=== PATIENT | female | born 1980 | race Caucasian/White ===

== ENCOUNTER 2023-09-14 12:08 | Observation (INO) ==
[2023-09-14 12:53] LABS: Basophils # (auto) 0.08 K/uL (0.00-0.20); Basophils % (auto) 0.8 %; Eosinophils # (auto) 0.16 K/uL (0.00-0.50); Eosinophils % (auto) 1.6 %; Hematocrit (blood only) 41.6 % (37.0-47.0); Hemoglobin 12.9 g/dl (12.0-16.0); Immature Granulocytes # (auto) 0.15 K/uL (0.01-0.20); Immature Granulocytes % (auto) 1.5 %; Lymphocytes # (auto) 1.36 K/uL (1.20-3.40); Lymphocytes % (auto) 13.8 %; Mean Corpuscular Hemoglobin 24.4 pg (25.0-34.0); Mean Corpuscular Volume 78.8 fL (80.0-100.0); Mean Platelet Volume 10.3 fL (9.4-12.4); Monocytes # (auto) 0.78 K/uL (0.11-0.59); Monocytes % (auto) 7.9 %; Neutrophils % (auto) 74.4 %; Platelet Count 407 K/uL (130-400); RDW Coefficient of Variation 16.3 % (11.5-14.5); RDW Standard Deviation 45.6 fL (36.4-46.3); Red Blood Count 5.28 M/uL (4.20-5.40); White Blood Count 9.83 K/ul (4.8-10.8)
[2023-09-14] MEDS: hydrALAZINE HCL 20 MG/ML VIAL IV STA (12:53)
--- NOTE | 2023-09-14 13:02 | Emergency Department Note ---
Impression & Plan Hypertensive emergency, Acute CVA (cerebrovascular accident) ED Provider Note HISTORY OF PRESENT ILLNESS: Patient is a 43-year-old female presenting with hypertension. Patient was referred by her primary care provider. She does not take any medications normally. Reports she has not seen a doctor in a number of years and was following up given a few weeks of lethargy and fatigue. At the primary care provider's office, her blood pressure was significantly elevated and they referred her to the emergency department for further evaluation. Patient reports she has been feeling very rundown over the last few weeks. Reports that she has had some gait instability and has been occasionally bumping into things accidentally. She thought she just had a viral illness which was why she was following up in the outpatient setting attempting to establish care. She reports she has a history of high blood pressure and was on lisinopril 30 mg, but she has not been on this for over 6 years. Reports her blood pressures had improved and she was taken off of the medication. She states she has not seen a doctor since. Denies any chest pain or shortness of breath. Denies any dysuria or hematuria. Denies any headache or changes in vision. ROS: as above PHYSICAL EXAM: Constitutional: Patient appears in no acute distress. HENT: Head: Normocephalic and atraumatic. Eyes: EOMI, PERRL Mouth/Throat: Mucous membranes moist. Neck: Trachea midline. Neck supple. Cardiovascular: RRR, No murmurs, rubs or gallops. Intact distal pulses. Pulmonary/Chest: No respiratory distress. Breath sounds clear and equal bilaterally. No wheezes or rales. Abdominal: Abdomen soft, no tenderness, rebound or guarding. Musculoskeletal: No edema, tenderness or deformity noted. Skin: Warm and dry. No rash, erythema, pallor or cyanosis Psychiatric: Appropriate mood and affect for situation. Neurological: Alert and keenly responsive. CN II-XII grossly intact, moving all extremities equally and fully. MDM: - Vitals signs showed hypertension and tachycardia. - History obtained via patient. History as above. - Chronic conditions affecting care: HTN - Differential diagnoses include, but are not limited to: AUSTYN; ACS; CVA; intracranial hemorrhage; electrolyte abnormality; thyroid disease - Order placed for continuous cardiac monitoring. At this time, monitor showed rate of 87 bpm with normal sinus rhythm, per my interpretation. - External medical records reviewed. Family practice office visit note dated for today was reviewed. Patient was seen and evaluated due to not feeling well. She had complained of feeling very fatigued and off balance. She reported a slight headache to the provider at the clinic this morning. Her blood pressure in clinic was 218/118. - EKG interpreted by myself showed normal sinus rhythm. Rate 95 bpm. QT 360. No acute ischemic changes. - Laboratory workup interpreted by myself showed normal WBC; normal PT/INR; stable electrolytes; normal troponin; normal TSH - CXR negative for pneumonia, per my interpretation - CT head wo contrast negative for acute intracranial hemorrhage. Noted to have a 1.1 cm hypodense focus in the right frontal lobe concerning for a subacute to acute infarct. Also noted to have an 8 mm hypodense focus in the left thalamus which favors an old infarct, per radiology. - Patient initially given 10 mg IV hydralazine for BP control. She is not a TNK candidate, given that her symptoms have been ongoing for weeks. Concerned about lowering the patient's blood pressure too quickly, is unknown how long her pressures have been over 200 systolic. After 10 mg of hydralazine, the patient's blood pressure did come down to the 230s. Her heart rate is now in the 80s. She will need admission for further evaluation and management to slowly decrease of her blood pressure. She would likely benefit from labetalol dosing, but again do not want to decrease the patient's blood pressure too rapidly given her significant hypertension. - Discussion was had with manager of case about patient's case and need for admission - Hospitalist consulted for admission - Patient admitted to [facility]ist service for further evaluation and management. ASSESSMENT AND PLAN: Diagnosis: Hypertensive emergency; acute CVA Plan: admit Past Med/Surg History Problem List (Updated 09/14/23 @ 13:38 by Carolynn Zavala MD) Acute CVA (cerebrovascular accident) (Acute) Hypertensive emergency (Acute) Social History Smoking Status: Never smoker Feels Safe at Home: Yes Allergies Allergies Allergy/AdvReac Type Severity Reaction Status Date / Time No Known Allergies Allergy Verified 05/16/02 14:40 [id number] Allergy Unknown Uncoded 05/16/02 15:02 N Allergy Unknown Uncoded 05/16/02 15:02 Results & Data (ED) Vital Signs Vital Signs - 24 hr 09/14/23 12:10 09/14/23 12:56 09/14/23 12:59 Temperature 36.7 C Temperature Source Temporal Artery Scan Pulse Rate 111 H Pulse Rate [Apical] 86 Pulse Rhythm Regular Pulse Strength Normal Respiratory Rate 20 18 Respiratory Effort / Characteristics Non-Labored Spontaneous Non-Labored Spontaneous Respiratory Depth Normal Normal Respiratory Pattern Regular Blood Pressure 252/158 H Blood Pressure [Left Arm] 237/141 H Blood Pressure Mean 189 Blood Pressure Mean [Left Arm] 173 Pulse Oximetry 100 100 100 Oxygen Delivery Method Room Air Room Air Room Air Sepsis Recent Fever Within 48 Hours No Sepsis New/Unexplained Change in Mental Status N/A Sepsis Action Taken by Nursing No Action Required 09/14/23 13:19 Temperature Temperature Source Pulse Rate 85 Pulse Rate [Apical] Pulse Rhythm Pulse Strength Respiratory Rate Respiratory Effort / Characteristics Respiratory Depth Respiratory Pattern Blood Pressure Blood Pressure [Left Arm] Blood Pressure Mean Blood Pressure Mean [Left Arm] Pulse Oximetry Oxygen Delivery Method Sepsis Recent Fever Within 48 Hours Sepsis New/Unexplained Change in Mental Status Sepsis Action Taken by Nursing Laboratory Data 09/14/23 12:16 09/14/23 12:16 Lab Results 09/14/23 Range/Units 12:16 WBC 9.83 (4.8-10.8) K/ul RBC 5.28 (4.20-5.40) M/uL Hgb 12.9 (12.0-16.0) g/dl Hct 41.6 (37.0-47.0) % MCV 78.8 L (80.0-100.0) fL MCH 24.4 L (25.0-34.0) pg MCHC 31.0 L (32.0-36.0) g/dL RDW Std Deviation 45.6 (36.4-46.3) fL RDW Coeff of Lary 16.3 H (11.5-14.5) % Plt Count 407 H (130-400) K/uL MPV 10.3 (9.4-12.4) fL Immature Gran % (Auto) 1.5 % Neut % (Auto) 74.4 % Lymph % (Auto) 13.8 % Whitman % (Auto) 7.9 % Eos % (Auto) 1.6 % Baso % (Auto) 0.8 % Neut # (Auto) 7.30 H (1.40-6.50) K/uL Lymph # (Auto) 1.36 (1.20-3.40) K/uL Whitman # (Auto) 0.78 H (0.11-0.59) K/uL Eos # (Auto) 0.16 (0.00-0.50) K/uL Baso # (Auto) 0.08 (0.00-0.20) K/uL Immature Gran # (Auto) 0.15 (0.01-0.20) K/uL PT 10.1 (9.0-12.0) Seconds INR 0.9 (0.9-1.1) APTT 24 (21-31) Seconds PTT Ratio 0.9 Sodium 138 (136-145) mmol/L Potassium 3.6 (3.5-5.1) mmol/L Chloride 104 (98-107) mmol/L Carbon Dioxide 26 (21-32) mmol/L Anion Gap 8 (3-11) BUN 16 (6-23) mg/dl Creatinine 0.92 (0.6-1.2) mg/dl Est Cr Clr Drug Dosing 73.7 ml/min Est GFR ( Amer) 87.8 ml/min Est GFR (Non-Af Amer) 75.7 ml/min BUN/Creatinine Ratio 17.4 (10-20) Glucose 96 (70-99(Fasting)) mg/dl Calcium 10.0 (8.6-10.3) mg/dl Magnesium 2.3 (1.7-2.4) mg/dl Total Bilirubin 0.7 (0.2-1.0) mg/dl AST 13 (13-39) U/L ALT 11 (7-52) U/L Alkaline Phosphatase 78 (34-104) U/L Troponin I High Sens 5.1 (0-14) pg/ml Total Protein 8.7 H (6.0-8.3) gm/dl Albumin 4.8 (3.4-5.0) gm/dl Globulin 3.9 (2.5-4.0) gm/dl Albumin/Globulin Ratio 1.2 (0.9-2) TSH 1.446 (0.300-4.500) uIu/ml SARS-CoV-2 (PCR) NEGATIVE (Negative) Influenza Type A (PCR) Negative (Neg) Influenza Type B (PCR) Negative (Neg) RSV (RT-PCR) Negative (Neg) Administered Medications Discontinued Medications Hydralazine HCl (Hydralazine Hcl 20 Mg/Ml Vial) 10 mg IV NOW STA Stop: 09/14/23 12:43 Last Admin: 09/14/23 12:53 Dose: 10 mg Documented By: WIL Imaging Data Radiologist's Impression: Head CT 09/14/23 13:02 CT OF THE HEAD WITHOUT CONTRAST CLINICAL HISTORY: Hypertension. Gait instability. COMPARISON STUDY: No previous studies for comparison. CT DOSE: 625.8 mGy.cm TECHNIQUE: Helical axial images of the head were obtained without IV contrast. Automated exposure control was utilized for the study. A dose lowering technique was utilized adhering to the principles of ALARA. FINDINGS: No acute intracranial hemorrhage, midline shift or mass effect is present. The ventricular system is normal. The basal cisterns are patent. There are no extra axial collections. An 8 mm hypodense focus within the left thalamus on image 15 of 32 is present. There is a 1.1 cm hypodense focus within the right frontal lobe on image 2432. There are no significant calvarial abnormalities. IMPRESSION: 1. No acute intracranial hemorrhage. 2. 1.1 cm hypodense focus within the right frontal lobe. This may reflect a small subacute to acute infarct. 3. 8 mm hypodense focus within the left thalamus. 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 ACT 112: Negative or not required by law. Electronically signed by: Elieser Lopez M.D. 09/14/2023 1:24 PM Discharge Plan Visit Data Chief Complaint: Hypertension Stated Complaint: HIGH BP, REF BY DOC ED Provider: Carolynn Zavala Discharge Problem: Hypertensive emergency, Acute CVA (cerebrovascular accident) Forms Stand Alone Forms: My [facility] Referrals Referrals: Huseyin Etienne MD [Physician] -
[2023-09-14 13:06] LABS: Influenza A virus by PCR Negative (Neg); Influenza B virus by PCR Negative (Neg); RSV by PCR Negative (Neg); SARS CoV2 RNA(COVID-19) Ceph NEGATIVE (Negative)
[2023-09-14 13:10] LABS: Alanine Aminotransferase 11 U/L (7-52); Albumin Globulin Ratio 1.2 (0.9-2); Albumin Level 4.8 gm/dl (3.4-5.0); Alkaline Phosphatase 78 U/L (34-104); Anion Gap 8 (3-11); Aspartate Aminotransferase 13 U/L (13-39); BUN Creatinine Ratio 17.4 (10-20); Bilirubin,Total 0.7 mg/dl (0.2-1.0); Blood Urea Nitrogen 16 mg/dl (6-23); Carbon Dioxide 26 mmol/L (21-32); Chloride 104 mmol/L (98-107); Creatinine Clr Calc Pharmacy 73.7 ml/min; Est GFR (African American) 87.8 ml/min; Est GFR (Non-African American) 75.7 ml/min; Globulin 3.9 gm/dl (2.5-4.0); Glucose 96 mg/dl (70-99(Fasting)); Magnesium 2.3 mg/dl (1.7-2.4); Potassium 3.6 mmol/L (3.5-5.1); Sodium 138 mmol/L (136-145); Total Protein 8.7 gm/dl (6.0-8.3)
[2023-09-14 13:16] LABS: Troponin I High Sensitivity 5.1 pg/ml (0-14)
[2023-09-14 13:20] LABS: INR 0.9 (0.9-1.1); Partial Thromboplastin Ratio 0.9; Partial Thromboplastin Time 24 Seconds (21-31); Prothrombin Time 10.1 Seconds (9.0-12.0)
[2023-09-14 13:23] LABS: Thyroid Stimulating Hormone 1.446 uIu/ml (0.300-4.500)
--- NOTE | 2023-09-14 13:26 | CT Scan Report ---
CT OF THE HEAD WITHOUT CONTRAST CLINICAL HISTORY: Hypertension. Gait instability. COMPARISON STUDY: No previous studies for comparison. CT DOSE: 625.8 mGy.cm TECHNIQUE: Helical axial images of the head were obtained without IV contrast. Automated exposure con trol was utilized for the study. A dose lowering technique was utilized adhering to the principles o f ALARA. FINDINGS: No acute intracranial hemorrhage, midline shift or mass effect is present. The ventricular system is normal. The basal cisterns are patent. There are no extra axial collections. An 8 mm hypode nse focus within the left thalamus on image 15 of 32 is present. There is a 1.1 cm hypodense focus wi thin the right frontal lobe on image 2432. There are no significant calvarial abnormalities. IMPRESSION: 1. No acute intracranial hemorrhage. 2. 1.1 cm hypodense focus within the right frontal lobe. This may reflect a small subacute to acute i nfarct. 3. 8 mm hypodense focus within the left thalamus. 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 ACT 112: Negative or not required by law. Electronically signed by: Elieser Lopez M.D. 09/14/2023 1:24 PM
--- NOTE | 2023-09-14 13:57 | XRay Report ---
XR chest 1V portable CLINICAL HISTORY: Chest pain, nonspecific TECHNIQUE: Single frontal radiograph of the chest was obtained. Comparison: None available at the time of this dictation. FINDINGS: No lines and tubes are seen. The cardiomediastinal silhouette is normal. The lungs are clear. No evid ence of pleural effusion or pneumothorax. IMPRESSION: No acute chest disease. ACT 112: Negative or not required by law. Electronically signed by: Ivan Alston M.D. 09/14/2023 1:56 PM
--- NOTE | 2023-09-14 14:04 | History & Physical Report ---
Date of Service September 14, 2023 Assessment & Plan (1) Acute CVA (cerebrovascular accident): (2) Hypertensive emergency: (3) Low mean corpuscular volume (MCV): Plan Loren Minor is a 43y/o F with PMHx of HTN who presented to the ED for evaluation of an elevated BP of 218/118 discovered in the outpatient setting and was referred here for evaluation by Jessica Curran PA-C at [facility] in [place]. Was ultimately found to have a subacute to acute infarct in the R frontal lobe on head CT. Patient not taking any medications VP PLATFORMS. Acute CVA --> CT head: 1.1cm hypodense focus w/in the R frontal lobe, no acute intracranial hemorrhage. -Neurology consulted -Loaded w/ aspirin, Plavix in ED -DAPT w/ daily aspirin, Plavix starting tomorrow -Initiate atorvastatin 40mg daily --> plan to give first dose tonight, next dose tomorrow -Echo pending -Chest x-ray negative -Urine preg negative -RVP negative -Brain MRI w/ no acute intracranial hemorrhage --> showed some scattered acute to subacute infarcts w/in frontal, parietal lobes -Head CTA displays severe narrowing of R internal carotid artery, no acute vessel occlusion -Neck CTA shows high-grade stenosis of R ICA, moderate luminal narrowing of vertebral arteries -HH diet ordered -Neuro checks -Continuous cardiac, pulse ox monitoring -Lipid panel in AM -CBC, CMP and Hgb A1C in AM -Speech therapy, PT/OT HTN Emergency -BP 237/141 on admission --> SBP in the 250s upon arrival to ED per Dr. Zavala -Received 10mg IV hydralazine in ED -BP steadily holding at 247/159 during discussion w/ patient -EKG w/out ischemic changes -PRN IV 5mg labetalol Q4H (first choice) -PRN IV 5mg hydralazine Q4H (second choice) --> Goal SBP 200-220, DBP 110s-125 w/in next 24hrs -Was on 30mg lisinopril in past, stopped taking ~6 yrs ago -Initiate scheduled BP medications when able -BP checks Q2H -Ad/[place] as tolerated -Fall precautions -EKG as needed w/ chest pain -Continuous cardiac, pulse ox monitoring Low MCV --> 78.8 on admission, ? possible iron deficiency anemia ? -Hgb 12.9, Hct 41.6 on admission -Appears no acute anemic process currently -No known hx of anemia -Does have heavy periods at baseline -Iron panel, vit B12 and folate in AM -Repeat CBC in AM DVT Prophylaxis: SCDs - For now Code Status: Full Code PCP: NO PCP Dispo: Admit to PCU/Telemetry Patient seen in collaboration with Dr. Nelson. Please see addendum. I spent a total of 75 minutes coordinating, documenting, and providing care for this patient excluding time spent in the performance of separately billed servi hamilton. This included personally reviewing all current laboratories and imaging studies, medical reconciliation, outpatient chart review and discussion with specialists. This chart was completed in part utilizing Speech Voice Recognition Software. Grammatical errors, random word insertions, pronoun errors, and incomplete sentences are an occasional consequence of this system due to software limitati ons, ambient noise, and hardware issues. Any formal questions or concerns about the content, text, or information contained within the body of this dictation should be directly addressed to the provider for clarification. History of Present Illness Chief Complaint: Elevated BP Primary Care Provider: NO PCP Loren Minor is a 43y/o F with PMHx of HTN who presented to the ED for evaluation of an elevated BP of 218/118 discovered in the outpatient setting. She was referred here for evaluation by Jessica Curran PA-C at [facility] in [place] where she was initially being seen. History obtained from patient, significant other/daughter in room and associated chart review. Patient seen with Dr. Nelson. Patient states she's been feeling tired, fatigued over the past 1-2 weeks. Some gait instability as well. Mentions she was been bumping into things, becoming unsteady for the past 1-2 weeks as well. Patient hadn't seen at PCP for a while until just today. Thought maybe she was coming down with a viral illness, which was her main reason for being seen at [facility]. She was ultimately sent over her evaluation and treatment given BP 218/118 in the office. She was treated with 30mg lisinopril daily in the past, states she hasn't taken this medication in ~6 years or so. Stopped taking this medication on her own determination, stopped following w/ her previous PCP b/c he retired. No fevers, sore throat, cough, chest pain or SOB. Has been having some "weird feelings" in her L knee. Had some trauma to her L knee over weekend after bumping into a piece of furniture. States she had some numbness/tingling in her L knee most recently Monday night. "Feels like when you get your reflexes done." Lasted only a couple of seconds. Had some numbness/tingling in L fingers intermittently that started this week, only lasts a few seconds and then subsides. Never smoked, no alcohol use and no recreational drug use. No personal hx of stroke, TIA, cancer or blood clots. Maternal grandfather had a stroke in his 70s. Youngest child is on statin therapy (10mg dosing) - recently started a few months ago. Patient takes no prescription medications. Does have heavier periods, but no personal hx of anemia. Allergies Allergy/AdvReac Type Severity Reaction Status Date / Time No Known Allergies Allergy Verified 05/16/02 14:40 [id number] Allergy Unknown Uncoded 05/16/02 15:02 N Allergy Unknown Uncoded 05/16/02 15:02 Home Medications Medication Instructions Recorded Confirmed Type ascorbic acid (vitamin C) 500 mg 500 mg PO BID 09/14/23 09/14/23 History tablet (Vitamin C) Past Med/Surg History Problem List Low mean corpuscular volume (MCV) Acute CVA (cerebrovascular accident) (Acute) Hypertensive emergency (Acute) Medical History Retinal detachment with retinal defect of right eye History of hypertension Was on 30mg lisinopril in the past - has not been on this medication for ~6 years or so. Surgical History No pertinent past surgical history Family History Grandfather (Paternal) Diabetes Grandfather (Maternal) Stroke Diabetes Social History Smoking Status: Never smoker Feels Safe at Home: Yes Review of Systems Review of Systems: At least ten systems reviewed and negative, except as noted in the HPI. Physical Exam Physical Exam: Please refer to Dr. Nelson's addendum for physical examination findings, and he performed the physical examination of the patient. Results & Data Results & Data Vital Signs (Past 12 Hours) Vital Signs Temp Pulse Pulse Resp BP BP Pulse Ox 09/14/23 13:19 85 09/14/23 12:59 86 18 237/141 H 100 09/14/23 12:56 100 09/14/23 12:10 36.7 C 111 H 20 252/158 H 100 O2 Del Method 09/14/23 13:19 09/14/23 12:59 Room Air 09/14/23 12:56 Room Air 09/14/23 12:10 Room Air Laboratory Results Short CBC 09/14/23 Range/Units 12:16 WBC 9.83 (4.8-10.8) K/ul Hgb 12.9 (12.0-16.0) g/dl Hct 41.6 (37.0-47.0) % Plt Count 407 H (130-400) K/uL BMP 09/14/23 12:16 Sodium 138 Potassium 3.6 Chloride 104 Carbon Dioxide 26 BUN 16 Creatinine 0.92 Glucose 96 Calcium 10.0 Liver Function 09/14/23 Range/Units 12:16 Total Bilirubin 0.7 (0.2-1.0) mg/dl AST 13 (13-39) U/L ALT 11 (7-52) U/L Alkaline Phosphatase 78 (34-104) U/L Albumin 4.8 (3.4-5.0) gm/dl Diagnostic Findings Chest X-Ray 09/14/23 12:14 XR chest 1V portable CLINICAL HISTORY: Chest pain, nonspecific TECHNIQUE: Single frontal radiograph of the chest was obtained. Comparison: None available at the time of this dictation. FINDINGS: No lines and tubes are seen. The cardiomediastinal silhouette is normal. The lungs are clear. No evidence of pleural effusion or pneumothorax. IMPRESSION: No acute chest disease. ACT 112: Negative or not required by law. Electronically signed by: Ivan Alston M.D. 09/14/2023 1:[address] 09/14/23 13:02 CT OF THE HEAD WITHOUT CONTRAST CLINICAL HISTORY: Hypertension. Gait instability. COMPARISON STUDY: No previous studies for comparison. CT DOSE: 625.8 mGy.cm TECHNIQUE: Helical axial images of the head were obtained without IV contrast. Automated exposure control was utilized for the study. A dose lowering technique was utilized adhering to the principles of ALARA. FINDINGS: No acute intracranial hemorrhage, midline shift or mass effect is present. The ventricular system is normal. The basal cisterns are patent. There are no extra axial collections. An 8 mm hypodense focus within the left thalamus on image 15 of 32 is present. There is a 1.1 cm hypodense focus within the right frontal lobe on image 2432. There are no significant calvarial abnormalities. IMPRESSION: 1. No acute intracranial hemorrhage. 2. 1.1 cm hypodense focus within the right frontal lobe. This may reflect a small subacute to acute infarct. 3. 8 mm hypodense focus within the left thalamus. 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 ACT 112: Negative or not required by law. Electronically signed by: Elieser Lopez M.D. 09/14/2023 1:24 PM Brain MRI 09/14/23 13:58 MR brain wo/w con HISTORY: 43 years-old Female Acute infarct R frontal lobe acute strokelike symptoms COMPARISON: CTA head, CTA head and neck studies of same day TECHNIQUE: Multiplanar multisequence MRI of the brain was obtained with and without IV contrast. FINDINGS: There are several scattered subcentimeter foci of restricted diffusion noted within the watershed centrum semiovale distribution of the right frontal and parietal lobes measuring up to 9 mm on image 19 series 4 within the frontal lobe. These areas demonstrate increased T2/FLAIR signal with subtle enhancement. No acute or subacute territorial infarct. No acute intracranial hemorrhage, midline shift, abnormal extraction collection, hydrocephalus or intra-axial mass. Chronic 8 mm left thalamic lacunar infarct. Midline structures are unremarkable. No abnormal enhancement. Mild scattered T2/FLAIR hyperintense foci. White matter are nonspecific, possibly representing early changes of chronic microvascular ischemic disease. Severe narrowing of the cavernous and supraclinoid segments of the right ICA better appreciated on the comparison CTA of the head. Cerebral venous sinuses are patent. Right-sided. Mastoid air cells and paranasal sinuses are generally clear. IMPRESSION: 1. Scattered subcentimeter acute to subacute appearing infarcts within the right centrum semiovale watershed distributions of the superior frontal and parietal lobes. 2. No acute intracranial hemorrhage, midline shift, or hydrocephalus. 3. Chronic left thalamic lacunar infarct. ACT 112: Negative or not required by law. The above report was generated using voice recognition software. It may contain grammatical, syntax or spelling errors. Electronically signed by: Yung Sharpe M.D. 09/14/2023 4:51 PM Head CTA 09/14/23 14:05 CTA ANGIOGRAPHY OF THE HEAD CLINICAL HISTORY: Acute infarct R frontal lobe COMPARISON STUDY: Head CT performed earlier today. TECHNIQUE: Helical axial images of the head were obtained following uneventful intravenous administration of 120 cc of Optiray. Sagittal and coronal reconstruc tions were viewed as well as maximal intensity projections on an independent 3-D workstation. Automated exposure control was utilized for the study. A dose lowering technique was utilized adhering to the principles of ALARA. CT DOSE: 405.34 mGy.cm FINDINGS: There is severe narrowing of the cavernous and supraclinoid portions of the right internal carotid artery. This portion of the vessel is diminutive. There is mild narrowing of the left cavernous carotid. The right A1 segment is also diminutive. No acute vessel occlusion is identified. The bilateral sylvian branches appear patent. There is no occlusion within the posterior circulation. The left vertebral artery is dominant. The basilar artery and bilateral posterior cerebral arteries are patent. No intracranial aneurysm is identified. Major dural sinuses are patent. Right-sided scleral buckle is incidentally noted. IMPRESSION: 1. Severe narrowing of the cavernous and supraclinoid portions of the right internal carotid artery. This portion of the vessel is diminutive. Diminutive right A1 segment. 2. Mild narrowing of the left cavernous carotid. 3. No acute vessel occlusion identified. No intracranial aneurysm. ACT 112: Negative or not required by law. Electronically signed by: Elieser Lopez M.D. 09/14/2023 3:34 PM Neck CTA 09/14/23 14:05 CT angio neck with con CLINICAL HISTORY: 43 years-old Female with Acute infarct R frontal lobe. Acute strokelike symptoms COMPARISON STUDY: CT head and CTA head studies of same day TECHNIQUE: Following the IV administration of 1 20 mL of Optiray, CT angiogram of the neck was performed from the aortic arch to the skull base. Images are reviewed in the axial, sagittal, and coronal planes. 3-D MIPS images are created and assessed. IV contrast was administered without complication. All measurements were calculated based on NASCET criteria. A dose lowering technique was utilized adhering to the principles of ALARA. FINDINGS: Three-vessel morphology of the thoracic aortic arch. Patency of the innominate and image subclavian arteries. Common and proximal internal carotid arteries are patent. There is no significant atherosclerosis identified. There is high-grade narrowing involving the supraclinoid segment right ICA, partially imaged on this exam. Patent proximal vertebral arteries. There is mild to moderate luminal multifocal narrowing within the the 4 segments of the right greater than left vertebral arteries. No dissection, aneurysm or arterial occlusion identified. Right-sided scleral banding. Lung apices are clear. Unremarkable soft tissues. No acute fracture. Degenerative changes of the spine. IMPRESSION: 1. High-grade stenosis of the supraclinoid segment right ICA. 2. Moderate luminal narrowing of the right greater than left V4 segments of the vertebral arteries. Correlate clinically to exclude a nonspecific vasculitis. ACT 112: Negative or not required by law. The above report was generated using voice recognition software. It may contain grammatical, syntax or spelling errors. Electronically signed by: Yung Sharpe M.D. 09/14/2023 3:37 PM Medications Administered Discontinued Medications Aspirin (Aspirin Chew 324 Mg) 324 mg PO NOW STA Stop: 09/14/23 13:58 Last Admin: 09/14/23 14:16 Dose: 324 mg Documented By: NIKKI Clopidogrel Bisulfate (Clopidogrel Bisulfate 300 Mg Tab) 300 mg PO NOW STA Stop: 09/14/23 13:58 Last Admin: 09/14/23 14:16 Dose: 300 mg Documented By: NIKKI Hydralazine HCl (Hydralazine Hcl 20 Mg/Ml Vial) 10 mg IV NOW STA Stop: 09/14/23 12:43 Last Admin: 09/14/23 12:53 Dose: 10 mg Documented By: WIL Ioversol (Optiray 320 150ml) 120 ml IV ONCE ONE Stop: 09/14/23 14:53 Last Admin: 09/14/23 14:52 Dose: 120 ml Documented By: RODGER ECG Additional Comments: EKG interpreted by myself and reveals NSR w/ HR 95bpm, QTc Int 452ms, anterior infarct of undetermined age. Code Status & VTE Plan Code Status FULL CODE VTE Prophylaxis Plan VTE Prophylaxis will be ordered: Yes Supervising Physician Co-Signing Physician Notes 43-year-old lady with PMH of HTN supposed to be on lisinopril/not on lisinopril/self discontinued and with family history of stroke in her grand father in 70s presented to the ED at referral of PCP office for high blood pressure noted at PCP office. Patient reports feeling rundown/tired for about a week, also reports having gait unstability and balance issues for about 1 to 2 weeks, had left lower extremity weakness/numbness and tingling feeling for few minutes on Monday night which resolved on its own. Denied fever/sore throat/cough/chest pain/palpitation. A lso reports having occasional left finger numbness and tingling lasting for few seconds at a time. She denies smoking/recreational drug use. Utilizes alcohol on rare occasions. Full code Admitting blood pressure very high at 252/158, labs reviewed, low MCV noted, TSH WNL, respiratory pathogen panel screen negative. CT head with 1.1 cm hypodense focus within the right frontal lobe suggestive of small subacute to acute infarct, no bleeding noted. Active problems: Acute ischemic stroke: No bleeding noted in CT head, discussed increased risks of bleeding with DAPT therapy with patient and her family at bedside, they are acceptable of the risks and agreeable to utilize DAPT therapy to prevent recurrence of the stroke. Loading dose of aspirin and Plavix today, to be continued with maintenance dose from tomorrow. Neurology consult. Echo. EKG. Lipid profile in am. Imagings including MRI brain, CTA head and neck. A1c. Atorvastatin 40 mg at bedtime. Neurochecks. Telemetry monitoring. Hypertensive emergency: In the setting of acute ischemic stroke. Admitting blood pressure of 252/158, would like to keep SBP between 200-220 and DBP between 110s to 125 mmHg today. As needed blood pressure medications: Labetalol 5 Mg IV every 4 hrs as needed - first choice and hydralazine 5 Mg IV every 4 as needed - second choice. Communication order put in for rn to utilize as needed blood pressure medication to achieve SBP goal. Possible iron deficiency: Patient reports heavy menses flow per pt, test negative, MCV decreased. Iron profile, vitamin B12, folate level to be added in the morning lab. Possible noncompliance with hypertensive medication: Patient was previously on lisinopril 30 mg daily which she self discontinued because she noted her blood pressure to be in the normal range during her urgent care visits in the past. Will currently utilize as needed blood pressure medication until next 24 to 48 hours when we can put her on scheduled blood pressure medication. DVT prophylaxis: SCDs. Full code On Exam: GENERAL: Alert and oriented x3. NAD, on RA. HEENT: No pallor, no icterus. Pupils equal, round and reactive to light. Oral mucosa moist. NECK: No JVD, no neck masses. HEART: S1 and S2 heard. Regular rate and rhythm. No murmur, no gallop. RESPIRATORY SYSTEM: Normal AP diameter. No accessory muscle use. No wheezing, no crackles. ABDOMEN: Soft, bowel sounds present, nontender, no distention. CENTRAL NERVOUS SYSTEM: No facial droop. Speech is clear. Obeys simple commands. Moves extremities. power 5/5 b/l UE and LE. EXTREMITIES: No edema, no erythema seen. I have seen and examined the patient and have discussed the case with the provider above. I agree with the assessment and plan as stated.
[2023-09-14] MEDS: ASPIRIN CHEW 324 MG PO STA (14:16)
[2023-09-14] MEDS: CLOPIDOGREL BISULFATE 300 MG TAB PO STA (14:16)
[2023-09-14] MEDS: OPTIRAY 320 150ml IV ONE (14:52)
--- NOTE | 2023-09-14 15:36 | CT Scan Report ---
CTA ANGIOGRAPHY OF THE HEAD CLINICAL HISTORY: Acute infarct R frontal lobe COMPARISON STUDY: Head CT performed earlier today. TECHNIQUE: Helical axial images of the head were obtained following uneventful intravenous administr ation of 120 cc of Optiray. Sagittal and coronal reconstructions were viewed as well as maximal inten sity projections on an independent 3-D workstation. Automated exposure control was utilized for the study. A dose lowering technique was utilized adhering to the principles of ALARA. CT DOSE: 405.34 mGy.cm FINDINGS: There is severe narrowing of the cavernous and supraclinoid portions of the right internal carotid artery. This portion of the vessel is diminutive. There is mild narrowing of the left caverno us carotid. The right A1 segment is also diminutive. No acute vessel occlusion is identified. The lula ateral sylvian branches appear patent. There is no occlusion within the posterior circulation. The le ft vertebral artery is dominant. The basilar artery and bilateral posterior cerebral arteries are pat ent. No intracranial aneurysm is identified. Major dural sinuses are patent. Right-sided scleral joy le is incidentally noted. IMPRESSION: 1. Severe narrowing of the cavernous and supraclinoid portions of the right internal carotid artery. This portion of the vessel is diminutive. Diminutive right A1 segment. 2. Mild narrowing of the left cavernous carotid. 3. No acute vessel occlusion identified. No intracranial aneurysm. ACT 112: Negative or not required by law. Electronically signed by: Elieser Lopez M.D. 09/14/2023 3:34 PM
--- NOTE | 2023-09-14 15:39 | CT Scan Report ---
CT angio neck with con CLINICAL HISTORY: 43 years-old Female with Acute infarct R frontal lobe. Acute strokelike symptoms COMPARISON STUDY: CT head and CTA head studies of same day TECHNIQUE: Following the IV administration of 1 20 mL of Optiray, CT angiogram of the neck was perfor med from the aortic arch to the skull base. Images are reviewed in the axial, sagittal, and coronal p lanes. 3-D MIPS images are created and assessed. IV contrast was administered without complication. A ll measurements were calculated based on NASCET criteria. A dose lowering technique was utilized adh ering to the principles of ALARA. FINDINGS: Three-vessel morphology of the thoracic aortic arch. Patency of the innominate and image subclavian a rteries. Common and proximal internal carotid arteries are patent. There is no significant atheroscle rosis identified. There is high-grade narrowing involving the supraclinoid segment right ICA, partial ly imaged on this exam. Patent proximal vertebral arteries. There is mild to moderate luminal multifo ruddy narrowing within the the 4 segments of the right greater than left vertebral arteries. No dissect ion, aneurysm or arterial occlusion identified. Right-sided scleral banding. Lung apices are clear. Unremarkable soft tissues. No acute fracture. Deg enerative changes of the spine. IMPRESSION: 1. High-grade stenosis of the supraclinoid segment right ICA. 2. Moderate luminal narrowing of the right greater than left V4 segments of the vertebral arteries. C orrelate clinically to exclude a nonspecific vasculitis. ACT 112: Negative or not required by law. The above report was generated using voice recognition software. It may contain grammatical, syntax o r spelling errors. Electronically signed by: Yung Sharpe M.D. 09/14/2023 3:37 PM
[2023-09-14] MEDS: GADOBUTROL 65ML VIAL IV ONE (16:34)
--- NOTE | 2023-09-14 16:52 | Magnetic Resonance Report ---
MR brain wo/w con HISTORY: 43 years-old Female Acute infarct R frontal lobe acute strokelike symptoms COMPARISON: CTA head, CTA head and neck studies of same day TECHNIQUE: Multiplanar multisequence MRI of the brain was obtained with and without IV contrast. FINDINGS: There are several scattered subcentimeter foci of restricted diffusion noted within the watershed nikki trum semiovale distribution of the right frontal and parietal lobes measuring up to 9 mm on image 19 series 4 within the frontal lobe. These areas demonstrate increased T2/FLAIR signal with subtle enhan cement. No acute or subacute territorial infarct. No acute intracranial hemorrhage, midline shift, ab normal extraction collection, hydrocephalus or intra-axial mass. Chronic 8 mm left thalamic lacunar i nfarct. Midline structures are unremarkable. No abnormal enhancement. Mild scattered T2/FLAIR hyperin tense foci. White matter are nonspecific, possibly representing early changes of chronic microvascula r ischemic disease. Severe narrowing of the cavernous and supraclinoid segments of the right ICA better appreciated on th e comparison CTA of the head. Cerebral venous sinuses are patent. Right-sided. Mastoid air cells and paranasal sinuses are generally clear. IMPRESSION: 1. Scattered subcentimeter acute to subacute appearing infarcts within the right centrum semiovale wa tershed distributions of the superior frontal and parietal lobes. 2. No acute intracranial hemorrhage, midline shift, or hydrocephalus. 3. Chronic left thalamic lacunar infarct. ACT 112: Negative or not required by law. The above report was generated using voice recognition software. It may contain grammatical, syntax o r spelling errors. Electronically signed by: Yung Sharpe M.D. 09/14/2023 4:51 PM
--- NOTE | 2023-09-14 17:47 | Electrocardiogram Report ---
Test Reason : Blood Pressure : / mmHG Vent. Rate : 095 BPM Atrial Rate : 095 BPM P-R Int : 146 ms QRS Dur : 082 ms QT Int : 360 ms P-R-T Axes : 058 076 -04 degrees QTc Int : 452 ms Normal sinus rhythm with sinus arrhythmia Poor R wave progression, consider anterior WI vs. lead placement vs. LVH Abnormal ECG No previous ECGs available Confirmed by To Ann ([id number]) on 09/14/2023 5:47:30 PM Referred By: REFERRED SELF Confirmed By:Danie Ann
[2023-09-14] MEDS ORDERED: ALUMINUM/MAGNESIUM SUSP 30 ML UDC PO PRN (18:08)
[2023-09-14] MEDS ORDERED: MAGNESIUM HYDROXIDE SUSP 30 ML UDC PO PRN (18:08)
[2023-09-14] MEDS ORDERED: ACETAMINOPHEN 325 MG TAB PO PRN (18:08)
[2023-09-14] MEDS ORDERED: hydrALAZINE HCL 20 MG/ML VIAL IV PRN (18:08)
[2023-09-14] MEDS ORDERED: ONDANSETRON INJ 2 MG/ML 2 ML VIAL IV PRN (18:08)
[2023-09-14] MEDS ORDERED: POLYETHYLENE (MIRALAX) 17 GM PACK PO PRN (18:08)
[2023-09-14] MEDS: LABETALOL HCL IV 5 MG/ML 20ML IV PRN (18:27)
[2023-09-14] MEDS: ATORVASTATIN 40 MG TAB PO ONE (19:06)
--- NOTE | 2023-09-14 19:54 | Discharge Summary ---
Date of Service September 14, 2023 Admission HPI Per Admitting Provider Loren Minor is a 43y/o F with PMHx of HTN who presented to the ED for evaluation of an elevated BP of 218/118 discovered in the outpatient setting. She was referred here for evaluation by Jessica Curran PA-C at [facility] in [place] where she was initially being seen. History obtained from patient, significant other/daughter in room and associated chart review. Patient seen with Dr. Nelson. Patient states she's been feeling tired, fatigued over the past 1-2 weeks. Some gait instability as well. Mentions she was been bumping into things, becoming unsteady for the past 1-2 weeks as well. Patient hadn't seen at PCP for a while until just today. Thought maybe she was coming down with a viral illness, which was her main reason for being seen at [facility]. She was ultimately sent over her evaluation and treatment given BP 218/118 in the office. She was treated with 30mg lisinopril daily in the past, states she hasn't taken this medication in ~6 years or so. Stopped taking this medication on her own determination, stopped following w/ her previous PCP b/c he retired. No fevers, sore throat, cough, chest pain or SOB. Has been having some "weird feelings" in her L knee. Had some trauma to her L knee over after bumping into a piece of furniture. States she had some numbness/tingling in her L knee most recently Monday night. "Feels like when you get your reflexes done." Lasted only a couple of seconds. Had some numbness/tingling in L fingers intermittently that started this week, only lasts a few seconds and then subsides. Never smoked, no alcohol use and no recreational drug use. No personal hx of stroke, TIA, cancer or blood clots. Maternal grandfather had a stroke in his 70s. Youngest child is on statin therapy (10mg dosing) - recently started a few months ago. Patient takes no prescription medications. Does have heavier periods, but no personal hx of anemia. Admission Exam Per Admitting Provider GENERAL: Alert and oriented x3. NAD, on RA. HEENT: No pallor, no icterus. Pupils equal, round and reactive to light. Oral mucosa moist. NECK: No JVD, no neck masses. HEART: S1 and S2 heard. Regular rate and rhythm. No murmur, no gallop. RESPIRATORY SYSTEM: Normal AP diameter. No accessory muscle use. No wheezing, no crackles. ABDOMEN: Soft, bowel sounds present, nontender, no distention. CENTRAL NERVOUS SYSTEM: No facial droop. Speech is clear. Obeys simple commands. Moves extremities. power 5/5 b/l UE and LE. EXTREMITIES: No edema, no erythema seen. Principal Diagnosis Acute CVA, Hypertensive Emergency Discharge Exam General Appearance: Alert and oriented x 3. No acute distress. Head: Normocephalic, atraumatic. Eyes: Normal inspection, PERRL, conjunctivae normal, anicteric sclerae. ENT: External ear and nose normal, oropharynx normal. Neck: Normal visual inspection, trachea midline, no thyromegaly. Respiratory: Normal respiratory effort, lungs clear to auscultation, no wheeze, rales, rhonchi. No accessory muscle use. Cardiovascular: Regular rate, rhythm, no murmur, normal peripheral pulses, no BLE edema. Vessels: No JVD. Chest: Normal inspection of chest. Abdomen/GI: Normal bowel sounds, soft, nontender, no hepatosplenomegaly. Extremities/Musculoskeletal: No cyanosis or clubbing, extremities motor strength 5/5. Neurologic: PERRL, EOMI, accommodation nl, no face palsy, no dysarthria, CN's II-XI grossly intact bilaterally and moves all extremities. Skin: No rashes, normal color, warm/dry. Discharge Data Allergies Allergy/AdvReac Type Severity Reaction Status Date / Time No Known Allergies Allergy Verified 05/16/02 14:40 [id number] Allergy Unknown Uncoded 05/16/02 15:02 N Allergy Unknown Uncoded 05/16/02 15:02 Consultations 09/14/23 13:48 ED Decision to Admit Stat 09/14/23 13:57 Consult Neurology Routine Ordered Studies 09/14/23 13:02 CT head/brain wo con Stat 09/14/23 13:58 MRI Brain [MR brain wo/w con] Stat 09/14/23 14:05 CT angio head w con Stat CT angio neck with con Stat Hospital Course (1) Acute CVA (cerebrovascular accident): (2) Hypertensive emergency: (3) Low mean corpuscular volume (MCV): Plan Loren Minor is a 43y/o F with PMHx of HTN who presented to the ED for evaluation of an elevated BP of 218/118 discovered in the outpatient setting and was referred here for evaluation by Jessica Curran PA-C at [facility] in [place]. Was ultimately found to have a subacute to acute infarct in the R frontal lobe on head CT. Patient not taking any medications [employer]. Acute CVA --> CT head: 1.1cm hypodense focus w/in the R frontal lobe, no acute intracranial hemorrhage. -Neurology consulted -Loaded w/ aspirin, Plavix in ED -DAPT w/ daily aspirin, Plavix starting tomorrow -Initiate atorvastatin 40mg daily --> plan to give first dose tonight, next dose tomorrow -Echo pending -Chest x-ray negative -Urine preg negative -RVP negative -Brain MRI w/ no acute intracranial hemorrhage --> showed some scattered acute to subacute infarcts w/in frontal, parietal lobes -Head CTA displays severe narrowing of R internal carotid artery, no acute vessel occlusion -Neck CTA shows high-grade stenosis of R ICA, moderate luminal narrowing of vertebral arteries -HH diet ordered -Neuro checks -Continuous cardiac, pulse ox monitoring -Lipid panel in AM -CBC, CMP and Hgb A1C in AM -Speech therapy, PT/OT HTN Emergency -BP 237/141 on admission --> SBP in the 250s upon arrival to ED per Dr. Zavala -Received 10mg IV hydralazine in ED -BP steadily holding at 247/159 during discussion w/ patient -EKG w/out ischemic changes -PRN IV 5mg labetalol Q4H (first choice) -PRN IV 5mg hydralazine Q4H (second choice) --> Goal SBP 200-220, DBP 110s-125 w/in next 24hrs -Was on 30mg lisinopril in past, stopped taking ~6 yrs ago -Initiate scheduled BP medications when able -BP checks Q2H -Ad/[place] as tolerated -Fall precautions -EKG as needed w/ chest pain -Continuous cardiac, pulse ox monitoring Low MCV --> 78.8 on admission, ? possible iron deficiency anemia ? -Hgb 12.9, Hct 41.6 on admission -Appears no acute anemic process currently -No known hx of anemia -Does have heavy periods at baseline -Iron panel, vit B12 and folate in AM -Repeat CBC in AM DVT Prophylaxis: SCDs - For now Code Status: Full Code PCP: NO PCP Dispo: Admit to PCU/Telemetry Patient seen in collaboration with Dr. Nelson. Please see addendum. I spent a total of 75 minutes coordinating, documenting, and providing care for this patient excluding time spent in the performance of separately billed services. This included personally reviewing all current laboratories and imaging studies, medical reconciliation, outpatient chart review and discussion with specialists. This chart was completed in part utilizing Speech Voice Recognition Software. Grammatical errors, random word insertions, pronoun errors, and incomplete sentences are an occasional consequence of this system due to software limitations, ambient noise, and hardware issues. Any formal questions or concerns about the content, text, or information contained within the body of this dictation should be directly addressed to the provider for clarification. Spoke with Dr. Omar Lee [Neurology] over the phone, Dr. Nelson participated in this conversation as well. Recommendation was to transfer patient to a tertiary facility to undergo cerebral angiogram, neuro ICU placement. Will ultimately require a more thorough work-up with studies/procedures that we do not offer here at [facility]. Home Health Attestation I certify that this patient is under my care and that I, or a physicians intellectual property legal assistant working with me, had a face to-face encounter that meets the home health [id number] encounter requirements with this patient. The encounter with the patient was in whole, or in part, for the following medical condition, which is the primary reason for home health care (list medical condition): I certify that, based on my findings, the following services are medically necessary home health services: My clinical findings support the need for the above services because: Further, I certify that my clinical findings support that this patient is homeb ound (i.e. absences from home require considerable and taxing effort and are for medical reasons or pentec[employer] services or infrequently or of short duration when for other reasons) because: Certification for Home Health Services: Based on the above findings, I certify that this patient is confined to the home and needs intermittent group home care, physical therapy and/or speech therapy or continues to need occupational therapy. The patient is under my care, and I have initiated the establishment of the plan of care. This patient will be followed by a physician who will periodically review the plan of care. Total Time Total Time Spent Total Time Spent (In Minutes): 20 Discharge Plan Discharge Items Patient Disposition: Transfer Acute Care Hospital Reason For Visit: HTN EMERGENCY, ACUTE CVA Discharge Diagnosis: acute stroke Hypertensive emergency Activity: As commented below Activity Comment: per tertiary care center Non-emergency contact: Primary Care Provider Call non-emergency contact if: you have any medication questions Follow-up/Referrals: PCP,NO [Primary Care Provider] - Diet: Heart Healthy Addtl Attending Provider Instructions: your current inpatient medications are as follows: Current Inpatient Medications Acetaminophen (Acetaminophen 325 Mg Tab) 650 mg PO Q4H PRN PRN Reason: pain/fever Stop: 10/14/23 18:07 Al Hydrox/Mg Hydrox/Simethicone (Aluminum/Magnesium Susp 30 Ml Udc) 30 ml PO Q6H PRN PRN Reason: Dyspepsia Stop: 10/14/23 18:07 Aspirin (Aspirin 81 Mg Ectab) 81 mg PO DAILY SHARON Stop: 10/15/23 08:59 Atorvastatin Calcium (Atorvastatin 40 Mg Tab) 40 mg PO QAM SHARON Stop: 10/15/23 08:59 Clopidogrel Bisulfate (Clopidogrel Bisulfate 75 Mg Tab) 75 mg PO QAM SHARON Stop: 10/15/23 08:59 Hydralazine HCl (Hydralazine Hcl 20 Mg/Ml Vial) 5 mg IV Q4H PRN PRN Reason: Blood Pressure - High Stop: 10/14/23 18:07 Labetalol HCl (Labetalol Hcl Iv 5 Mg/Ml 20ml) 5 mg IV Q4H PRN PRN Reason: Blood Pressure - High Stop: 10/14/23 18:07 Last Admin: 09/14/23 18:27 Dose: 5 mg Magnesium Hydroxide (Magnesium Hydroxide Susp 30 Ml Udc) 30 ml PO Q6H PRN PRN Reason: Constipation Stop: 10/14/23 18:07 Ondansetron HCl (Ondansetron Inj 2 Mg/Ml 2 Ml Vial) 4 mg IV Q6H PRN PRN Reason: Nausea Stop: 10/14/23 18:07 Polyethylene Glycol (Polyethylene (Miralax) 17 Gm Pack) 17 gm PO DAILY PRN PRN Reason: Constipation Stop: 10/14/23 18:07 Pending Studies at Discharge: No Stand-Alone Forms: My [facility] [employer] Skilled Items Patient informed of condition?: Yes DNR: Yes Discharge Level of Care: Other Communicable Disease: No Discharge Prognosis: Other Lines: Peripheral IV Urinary Catheter: No Medications and DC Order Prescriptions: Continued ascorbic acid (vitamin C) [Vitamin C] 500 mg Tablet 500 mg PO BID Discharge Orders: Discharge Order (Routine); Ordered 09/14/23 Ordered By: Sharon Nelson Admission Data Admit Date/Time: 09/14/23 13:46 Attending Provider: Sharon Nelson Admit Provider: Sharon Nelson Primary Care Provider: PCP,NO Other Providers: Jian Snowden; Sharon Nelson Supervising Physician Co-Signing Physician Notes d/w neuro, needs neuro icu monitor, neurosx eval and cerebral angiogram, recommended transfer to tertiary care center. d/w Dr. Logan from [facility], who accepted the patient. pt will be transferred to [facility]. Pt has already been accepted, awaiting transfer.
[2023-09-14 23:48] LABS: C Reactive Protein < 0.50 mg/dl (0-0.5)
[2023-09-15] MEDS ORDERED: ATORVASTATIN 40 MG TAB PO SCH (09:00)
[2023-09-15] MEDS ORDERED: ASPIRIN 81 MG ECTAB PO SCH (09:00)
[2023-09-15] MEDS ORDERED: CLOPIDOGREL BISULFATE 75 MG TAB PO SCH (09:00)
--- NOTE | 2023-09-15 17:33 | Electrocardiogram Report ---
Test Reason : Blood Pressure : / mmHG Vent. Rate : 089 BPM Atrial Rate : 089 BPM P-R Int : 170 ms QRS Dur : 084 ms QT Int : 402 ms P-R-T Axes : 063 023 022 degrees QTc Int : 489 ms Normal sinus rhythm Possible Left atrial enlargement Anterior infarct (cited on or before 14-SEP-2023) Abnormal ECG When compared with ECG of 14-SEP-2023 12:18, No significant change was found Confirmed by To Ann ([id number]) on 09/15/2023 5:33:11 PM Referred By: REFERRED SELF Confirmed By:Danie Ann
== END 2023-09-14 19:08 | disposition short-term general hospital (02) | DRG 65 ==
LOC: ED 12:08 → SUATTDRO 13:46 → EDINP 13:46 → INTOOBSV 13:46 → EDINP 18:09

== ENCOUNTER 2023-11-27 16:31 | Inpatient (IN) ==
[2023-11-27 17:29] LABS: Hematocrit (blood only) 26.5 % (37.0-47.0); Hemoglobin 8.3 g/dl (12.0-16.0); Mean Corpuscular Hemoglobin 23.9 pg (25.0-34.0); Mean Corpuscular Hgb Conc 31.3 g/dL (32.0-36.0); Mean Corpuscular Volume 76.1 fL (80.0-100.0); Mean Platelet Volume 9.6 fL (9.4-12.4); Platelet Count 516 K/uL (130-400); RDW Coefficient of Variation 15.3 % (11.5-14.5); RDW Standard Deviation 42.6 fL (36.4-46.3); Red Blood Count 3.48 M/uL (4.20-5.40); White Blood Count 10.21 K/ul (4.8-10.8)
[2023-11-27 17:31] LABS: Albumin Globulin Ratio 1.5 (0.9-2); Albumin Level 4.5 gm/dl (3.4-5.0); BUN Creatinine Ratio 17.5 (10-20); Bilirubin,Total 0.7 mg/dl (0.2-1.0); Calcium 8.3 mg/dl (8.6-10.3); Creatinine Clr Calc Pharmacy 88.5 ml/min; Est GFR (African American) 103.9 ml/min; Est GFR (Non-African American) 89.7 ml/min; Globulin 3.1 gm/dl (2.5-4.0); Magnesium 1.9 mg/dl (1.7-2.4); Potassium 3.5 mmol/L (3.5-5.1); Total Protein 7.6 gm/dl (6.0-8.3)
--- NOTE | 2023-11-27 17:34 | CT Scan Report ---
CT OF THE HEAD WITHOUT CONTRAST CLINICAL HISTORY: Neuro deficit, acute, stroke suspected COMPARISON STUDY: Head CT, CTA of the head and MRI of the brain September 14, 2023. CT DOSE: 625.8 mGy.cm TECHNIQUE: Helical axial images of the head were obtained without IV contrast. Automated exposure con trol was utilized for the study. A dose lowering technique was utilized adhering to the principles o f ALARA. FINDINGS: No acute intracranial hemorrhage, midline shift or mass effect is present. The ventricular system is unremarkable. A few hypodense foci within the right frontal lobe represent expected evoluti on of infarct shown on brain MRI. There is an old left thalamic infarct. This is unchanged. The basal cisterns are patent. No extra-axial collections are present. There are no findings to suggest acute dural sinus thrombosis or acute territorial infarct. No significant calvarial abnormalities are prese nt. Visualized portions of the sinuses and mastoid air cells are clear. IMPRESSION: No acute intracranial findings. Several old infarcts, as above. ACT 112: Negative or not required by law. Electronically signed by: Elieser Lopez M.D. 11/27/2023 5:31 PM
[2023-11-27 17:41] LABS: INR 0.9 (0.9-1.1); Partial Thromboplastin Ratio 0.9; Partial Thromboplastin Time 23 Seconds (21-31); Prothrombin Time 10.2 Seconds (9.0-12.0)
[2023-11-27] MEDS: LABETALOL HCL IV 5 MG/ML 20ML IV STA (19:52)
[2023-11-27] MEDS: FUROSEMIDE INJ 20 MG/2 ML VIAL IV ONE (19:52)
--- NOTE | 2023-11-27 21:05 | History & Physical Report ---
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 Patient was transferred to [facility] from [facility] on 09/14/23 for further management and neurosurgery evaluation after imaging revealed multiple subacute infarcts to the right frontal lobe and stenosis of the right internal carotid artery. CTA at that time was suggestive of an underlying vasculopathy and DSA revealed irregular R ICA stenosis up to 50%. MRI at that time also revealed chronic left BG infarct. Vasculitis work-up was largely unremarkable. TTE with bubble study on 09/15/23 showed the following: LVEF of 55-59%, no LV segmental wall motion abnormalities, no SD/PFO and no LV mural thrombus. She was ultimately placed on DAPT (ASA and Plavix), which she is to be on for total of 90 days. Currently on aspirin 81mg orally daily and Plavix 112.5mg orally daily. She was also started on amlodipine 10mg daily for blood pressure management with blood pressure goal of SBP less than 160mmHg to prevent cerebral hypoperfusion leading to further watershed infarcts. She already has an appointment on 12/19/[address] White from [facility] to re-evaluate her right ICA distal stenosis. Patient has been feeling very fatigued and has felt like she is in a "fog" for the past 3 to 4 days. She has been out in the sun at lot recently as she was at the [facility] and wonders if this could be related to sun exposure. She tried taking allergy medication, which is not helping. She did have her period for close to 3 weeks this month, which is very unusual for her. Her period ended on Monday (11/24). She has not taken her aspirin since the middle of October as she did not have any refills left at her pharmacy. She has however been taking her Plavix, amlodipine and atorvastatin as prescribed. Reports her SBP has been in the 140s to 150s. Heart rate has been in the 100s to 110s. She unfortunately had to leave work early today because she started to feel so bad. Reports "this does not feel like when I had my stroke." Has been experiencing some lightheadedness and dizziness intermittently as well, but denies any falls or syncopal events. No recent fevers or illness. Denies any visual changes, facial drooping, speech difficulties or ambulatory issues. Allergies Allergy/AdvReac Type Severity Reaction Status Date / Time amlodipine AdvReac Intermediate leg Verified 11/28/23 08:54 swelling Home Medications Medication Instructions Recorded Confirmed Type ascorbic acid (vitamin C) 500 mg 500 mg PO BID 09/14/23 11/27/23 History tablet (Vitamin C) amlodipine 10 mg tablet 10 mg PO QAM 11/27/23 11/27/23 History aspirin 81 mg tablet,delayed 81 mg PO QAM 11/27/23 11/27/23 History release atorvastatin 40 mg tablet 40 mg PO DAILY 11/27/23 11/27/23 History clopidogrel 75 mg tablet 112.5 mg PO QAM 11/27/23 11/27/23 History loratadine 10 mg PO DAILY 11/27/23 11/27/23 History Past Med/Surg History Problem List Low mean corpuscular volume (MCV) Acute CVA (cerebrovascular accident) (Acute) Hypertensive emergency (Acute) Medical History Retinal detachment with retinal defect of right eye History of hypertension Was on 30mg lisinopril in the past - has not been on this medication for ~6 years or so. Surgical History No pertinent past surgical history Family History Grandfather (Paternal) Diabetes Grandfather (Maternal) Stroke Diabetes Social History Smoking Status: Never smoker Second Hand Exposure: No; Do You Dip or Chew Tobacco: No; Hx Alcohol Use: No Hx Substance Use: No Preferred Language: Qatari Communication Ability: Effective Breast Worker Required: No Beliefs That Will Affect Care: None Current Living Situation: Significant Other Feels Safe at Home: Yes Safety Concerns: Feels Safe At This Time Assistive Devices: Glasses Review of Systems Review of Systems: At least ten systems reviewed and negative, except as noted in the HPI. Physical Exam Physical Exam: General: WD/WN, vitals as above, NAD, sitting up in bed, very pleasant, conversing appropriately. A+Ox4, euthymic affect. HEENT: Normocephalic, atraumatic. PERRL, conjunctivae normal, anicteric sclerae. External ear and nose normal, oropharynx normal. Respiratory: Normal respiratory effort, lungs clear to auscultation, no wheeze, rales, rhonchi. No accessory muscle use. Cardiovascular: Regular rate, rhythm, no murmur, normal peripheral pulses, trace BLE edema. Vessels: No JVD. Abdomen/GI: Normal bowel sounds, soft, nontender, no hepatosplenomegaly. Extremities/Musculoskeletal: No cyanosis or clubbing, extremities motor strength intact, moves all extremities. Neurologic: EOMI, accommodation nl, no face palsy, no dysarthria, CN's II-XI not formally tested but appear grossly intact bilaterally. Skin: No rashes, normal color, warm/dry. Results & Data Results & Data Vital Signs (Past 12 Hours) Vital Signs Temp Pulse Resp BP Pulse Ox O2 Del Method 11/27/23 19:52 90 160/106 H 11/27/23 19:51 100 Room Air 11/27/23 19:51 97 H 20 100 Room Air 11/27/23 19:39 118 H 11/27/23 16:36 36.5 C 114 H 16 182/109 H 97 Room Air Laboratory Results Short CBC 11/27/23 Range/Units 16:58 WBC 10.21 (4.8-10.8) K/ul Hgb 8.3 L (12.0-16.0) g/dl Hct 26.5 L (37.0-47.0) % Plt Count 516 H (130-400) K/uL BMP 11/27/23 16:58 Sodium 138 Potassium 3.5 Chloride 106 Carbon Dioxide 25 BUN 14 Creatinine 0.80 Glucose 153 H Calcium 8.3 L Liver Function 11/27/23 Range/Units 16:58 Total Bilirubin 0.7 (0.2-1.0) mg/dl AST 31 (13-39) U/L ALT 73 H (7-52) U/L Alkaline Phosphatase 99 (34-104) U/L Albumin 4.5 (3.4-5.0) gm/dl Diagnostic Findings Head CT 11/27/23 16:42 CT OF THE HEAD WITHOUT CONTRAST CLINICAL HISTORY: Neuro deficit, acute, stroke suspected COMPARISON STUDY: Head CT, CTA of the head and MRI of the brain September 14, 2023. CT DOSE: 625.8 mGy.cm TECHNIQUE: Helical axial images of the head were obtained without IV contrast. Automated exposure control was utilized for the study. A dose lowering technique was utilized adhering to the principles of ALARA. FINDINGS: No acute intracranial hemorrhage, midline shift or mass effect is present. The ventricular system is unremarkable. A few hypodense foci within the right frontal lobe represent expected evolution of infarct shown on brain MRI. There is an old left thalamic infarct. This is unchanged. The basal cisterns are patent. No extra-axial collections are present. There are no findings to suggest acute dural sinus thrombosis or acute territorial infarct. No significant calvarial abnormalities are present. Visualized portions of the sinuses and mastoid air cells are clear. IMPRESSION: No acute intracranial findings. Several old infarcts, as above. ACT 112: Negative or not required by law. Electronically signed by: Elieser Lopez M.D. 11/27/2023 5:31 PM Medications Administered Discontinued Medications Furosemide (Furosemide Inj 20 Mg/2 Ml Vial) 20 mg IV ONE ONE Stop: 11/27/23 19:39 Last Admin: 11/27/23 19:52 Dose: 20 mg Documented By: JAKE Labetalol HCl (Labetalol Hcl Iv 5 Mg/Ml 20ml) 10 mg IV NOW STA Stop: 11/27/23 19:39 Last Admin: 11/27/23 19:52 Dose: 10 mg Documented By: JAKE Code Status & VTE Plan Code Status FULL CODE Supervising Physician Co-Signing Physician Notes IM ATTENDING : Patient seen and examined. History obtained from patient, family, and records. Concur with salient points upon review of preceding documentation by Ms. Deneen Garcia PA-C. I take responsibility for plan of care below. FINAL ASSESSMENT AND PLAN as follows : Hypertensive crisis PVD Acute on chronic anemia secondary to recently concluded heavy menses, ongoing DAPT Rx for CVA Bilateral LE swelling secondary to amlodipine rule out DVT Admit to PCU Initiate lisinopril Decrease maintenance amlodipine dose given leg swelling from medication LE venous Dopplers rule out DVT Follow H&H, transfuse PRBC if hemoglobin less than 8 and or for symptomatic anemia DVT prophylaxis. SCDs Full code Text document was generated using [employer] voice recognition software. It may contain grammatical or spelling errors. Kindly contact undersigned for clarification of any documentation item in question.
[2023-11-27] MEDS: POTASSIUM CHLORIDE CRTAB 20 MEQ TABCR PO STA (21:38)
[2023-11-27] MEDS: MAGNESIUM SULFATE / D5W 1 GM/100 ML BAG IV STA (21:38)
[2023-11-27] MEDS ORDERED: LORazepam 0.5 MG TAB PO PRN (23:23)
[2023-11-27] MEDS ORDERED: traMADol HCL 50 MG TABLET PO PRN (23:23)
[2023-11-27] MEDS ORDERED: PROMETHAZINE 6.25 MG/50.25 ML BAG IV PRN (23:23)
[2023-11-27] MEDS ORDERED: ACETAMINOPHEN 325 MG TAB PO PRN (23:23)
--- NOTE | 2023-11-27 23:23 | Emergency Department Note ---
Impression & Plan Hypertensive urgency, ABLA (acute blood loss anemia), Chronic anticoagulation, DUB (dysfunctional uterine bleeding), Status post CVA ED Provider Note CHIEF COMPLAINT: Hypertension HISTORY OF PRESENT ILLNESS: This 43-year-old female patient with past medical history of hypertension, stroke presents emergency department with complaints of not feeling well. She states she has been treated with amlodipine due to hypertension. She was recently sent from our facility to [facility] after a CVA. Over the last 2 weeks she has had progressive weakness and complains of facial "tightness." She denies any stroke symptoms specifically speech difficulties, confusion or facial droop. She states [place] the [facility] [place] most of the [place]. She is on anticoagulation and has had menstrual bleeding for the last 3 weeks. She states it finally stopped today. REVIEW OF SYSTEMS: A review of systems was performed with positives and pertinent negatives listed in the history of present illness. 10 systems were reviewed and are otherwise negative. ALLERGIES: see below MEDICATIONS: see below PMH: see below SOCIAL HISTORY: see below DDx: Hypertensive urgency, CVA, intracranial hemorrhage, anemia, fluid retention, dehydration, Anemia, electrolyte abnormality, UTI among others. PHYSICAL EXAM: Vital signs reviewed. noted to be markedly hypertensive. General: Well-appearing 43-year-old female, in no significant distress. HEENT: No scleral icterus, PERRLA, neck supple. moist mucous membranes. Cardiovascular: Regular rate and rhythm, no extra sounds. Pulmonary: Clear to auscultation bilaterally, normal work of breathing. Abdomen: Soft, nontender, nondistended, positive bowel sounds. Musculoskeletal: Atraumatic, 3+ lower extremity edema at the ankle/Foot bilaterally Neurologic: Patient awake alert and oriented x 3, speech is clear. Intact [id number], negative pronator drift. Cranial nerves II through XII are grossly intact. Skin: Warm, dry, no rash EMERGENCY DEPARTMENT COURSE/MDM: The patient was evaluated and appeared to be in no significant distress. IV access was obtained and laboratory work was drawn. The patient was placed on the monitor worker. She remained significantly hypertensive. Patient was ordered 10 mg of IV labetalol and 20 mg of IV Lasix. CT was performed and reveals evidence of previous infects, no evidence of acute pathology. Chest x-ray is clear. EKG reveals and normal sinus rhythm without evidence of acute ischemia or dysrhythmia. Patient laboratory work is Significant for hemoglobin of 8.3. This is a drop from several months ago when her hemoglobin was 12.9. Given the significant lower extremity edema likely secondary to amlodipine, continued symptomatic hypertension, recent CVA and anemia secondary to prolonged uterine bleeding on anticoagulation the patient will be evaluated by Dr. Serrano of the hospitalist service for further management. She was made aware of the plan and agreed. MONITORING: An order for cardiac monitoring was placed and the patient is noted to be in a normal sinus rhythm at 90 beats per minute. RADIOLOGY: chest x-ray to my interpretation reveals no focal lung consolidation or failure. Head CT per radiology reveals no evidence of acute intracranial abnormality, several old infarcts noted. EKG: To my interpretation reveals normal sinus rhythm at 94 bpm. Previous anterior septal infarct. QTc of 425. No PVC, no PAC. 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 Surgical History No pertinent past surgical history Family History Grandfather (Paternal) Diabetes Grandfather (Maternal) Stroke Diabetes Social History Smoking Status: Never smoker Second Hand Exposure: No; Do You Dip or Chew Tobacco: No; Hx Alcohol Use: No Hx Substance Use: No Preferred Language: Indonesian Communication Ability: Effective Order Analyst Required: No Beliefs That Will Affect Care: None Current Living Situation: Significant Other Feels Safe at Home: Yes Safety Concerns: Feels Safe At This Time Assistive Devices: None Allergies Allergies Allergy/AdvReac Type Severity Reaction Status Date / Time amlodipine AdvReac Intermediate leg Verified 11/28/23 08:54 swelling Home Meds Home Medications Medication Instructions Recorded Confirmed ascorbic acid (vitamin C) 500 mg 500 mg PO BID 09/14/23 11/27/23 tablet (Vitamin C) amlodipine 10 mg tablet 10 mg PO QAM 11/27/23 11/27/23 aspirin 81 mg tablet,delayed 81 mg PO QAM 11/27/23 11/27/23 release atorvastatin 40 mg tablet 40 mg PO DAILY 11/27/23 11/27/23 clopidogrel 75 mg tablet 112.5 mg PO QAM 11/27/23 11/27/23 loratadine 10 mg PO DAILY 11/27/23 11/27/23 Previous Rx's Medication Instructions Recorded ferrous sulfate 325 mg (65 mg 325 mg PO Q OTHER DAY #30 tabs 11/28/23 iron) tablet,delayed release Results & Data (ED) Vital Signs Vital Signs - 24 hr 11/27/23 16:36 11/27/23 19:39 11/27/23 19:41 Temperature 36.5 C Temperature Source Temporal Artery Scan Pulse Rate 114 H 118 H Pulse Rate from SpO2 Sensor Pulse Rhythm Respiratory Rate 16 Respiratory Effort / Characteristics Non-Labored Spontaneous Respiratory Depth Normal Blood Pressure 182/109 H 166/109 H Blood Pressure Mean 133 139 Pulse Oximetry 97 Oxygen Delivery Method Room Air Sepsis Recent Fever Within 48 Hours No Sepsis New/Unexplained Change in Mental Status No Sepsis Action Taken by Nursing No Action Required 11/27/23 19:51 11/27/23 19:51 11/27/23 19:51 Temperature Temperature Source Pulse Rate 97 H 106 H Pulse Rate from SpO2 Sensor 98 H Pulse Rhythm Regular Respiratory Rate 20 13 Respiratory Effort / Characteristics Respiratory Depth Blood Pressure Blood Pressure Mean Pulse Oximetry 100 100 100 Oxygen Delivery Method Room Air Room Air Room Air Sepsis Recent Fever Within 48 Hours Sepsis New/Unexplained Change in Mental Status Sepsis Action Taken by Nursing 11/27/23 19:52 11/27/23 19:52 11/27/23 19:52 Temperature Temperature Source Pulse Rate 90 Pulse Rate from SpO2 Sensor Pulse Rhythm Respiratory Rate Respiratory Effort / Characteristics Respiratory Depth Blood Pressure 160/106 H 160/106 H 160/106 H Blood Pressure Mean 125 125 Pulse Oximetry Oxygen Delivery Method Sepsis Recent Fever Within 48 Hours Sepsis New/Unexplained Change in Mental Status Sepsis Action Taken by Nursing 11/27/23 19:52 11/27/23 19:57 11/27/23 20:00 Temperature Temperature Source Pulse Rate 80 Pulse Rate from SpO2 Sensor 83 Pulse Rhythm Respiratory Rate 16 Respiratory Effort / Characteristics Respiratory Depth Blood Pressure 160/106 H 141/101 H Blood Pressure Mean 125 109 Pulse Oximetry 99 Oxygen Delivery Method Sepsis Recent Fever Within 48 Hours Sepsis New/Unexplained Change in Mental Status Sepsis Action Taken by Nursing 11/27/23 20:06 11/27/23 20:07 11/27/23 20:15 Temperature Temperature Source Pulse Rate 86 78 Pulse Rate from SpO2 Sensor 88 Pulse Rhythm Respiratory Rate 16 Respiratory Effort / Characteristics Respiratory Depth Blood Pressure 141/101 H 141/99 H Blood Pressure Mean 117 Pulse Oximetry 98 Oxygen Delivery Method Sepsis Recent Fever Within 48 Hours Sepsis New/Unexplained Change in Mental Status Sepsis Action Taken by Nursing 11/27/23 20:15 11/27/23 20:15 11/27/23 20:33 Temperature Temperature Source Pulse Rate 88 Pulse Rate from SpO2 Sensor 87 Pulse Rhythm Respiratory Rate 18 Respiratory Effort / Characteristics Respiratory Depth Blood Pressure 141/99 H 173/111 H Blood Pressure Mean 117 127 Pulse Oximetry 99 Oxygen Delivery Method Sepsis Recent Fever Within 48 Hours Sepsis New/Unexplained Change in Mental Status Sepsis Action Taken by Nursing 11/27/23 20:33 11/27/23 20:39 11/27/23 20:45 Temperature Temperature Source Pulse Rate 88 Pulse Rate from SpO2 Sensor 87 Pulse Rhythm Respiratory Rate 21 Respiratory Effort / Characteristics Respiratory Depth Blood Pressure 173/111 H 157/101 H Blood Pressure Mean 127 129 Pulse Oximetry 99 Oxygen Delivery Method Sepsis Recent Fever Within 48 Hours Sepsis New/Unexplained Change in Mental Status Sepsis Action Taken by Nursing 11/27/23 20:48 11/27/23 21:06 11/27/23 21:12 Temperature Temperature Source Pulse Rate 81 87 82 Pulse Rate from SpO2 Sensor 84 87 83 Pulse Rhythm Respiratory Rate 16 20 14 Respiratory Effort / Characteristics Respiratory Depth Blood Pressure 168/123 H Blood Pressure Mean 138 Pulse Oximetry 100 100 100 Oxygen Delivery Method Room Air Sepsis Recent Fever Within 48 Hours Sepsis New/Unexplained Change in Mental Status Sepsis Action Taken by Nursing 11/27/23 21:33 11/27/23 22:03 11/27/23 22:30 Temperature Temperature Source Pulse Rate 84 99 H 96 H Pulse Rate from SpO2 Sensor 83 92 H Pulse Rhythm Respiratory Rate 16 20 13 Respiratory Effort / Characteristics Respiratory Depth Blood Pressure 176/118 H 192/116 H 160/107 H Blood Pressure Mean 137 141 124 Pulse Oximetry 100 100 100 Oxygen Delivery Method Room Air Room Air Room Air Sepsis Recent Fever Within 48 Hours Sepsis New/Unexplained Change in Mental Status Sepsis Action Taken by Residential Medications Current Medication List: was personally reviewed by me Laboratory Data Attestation: I reviewed the patient's lab results. 11/28/23 06:43 11/28/23 06:43 Lab Results 11/27/23 11/27/23 Range/Units 16:58 19:59 WBC 10.21 (4.8-10.8) K/ul RBC 3.48 L (4.20-5.40) M/uL Hgb 8.3 L (12.0-16.0) g/dl Hct 26.5 L (37.0-47.0) % MCV 76.1 L (80.0-100.0) fL MCH 23.9 L (25.0-34.0) pg MCHC 31.3 L (32.0-36.0) g/dL RDW Std Deviation 42.6 (36.4-46.3) fL RDW Coeff of Lary 15.3 H (11.5-14.5) % Plt Count 516 H (130-400) K/uL MPV 9.6 (9.4-12.4) fL PT 10.2 (9.0-12.0) Seconds INR 0.9 (0.9-1.1) APTT 23 (21-31) Seconds PTT Ratio 0.9 Sodium 138 (136-145) mmol/L Potassium 3.5 (3.5-5.1) mmol/L Chloride 106 (98-107) mmol/L Carbon Dioxide 25 (21-32) mmol/L Anion Gap 7 (3-11) BUN 14 (6-23) mg/dl Creatinine 0.80 (0.6-1.2) mg/dl Est Cr Clr Drug Dosing 88.5 ml/min Est GFR ( Amer) 103.9 ml/min Est GFR (Non-Af Amer) 89.7 ml/min BUN/Creatinine Ratio 17.5 (10-20) Glucose 153 H (70-99(Fasting)) mg/dl Calcium 8.3 L (8.6-10.3) mg/dl Magnesium 1.9 (1.7-2.4) mg/dl Iron 11 L (35-150) mcg/dl Transferrin 391 H (200-360) mg/dl Ferritin 4.7 L (8-388) ng/ml Total Bilirubin 0.7 (0.2-1.0) mg/dl AST 31 (13-39) U/L ALT 73 H (7-52) U/L Alkaline Phosphatase 99 (34-104) U/L Total Protein 7.6 (6.0-8.3) gm/dl Albumin 4.5 (3.4-5.0) gm/dl Globulin 3.1 (2.5-4.0) gm/dl Albumin/Globulin Ratio 1.5 (0.9-2) Blood Type B Positive Antibody Screen NEGATIVE Administered Medications Discontinued Medications Aspirin (Aspirin 81 Mg Ectab) 81 mg PO [facility] Stop: 12/28/23 08:59 Last Admin: 11/28/23 08:56 Dose: 81 mg Documented By: ZOLTAN Clopidogrel Bisulfate (Clopidogrel Bisulfate 75 Mg Tab) 112.5 mg PO [facility] Stop: 12/28/23 08:59 Last Admin: 11/28/23 08:55 Dose: 112.5 mg Documented By: ZOLTAN Furosemide (Furosemide Inj 20 Mg/2 Ml Vial) 20 mg IV ONE ONE Stop: 11/27/23 19:39 Last Admin: 11/27/23 19:52 Dose: 20 mg Documented By: JAKE Magnesium Sulfate/Dextrose (Magnesium Sulfate / D5w) 1 gm in 100 mls @ 100 mls/hr IV NOW STA Stop: 11/27/23 22:10 Last Infusion: 11/27/23 22:56 Dose: Infused Documented By: Admin: 11/27/23 21:38 Dose: 100 mls/hr Documented By: JAKE Iron Sucrose 200 mg/ Sodium (Chloride) 110 mls @ 220 mls/hr IV TODAY ONE; Protocol Stop: 11/28/23 09:44 Last Infusion: 11/28/23 10:22 Dose: Infused Documented By: Admin: 11/28/23 09:51 Dose: 220 mls/hr Documented By: ZOLTAN Labetalol HCl (Labetalol Hcl Iv 5 Mg/Ml 20ml) 10 mg IV NOW STA Stop: 11/27/23 19:39 Last Admin: 11/27/23 19:52 Dose: 10 mg Documented By: JAKE Lisinopril (Lisinopril 5 Mg Tab) 5 mg PO NOW ONE Stop: 11/27/23 23:20 Last Admin: 11/27/23 23:36 Dose: 5 mg Documented By: JAKE Loratadine (Loratadine 10 Mg Tab) 10 mg PO DAILY [facility] Stop: 12/28/23 08:59 Last Admin: 11/28/23 08:11 Dose: Not Given Documented By: ZOLTAN Potassium Chloride (Potassium Chloride Crtab 20 Meq Tabcr) 40 meq PO NOW STA Stop: 11/27/23 21:12 Last Admin: 11/27/23 21:38 Dose: 40 meq Documented By: JAKE Imaging Data Radiologist's Impression: Head CT 11/27/23 16:42 CT OF THE HEAD WITHOUT CONTRAST CLINICAL HISTORY: Neuro deficit, acute, stroke suspected COMPARISON STUDY: Head CT, CTA of the head and MRI of the brain September 14, 2023. CT DOSE: 625.8 mGy.cm TECHNIQUE: Helical axial images of the head were obtained without IV contrast. Automated exposure control was utilized for the study. A dose lowering technique was utilized adhering to the principles of ALARA. FINDINGS: No acute intracranial hemorrhage, midline shift or mass effect is present. The ventricular system is unremarkable. A few hypodense foci within the right frontal lobe represent expected evolution of infarct shown on brain MRI. There is an old left thalamic infarct. This is unchanged. The basal cisterns are patent. No extra-axial collections are present. There are no findings to suggest acute dural sinus thrombosis or acute territorial infarct. No significant calvarial abnormalities are present. Visualized portions of the sinuses and mastoid air cells are clear. IMPRESSION: No acute intracranial findings. Several old infarcts, as above. ACT 112: Negative or not required by law. Electronically signed by: Elieser Lopez M.D. 11/27/2023 5:31 PM Discharge Plan Visit Data Chief Complaint: Neuro Symptoms/Deficit Stated Complaint: STROKE 2 MONTHS AGO, DOESN'T FEEL RIGHT ED Provider: Karie Reeves Discharge Problem: Hypertensive urgency, ABLA (acute blood loss anemia), Chronic anticoagulation, DUB (dysfunctional uterine bleeding), Status post CVA Patient Disposition: Admitted As Inpatient
[2023-11-27] MEDS: lisinopril 5 MG TAB PO ONE (23:36)
[2023-11-28] LABS: Hematocrit (blood only) 29.4 % (37.0-47.0); Reticulocyte % 1.98 % (0.50-2.00); Reticulocytes # 0.08 10^6/uL (0.020-0.100)
[2023-11-28 00:27] LABS: Ferritin 4.7 ng/ml (8-388)
[2023-11-28 00:46] LABS: Folate (Folic Acid),Ser orPlas > 22.30 ng/ml (>5.38)
[2023-11-28 00:47] LABS: Vitamin B12 372 pg/ml (180-914)
--- NOTE | 2023-11-28 01:56 | Ultrasound Report ---
Exam(s): US VENOUS BILATERAL LOWER EXTREMITIES EXAM: US Duplex Bilateral Lower Extremities Veins CLINICAL HISTORY: Reason for exam: leg swelling. TECHNIQUE: Real-time duplex ultrasound scan of the bilateral lower extremity veins integrating B-mode two-dimensional vascular structure, Doppler spectral analysis, color flow Doppler imaging and Impression. COMPARISON: No relevant prior studies available. FINDINGS: Right deep veins: Unremarkable. No DVT in the right common femoral, femoral, proximal deep femoral or popliteal veins. The veins demonstrate normal color flow, are normally compressible, with normal phasic flow and/or augmentation response. Right superficial veins: Unremarkable. No thrombus in the visualized right great saphenous vein. Left deep veins: Unremarkable. No DVT in the left common femoral, femoral, proximal deep femoral or popliteal veins. The veins demonstrate normal color flow, are normally compressible, with normal phasic flow and/or augmentation response. Left superficial veins: Unremarkable. No thrombus in the visualized left great saphenous vein. Soft tissues: No acute findings. No popliteal cyst. IMPRESSION: Normal bilateral lower extremity duplex venous ultrasound. Electronically signed by: Naeem Carr MD 11/28/23 01:55 AM
--- OUTSIDE RECORDS SUMMARY | 2023-11-28 06:10 | External Medical Summary | Summary of Care ---
Author Name Unknown Organization [facility] Address [address] [facility] [place] [place] [address] Phone [phone] Care Team Providers Care Water And [employer] Helper Name Role Phone Unavailable Primary Care Provider Unavailabl e Reason for Visit * Reason Onset Date Comments Hospital Follow-Up 09/26/2023 Encounter Details Date Type Department Care Team (Late st Contact Info) Description 09/26/2023 Telephone Neurology, [place] [address] [place] [address] Stroke, Phone Nurse Neuro [address], [place] [id number] Hospital Follow-Up Allergies No known active allergiesdocumented as of this encounter (statuses as of 09/26/2023) Medications Medication Sig Dispensed Refills Start Date End Date Status Loratadine 10 MG Oral Tablet (Claritin) Take 1 Tablet by mouth in the morning. Active Vitamin C Oral Tablet Chewable Take 1 Tablet by mouth in the morning. Active Vitamin B Complex Oral Tablet Take 1 Tablet by mouth in the morning. Active Magnesium 30 MG Oral Tablet Take by mouth. Active Aspirin 81 MG Oral Tablet Delayed Release Take 1 Tablet by mouth in the morning. Do not start before September 20, 2023. 91 Tablet 09/20/2023 12/20/2023 Active Atorvastatin Calcium 40 MG Oral Tablet (Lipitor) Take 1 Tablet by mouth every afternoon. 30 Tablet 3 09/19/2023 Active amLODIPine Besylate 10 MG Oral Tablet (Norvasc) Take 1 Tablet by mouth in the morning. Do not start before September 20, 2023. 30 Tablet 3 09/20/2023 Active Clopidogrel Bisulfate 75 MG Oral Tablet (pLAVix) Take 1.5 Tablets by mouth in the morning. Do not start before September 20, 2023. 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 Never true 09/13/19 24 Within the past 12 months, t he food you bought just didn't last and you didn't have money to get more. Never true 09/13/2023 Childcare Answer Date Recorded Do you feel overwhelmed with taking care of a child, family member or friend? No 09/13/2023 Does your family need help f inding childcare? (Household - for ages 0-17 years) Not on file 09/13/2023 Clothing Answer Date Recorded Have you been unable to get clothing when it was really needed? Yes 09/13/2023 Is your family able to get c lothes or diapers when needed? (Household - for ages 0-17 years) Not on file 09/13/2023 Personal Safety Answer Date Recorded Do you feel unsafe or have concerns for your saf ety? No 09/15/2023 Do you have concerns for you r family's safety? (Household - for ages 0-17 years) Not on file 09/15/2023 Utilities Answer Date Recorded Do you have trouble paying y our heating, water, or electric bill? No 09/15/2023 Is your family able to pay t he heat, water, or electric bill? (Household - for ages 0-17 years) Not on file 09/15/2023 Does your family have access to good internet? (Household - for ages 0-17 years) Not on file 09/15/2023 Employment Status Answer Date Recorded Are you unemployed or without regular income? No 09/13/2023 Does the household have a re gular source of income? (Household - for ages 0-17 years) Not on file 09/13/2023 Social Connections Answer Date Recorded How often do you feel lonely or isolated from th ose around you? Never 09/13/2023 Financial Resource Strain Answer Date R ecorded Do you have any trouble payi ng for your medications, or do you think you might in the future? No 09/13/2023 Does your family have troubl e paying for medicine? (Household - for ages 0-17 years) Not on file 09/13/2023 Transportation Needs Answer Date Record ed READ ONLY Do you have troubl e getting a ride to medical visits or work? Never True 09/15/2023 Does your family have a hard time getting a ride to doctors visits? (Household - for ages 0-17 years) Not on file 09/15/2023 Has lack of transportation k ept you from medical appointments, meetings, work, or from getting things needed for daily living? Check all that apply. (Adult - for ages 18 years and over) Not on file 09/15/2023 Do you (or your family) have trouble finding or paying for a ride (transportation)? (Household - for ages 0-17 years) Not on file 09/15/2023 Housing Stability Answer Date Recorded Do you currently live in a s helter or have no steady place to sleep at night? No 09/15/2023 READ ONLY Do you think you a re at risk of becoming homeless? No 09/15/2023 Does your family worry about paying for your home or becoming homeless? (Household - for ages 0-17 years) Not on file 0 09/15/2023 Are you homeless or worried that you might be in the future? (Adult - for ages 18 years and over) Not on file Are you (or your family) zhen eless or worried that you might be in the future? (Household - for ages 0-17 years) Not on file Food Insecurity Answer Date Recorded Do you need food for this week? No 09/15/2023 Are you able to get enough f ood for your family? (Household - for ages 0-17 years) Not on file 09/15/2023 Does your family need food t his week? (Household - for ages 0-17 years) Not on file 09/15/2023 Do you always have enough fo od for your family? (Household - for ages 0-17 years) Not on file 09/15/2023 Sex and Gender Information Value Date Recorded Sex Assigned at Female 09/13/2023 11:57 AM EDT Gender Identity Female 09/13/2023 11:41 AM EDT Sexual Orientation Straight 09/13/2023 11 :57 AM EDT Job Start Date Occupation Industry Not on file Not on file Not on file documented as of this encounter Functional Status Functional Status Response Date of Assess ment Are you deaf or do you have serious difficulty h earing? No 09/15/2023 Are you blind or do you have serious difficulty seeing, even when wearing glasses? No 09/15/2023 Do you have serious difficul ty walking or climbing stairs? (5 years old or older) No 09/15/2023 Do you have difficulty dress ing or bathing? (5 years old or older) No 09/15/2023 Because of a physical, menta l, or emotional condition, do you have difficulty doing errands alone such as visiting a doctor s office or shopping? (15 years old or older) No 09/15/19 Cognitive Status Response Date of Assessm ent Because of a physical, menta l, or emotional condition, do you have serious difficulty concentrating, remembering, or making decisions? (5 years old or older) No 09/15/2023 documented as of this encounter Miscellaneous Notes * Telephone Encounter - Yolanda Morfin LPN - 09/26/2023 3:47 PM EDT Patient is s/p ischemic stroke HD on 09/19/2023. Called patient [phone], no answer. Provided [facility] callback number requesting return call. If patient returns call, please review the below information with them. Question: If you had to, could you live alone without any help from another person? This means being able to bathe, use the toilet, shop, prepare or get meals, and manage finances. Answer: Question: Can you do everything that you were doing right before your recent stroke admission, evenif slower and not as much? Answer: Question: Are you completely back to the way you were right before your stroke admission? Answer: Question: Are you taking your medications exactly as prescribed/directed? Answer: Any concerns/questions for the Neurology team? Follow-up Appt? Reinforce the education for the patient regarding stroke risk factors, warning symptoms, the availability of time-sensitive therapy, and the importance of activating EMS early documented in this encounter Plan of Treatment Upcoming Encounters Date Type Department Care Team (Late st Contact Info) Description 12/19/2023 11:30 AM EDT Office Visit Neurosurgery, [place] [address] [facility] [place] [id number] Pino White MD, PhD [address], [place] [phone] 12/26/2023 11:35 AM EDT Office Visit Neurology [address] [place] [phone] Vandana Vann MD [address], [place] [id number] Health Maintenance Due Date Last Done Comments Depression Screening 1991 Albumin/Creatinine Ratio 1997 DTaP,Tdap,and Td Vaccines (1 - Tdap) 1998 Hepatitis B (1 of 3 - 19+ 3-dose series) 1998 Pap Smear 2000 Cervical Cancer Screening 2009 HPV/Co-Test 2009 Mammogram 2019 COVID-19 Vaccine ( - 2022-24 season) 2022 Influenza Vaccine (FLU shot) (Season Ended) 2023 GFR 09/18/2024 09/19/2023, 09/01, 09/17/2023, Additional history exists Diabetes Screening 09/18/2026 09/19/2023, 0 09/18/2023, 09/17/2023, Additional history exists GARDASIL-HPV IMMUNIZATION SERIES Aged Out No longer eligible based on patient's age to complete this topic MENINGOCOCCAL (MENACTRA/MENVEO) Aged Out No longer eligible based on patient's age to complete this topic Pneumococcal Vaccine: Pediatrics (0 to 5 Years) and At-Risk Patients (6 to 64 Years) Aged Out No longer eligible based on patient's age to complete this topic documented as of this encounter Medical Devices Not on filedocumented as of this encounter Advance Directives * Full Code (Latest Code Status on File) Date Activated Date Inactivated Comments 09/15/2023 3:25 AM 09/19/2023 5:52 PM This order r eflects the patients wishes and were consensually agreed upon. Question Answer Comments Discussion of Advance Directives occurred with: Patient
--- OUTSIDE RECORDS SUMMARY | 2023-11-28 06:10 | External Medical Summary | Summary of Care ---
Author Name Unknown Organization [facility] Address [address] [place] [address] Phone [phone] Care Team Providers Care Rehab Nurse Name Role Phone Huseyin Etienne MD Primary Care Provider Reason for Visit * Auth/Cert Specialty Diagnoses / Procedures Referred By Contac t Referred To Contact Diagnoses Arterial ischemic stroke, ICA, right, acute (HCC) Acute ischemic stroke (HCC) ICA stenosis Noreen Mac, DO [address] [place] [address] Nsicu 4 [facility] [address] [place] [address] Referral ID Status Reason Start Date Expiration Date Visits Re quested Visits Authorized [id number] Encounter Details Date Type Department Care Team (Latest Contact Info) Description 09/15/2023 3:22 AM EDT - 09/19/2023 1:52 PM EDT Hospital Encounter [facility], [facility] 8th Floor [address] [place] [address] Kwaku Logan MD [address] [place] [address] Noreen Mac, DO [address] [place] [address] Luis Blackmon MD [address] [place] [address] Martin Rdz MD [address] [place] [address] Vandana Vann MD [address] [place] [address] Various: EKG,KRAVS Discharge Disposition: Home - Self Care Allergies No known active allergiesdocumented as of this encounter (statuses as of 09/20/2023) Medications Medication Sig Dispensed Refills Start Date [...] as of this encounter (statuses as of 09/20/2023) Active Problems Problem Noted Date Diagnosed Date Intracranial atherosclerosis 09/18/2023 Dyslipidemia, goal LDL below 70 09/18/2023 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, right 09/15/2023 Primary hypertension 09/15/2023 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 Myopia 12/06/2013 Retinal detachment with retinal defect 4 documented as of this encounter (statuses as of 09/20/2023) Social History Tobacco Use Types Packs/Day Years [...] on file documented as of this encounter Last Filed Vital Signs Vital Sign Reading Time Taken Comments Blood Pressure 157/97 09/19/2023 11:50 AM EDT Pulse 81 09/19/2023 7:54 AM EDT Temperature 36.6 C (97.9 F) 09/19/2023 1 1:50 AM EDT Respiratory Rate 18 09/19/2023 11:5 0 AM EDT Oxygen Saturation 99% 09/19/2023 11: 50 AM EDT Inhaled Oxygen Concentration - - Weight 68.4 kg (150 lb 14.4 oz) 09/19/2023 6:47 AM EDT Height 162.6 cm (5' 4") 09/15/2023 3:31 AM EDT Body Mass Index 25.9 09/15/2023 3:31 AM EDT documented in this encounter Functional Status Functional Status Response [...] No 09/15/2023 documented as of this encounter Discharge Summaries * Dusty Nunes MD - 09/19/2023 11:48 AM EDT Images from the original note were not included. [address] [address] Admission Date: 09/15/2023 Discharge Date: 09/19/2023 RECOMMENDED TO DO FOR NEXT PROVIDER(S): Ensure blood pressure management in the outpatient setting. Patient was recommended to monitor blood pressure regularly at home Blood pressure goal SBP <160 mm Hg for the next 3 months. Long-term goal is less than 130/80 mmHg Ensure patient continues dual antiplatelet therapy for a total of 90 days after which patient should be seen in Neurology to decide on deescalation to monotherapy Ensure patient follows up with Neurosurgery in 3 months (already scheduled Dr. White on 12/19/23)for re-evaluation of her right ICA distal stenosis Routine Follow-up (12 week / 90 day ) Secondary stroke risk education: Statin for goal LDL less than 70 Regular screen for Diabetes with goal HbA1c less than 7.0 and good glycemic control Regular exercise routine (moderate to vigorous aerobic exercise of at least 40 minutes, a minimum of 3 days per week) Secondary stroke risk reduction: Aspirin Clopidogrel (Plavix) (* refer to below medication list for dosages on the above) SCHEDULED FOLLOW-UP: Future Appointments Appt Date/Time Provider Department 12/19/2023 11:30 AM Pino White MD, PhD Neurosurgery, [place] DISPOSITION ON DISCHARGE: home DISCHARGE DIAGNOSES: Active Hospital Problems Diagnosis *Principal Diagnosis - 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, right (HCC) Intracranial atherosclerosis Dyslipidemia, goal LDL below 70 Primary hypertension Resolved Hospital Problems No resolved problems to display. RISK FACTORS IDENTIFIED: Ischemic Stroke Risk Factors Hypertension Hemorrhagic Stroke Risk Factors Hypertension Stroke Mimic Risk Factors None PROPOSED STROKE MECHANISM: Watershed stroke secondary to right ICA terminal stenosis (TOAST Stroke Classification: stroke of other determined etiology) ADMISSION HISTORY & PHYSICAL EXAM (focused): "DATE OF ADMISSION: 09/15/23 PRESENTING PROBLEM: Subacute infarct in right frontal lobe versus vasculitis HPI: Patient is a 43-year-old female with pmhx significant for hypertension and retinal detachment.She presented to [facility] ED 09/13 for evaluation of hypertension after being sent from PCP appointment.Per patient, she went to PCP after feeling "unwell" for a few weeks and being around sick students at school. Imaging revealed multiple subacute infarcts to the right frontal lobe and stenosis of the R ICA. Patient was transferred to [facility] NSICU for further management and neurosurgery evaluation. Upon arrival to NSICU, patient is alert and oriented, without focal deficits but hypertensive (257/149). She reports she has a history of hypertension but has not been on anti-hypertensives for years, per previous primary care provider. PAST MEDICAL HISTORY: Past Medical History Past Medical History: Diagnosis Date Hypertension Retinal detachment 12/05/2013 SB#41/270/cryo/SF6 100% PST Kenalog OD, Dr. Zhu PAST SURGICAL HISTORY: Past Surgical History Past Surgical History: Procedure Laterality Date MISCELLANEOUS ORDER ([facility] ONLY) 02/03/2014 Laser procedure of the Left eye, PARTIAL REMOVAL OF EYE FLUID 12/05/2013 SB #41/270/cryo/UH0491%/PSTKenalog OD; Dr. Zhu FAMILY HISTORY: non-contributory SOCIAL HISTORY: Social History Social History Tobacco Use Smoking status: Never Smokeless tobacco: Never Vaping Use Vaping status: Never Used Substance Use Topics Alcohol use: Yes Drug use: No PRIOR TO ADMISSION MEDS: Prior to Admission medications Medication Sig Last Dose Discont. Magnesium 30 MG Oral Tablet Take by mouth. Vitamin B Complex Oral Tablet Take 1 Tablet by mouth in the morning. Vitamin C Oral Tablet Chewable Take 1 Tablet by mouth in the morning. Loratadine 10 MG Oral Tablet (Claritin) Take 1 Tablet by mouth in the morning. ALLERGIES: Allergies Patient has no known allergies. ROS: Constitutional: (-) fever chills sweats or weight loss Cardiovascular: (-) negative: no chest pain, dyspnea, syncope, or palpitations Pulmonary: (-) negative: no cough, wheezing, or shortness of breath Abdominal/GI: (-) negative: no pain, heartburn, dysphagia, bleeding, change in bowel habits, nauseaor vomiting Female : (-) negative: no dysuria, pelvic pain, irregular menses, or vaginal discharge Neurology: (-) negative: no focal neurologic defect PHYSICAL EXAMINATION: Most Recent Vital Signs: BP: 155 mmHg/103 mmHg (09/15/23444) Pulse: 84 (09/15/23314) Resp: 20 (09/15/23314) Temp: 36.22 C (09/15/23314) Temp Summary: Temp Min: 36.2 C (97.2 F) Max: 36.2 C (97.2 F) SpO2: 99 % (09/15/23314) Constitutional: no acute distress CV: normal rate and rhythm, no murmur, gallops or rub, intact distal pulses Chest: normal respiratory effort, lungs clear to auscultation and percussion, breath sounds normal,chest wall normal Abdomen: normal: soft, bowel sounds normal, no masses, tenderness or organomegaly Neuro: alert, oriented to person, place, and time, normal mental status exam, Glascow Coma Score 15, sensory normal" HOSPITAL COURSE (focused): Loren Minor is a 43 y/o female with hx of HTN and retinopathy with R MCA watershed strokes 2/2 R ICA terminal occlusion. CTA suggestive of underlying vasculopathy, DSA shows irregular R ICA stenosis up to 50%, did not reveal significant beading or no evidence of friable blood vessels (no puff of smoke sign). Currently patient has no deficits. MRI also reveald chronic left BG infarct. Vasculitis workup largely unremarkable. It is likely she has long standing HTN although it is still unusual for a young patient with no stroke risk factors to have stenosis of an intracranial artery like in this situation. Autoimmune workup so far has been largely negative. HIV can sometimes cause early stenosis of intracranial arteries so should be tested to rule out. Given patient is asymptomatic and stenosis is not severe, no plans for neurosurgical intervention right now. Will continue with medical management of blood pressure, DAPT for 90 days, and follow up with neurosurgery for further workup if needed. She was started on amlodipine 10 mg daily for blood pressure management with blood pressure goal of SBP < 160 mmHg atleast in the short term as we do not want to cause cerebral hypoperfusion leading to further watershed infarcts. Currently on aspirin 81 mg orally daily and Plavix 112.5 orally daily. Increased dose of Plavix as her PRU was subtherapeutic. She already has an appointmentin [address] White from Neurosurgery to re-evaluate her right ICA distal stenosis. On theday of discharge plan was discussed with her including medications to which patient expressed understanding and agreement. All questions were answered to apparent satisfaction. She was advised to have close follow-up with her PCP after discharge. Stroke Center Guidelines and Treatment: Therapy needs were identified with recommendations as follows: . P.T. - No deficit O.T. - No deficit S. T. - No deficit Antithrombotic Therapy: receiving antiplatelet or anticoagulation Atrial Fibrillation or Flutter: no Statin: receiving - high intensity Stroke Education: personal risk factors for stroke medications prescribed and side effects warning signs for stroke, and activation of the emergency medical system future diagnostic evaluation need for follow up after discharge Stroke Specific Test Results: Personal Review and Interpretation of New Neuroimaging: MRI Brain wo contrast 09/14/23 - Right MCA territory frontoparietal region cortical watershed infarct with DWI and correlating ADC changes Prior chronic stroke with FLAIR changes in left basal ganglia DSA 09/15/[address] White showing - Right Supraclinoid ICA (PCOM) irregular stenosis. I have reviewed the following Diagnostic Tests and noted significant findings as follows: TTE with bubble study 09/15/2023 No PFO detected "Interpretation Summary The examination is adequate to evaluate the referral indication. The qualitative LV ejection fraction is 55-59% (normal). No LV segmental wall motion abnormalities. The right ventricular systolic function is qualitatively normal. No SD/PFO by agitated saline contrast at rest or with valsalva. There is no left ventricular mural thrombus." Labwork: LDL: 112 HbA1c: 5.5% Test Results Still Pending at Discharge: none MEDICATIONS: MEDICATION UPDATES AT DISCHARGE START taking these medications INSTRUCTIONS amLODIPine 10 MG Tablet Commonly known as: Norvasc Start taking on: September 20, 2023 Take 1 Tablet by mouth in the morning. Do not start before September 20, 2023. aspirin enteric coated 81 MG Tbec Start taking on: September 20, 2023 Take 1 Tablet by mouth in the morning. Do not start before September 20, 2023. atorvaSTATin 40 MG Tablet Commonly known as: Lipitor Take 1 Tablet by mouth every afternoon. clopidogrel 75 MG Tablet Commonly known as: pLAVix Start taking on: September 20, 2023 Take 1.5 Tablets by mouth in the morning. Do not start before September 20, 2023. CONTINUE taking these medications INSTRUCTIONS Loratadine 10 MG Tablet Commonly known as: Claritin Take 1 Tablet by mouth in the morning. Magnesium 30 MG Tabs Take by mouth. Vitamin B Complex Tablet Take 1 Tablet by mouth in the morning. Vitamin C chewable tablet Take 1 Tablet by mouth in the morning. Operations & Procedures: DSA 09/15/[address] White Complications: none significant OTHER INFORMATION: Vital Signs (last recorded): Most Recent Systolic BP: 142 mmHg (09/19/23 0754) Most Recent Diastolic BP: 92 mmHg (09/19/23 0754) Pulse: 81 (09/19/23 0754) Resp: 18 (09/19/23 0600) Most Recent Temperature: 36.5 C (09/19/23 0117) Weight: 68.4 kg (150 lb 14.4 oz) (09/19/23 0647) SpO2: 100 % (09/19/23 0600) Allergies: Patient has no known allergies. Activity: as tolerated Diet: age appropriate diet Code Status: Full Code Condition on Discharge: stable Indwelling Devices: none Isolation status: None Cognition: normal Discharge NIH Stroke Scale: 0 1A. LOC: 0 1B. Question:0 1C. Commands: 0 2. Gaze: 0 3. Visual Lopez: 0 4. Facial Palsy:0 5. Arm Left: 0 Arm Right: 0 6. Leg Left: 0 Leg Right: 0 7. Ataxia: 0 8. Sensory: 0 9. Aphasia: 0 10. Dysarthria: 0 11. Extinction: 0 Modified Franklin Scale: 0 - No symptoms. CONSULTS ORDERED: ADULT OCCUPATIONAL THERAPY CONSULT IP ADULT PHYSICAL THERAPY CONSULT IP ADULT SPEECH THERAPY CONSULT IP (ACUTE CARE REHAB) CARE MANAGEMENT CONSULT IP NEUROLOGY CONSULT IP REHAB CONSULT IP NEUROSURGERY CONSULT IP REFERRING PHYSICIAN: Ref: DELBERT ISIDRO[[id number]] [address] [place] [address] (office) [phone] (fax) PRIMARY CARE PROVIDER: PCP: Huseyin Etienne MD [address] [address] / [facility] [address] (office) [phone] (fax) Note: To contact a physician responsible for this patients hospital care, please call [employer] [phone]. Associated attestation - Vandana Vann MD - 09/19/2023 12:50 PM EDT I saw and evaluated the patient today. I have reviewed the resident/fellow physician note and agree. documented in this encounter Discharge Instructions * Discharge Instr - AVS* Dusty Nunes MD - 09/19/2023 7:26 AM EDT Discharge Date: 09/19/2023 You may call the department of Neurology at [phone] during business hours for any questions ortest results. For after-hours emergencies call [phone] and have the asw/asuw tactical air controller Neurologist paged. If you do not have a Neurology followup appointment scheduled prior to discharge, please call [phone] to schedule the appointment at your earliest convenience. The information below provides you with the instructions and the list of medications you need to betaking following discharge from the hospital. If you have any questions, please ask before leaving.Please carry this letter with you when you see your doctor in the clinic. If you have questions, you can reach us at the numbers above. Brief summary of your inpatient care: You were transferred to [facility] due to finding of acute stroke on your MRI brain and symptom of headache. You underwent digital subtraction angiogram showing narrowing of blood vessels leading to your brain which can cause decreased blood supply to the distal brain tissue resultingin infarct. You were started on 2 medications to decrease your chances of developing a stroke in the future by keeping your blood thin. You are recommended to continue these medications until assessed by Neurology (see instructions below). Also recommended to see Neurosurgery for repeat evaluation of blood vessels supplying blood to your brain. Blood pressure was monitored to be significantly high for which you were started on blood pressure medications. Your recommended to monitor your blood pressure at home discuss with your primary care physician if your blood pressure is above 160/90 mmHgafter discharge for better control of your blood pressure. Your primary diagnosis at discharge was: Stroke of the right side of your brain Your doctors during this hospitalization included: Dr Tea Nunes Inpatient test results pending: None Operations & Procedures: DSA by Dr. White on 09/14/2023 showing R supraclinoid ICA (PCOM segment) irregular stenosis 50% per NASCET with moderately increased MTT Complications: none significant Advance Directive Documented: Advance Directive Does the Patient have an Advance Directive? No Diet: Stroke Diet (low sodium, low cholesterol, low fat, and low calories) Activity: As tolerated Driving: You may resume driving . Date you may return to work or school: You may return to work/school See your primary care physician (Huseyin Etienne MD) in 3 day(s). A referral was placed for you to have a follow-up appointment with neurology in the next 8-12 weeks. You will be contacted to set up an appointment. If you are not contacted, please call the clinic [phone]. Your recommended to follow up with Dr. White from Neurosurgery Department on 12/09/23 for follow-upof narrowing of the blood vessels supplying blood to the brain. SPECIAL INSTRUCTIONS: Please START taking the following medications - Aspirin 81 mg 1 tablet orally daily. This medication is to decrease your risk of stroke in the future by keeping your blood thin. Please continue taking this medication and do not stop unless you were told by the doctor to do so. - Plavix 112.5 mg orally daily. This medication is to decrease your risk in the future by keeping your blood thin. Please continue taking this medication for the next 3 months and please do not stop before seeing a neurologist. - Atorvastatin 40 mg orally daily. This medication is to help decrease cholesterol in your blood and decrease your risk of stroke in the future. - Amlodipine 10 mg orally daily. This medication is to help decrease your blood pressure. Please continue taking all other medications as previously prescribed. Make sure to bring the following items to your neuro follow-up appointment: (use the lines below as a check list when preparing for follow-up appointment) Medication list and medications in their bottles Copy of discharge instructions Any outside records Copies of any outside images Family member or friend A list of any questions you may have Other symptoms for activating EMS (911): - Coma or change in mental status - Seizure - Change in bladder or bowel - Paralysis or partial paralysis documented in this encounter Progress Notes * Itzel Umanzor, Ilir Haas [facility] - 09/19/2023 12:17 PM EDT PHARMACY MEDICATION TEACHING CONSULT ANTIPLATELET THERAPY [address] [address] Name: Loren Minor Location: [facility] H853/A Date: 09/19/2023 Time: 12:17 PM Requesting Service: Neurology Patient Active Problem List Diagnosis Retinal detachment with retinal defect Lattice degeneration Myopia 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, right (HCC) Primary hypertension Intracranial atherosclerosis Dyslipidemia, goal LDL below 70 Medication covered during teaching session: Clopidogrel Indication for Antiplatelet Therapy: Stroke Duration of Antiplatelet Therapy: 1 month Teaching points covered with patient and/or family: Route, Dosage Form and Schedule, Medication Intended Use/Action, Precautions to be Observed while using this Medication, Commonly Encountered Adverse Effects, Methods for Self- monitoring, Laboratory Monitoring, Potential Food and Drug Interactions, Therapeutic Contraindications, Prescription Refill Information, Action for a Missed Dose, and Patient Specific Information Written documentation regarding all of the teaching points was provided to the patient and/or family members present. accepted patient education handout. Outpatient antiplatelet medication supply: Patient requires a prescription for this antiplatelet medication: Patient prefers to have the prescription sent to his/her preferred pharmacy. Family member(s) present: and Daughter(s) Patient agreed to allow visitors to attend teaching, if present. Assessment of teaching effectiveness: Provided patient with Adela-Scannx clopidogrel drug information printout. Counseled patient on necessity of medication compliance. Counseled patient on the possibleside effects with using the medication and to not stop taking the medication without first discussion it with the employee development manager. Patient aware to avoid NSAIDs and use only APAP as the OTC medication of choice. Patient denies herbal medication usage. Patient denies alcohol consumption. Has the patient expressed potential cost concerns? No Length of teaching: Brief (less than 15 minutes) Teaching completed according to pharmacy teaching standard 508. * Dusty Nunes MD - 09/19/2023 7:19 AM EDT Images from the original note were not included. STROKE PROGRESS NOTE - Stroke / Vascular Neurology [facility]-[address] [address] Name: Loren Minor Location: [facility] H853/A Date: 09/19/2023 Time: 7:19 AM SUBJECTIVE: Loren Minor is a 43 year old patient with R watershed strokes 2/2 R supraclinoid ICA stenosis. Changes since last visit: No acute events overnight. Patient was seen at bedside in the morning and to be awake alert and oriented X 3 in no apparent distress. She reported no symptoms of weakness or sensory changes was at her baseline. Later was seen at rounds with the family at bedside agreeable to discharge to home. Pertinent past medical history: Past Medical History: Diagnosis Date Hypertension Retinal detachment 12/05/2013 SB#41/270/cryo/SF6 100% MANOJ Verdugo OD, Dr. Zhu Pertinent past social history: Social History Tobacco Use Smoking status: Never Smokeless tobacco: Never Vaping Use Vaping status: Never Used Substance Use Topics Alcohol use: Yes Drug use: No Current Medications: Note that completed medications (per the MAR) continue to display for 24 hours. Ordered medicationsto be given in the future also display. Current Facility-Administered Medications Medication Dose Route Frequency Provider Lisinopril (Prinivil) tab 5 mg 5 mg Oral Daily(AM) Ashish Duenas MD Acetaminophen (Tylenol) tab 975 mg 975 mg Oral Q6H PRN Ashish Duenas MD amLODIPine (Norvasc) tab 10 mg 10 mg Oral Daily(AM) Ashish Duenas MD clopidogrel (pLAVix) tab 112.5 mg 112.5 mg Oral Daily(AM) Ashish Duenas MD Enoxaparin (Lovenox) inj 40 mg 40 mg Subcutaneous Daily(AM) Ashish Duenas MD labetalol (Trandate) inj 20 mg 20 mg Intravenous Q1H PRN Ashish Duenas MD Polyethylene Glycol 3350 (Miralax) oral powder 17 g 1 Packet Oral Daily PRN Ashish Duenas MD senna-docusate (Senokot-S) 1 Tablet 1 Tablet Oral Daily(AM) Ashish Duenas MD aspirin enteric coated tab 81 mg 81 mg Oral Daily(AM) Ashish Duenas MD atorvaSTATin (Lipitor) tab 40 mg 40 mg Oral Q 1700 Ashish Duenas MD OBJECTIVE: Physical Examination: Most Recent Vital Signs: BP: 121 mmHg/76 mmHg (09/19/23 0600) Pulse: 83 (09/19/23599) Resp: 18 (09/19/23599) Temp: 36.5 C (09/19/23 0117) Temp Summary: Temp Min: 36.1 C (97 F) Max: 36.9 C (98.4 F) SpO2: 100 % (09/19/23599) O2 flow rate: Supplemental O2 Delivery: Room Air, None (09/19/23599) Weight: 68.4 kg (150 lb 14.4 oz) (09/19/23 0647) Height: 162.6 cm (5' 4") (09/15/23 0331) Body mass index is 25.9 kg/m. Vital Signs Last 24 Hours: Systolic BP: Most Recent Systolic BP Av.5 mmHg Min: 121 mmHg Max: 177 mmHg Temperature: Most Recent Temperature Av.5 C Min: 36.11 C Max: 36.89 C Pulse: Pulse Av Min: 71 Max: 96 Respirations: Resp Av Min: 12 Max: 25 SpO2: SpO2 Av.5 % Min: 95 % Max: 100 % General Examination: Constitutional: Appearance non-obese, no deformities, and well groomed Head/face, ears, nose, throat: normocephalic, atraumatic Psychiatric: normal judgement and insight, normal mood, and normal affect Neurologic Examination: Ophthalmoscopic: deferred due to suboptimal dilation Mental Status and Orientation: awake, alert, oriented x 3 Memory: intact to recent and remote recall Attention: normal Knowledge:normal Language: no aphasia Speech: no dysarthria Cranial Nerves: CN 2 - no visual defect on confrontation and pupils round, equal, reactive to light CN 3, 4, 6 - extra-ocular movements intact and no nystagmus CN 5 - facial sensation intact V1-3 CN 7 - no facial asymmetry CN 8 - intact hearing CN 9, 10 - not visualized CN 11 - shoulder shrug full strength CN 12 - tongue protrudes midline Sensory: intact to light touch Coordination: intact with finger to nose testing Gait: stable and no ataxia Muscle Tone: normal Muscle exam: strength 5/5 upper and lower extremities and no drift Reflexes: Not tested National [place] of Health Stroke Scale: 1A. LOC: 0 1B. Question: 0 1C. Commands: 0 2. Gaze: 0 3. Visual Lopez: 0 4. Facial Palsy: 0 5A. Arm Left: 0 5B. Arm Right: 0 6A. Leg Left: 0 6B. Leg Right: 0 7. Ataxia: 0 8. Sensory: 0 9. Aphasia: 0 10. Dysarthria: 0 11. Extinction: 0 Total: 0 Personal Review and Interpretation of New Neuroimaging: MRI Brain wo contrast 09/14/23 - Right MCA territory frontoparietal region cortical watershed infarct with DWI and correlating ADC changes Prior chronic stroke with FLAIR changes in left basal ganglia DSA 09/15/[address] White showing - Right Supraclinoid ICA (PCOM) irregular stenosis. I have reviewed the following Diagnostic Tests and noted significant findings as follows: TTE with bubble study 09/15/2023 No PFO detected "Interpretation Summary The examination is adequate to evaluate the referral indication. The qualitative LV ejection fraction is 55-59% (normal). No LV segmental wall motion abnormalities. The right ventricular systolic function is qualitatively normal. No SD/PFO by agitated saline contrast at rest or with valsalva. There is no left ventricular mural thrombus." LABS: Latest Reference Range & Units 09/16/23 06:24 09/17/23 05:32 09/18/23 05:58 09/19/23 05:22 ASPIRIN, VERIFYNOW Rpt ! Rpt ! Rpt ! Rpt ! VerifyNow Aspirin >=550 ARU 388 (L) 394 (L) 390 (L) 389 (L) P2Y12 INHIBITOR REACTIVITY (CLOPIDOGREL), VERIFYNOW Rpt ! Rpt Rpt ! Rpt ! VerifyNow P2Y12 182 - 335 PRU 164 (L) 188 168 (L) 139 (L) !: Data is abnormal (L): Data is abnormally low Rpt: View report in Results Review for more information Labs reviewed as indicated below: Laboratory Values: reviewed. -- Brief labs below include the 7 most recent results over the past week. Blood Gas: No results in the last 7 days - inpatent use only Chemistry Panel: Lab results within last 7 days (see chart for full results) Units 09/19/23 0522 09/18/23 0558 09/17/23 0532 09/16/23 0440 09/15/23 0346 Sodium mmol/L 140 138 140 138 139 Potassium mmol/L 3.8 3.8 4.0 3.9 3.3* Chloride mmol/L 107 104 108* 106 103 CO2 mmol/L 22 22 21* 20* 21* BUN mg/dL 21* 15 16 17 11 Creatinine mg/dL 0.8 0.7 0.9 1.0 0.8 Estimated Glomerular Filtration Rate mL/min >90 >90 83 75 >90 Glucose mg/dL 97 95 96 105 100 Calcium mg/dL 8.6 9.0 8.6 8.6 9.7 Magnesium mg/dL 1.9 1.8 2.0 2.1 2.4 Phosphorus mg/dL 4.0 3.6 3.6 3.6 4.2 Anion Gap mmol/L 11 12 11 12 15 Complete Blood Count: Lab results within last 7 days (see chart for full results) Units 09/19/23 0522 09/18/23 0558 09/17/23 0532 09/16/23 0440 09/15/23 0346 WBC K/uL 10.43 10.81* 9.63 11.17* 10.29 HGB g/dL 10.1* 11.0* 10.1* 10.4* 12.3 HCT % 33.5* 36.5 34.0* 33.6* 39.9 PLT K/uL 358 366 334 343 409* MCV fL 81.7 81.3 81.5 80.2 80.1 Cardiac Studies: Lab results within last 7 days (see chart for full results) Units 09/15/23 0611 09/15/23 0346 Troponin T, High Sensitivity ng/L <6 6 Coagulation Studies: Lab results within last 7 days (see chart for full results) Units 09/15/23 0346 Prothrombin Time seconds 13.8 INR 1.1 Liver Function Panel: Lab results within last 7 days (see chart for full results) Units 09/15/23 0551 09/15/23 0346 Albumin g/dL -- 4.6 Protein g/dL 8.1 8.1 Bilirubin, Total mg/dL -- 0.8 Bilirubin, Direct mg/dL -- <0.2 AST U/L -- 17 ALT U/L -- 16 Alkaline Phosphatase U/L -- 89 Triglycerides mg/dL -- 126 Infectious Studies: Lab results within last 7 days (see chart for full results) Units 09/15/23 0346 CRP (Inflammatory Marker) mg/L 5 ESR mm/hour 36* Cultures: reviewed. No results in the last 7 days - inpatent use only Recent Cultures (2 Weeks) 09/15/2023 5:51 AM BLOOD CULTURE GROWTH No growth to date Radiographic Studies (last 72 hours): reviewed. No imaging results in the last 72 hours IMPRESSION: Loren Minor is a 43 y/o female with hx of HTN and retinopathy with R MCA watershed strokes 2/2 R ICA terminal occlusion. CTA suggestive of underlying vasculopathy, DSA shows irregular R ICA stenosis up to 50%, did not reveal significant beading or no evidence of friable blood vessels (no puff of smoke sign). Currently patient has no deficits. MRI also reveald chronic left BG infarct. Vasculitis workup largely unremarkable. It is likely she has long standing HTN although it is still unusual for a young patient with no stroke risk factors to have stenosis of an intracranial artery like in this situation. Autoimmune workup so far has been largely negative. HIV can sometimes cause early stenosis of intracranial arteries so should be tested to rule out. Given patient is asymptomatic and stenosis is not severe, no plans for neurosurgical intervention right now. Will continue with medical management of blood pressure, DAPT for 90 days, and follow up with neurosurgery for further workup if needed. RECOMMENDATIONS/PLAN: R MCA territory stroke 2/2 R ICA stenosis ( supraclinoid segment) Chronic L BG stroke likely 2/2 Continue for 90 days Blood pressure goal SBP less than 160 Atorvastatin 40 for a goal LDL less than 70 Continue amlodipine 10 mg orally daily for blood pressure control we will hold off on lisinopril 5 mg at discharge so as not to decrease blood pressure and create cerebral hypotension. Needs to establish care with PCP upon discharge for secondary risk prevention of stroke. Stroke Checklist: DVT Prophylaxis: receiving chemical and mechanical Antithrombotic Therapy: receiving antiplatelet or anticoagulation Atrial Fibrillation or Flutter: no Statin: receiving - high intensity Stroke Education: personal risk factors for stroke Rehab Therapy Plan: likely home discharge Patient Has Decision Making Capacity: yes Code Status: Full Code Patient was staffed with Dr Tea MD the attending neurologist at the time of patient encounter on09/19/2023 Dusty Nunes MD Neurology PGY-2 Associated attestation - Vandana Vann MD - 09/19/2023 12:52 PM EDT I saw and evaluated the patient today. I have reviewed the resident/fellow physician note and agree. * Ron Bee DO - 09/18/2023 12:42 PM EDT STROKE PROGRESS NOTE - Stroke / Vascular Neurology [facility]-[address] [address] Name: Loren Minor Location: [facility] A447/A Date: 09/18/2023 Time: 12:52 PM SUBJECTIVE: Loren Minor is a 43 year old patient with R watershed strokes 2/2 R supraclinoid ICA stenosis. Changes since last visit : NAEO. Now off pressors and oral HTN regiment of amlodipine. She had a brief headache yesterday which was relieved with tylenol. She feels good and denies any numbness, weakness, vision changes, trouble swallowing, or other symptoms at this time. Pertinent past medical history: Past Medical History: Diagnosis Date Hypertension Retinal detachment 12/05/2013 SB#41/270/cryo/SF6 100% MANOJ Verdugo OD, Dr. Zhu Pertinent past social history: Social History Tobacco Use Smoking status: Never Smokeless tobacco: Never Vaping Use Vaping status: Never Used Substance Use Topics Alcohol use: Yes Drug use: No Current Medications: Note that completed medications (per the MAR) continue to display for 24 hours. Ordered medicationsto be given in the future also display. Current Facility-Administered Medications Medication Dose Route Frequency Provider Acetaminophen (Tylenol) tab 975 mg 975 mg Oral Q6H PRN Noreen Mac DO amLODIPine (Norvasc) tab 10 mg 10 mg Oral Daily(AM) Paz Helms PA-C clopidogrel (pLAVix) tab 112.5 mg 112.5 mg Oral Daily(AM) Loraine Esposito PA-C Enoxaparin (Lovenox) inj 40 mg 40 mg Subcutaneous Daily(AM) Paz Helms PA-C labetalol (Trandate) inj 20 mg 20 mg Intravenous Q1H PRN Paz Helms PA-C niCARdipine (CARDENE) 20 mg in 200 mL saline infusion 5 mg/hr Intravenous Continuous Paz Helms PA-C Polyethylene Glycol 3350 (Miralax) oral powder 17 g 1 Packet Oral Daily PRN Paz Helms PA-C senna-docusate (Senokot-S) 1 Tablet 1 Tablet Oral Daily(AM) Pza Helms PA-C aspirin enteric coated tab 81 mg 81 mg Oral Daily(AM) Eva Yates CRNP atorvaSTATin (Lipitor) tab 40 mg 40 mg Oral Q 1700 Eva Yates CRNP chlorHEXIDINE (Periogard) 0.12 % oral rinse 15 mL 15 mL Oral mucosal membrane BID (08,1999) Eva Yates CRNP Oral Hygiene: Mouth Swab with dentifrice Oral Q4H Limited (00;04;12;16) Eva Yates CRNP OBJECTIVE: Physical Examination: Most Recent Vital Signs: BP: 154 mmHg/108 mmHg (09/18/23 1200) Pulse: 86 (09/18/23 1200) Resp: 25 (09/18/23 1200) Temp: 36.28 C (09/18/231199) Temp Summary: Temp Min: 36.1 C (97 F) Max: 37.1 C (98.8 F) SpO2: 100 % (09/18/23 1200) O2 flow rate: Supplemental O2 Delivery: Room Air, None (09/18/23 1200) Weight: 69.5 kg (153 lb 3.5 oz) (09/18/23 0600) Height: 162.6 cm (5' 4") (09/15/23 0331) Body mass index is 26.3 kg/m. Vital Signs Last 24 Hours: Systolic BP: Most Recent Systolic BP Av.8 mmHg Min: 124 mmHg Max: 177 mmHg Temperature: Most Recent Temperature Av.5 C Min: 36.11 C Max: 37.11 C Pulse: Pulse Av.3 Min: 76 Max: 108 Respirations: Resp Av.6 Min: 13 Max: 27 SpO2: SpO2 Av.3 % Min: 95 % Max: 100 % General Examination: Constitutional: Appearance non-obese, no deformities, and well groomed Head/face, ears, nose, throat: normocephalic, atraumatic Neurologic Examination: Mental Status and Orientation: awake, alert, oriented x 3 Memory: intact to recent and remote recall Attention: normal Knowledge:normal Language: no aphasia Speech: no dysarthria Cranial Nerves: CN 2 - no visual defect on confrontation and pupils round, equal, reactive to light CN 3, 4, 6 - extra-ocular movements intact and no nystagmus CN 5 - facial sensation intact V1-3 CN 7 - no facial asymmetry CN 8 - intact hearing CN 9, 10 - palate symmetric, uvula midline, no deviation CN 11 - shoulder shrug full strength CN 12 - tongue protrudes midline Sensory: intact to light touch Coordination: intact with finger to nose testing and heel to p[place]ton normal Gait: stable and no ataxia Muscle Tone: normal Muscle exam: strength 5/5 upper and lower extremities and no drift National [place] of Health Stroke Scale: 1A. LOC: 0 1B. Question: 0 1C. Commands: 0 2. Gaze: 0 3. Visual Lopez: 0 4. Facial Palsy: 0 5A. Arm Left: 0 5B. Arm Right: 0 6A. Leg Left: 0 6B. Leg Right: 0 7. Ataxia: 0 8. Sensory: 0 9. Aphasia: 0 10. Dysarthria: 0 11. Extinction: 0 Total: 0 Personal Review and Interpretation of New Neuroimaging: MRI Brain at OSH 09/14/2023 - R MCA territory embolic appearing DWI changes with ADC correlate and no SWI changes, indicating AIS with no hemorrhagic conversion. No axial FLAIR sequence available to review CTA - R carotid terminus stenosis I have reviewed the following Diagnostic Tests and noted significant findings as follows: EDWAR w bubble study 09/15/2023: EF 55% LA normal size, no PFO, no WMA EKG 09/15/2023: Sinus arrhythmia LABS: Labs reviewed as indicated below: LDL - 112 HbA1c - 5.5 Latest Reference Range & Units 09/16/23 06:24 VerifyNow Aspirin >=550 ARU 388 (L) VerifyNow P2Y12 182 - 335 PRU 164 (L) (L): Data is abnormally low !: Data is abnormal Latest Reference Range & Units 09/15/23 03:46 Complement C3 90 - 180 mg/dL <4 (L) Complement C4 10 - 40 mg/dL 34 (L): Data is abnormally low Latest Reference Range & Units 09/15/23 03:46 09/15/23 05:51 Cardiolipin IgG Antibody Value <10 GPL U/mL 0.8 Cardiolipin IgG Antibody Interpretation Negative Negative Cardiolipin IgM Antibody Value <10 MPL U/mL 1.3 Cardiolipin IgM Antibody Interpretation Negative Negative FABIOLA Screen Negative Negative KENNY Antibodies Screen Value <0.7 Ratio 0.1 KENNY Antibodies Screen Interpretation Negative Negative dsDNA Antibody Value <20 IU/mL 0.7 dsDNA Antibody Interpretation Negative Negative SSA/Ro Antibody Value <7 U/mL <0.4 SSA/Ro Antibody Interpretation Negative Negative SSB/La Antibody Value <7 U/mL <0.4 SSB/La Antibody Interpretation Negative Negative Albumin 3.30 - 4.40 g/dL 3.88 Alpha-1 Globulin 0.10 - 0.30 g/dL 0.29 Alpha-2 Globulin 0.60 - 1.00 g/dL 1.00 Beta-Globulin 0.80 - 1.30 g/dL 1.29 Gamma-Globulin 0.70 - 1.70 g/dL 1.64 CRP (Inflammatory Marker) <=5 mg/L 5 ESR <20 mm/hour 36 (H) Rheumatoid Factor <14 IU/mL <10 (H): Data is abnormally high IMPRESSION: Loren Minor is a 43 y/o female with hx of HTN and retinopathy with R MCA watershed strokes 2/2 R ICA terminal occlusion. CTA suggestive of underlying vasculopathy, DSA shows irregular R ICA stenosis up to 50%, did not reveal significant beading or no evidence of friable blood vessels (no puff of smoke sign). Currently patient has no deficits. MRI also reveald chronic left BG infarct. Vasculitis workup largely unremarkable. It is likely she has long standing HTN although it is still unusual for a young patient with no stroke risk factors to have stenosis of an intracranial artery like in this situation. HIV can sometimes cause early stenosis of intracranial arteries so should be tested to rule out. Given patient is asymptomatic and stenosis is not severe, no plans for neurosurgical intervention right now. Will continue with medical management of blood pressure, DAPT for 90 days, and follow up with neurosurgery for further workup if needed. 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 Started on amlodipine 10mg - Continue DAPT for 90 days - Continue atorvastatin 40mg , LDL goal < 70 - Test for HIV - Neurosurgery follow up and will need repeat vessel imaging in 3 months for further workup Stroke Checklist: DVT Prophylaxis: receiving chemical and mechanical Antithrombotic Therapy: receiving antiplatelet or anticoagulation Atrial Fibrillation or Flutter: no Statin: receiving - high intensity Stroke Education: personal risk factors for stroke bleeding risk future diagnostic evaluation need for follow up after discharge Rehab Therapy Plan: no current defect - does not need rehab services Patient Has Decision Making Capacity: yes Code Status: Full Code The patient was examined and was discussed with Dr. Metcalf. Associated attestation - Vandana Vann MD - 09/18/2023 1:25 PM EDT I saw and evaluated the patient today. I have reviewed the resident/fellow physician note and agree. Neuroimaging personally reviewed, boderzone stroke in the right hemisphere likely due to atheroembolism in the setting of intracranial right ICA stenosis. Case discussed with Neurosurgery, will manage medically now with dual antiplatelet therapy and SBP <160. She can be transferred to stroke service, will plan to discharge tomorrow if she remains asymptomatic. * Dick Lemos PA-C - 09/18/2023 8:27 AM EDT NEUROLOGICAL SURGERY PROGRESS NOTE [facility]-[address] [place] [address] Name: Loren Minor Location: [facility] A447/A Date: 09/18/2023 Time: 8:27 AM 09/15/23: DCA showing R supraclinoid ICA (PCOM segment) irregular stenosis 50% per NASCET with moderately increased MTT SUBJECTIVE: NAEO, continues to be asymptomatic on BP challenge. Discussed in cerebrovascular conference this morning OBJECTIVE: Most recent vital signs: BP: 156 mmHg/94 mmHg (09/18/23 0700) Pulse: 76 (09/18/23 0700) Resp: 17 (06699) Temp: 36.11 C (09/18/23799) Temp Summary: Temp Min: 36.1 C (97 F) Max: 37.1 C (98.8 F) SpO2: 98 % (09/18/23699) O2 flow rate: Supplemental O2 Delivery: Room Air, None (09/18/23799) Vital signs over last 24 hours: Systolic BP: Most Recent Systolic BP Av.4 mmHg Min: 124 mmHg Max: 170 mmHg Temperature: Most Recent Temperature Av.6 C Min: 36.11 C Max: 37.11 C Pulse: Pulse Avg: Pulse Av.4 Min: 76 Max: 111 Respirations: Resp Av.5 Min: 13 Max: 27 SpO2: SpO2 Av.4 % Min: 97 % Max: 100 % SpO2: SpO2 Av.4 % Min: 97 % Max: 100 % FiO2%: No data recorded ICP: No data found.CPP (adult): No data found.Intake Input/Output: (last 24 hours) Intake/Output Summary (Last 24 hours) at 09/18/2023 0827 Last data filed at 09/18/2023 0500 Gross per 24 hour Intake 1644.65 ml Output -- Net 1644.65 ml Neurologic Examination [place]unn[place] Coma Scale (GCS): Eyes Open: 4 = spontaneous Best Verbal Response: 5 = verbally appropriate for age Best Motor Response: 6 = obeys commands appropriate for age R wrist c/d/i Awake, alert, oriented to person, place, time PERRL EOMI No facial droop No pronator drift VINSON to command RUE 5/5 LUE 5/5 RLE 5/5 LLE 5/5 Sensation grossly intact LABS: Blood count: Lab Results Component Value Date/Time WBC 10.81 (H) 09/18/2023 05:58 AM WBC 12.3 (H) 10/31/1997 09:00 AM WBC 7.4 01/04/1996 03:00 PM HGB 11.0 (L) 09/18/2023 05:58 AM HGB 12.6 10/31/1997 09:00 AM HGB 14.5 01/04/1996 03:00 PM HCT 36.5 09/18/2023 05:58 AM HCT 37.9 10/31/1997 09:00 AM HCT 43.2 01/04/1996 03:00 PM PLT 366 09/18/2023 05:58 AM PLT 266 10/31/1997 09:00 AM PLT 296 01/04/1996 03:00 PM Coagulation studies: Lab Results Component Value Date/Time INR 1.1 09/15/2023 03:46 AM Chemistry: Lab Results Component Value Date/Time BUN 15 09/18/2023 05:58 AM BUN 8 (L) 01/04/1996 03:00 PM CREAT 0.7 09/18/2023 05:58 AM CREAT 0.7 01/04/1996 03:00 PM NA 138 09/18/2023 05:58 AM NA 140 01/04/1996 03:00 PM POTASSIUM 3.8 09/18/2023 05:58 AM POTASSIUM 4.0 01/04/1996 03:00 PM CO2 22 09/18/2023 05:58 AM CO2 28.0 01/04/1996 03:00 PM Latest Reference Range & Units 09/16/23 06:24 09/17/23 05:32 VerifyNow Aspirin >=550 ARU 388 (L) 394 (L) P2Y12 INHIBITOR REACTIVITY (CLOPIDOGREL), VERIFYNOW Rpt ! 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 * CLINICAL HISTORY AND PLAN: 43 year old female w/ PMH significant for HTN and retinal detachment who presents to the neurosurgery service for R ICA terminus stenosis on CTA H/N, RIGHT precentral and superior frontal gyrus, as well as multiple other RIGHT frontal acute/subacute infarcts, and LEFT BG and insular chronic infarcts on MRI, all imaging prompted by work up revealing SBP > 240 after presenting to urgent care after for fatigue and gait instability. s/p angiogram showing R supraclinoid ICA (PCOM segment) irregular stenosis 50% Stroke care per neurology Close neurochecks Ok for sQH OOB for meals DAPT, check levels daily Increased plavix to 112.5 mg daily. PRU 168 this morning. Will plan on discharge with BP goal discussion this morning Needs to establish PCP follow up within a week of discharge for BP management Will sign off at this time. Follow up in [address] White. (Order placed). Discussed with Dr. White * Paz Helms PA-C - 09/18/2023 6:58 AM EDT CCM - PROGRESS NOTE [facility]-[address] [place] [address] Name: Loren Minor Location: [facility] A4/A Date: 09/18/2023 Time: 6:58 AM Care during the described time interval was provided by me. I have reviewed this patient's available data, including medical history, events of note, physical examination and test results. PATIENT DESCRIPTION/HPI: 43 yo F w/ PMH significant for HTN. Sent to [facility] ED from PCP visit where she was severely hypertensive. Imaging demonstrated R ICA stenosis and subacute R frontal lobe infarcts. Transferred to [facility] and underwent DCA. She was able to get some sleep overnight. Denies headache, dizziness, changes in vision/hearing from baseline, chest pain, shortness of breath, nausea/vomiting, and abdominal pain. All systems were reviewed and were otherwise negative. CONSTITUTIONAL DATA: BP: 133 mmHg/91 mmHg (09/18/23599) Pulse: 82 (09/18/23599) Resp: 15 (09/18/23599) Temp: 36.5 C (09/18/23599) Temp Summary: Temp Min: 36.4 C (97.5 F) Max: 37.1 C (98.8 F) SpO2: 98 % (09/18/23599) O2 flow rate: Supplemental O2 Delivery: Room Air, None (09/18/23599) PHYSICAL EXAM: General: nontoxic appearing middle aged female no acute distress Skin: pink warm dry no rashes Eyes: 3mm and reactive b/l Cardiovascular: RRR without murmur rub gallop Respiratory: CTAB without wheezes rales crackles Abdomen: soft nondistended nontender hypoactive bowel sounds Extremities: no edema of lower extremities b/l Neurologic: awake appropriate conversation following commands x4 extremities with 5/5 strength LABORATORY VALUES: reviewed RADIOGRAPHIC STUDIES: reviewed Active Hospital Problems Diagnosis *Principal Diagnosis - 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 SYSTEM BASED PLAN: Neuro ARU and PRU reviewed. Continue ASA and Plavix Goal SBP 120-160. Norvasc started 09/16. Labetalol PRN. If she becomes symptomatic with lower BP goals, notify Nsgy Vasculitis work-up sent Tylenol PRN Cardiac BP goals above Respiratory Patient resp driven protocol GI/Hepatobiliary Regular diet -bowel regimen: senokot-s daily, Miralax daily PRN Renal/ Renal function and electrolytes unremarkable Renal vascular ultrasound negative Labs sent for hyperaldosteronism in process - aldosterone/plasma renin activity ratio in process Endocrine Stable Infectious Disease Stable DVT ppx: Lovenox Lines: PIV GLOBAL ISSUES: Analgesia: no pain Sedation: N/A Delirium/Confusion Assessment Method for ICU (CAM-ICU): CAM-ICU negative HOB Elevation: greater than 30 degress Nutrition: enteral, at goal DVT Prophylaxis: chemoprophylaxis with pneumatic compression devices Stress Ulcer Prophylaxis: not indicated Glycemic Control: controlled - not in protocol Central Line Necessity Reviewed: N/A [place]: N/A Disposition: transfer to floor - can go to Neurology service Patient's decisional capacity: has capacity to make decisions Communication with Patient/Family: Updated patient on plan of care. Goals of Care: stabilize hemodynamic status MDM low complexity 26 minutes D/w Dr. Blackmon Associated attestation - Luis Blackmon MD - 09/18/2023 2:28 PM EDT I have reviewed the advanced practitioner's documentation on the date of service referenced in note, and I agree with, and take responsibility for the plan of care. Weaned off cardene but remains with borderline hypertension on amlodipine 10. Will start lisinoprilto ensure SBP < 160. Discussed this addition with Mrs Minor and she is in agreement and familiar with the medication having taken it when she was younger. HTN workup with aldosterone/plama renin ratio and plasma metanephrines still in process. 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 * I spent a total of 35 minutes coordinating, documenting, and providing care for this patient excluding time spent in the performance of separately billed services or time spent by another provider/QHP. * Loraine Esposito PA-C - 09/17/2023 11:45 AM EDT NEUROLOGICAL SURGERY PROGRESS NOTE [facility]-[address] [address] Name: Loren Minor Location: [facility] A447/A Date: 09/17/2023 Time: 11:45 AM 09/15/23: DCA showing R supraclinoid ICA (PCOM segment) irregular stenosis 50% per NASCET with moderately increased MTT SUBJECTIVE: No acute events. No numbness/tingling/speech/motor/sensory issues. Cardene restarted for lower BP goals. Seems to be tolerating well for now. OOB, walking, moving yesterday without symptoms. OBJECTIVE: Most recent vital signs: BP: 137 mmHg/76 mmHg (09/17/23 1100) Pulse: 99 (09/17/23 1100) Resp: 16 (09/17/23 1100) Temp: 36.72 C (09/17/23 1000) Temp Summary: Temp Min: 36.1 C (97 F) Max: 37.2 C (99 F) SpO2: 99 % (09/17/23 1100) O2 flow rate: Supplemental O2 Delivery: Room Air, None (09/17/23 1100) Vital signs over last 24 hours: Systolic BP: Most Recent Systolic BP Av mmHg Min: 124 mmHg Max: 174 mmHg Temperature: Most Recent Temperature Av.7 C Min: 36.11 C Max: 37.22 C Pulse: Pulse Avg: Pulse Av.1 Min: 68 Max: 111 Respirations: Resp Av.9 Min: 11 Max: 27 SpO2: SpO2 Av.4 % Min: 97 % Max: 100 % SpO2: SpO2 Av.4 % Min: 97 % Max: 100 % FiO2%: No data recorded ICP: No data found.CPP (adult): No data found.Intake Input/Output: (last 24 hours) Intake/Output Summary (Last 24 hours) at 09/17/2023 1145 Last data filed at 09/17/2023 1100 Gross per 24 hour Intake 1058.18 ml Output -- Net 1058.18 ml Neurologic Examination Nunnelly Coma Scale (GCS): Eyes Open: 4 = spontaneous Best Verbal Response: 5 = verbally appropriate for age Best Motor Response: 6 = obeys commands appropriate for age R wrist c/d/i Awake, alert, oriented to person, place, time PERRL EOMI No facial droop No pronator drift VINSON to command RUE 5/5 LUE 5/5 RLE 5/5 LLE 5/5 Sensation grossly intact LABS: Blood count: Lab Results Component Value Date/Time WBC 9.63 09/17/2023 05:32 AM WBC 12.3 (H) 10/31/1997 09:00 AM WBC 7.4 01/04/1996 03:00 PM HGB 10.1 (L) 09/17/2023 05:32 AM HGB 12.6 10/31/1997 09:00 AM HGB 14.5 01/04/1996 03:00 PM HCT 34.0 (L) 09/17/2023 05:32 AM HCT 37.9 10/31/1997 09:00 AM HCT 43.2 01/04/1996 03:00 PM PLT 334 09/17/2023 05:32 AM PLT 266 10/31/1997 09:00 AM PLT 296 01/04/1996 03:00 PM Coagulation studies: Lab Results Component Value Date/Time INR 1.1 09/15/2023 03:46 AM Chemistry: Lab Results Component Value Date/Time BUN 16 09/17/2023 05:32 AM BUN 8 (L) 01/04/1996 03:00 PM CREAT 0.9 09/17/2023 05:32 AM CREAT 0.7 01/04/1996 03:00 PM NA 140 09/17/2023 05:32 AM NA 140 01/04/1996 03:00 PM POTASSIUM 4.0 09/17/2023 05:32 AM POTASSIUM 4.0 01/04/1996 03:00 PM CO2 21 (L) 09/17/2023 05:32 AM CO2 28.0 01/04/1996 03:00 PM Latest Reference Range & Units 09/16/23 06:24 09/17/23 05:32 VerifyNow Aspirin >=550 ARU 388 (L) 394 (L) P2Y12 INHIBITOR REACTIVITY (CLOPIDOGREL), VERIFYNOW Rpt ! 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 * CLINICAL HISTORY AND PLAN: 43 year old female w/ PMH significant for HTN and retinal detachment who presents to the neurosurgery service for R ICA terminus stenosis on CTA H/N, RIGHT precentral and superior frontal gyrus, as well as multiple other RIGHT frontal acute/subacute infarcts, and LEFT BG and insular chronic infarcts on MRI, all imaging prompted by work up revealing SBP > 240 after presenting to urgent care after for fatigue and gait instability. s/p angiogram showing R supraclinoid ICA (PCOM segment) irregular stenosis 50% Stroke care per neurology Will watch in ICU Ok to reduce BP and get her OOB and see how she does, goal 120-140 or so Call if becomes symptomatic Ok for sQH OOB for meals DAPT, check levels daily Increased plavix to 112.5 mg daily Will review patient in vascular conference tomorrow am Patient was discussed with attending physician 25 minutes * Paz Helms PA-C - 09/17/2023 7:53 AM EDT CCM - PROGRESS NOTE [facility]-[address] [place] [address] Name: Loren Minor Location: [facility] A447/A Date: 09/17/2023 Time: 7:53 AM Care during the described time interval was provided by me. I have reviewed this patient's available data, including medical history, events of note, physical examination and test results. PATIENT DESCRIPTION/HPI: 43 yo F w/ PMH significant for HTN. Sent to [facility] ED from PCP visit where she was severely hypertensive. Imaging demonstrated R ICA stenosis and subacute R frontal lobe infarcts. Transferred to [facility] and underwent DCA. Denies headache, dizziness, changes in vision/hearing from baseline, chest pain, shortness of breath, nausea/vomiting, and abdominal pain. All systems were reviewed and were otherwise negative. CONSTITUTIONAL DATA: BP: 165 mmHg/104 mmHg (09/17/23699) Pulse: 78 (09/17/23699) Resp: 16 (09/17/23699) Temp: 36.11 C (09/17/23599) Temp Summary: Temp Min: 36.1 C (97 F) Max: 37.2 C (99 F) SpO2: 98 % (09/17/23699) O2 flow rate: Supplemental O2 Delivery: Room Air, None (09/17/23699) PHYSICAL EXAM: General: nontoxic appearing middle aged female no acute distress Skin: pink warm dry no rashes Eyes: 3mm and reactive b/l Cardiovascular: RRR without murmur rub gallop Respiratory: CTAB without wheezes rales crackles Abdomen: soft nondistended nontender hypoactive bowel sounds Extremities: no edema of lower extremities b/l Neurologic: awake appropriate conversation following commands x4 extremities with 5/5 strength LABORATORY VALUES: reviewed RADIOGRAPHIC STUDIES: reviewed Active Hospital Problems Diagnosis *Principal Diagnosis - 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 SYSTEM BASED PLAN: Neuro ARU/PRU reviewed. Continue ASA and increased Plavix dose Goal SBP 120-160. Start Norvasc. Labetalol PRN, Nicardipine gtt if needed. If she becomes symptomatic with lower BP goals, notify Nsgy Tylenol PRN Cardiac BP goals above Respiratory Patient resp driven protocol GI/Hepatobiliary Regular diet -bowel regimen: senokot-s daily, Miralax daily PRN Renal/ Renal function and electrolytes unremarkable Renal vascular ultrasound negative Labs sent for hyperaldosteronism in process Endocrine Stable Infectious Disease Stable DVT ppx: Lovenox Lines: PIV GLOBAL ISSUES: Analgesia: no pain Sedation: N/A Delirium/Confusion Assessment Method for ICU (CAM-ICU): CAM-ICU negative HOB Elevation: greater than 30 degress Nutrition: enteral, at goal DVT Prophylaxis: chemoprophylaxis with pneumatic compression devices Stress Ulcer Prophylaxis: not indicated Glycemic Control: controlled - not in protocol Central Line Necessity Reviewed: N/A [place]burn: N/A Disposition: keep in ICU Patient's decisional capacity: has capacity to make decisions Communication with Patient/Family: Updated patient on plan of care. Goals of Care: stabilize hemodynamic status MDM moderate complexity 36 minutes D/w Dr. Mac Associated attestation - Noreen Mac DO - 09/17/2023 6:00 PM EDT I have reviewed the advanced practitioner's documentation on the date of service referenced in note, and I agree with, and take responsibility for the plan of care. I spent a total of 30 minutes coordinating, documenting, and providing care for this patient excluding time spent in the performance of separately billed services or time spent by another provider/QHP. * Maulik Car MD - 09/16/2023 2:42 PM EDT CCM - NOTE [facility]-[address] [address] Name: Loren Minor Location: [facility] A447/A Date: 09/16/2023 Time: 2:42 PM ADMIT DATE: 09/15/2023 HOSPITAL DAY: 1 PRESENTING PROBLEM: Subacute infarct in right frontal lobe versus vasculitis PATIENT DESCRIPTION: Loren Minor is a 43 year old female with PMHx of HTN and retinal detachment who presented to [facility] ED 09/13 for evaluation of hypertension with SBP > 240 after being sent from PCP appointment. Per patient, she went to PCP after feeling "unwell" for a few weeks and being around sick students at school. There she underwent MRI brain wo contrast and CTA with findings of multiple subacute infarcts to the right frontal lobe and stenosis of the R ICA. Initially concern was for possible vasculitis or tolentino tolentino. Patient was transferred to [facility] NSICU for further management andneurosurgery evaluation. Upon arrival to NSICU, patient was alert and oriented, without focal deficits but hypertensive (257/149). She reports she has a history of hypertension but has not been on anti-hypertensives for years, per previous primary care provider. Overnight Events/24 Hour Summary: Continues to require nicardipine gtt for goal. CONSTITUTIONAL DATA: BP: 146 mmHg/118 mmHg (09/16/23 1315) Pulse: 92 (09/16/23 1315) Resp: 23 (09/16/23 1315) Temp: 36.39 C (09/16/23 1200) Temp Summary: Temp Min: 36.2 C (97.2 F) Max: 37.4 C (99.3 F) SpO2: 99 % (09/16/23 1300) O2 flow rate: Supplemental O2 Delivery: Room Air, None (09/16/23 1300) -- Last 24 Hours -- Systolic BP: Most Recent Systolic BP Av mmHg Min: 142 mmHg Max: 193 mmHg Temperature: Most Recent Temperature Av.8 C Min: 36.22 C Max: 37.39 C Pulse: Pulse Av.3 Min: 78 Max: 104 Respirations: Resp Av.1 Min: 8 Max: 23 SpO2: SpO2 Av.5 % Min: 97 % Max: 100 % Intake & Output Summary (Last 24 hours): Intake/Output Summary (Last 24 hours) at 09/16/2023 1442 Last data filed at 09/16/2023 1000 Gross per 24 hour Intake 1056.37 ml Output 1610 ml Net -553.63 ml Net IO Since Admission: 29.82 mL [09/15/23 0756] Last Bowel Movement: 09/16/23 (09/16/23 1200) Output by Drain (mL) 09/15/23 0700 - 09/15/23 1459 09/15/23 1500 - 09/15/23 2259 09/15/23 2300 - 09/16/23 0659 09/16/23 0700 - 09/16/23 1442 Range Total Patient has no LDAs of requested type attached. Height & Weight: Height: 162.6 cm (5' 4") (09/15/23 0331) Weight: 68.6 kg (151 lb 3.8 oz) (09/16/23 0700) Weight change: -0.2 kg (-7.1 oz) Body mass index is 25.96 kg/m. PHYSICAL EXAM: General: well appearing, resting comfortably, in no acute distress Eyes: PEERLA, EOMI, sclera anicteric, conjunctiva clear CV: Regular rate and rhythm, no murmur, rub, or gallop, no obvious JVD, cap refill < 2 secs. Radial and pedal pulses strong Lungs: No increased work of breathing. Clear to auscultation bilaterally, no wheezing, rales, or rhonchi Abdomen: Normoactive bowel sounds, non-distended, soft, non-tender, no palpable masses or organomegaly Extremities: No cyanosis, clubbing, or edema. Skin: Warm, dry, in-tact. No obvious rashes Neurologic: Awake, Alert, and Oriented x 4, CN 2-12 grossly intact. Psych: Pleasant, Cooperative, Appropriate mood, Appropriate affect LABORATORY VALUES: reviewed Latest Reference Range & Units 09/16/23 06:24 VerifyNow Aspirin >=550 ARU 388 (L) P2Y12 INHIBITOR REACTIVITY (CLOPIDOGREL), VERIFYNOW Rpt ! VerifyNow P2Y12 182 - 335 PRU 164 (L) Latest Reference Range & Units 09/16/23 04:40 WBC 4.00 - 10.80 K/uL 11.17 (H) RBC 3.85 - 5.15 M/uL 4.19 HGB 12.0 - 15.3 g/dL 10.4 (L) HCT 36.0 - 45.2 % 33.6 (L) MCV 81.5 - 97.5 fL 80.2 MCH 27.0 - 34.0 pg 24.8 MCHC 32.0 - 36.0 g/dL 31.0 RDW 11.5 - 15.5 % 16.5 PLT 140 - 400 K/uL 343 MPV 6.6 - 11.1 fL 10.1 CBC WITH WBC DIFFERENTIAL Rpt ! Absolute Neutrophils 1.80 - 7.70 K/uL 8.38 (H) Absolute Lymphocytes 1.00 - 4.80 K/ul 1.69 Absolute Monocytes 0.00 - 1.10 K/uL 0.83 Absolute Eosinophils 0.00 - 0.70 K/uL 0.16 Absolute Basophils 0.00 - 0.20 K/uL 0.06 RADIOGRAPHIC STUDIES: reviewed No imaging results in the last 24 hours Current Hospital Medications Current Facility-Administered Medications Medication Dose Route Frequency Provider labetalol (Trandate) inj 10 mg 10 mg Intravenous Q1H PRN Ruthie Perez MD niCARdipine (CARDENE) 20 mg in 200 mL saline infusion 5 mg/hr Intravenous Continuous Ruthie Perez MD Acetaminophen (Tylenol) supp 650 mg 650 mg Rectal Q4H PRN Eva Yates CRNP aspirin enteric coated tab 81 mg 81 mg Oral Daily(AM) Eva Yates CRNP atorvaSTATin (Lipitor) tab 40 mg 40 mg Oral Q 1700 Eva Yates CRNP chlorHEXIDINE (Periogard) 0.12 % oral rinse 15 mL 15 mL Oral mucosal membrane BID (08,1999) Eva Yates CRNP clopidogrel (pLAVix) tab 75 mg 75 mg Oral Daily(AM) Maulik Car MD Docusate Sodium (Colace) cap 100 mg 100 mg Oral BID(AM/PM) Maulik Car MD Oral Hygiene: Mouth Swab with dentifrice Oral Q4H Limited (00;04;12;16) Eva Yates CRNP senna (Senokot) 1 Tablet 1 Tablet Oral Daily(AM) Maulik Car MD Principal Problem: 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 DSA 09/14 with findings of R supraclinoid ICA stenosis Patient initially with re-emergence of symptoms with BP < 120 and therefore will gradually lowerBP. Goal 140-160 today, OOB Neurology consulted, appreciate recs Cont dAPT Q1 neurochecks TTE w/ bubble study 09/14 w/o L -> R shunt. 55% EF RESPIRATORY #No acute issues - Saturating well on RA CARDIAC / VASCULAR #Hypertension Plan Presented as hypertensive emergency Labetalol PRN + nicardipine ggt Goal SBP 140-180 today Vasculitis labs ordered w/ infectious labs ordered. Renal U/S ordered DSA showed single area of stenosis, unlikely vasculitis. Renal U/S benign GI / HEPATOBILIARY #N/A Plan N/A Stress Ulcer Prophylaxis: not indicated at this time. Bowel Regime: senna/colace BMI: Body mass index is 25.96 kg/m. Last Bowel Movement: Last Bowel Movement: 09/16/23 (09/16/23 1200) DIET: Orders Placed This Encounter Procedures Regular Diet RENAL / METABOLIC / FLUIDS #Hyperaldosteronism? Plan Monitor electrolytes at least daily. Replete electrolytes as indicated Strict monitoring of fluid intake and output Renal dosing and medication considerations adjusted for glomerular filtration rate Daily weights Aldosterone labs sent INFECTIOUS DISEASES #Infectious disease work-up Plan: HIV, MRSA negative Hep C ordered ENDOCRINE #N/A Plan: Blood Glucose Monitoring (BGM) Goal: 140-180 HEMATOLOGIC #Vasculitis Plan: See above MISCELLANEOUS: -Code Status: Code Status: Full Code LINES/DEVICES: Peripheral Line Left;Lower Arm 20 Gauge (Active) Number of days: 1 Peripheral Line Lower;Right Arm 20 Gauge (Active) Number of days: 0 Arterial Line Left Radial (Active) Number of days: 1 CONSULTS: ADULT OCCUPATIONAL THERAPY CONSULT IP ADULT PHYSICAL THERAPY CONSULT IP ADULT SPEECH THERAPY CONSULT IP (ACUTE CARE REHAB) CARE MANAGEMENT CONSULT IP NEUROLOGY CONSULT IP REHAB CONSULT IP NEUROSURGERY CONSULT IP Patient's decisional capacity: has capacity to make decisions Communication with Patient/Family: Brief Family Communication. Patient/Family participation: Patient. Topics of meeting: Patient's diagnosis/current condition. Goals of Care: stabilize hemodynamic status Patient to be discussed with Dr. Noreen Mac DO See attending provider final edits for finalized plan. Associated attestation - Noreen Mac DO - 09/17/2023 4:20 PM EDT I saw and evaluated the patient 09/16/2023. I have reviewed the resident/fellow physician note and agree. Patient with R supraclinoid ICA stenosis found on DSA in the s/o acute/subacute R frontal infarct and prior L BG infarct. Initial concern for vasculitis vs tolentino tolentino though lower suspicion of this given DSA findings. At this time suspect a perfusion dependent exam as patient was very hypertensive on initial presentation (SBP > 240) and continues to have refractory HTN. She is currently on a nicardipine gtt and will gradually liberalize blood pressure goals to optimize perfusion. - Goal today of SBP 140-160. OOB today. If tolerated, will incorporate PO antihypertensive regimen and target normotension. - Cont on dAPT therapy, daily ARU/PRU - Will continue q1h neurochecks I spent a total of 50 minutes coordinating, documenting, and providing care for this patient excluding time spent in the performance of separately billed services. * Kori Briceno MD - 09/16/2023 11:02 AM EDT STROKE PROGRESS NOTE - Stroke / Vascular Neurology [facility]-[address] [address] Name: Loren Minor Location: [facility] A447/A Date: 09/16/2023 Time: 11:02 AM SUBJECTIVE: Loren Minor is a 43 year old patient initially seen for R ICA stenosis. Changes since last visit : NAEO S/p DSA She feels fine, has no questions or concerns today. She state that her blood pressures have always been high but have been attributed to stress. Pertinent past medical history: Past Medical History: Diagnosis Date Hypertension Retinal detachment 12/05/2013 SB#41/270/cryo/SF6 100% MANOJ Verdugo OD, Dr. Zhu Pertinent past social history: Social History Tobacco Use Smoking status: Never Smokeless tobacco: Never Vaping Use Vaping status: Never Used Substance Use Topics Alcohol use: Yes Drug use: No Current Medications: Note that completed medications (per the MAR) continue to display for 24 hours. Ordered medicationsto be given in the future also display. Current Facility-Administered Medications Medication Dose Route Frequency Provider Acetaminophen (Tylenol) supp 650 mg 650 mg Rectal Q4H PRN Eva Yates CRNP aspirin enteric coated tab 81 mg 81 mg Oral Daily(AM) Eav Yates CRNP atorvaSTATin (Lipitor) tab 40 mg 40 mg Oral Q 1700 Eva Yates CRNP chlorHEXIDINE (Periogard) 0.12 % oral rinse 15 mL 15 mL Oral mucosal membrane BID (799,1999) Eva Yates CRNP clopidogrel (pLAVix) tab 75 mg 75 mg Oral Daily(AM) Maulik Car MD Docusate Sodium (Colace) cap 100 mg 100 mg Oral BID(AM/PM) Maulik Car MD labetalol (Trandate) inj 10 mg 10 mg Intravenous Q1H PRN Noreen Mac DO niCARdipine (CARDENE) 20 mg in 200 mL saline infusion 5 mg/hr Intravenous Continuous Eva Yates CRNP Oral Hygiene: Mouth Swab with dentifrice Oral Q4H Limited (00;04;12;16) Eva Yates CRNP senna (Senokot) 1 Tablet 1 Tablet Oral Daily(AM) Maulik Car MD OBJECTIVE: Physical Examination: Most Recent Vital Signs: BP: 176 mmHg/116 mmHg (09/16/23 1000) Pulse: 94 (09/16/23 1000) Resp: 18 (09/16/23 1000) Temp: 36.39 C (09/16/23 1000) Temp Summary: Temp Min: 36.2 C (97.2 F) Max: 37.5 C (99.5 F) SpO2: 100 % (09/16/23 1000) O2 flow rate: Supplemental O2 Delivery: Room Air, None (09/16/23 1000) Weight: 68.6 kg (151 lb 3.8 oz) (09/16/23 0700) Height: 162.6 cm (5' 4") (09/15/23 0331) Body mass index is 25.96 kg/m. Vital Signs Last 24 Hours: Systolic BP: Most Recent Systolic BP Av.7 mmHg Min: 142 mmHg Max: 211 mmHg Temperature: Most Recent Temperature Av.9 C Min: 36.22 C Max: 37.5 C Pulse: Pulse Av.2 Min: 78 Max: 104 Respirations: Resp Av.3 Min: 8 Max: 20 SpO2: SpO2 Av.4 % Min: 97 % Max: 100 % General Examination: Constitutional: Appearance non-obese, no deformities, and well groomed Head/face, ears, nose, throat: normocephalic, atraumatic Neurologic Examination: Mental Status and Orientation: awake, alert, oriented x 3 Memory: intact to recent and remote recall Attention: normal Knowledge:normal Language: no aphasia Speech: no dysarthria Cranial Nerves: CN 2 - no visual defect on confrontation and pupils round, equal, reactive to light CN 3, 4, 6 - extra-ocular movements intact and no nystagmus CN 5 - facial sensation intact V1-3 CN 7 - no facial asymmetry CN 8 - intact hearing CN 9, 10 - palate symmetric, uvula midline, no deviation CN 11 - shoulder shrug full strength CN 12 - tongue protrudes midline Sensory: intact to light touch Coordination: intact with finger to nose testing and heel to p[place] normal Gait: stable and no ataxia Muscle Tone: normal Muscle exam: strength 5/5 upper and lower extremities and no drift National [place] of Health Stroke Scale: 1A. LOC: 0 1B. Question: 0 1C. Commands: 0 2. Gaze: 0 3. Visual Lopez: 0 4. Facial Palsy: 0 5A. Arm Left: 0 5B. Arm Right: 0 6A. Leg Left: 0 6B. Leg Right: 0 7. Ataxia: 0 8. Sensory: 0 9. Aphasia: 0 10. Dysarthria: 0 11. Extinction: 0 Total: 0 Personal Review and Interpretation of New Neuroimaging: MRI Brain at OSH 09/14/2023 - R MCA territory embolic appearing DWI changes with ADC correlate and no SWI changes, indicating AIS with no hemorrhagic conversion. No axial FLAIR sequence available to review CTA - R carotid terminus stenosis I have reviewed the following Diagnostic Tests and noted significant findings as follows: EDWAR w bubble study 09/15/2023: EF 55% LA normal size, no PFO, no WMA EKG 09/15/2023: Sinus arrhythmia LABS: Labs reviewed as indicated below: LDL - 112 HbA1c - 5.5 Latest Reference Range & Units 09/16/23 06:24 VerifyNow Aspirin >=550 ARU 388 (L) VerifyNow P2Y12 182 - 335 PRU 164 (L) (L): Data is abnormally low !: Data is abnormal Latest Reference Range & Units 09/16/23 04:40 Sodium 135 - 146 mmol/L 138 Potassium 3.5 - 5.1 mmol/L 3.9 Chloride 98 - 107 mmol/L 106 CO2 22 - 32 mmol/L 20 (L) BUN 6 - 20 mg/dL 17 Creatinine 0.5 - 1.0 mg/dL 1.0 Estimated Glomerular Filtration Rate >=60 mL/min 75 Anion Gap 7 - 15 mmol/L 12 Glucose 70 - 120 mg/dL 105 Calcium 8.4 - 10.2 mg/dL 8.6 Magnesium 1.5 - 2.6 mg/dL 2.1 Phosphorus 2.5 - 4.8 mg/dL 3.6 (L): Data is abnormally low Latest Reference Range & Units 09/15/23 03:46 Complement C3 90 - 180 mg/dL <4 (L) Complement C4 10 - 40 mg/dL 34 (L): Data is abnormally low Latest Reference Range & Units 09/15/23 03:46 09/15/23 05:51 Cardiolipin IgG Antibody Value <10 GPL U/mL 0.8 Cardiolipin IgG Antibody Interpretation Negative Negative Cardiolipin IgM Antibody Value <10 MPL U/mL 1.3 Cardiolipin IgM Antibody Interpretation Negative Negative FABIOLA Screen Negative Negative KENNY Antibodies Screen Value <0.7 Ratio 0.1 KENNY Antibodies Screen Interpretation Negative Negative dsDNA Antibody Value <20 IU/mL 0.7 dsDNA Antibody Interpretation Negative Negative SSA/Ro Antibody Value <7 U/mL <0.4 SSA/Ro Antibody Interpretation Negative Negative SSB/La Antibody Value <7 U/mL <0.4 SSB/La Antibody Interpretation Negative Negative Albumin 3.30 - 4.40 g/dL 3.88 Alpha-1 Globulin 0.10 - 0.30 g/dL 0.29 Alpha-2 Globulin 0.60 - 1.00 g/dL 1.00 Beta-Globulin 0.80 - 1.30 g/dL 1.29 Gamma-Globulin 0.70 - 1.70 g/dL 1.64 CRP (Inflammatory Marker) <=5 mg/L 5 ESR <20 mm/hour 36 (H) Rheumatoid Factor <14 IU/mL <10 (H): Data is abnormally high IMPRESSION: Loren Minor is a 43 y/o female with hx of HTN and retinopathy with R MCA territory stroke 2/2 JOSIANE terminal occlusion. CTA suggestive of underlying vasculopathy, DSA shows irregular R ICA stenosis, did not reveal significant beading or no evidence of friable blood vessels (no puff of smoke sign). Currently patient has no deficits. MRI also reveald chronic left BG infarct Vasculitis workup largely unremarkable. It is likely she has long standing HTN and the retinopathy may have been secondary to it as well. The ICA stenosis could also be 2/2 HTN. Currently her NIHSS is 0 and has no deficits. NSGY to determine if she will need a stent or not. RECOMMENDATIONS/PLAN: R MCA territory stroke 2/2 R ICA stenosis ( supraclinoid segment) Chronic L BG stroke likely 2/2 - Monitor in ICU - Blood pressure goal < 160 for now, skilled nursing goal < 130/80 - Continue DAPT - Continue Statin , LDL goal < 70 Stroke Checklist: DVT Prophylaxis: receiving chemical and mechanical Antithrombotic Therapy: receiving antiplatelet or anticoagulation Atrial Fibrillation or Flutter: no Statin: receiving - high intensity Stroke Education: personal risk factors for stroke bleeding risk future diagnostic evaluation need for follow up after discharge Rehab Therapy Plan: no current defect - does not need rehab services Patient Has Decision Making Capacity: yes Code Status: Full Code The patient was examined and was discussed with Dr. Rdz. Associated attestation - Martin Rdz MD - 09/16/2023 4:29 PM EDT I saw and evaluated the patient today. I have reviewed the resident/fellow physician note and agree. * Loraine Esposito PA-C - 09/16/2023 10:17 AM EDT NEUROLOGICAL SURGERY PROGRESS NOTE [facility] [address] Name: Loren Minor Location: [facility] A447/A Date: 09/16/2023 Time: 10:17 AM 09/15/23: DCA showing R supraclinoid ICA (PCOM segment) irregular stenosis 50% per NASCET with moderately increased MTT SUBJECTIVE: No acute events. No numbness/tingling/speech/motor/sensory issues. Cardene on hold since midnight. OBJECTIVE: Most recent vital signs: BP: 158 mmHg/100 mmHg (09/16/23 1000) Pulse: 96 (09/16/23 0900) Resp: 17 (09/16/23 0900) Temp: 36.39 C (09/16/23 1000) Temp Summary: Temp Min: 36.2 C (97.2 F) Max: 37.5 C (99.5 F) SpO2: 100 % (09/16/23 1000) O2 flow rate: Supplemental O2 Delivery: Room Air, None (09/16/23 1000) Vital signs over last 24 hours: Systolic BP: Most Recent Systolic BP Av.2 mmHg Min: 142 mmHg Max: 229 mmHg Temperature: Most Recent Temperature Av.9 C Min: 36.22 C Max: 37.5 C Pulse: Pulse Avg: Pulse Av.3 Min: 78 Max: 104 Respirations: Resp Av.2 Min: 8 Max: 20 SpO2: SpO2 Av.4 % Min: 97 % Max: 100 % SpO2: SpO2 Av.4 % Min: 97 % Max: 100 % FiO2%: No data recorded ICP: No data found.CPP (adult): No data found.Intake Input/Output: (last 24 hours) Intake/Output Summary (Last 24 hours) at 09/16/2023 1017 Last data filed at 09/16/2023 0900 Gross per 24 hour Intake 816.37 ml Output 1460 ml Net -643.63 ml Neurologic Examination José Miguel Coma Scale (GCS): Eyes Open: 4 = spontaneous Best Verbal Response: 5 = verbally appropriate for age Best Motor Response: 6 = obeys commands appropriate for age R wrist c/d/i Awake, alert, oriented to person, place, time PERRL EOMI No facial droop No pronator drift VINSON to command RUE 5/5 LUE 5/5 RLE 5/5 LLE 5/5 Sensation grossly intact LABS: Blood count: Lab Results Component Value Date/Time WBC 11.17 (H) 09/16/2023 04:40 AM WBC 12.3 (H) 10/31/1997 09:00 AM WBC 7.4 01/04/1996 03:00 PM HGB 10.4 (L) 09/16/2023 04:40 AM HGB 12.6 10/31/1997 09:00 AM HGB 14.5 01/04/1996 03:00 PM HCT 33.6 (L) 09/16/2023 04:40 AM HCT 37.9 10/31/1997 09:00 AM HCT 43.2 01/04/1996 03:00 PM PLT 343 09/16/2023 04:40 AM PLT 266 10/31/1997 09:00 AM PLT 296 01/04/1996 03:00 PM Coagulation studies: Lab Results Component Value Date/Time INR 1.1 09/15/2023 03:46 AM Chemistry: Lab Results Component Value Date/Time BUN 17 09/16/2023 04:40 AM BUN 8 (L) 01/04/1996 03:00 PM CREAT 1.0 09/16/2023 04:40 AM CREAT 0.7 01/04/1996 03:00 PM NA 138 09/16/2023 04:40 AM NA 140 01/04/1996 03:00 PM POTASSIUM 3.9 09/16/2023 04:40 AM POTASSIUM 4.0 01/04/1996 03:00 PM CO2 20 (L) 09/16/2023 04:40 AM CO2 28.0 01/04/1996 03:00 PM Imaging studies: No new images Problem list: Active Problems: 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 * CLINICAL HISTORY AND PLAN: 43 year old female w/ PMH significant for HTN and retinal detachment who presents to the neurosurgery service for R ICA terminus stenosis on CTA H/N, RIGHT precentral and superior frontal gyrus, as well as multiple other RIGHT frontal acute/subacute infarcts, and LEFT BG and insular chronic infarcts on MRI, all imaging prompted by work up revealing SBP > 240 after presenting to urgent care after for fatigue and gait instability. s/p angiogram showing R supraclinoid ICA (PCOM segment) irregular stenosis 50% Stroke care per neurology Will watch in ICU Ok to reduce BP and get her OOB and see how she does, goal 120-160 or so Call if becomes symptomatic Ok for sQH OOB for meals DAPT, check levels daily Patient was discussed with attending physician 25 minutes * Lukas Sheldon MD - 09/15/2023 10:10 PM EDT NEUROSURGERY POSTOP NOTE S: Transferred back to ICU without immediate issues O: Ox3 VINSON with full strength CN2-12 grossly intact AP: 43yo with R MCA watershed stroke with right supraclinoid severe ICA stenosis s/p DSA on 09/15/23with Dr. White Keep in ICU over the weekend Q1 neurochecks SBP 140-180 Flat 2h ARU/PRU tomorrow morning Will discuss in multidisciplinary cerebrovascular conference regarding further management Discussed with Dr. Christopher Sheldon MD Neurosurgery PGY2 Associated attestation - Pino White MD, PhD - 09/16/2023 8:18 AM EDT I saw and evaluated the patient 09/15/2023. I have reviewed the resident/fellow physician note and agree. Images discussed with patient at bedside. * Faizan Jeffery MD - 09/15/2023 10:17 AM EDT NEUROLOGICAL SURGERY PROGRESS NOTE [facility] [place] [address] Name: Loren Minor Location: [facility] A447/A Date: 09/15/2023 Time: 10:18 AM SUBJECTIVE: No acute events. OBJECTIVE: Most recent vital signs: BP: 197 mmHg/114 mmHg (09/15/23899) Pulse: 85 (09/15/23899) Resp: 18 (09/15/23899) Temp: 37 C (09/15/23799) Temp Summary: Temp Min: 36.2 C (97.2 F) Max: 37 C (98.6 F) SpO2: 99 % (09/15/23899) O2 flow rate: Supplemental O2 Delivery: Room Air, None (09/15/23899) Vital signs over last 24 hours: Systolic BP: Most Recent Systolic BP Av.4 mmHg Min: 154 mmHg Max: 260 mmHg Temperature: Most Recent Temperature Av.5 C Min: 36.22 C Max: 37 C Pulse: Pulse Avg: Pulse Av.8 Min: 84 Max: 98 Respirations: Resp Av.8 Min: 18 Max: 20 SpO2: SpO2 Av.3 % Min: 99 % Max: 100 % SpO2: SpO2 Av.3 % Min: 99 % Max: 100 % FiO2%: No data recorded ICP: No data found.CPP (adult): No data found.Intake Input/Output: (last 24 hours) Intake/Output Summary (Last 24 hours) at 09/15/2023 1018 Last data filed at 09/15/2023 0500 Gross per 24 hour Intake 29.82 ml Output -- Net 29.82 ml Neurologic Examination Nunnelly Coma Scale (GCS): Eyes Open: 4 = spontaneous Best Verbal Response: 5 = verbally appropriate for age Best Motor Response: 6 = obeys commands appropriate for age Awake, alert, oriented to person, place, time PERRL EOMI No facial droop No pronator drift VINSON to command RUE 5/5 LUE 5/5 RLE 5/5 LLE 5/5 Sensation grossly intact LABS: Blood count: Lab Results Component Value Date/Time WBC 10.29 09/15/2023 03:46 AM WBC 12.3 (H) 10/31/1997 09:00 AM WBC 7.4 01/04/1996 03:00 PM HGB 12.3 09/15/2023 03:46 AM HGB 12.6 10/31/1997 09:00 AM HGB 14.5 01/04/1996 03:00 PM HCT 39.9 09/15/2023 03:46 AM HCT 37.9 10/31/1997 09:00 AM HCT 43.2 01/04/1996 03:00 PM PLT 409 (H) 09/15/2023 03:46 AM PLT 266 10/31/1997 09:00 AM PLT 296 01/04/1996 03:00 PM Coagulation studies: Lab Results Component Value Date/Time INR 1.1 09/15/2023 03:46 AM Chemistry: Lab Results Component Value Date/Time BUN 11 09/15/2023 03:46 AM BUN 8 (L) 01/04/1996 03:00 PM CREAT 0.8 09/15/2023 03:46 AM CREAT 0.7 01/04/1996 03:00 PM NA 139 09/15/2023 03:46 AM NA 140 01/04/1996 03:00 PM POTASSIUM 3.3 (L) 09/15/2023 03:46 AM POTASSIUM 4.0 01/04/1996 03:00 PM CO2 21 (L) 09/15/2023 03:46 AM CO2 28.0 01/04/1996 03:00 PM Imaging studies: No new images Problem list: Active Problems: 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 * CLINICAL HISTORY AND PLAN: 43 year old female w/ PMH significant for HTN and retinal detachment who presents to the neurosurgery service for R ICA terminus stenosis on CTA H/N, RIGHT precentral and superior frontal gyrus, as well as multiple other RIGHT frontal acute/subacute infarcts, and LEFT BG and insular chronic infarcts on MRI, all imaging prompted by work up revealing SBP > 240 after presenting to urgent care after for fatigue and gait instability. Stroke care per neurology Keep NPO, possible angio today Patient was discussed with attending physician Associated attestation - Pino White MD, PhD - 09/15/2023 12:40 PM EDT I saw and evaluated the patient today. I have reviewed the resident/fellow physician note and agree. In accordance with the patient's symptoms and imaging findings, I recommended that we perform a diagnostic cervico-cerebral angiogram to further evaluate and characterize for intracranial and extracranial vascular pathology. I explained that by performing this minimally-invasive diagnostic procedure our aim is to acquire a complete understanding of the cervical and cerebral angio-architecture. Risks and benefits were discussed with the patient and the patient's family member. Risk include but are not limited to bleeding, groin hematoma, infection, stroke with transient or permanent weakness, numbness or other deficit, speech and language dysfunction, vision loss, dissection, coma, ,need for more surgery or interventions, blood vessel damage and/or blockage, kidney damage from contrast dye, focal radiation reaction/hair loss. The patient questions were answered thoroughly. The patient expressed understanding and elected to proceed with endovascular diagnostic cervico- cerebral angiogram. The patient consented for the procedure. Pino White MD, PhD Staff Neurosurgeon Endovascular and Cerebrovascular Neurosurgery [place], [place] * Maulik Car MD - 09/15/2023 7:56 AM EDT CCM - NOTE [facility] [address] Name: Loren Minor Location: [facility] A447/A Date: 09/15/2023 Time: 2:36 PM ADMIT DATE: 09/15/2023 HOSPITAL DAY: 0 PRESENTING PROBLEM: Subacute infarct in right frontal lobe versus vasculitis PATIENT DESCRIPTION: Loren Minor is a 43 year old female with PMHx of -HTN -Retinal detachment Patient is a 43-year-old female with pmhx significant for hypertension and retinal detachment. She presented to [facility] ED 09/13 for evaluation of hypertension after being sent from PCP appointment. Per patient, she went to PCP after feeling "unwell" for a few weeks and being around sick students at school. Imaging revealed multiple subacute infarcts to the right frontal lobe and stenosis of the R ICA. Patient was transferred to [facility] NSICU for further management and neurosurgery evaluation. Upon arrival to NSICU, patient is alert and oriented, without focal deficits but hypertensive (257/149). She reports she has a history of hypertension but has not been on anti-hypertensives for years, per previous primary care provider. HPI/EVENTS OF NOTE: 09/13- PCP -> ED w/ CT scan of R ICA stenosis w/ subacute infarcts. NSICU for close monitoring. A-line. 09/14 - DSA Overnight Events/24 Hour Summary: Admitted Neuro exam fully intact CONSTITUTIONAL DATA: BP: 211 mmHg/118 mmHg (09/15/23 1400) Pulse: 102 (09/15/23 1400) Resp: 19 (09/15/23 1400) Temp: 37.5 C (09/15/23 1400) Temp Summary: Temp Min: 36.2 C (97.2 F) Max: 37.5 C (99.5 F) SpO2: 99 % (09/15/23 1400) O2 flow rate: Supplemental O2 Delivery: Room Air, None (09/15/231399) -- Last 24 Hours -- Systolic BP: Most Recent Systolic BP Av.2 mmHg Min: 154 mmHg Max: 260 mmHg Temperature: Most Recent Temperature Av.9 C Min: 36.22 C Max: 37.5 C Pulse: Pulse Av.3 Min: 84 Max: 109 Respirations: Resp Av.9 Min: 14 Max: 20 SpO2: SpO2 Av.6 % Min: 97 % Max: 100 % Intake & Output Summary (Last 24 hours): Intake/Output Summary (Last 24 hours) at 09/15/2023 1436 Last data filed at 09/15/2023 1000 Gross per 24 hour Intake 529.82 ml Output 150 ml Net 379.82 ml Net IO Since Admission: 29.82 mL [09/15/23 0756] Output by Drain (mL) 09/14/23 0700 - 09/14/23 1459 09/14/23 1500 - 09/14/23 2259 09/14/23 2300 - 09/15/23 0659 09/15/23 0700 - 09/15/23 1436 Range Total Patient has no LDAs of requested type attached. Height & Weight: Height: 162.6 cm (5' 4") (09/15/23 033) Weight: 68.8 kg (151 lb 10.8 oz) (09/15/23330) Weight change: Body mass index is 26.04 kg/m. PHYSICAL EXAM: General: well appearing, resting comfortably, in no acute distress Eyes: PEERLA, EOMI, sclera anicteric, conjunctiva clear CV: Regular rate and rhythm, no murmur, rub, or gallop, no obvious JVD, cap refill < 2 secs. Radial and pedal pulses strong Lungs: No increased work of breathing. Clear to auscultation bilaterally, no wheezing, rales, or rhonchi Abdomen: Normoactive bowel sounds, non-distended, soft, non-tender, no palpable masses or organomegaly Extremities: No cyanosis, clubbing, or edema. Skin: Warm, dry, in-tact. No obvious rashes Neurologic: Awake, Alert, and Oriented x 4, CN 2-12 grossly intact. Psych: Pleasant, Cooperative, Appropriate mood, Appropriate affect LABORATORY VALUES: reviewed RADIOGRAPHIC STUDIES: reviewed No imaging results in the last 24 hours Current Hospital Medications Current Facility-Administered Medications Medication Dose Route Frequency Provider Acetaminophen (Tylenol) supp 650 mg 650 mg Rectal Q4H PRN Eva Yates CRNP [START ON 09/16/2023] aspirin enteric coated tab 81 mg 81 mg Oral Daily(AM) Eva Yates CRNP atorvaSTATin (Lipitor) tab 40 mg 40 mg Oral Q 1700 Eva Yates CRNP chlorHEXIDINE (Periogard) 0.12 % oral rinse 15 mL 15 mL Oral mucosal membrane BID (08,1999) Eva Yates CRNP [START ON 09/16/2023] clopidogrel (pLAVix) tab 75 mg 75 mg Oral Daily(AM) Maulik Car MD Docusate Sodium (Colace) cap 100 mg 100 mg Oral BID(AM/PM) Maulik Car MD labetalol (Trandate) inj 10 mg 10 mg Intravenous Q1H PRN Noreen Mac, Oral Hygiene: Mouth Swab with dentifrice Oral Q4H Limited (00;04;12;16) Eva Yates CRNP senna (Senokot) 1 Tablet 1 Tablet Oral Daily(AM) Maulik Car MD Facility-Administered Medications Ordered in Other Encounters Medication Dose Route Frequency Provider perflutren lipid microsphere inj SUSP 1.956 mg 1.956 mg Intravenous Once PRN Ruthie Perez MD Active Problems: 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 Added statin OSH did not load with plavix. Loaded 09/14 Continue maintenance Due to terminal ICA stenosis, vasculitis/infectious etiology is possible Work-up initiated Holding some aspect of work-up until after DSA Goal BP 220/120. After 24 hrs (1200 09/15/23) BP goal > 160 Labetalol PRN Keep a-line Q1 neuroexam TTE w/ bubble study 09/14 w/o L -> R shunt. 55% EF RESPIRATORY #N/A Plan CARDIAC / VASCULAR #BP goal #Vasculitis? Plan Presented as hypertensive emergency, but in the setting of her ICA stenosis, permissive HTN. She issymptomatic <160 systolic with "spots" in her vision Labetalol PRN Vasculitis labs ordered w/ infectious labs ordered. Renal U/S ordered GI / HEPATOBILIARY #N/A Plan N/A Stress Ulcer Prophylaxis: not indicated at this time. Bowel Regime: senna/colace BMI: Body mass index is 26.04 kg/m. Last Bowel Movement: DIET: Orders Placed This Encounter Procedures NPO Except Meds RENAL / METABOLIC / FLUIDS #Pheo? #Hyperaldosteronism? Plan Monitor electrolytes at least daily. Replete electrolytes as indicated Strict monitoring of fluid intake and output Renal dosing and medication considerations adjusted for glomerular filtration rate Daily weights Pheochromocytoma work-up Wait until no longer w/ bedrest Aldosterone labs sent INFECTIOUS DISEASES #Infectious disease work-up Plan: HIV, MRSA negative Hep C ordered ENDOCRINE #N/A Plan: Blood Glucose Monitoring (BGM) Goal: 140-180 HEMATOLOGIC #Vasculitis Plan: See above MISCELLANEOUS: -Code Status: Code Status: Full Code LINES/DEVICES: Peripheral Line Left;Lower Arm 20 Gauge (Active) Number of days: 0 Arterial Line Left Radial (Active) Number of days: 0 CONSULTS: ADULT OCCUPATIONAL THERAPY CONSULT IP ADULT PHYSICAL THERAPY CONSULT IP ADULT SPEECH THERAPY CONSULT IP (ACUTE CARE REHAB) CARE MANAGEMENT CONSULT IP NEUROLOGY CONSULT IP REHAB CONSULT IP NEUROSURGERY CONSULT IP Patient's decisional capacity: has capacity to make decisions Communication with Patient/Family: Brief Family Communication. Patient/Family participation: Patient. Topics of meeting: Patient's diagnosis/current condition. Goals of Care: stabilize hemodynamic status Patient to be discussed with Dr. Noreen Mac DO See attending provider final edits for finalized plan. Associated attestation - Noreen Mac DO - 09/15/2023 5:10 PM EDT I saw and evaluated the patient today. I have reviewed the resident/fellow physician note and agree. Patient is a 43 yo with history of HTN and retinal detachment presenting to [facility] as a transfer from [facility] after generally feeling unwell and generalized weakness found to have hypertension with SBP > 240. She underwent CTH and MRI brain without contrast showing embolic appearing infarcts in the R MCA territory as well as chronic infarct on L. 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 Patient has no neurologic deficits on exam. Overnight vasculitis labs drawn and pending as well as hypercoag labs. TTE completed today showing LVEF 55-59%. No evidence of LVH. - Plan for DCA today per nsgy - Vasculitis labs pending, will evaluate for need for LP pending DCA - Cont on ASA and Plavix daily, loaded with ASA at OSH and did not receive Plavix there so will load today and cont on ASA 81mg and Plavix 75mg daily - SBP goal 140-180 to avoid hypoperfusion. Suspect patient is chronically hypertensive and will avoid lowering BP too quickly subsequently as well. - Cont q1h neurochecks and close neuromonitoring I spent a total of 50 minutes coordinating, documenting, and providing care for this patient excluding time spent in the performance of separately billed services. documented in this encounter Procedure Notes * Floyd Juárez MD - 09/15/2023 5:31 AM EDTAssociated Order(s): EKG REASON FOR STUDY: Stroke (HCC) CONCLUSIONS: Sinus rhythm with marked sinus arrhythmia Anterolateral infarct , age undetermined T wave abnormality, consider inferior ischemia Abnormal ECG No previous ECGs available Ventricular Rate: 76 Atrial Rate: 76 KS Interval: 172 QRS Duration: 72 QT/QTc: 368/414 ms P-R-T Bighorn: 32 : 47 : -66 degrees documented in this encounter Consult Notes * Ursula Goodman CCC-MECHANICAL MAINTENANCE INSTRUCTOR - 09/18/2023 12:17 PM EDT COGNITIVE COMMUNICATION ASSESSMENT - Speech-Language Pathology [facility] [address] Name: Loren Minor Location: [facility] A447/A Date: 09/18/2023 Time: 12:17 PM Patient Status: Inpatient Insurance: Payor: NEELIMA NICHOLSON [employer] ANNEMARIE ([employer]) / Plan: SELECT NEELIMA SHARPE BS / Product Type: *No Producttype* / Patient Age: [age] year old Referring Physician: KENN Yates Admission Date: 09/15/2023 History: Per Epic H&P 09/15/23: "Patient is a 43-year-old female with pmhx significant for hypertension and retinal detachment. Shepresented to [facility] ED 09/13 for evaluation of hypertension after being sent from PCP appointment. Perpatient, she went to PCP after feeling "unwell" for a few weeks and being around sick students at school. Imaging revealed multiple subacute infarcts to the right frontal lobe and stenosis of the R ICA. Patient was transferred to [facility] NSICU for further management and neurosurgery evaluation. Upon arrival to NSICU, patient is alert and oriented, without focal deficits but hypertensive (257/149). She reports she has a history of hypertension but has not been on anti-hypertensives for years, per previous primary care provider." Past Medical History: Diagnosis Date Hypertension Retinal detachment 12/05/2013 SB#41/270/cryo/SF6 100% PST Kenalog OD, Dr. Zhu Past Surgical History: Procedure Laterality Date CAROTID (INTERNAL) ARTERY CATHETHER PLACEMENT Bilateral 09/15/2023 CATHETER PLACEMENT INTERNAL CAROTID ARTERY performed by Pino White MD, PhD at OR [facility] MISCELLANEOUS ORDER ([facility] ONLY) 02/03/2014 Laser procedure of the Left eye, PARTIAL REMOVAL OF EYE FLUID 12/05/2013 SB #41/270/cryo/[id number]%/PSTKenalog OD; Dr. Zhu VERTEBRAL ARTERY CATHETER PLACEMENT Bilateral 09/15/2023 CATHETER PLACEMENT VERTEBRAL ARTERY, performed by Pino White MD, PhD at OR [facility] Educational History: Completed high school Prior Functional Level: Reported by Patient Money Management is done by: Patient Homemaking: independent Shopping: Yes Occupation: Employed as para-educator Barriers to Learning: None Known and Medical Status Hearing Acuity: Deferred Best Learning Method: Auditory Patient/Family Goal(s): None stated Pain: No Complaints of Pain RLA Level: N/A Assessment / Diagnosis: Pt AAOx4 independently. Receptive and expressive language, reading, writing, and cognitive-communication skills were judged to be within functional limits. Cognitive-Communication Rehab Potential: N/A RECOMMENDATIONS / TREATMENT PLAN: Rdpwiu-Gbewubjo-Xihkjrtnd-Communication Therapy: Not Indicated Communication Goals: N/A ANTICIPATED FREQUENCY (ON EVAL): NA PATIENT/FAMILY EDUCATION: Topic(s): MECHANICAL MAINTENANCE INSTRUCTOR provided pt and family ( and daughter) with education re: reason for evaluation, findings noted, and recommendations to be made. All verbalized understanding and agreement with same. Additional Recommendations: N/A Evaluations Results: Speech-Language Skills AUDITORY COMPREHENSION: Yes/No Questions Within normal limits Body Part Identification Within normal limits Right/Left Discrimination: Within normal limits Commands Simple Within normal limits Complex Within normal limits Comprehension Words Within normal limits Sentences Within normal limits Paragraphs Did not test Conversation Within normal limits VERBAL EXPRESSION: Naming Responsive Within normal limits Confrontation Within normal limits Repetition Within normal limits Automatic Speech Within normal limits Spontaneous Utterances Words Within normal limits Sentences Within normal limits Conversation Within normal limits Paraphasias/Jargon not present Gestures/Augmentative Within normal limits Perseveration not present READING COMPREHENSION: Oral: Words Within normal limits Sentences Within normal limits Paragraphs Did not test Comprehension Words Within normal limits Sentences Within normal limits Paragraphs Did not test WRITTEN EXPRESSION: Biographical Information Within normal limits Copying Did not test Spontaneous: Words Within normal limits Sentences Within normal limits Narrative Did not test SPEECH MECHANISM: Oral Motor Within normal limits Speech Intelligibility Within normal limits Dysarthria not present Apraxia Oral not present Verbal not present LEVEL OF ALERTNESS: alert/focused COGNITIVE-COMMUNICATION SKILLS: ATTENTION/CONCENTRATION: Sustained (1:1 environment) Within normal limits Selective with distractions Within normal limits Alternating between tasks Within normal limits Divided between tasks Within normal limits MEMORY: Immediate Memory Within normal limits Short Term Memory: Daily Events/Activities Within normal limits Novel Information Within normal limits Delayed memory Within normal limits Japanese Tutor Memory Within normal limits PROBLEM SOLVING/REASONING: Verbal Problem Solving Within normal limits Functional Problem Solving: Simple Within normal limits Complex Within normal limits Functional Math: Math Calculations Within normal limits Time Management Within normal limits Money Management Within normal limits Abstract Reasoning Within normal limits Deficit Reasoning Within normal limits Safety Awareness Within normal limits VISUAL PERCEPTION: Spatial Organization Within normal limits Distribution of Attention Within normal limits Written Organization Within normal limits ORIENTATION: Person Within normal limits Place Within normal limits Time Within normal limits Situation Within normal limits EXECUTIVE FUNCTIONS: Initiation Within normal limits Organization Within normal limits Planning/Decision Making Within normal limits Self Monitoring Within normal limits Self Correction Within normal limits BEHAVIORAL OBSERVATIONS NOTED: WNL Patient/Family Goals: None stated Speech Communication Goals: N/A * Doreen Moffett, CCC-MECHANICAL MAINTENANCE INSTRUCTOR - 09/16/2023 1:30 PM EDTAssociated Order(s): ADULT SPEECH THERAPY CONSULT IP (ACUTE CARE REHAB) CLINICAL BEDSIDE SWALLOW EVALUATION - Speech-Language Pathology [address] [address] Name: Loren Minor Location: [facility] A447/A Date: 09/16/2023 Time: 2:26 PM Patient Status: Inpatient Insurance: Payor: [employer]) / Plan: SELECT [employer] BS / Product Type: *No Producttype* / GENERAL INFORMATION: Admission Date: 09/15/2023 Referring Physician: Eva Yates CRNP Pertinent Medical History: Per Epic review 09/16/23, "43 year old female w/ PMH significant for HTNand retinal detachment who presents to the neurosurgery service for R ICA terminus stenosis on CTA H/N, RIGHT precentral and superior frontal gyrus, as well as multiple other RIGHT frontal acute/subacute infarcts, and LEFT BG and insular chronic infarcts on MRI, all imaging prompted by work up revealing SBP > 240 after presenting to urgent care after for fatigue and gait instability. s/p angiogram showing R supraclinoid ICA (PCOM segment) irregular stenosis 50% " Past Medical History: Diagnosis Date Hypertension Retinal detachment 12/05/2013 SB#41/270/cryo/SF6 100% PST Kenalog OD, Dr. Zhu Past Surgical History: Procedure Laterality Date MISCELLANEOUS ORDER ([facility] ONLY) 02/03/2014 Laser procedure of the Left eye, PARTIAL REMOVAL OF EYE FLUID 12/05/2013 SB #41/270/cryo/[id number]%/PSTKenalog OD; Dr. hZu Current Diet/Dysphagia History: Regular Diet -Pt denies h/o dysphagia. Cognitive-Communication: Pt remained awake and alert. She followed commands and effectively communicated wants/needs. Full cognitive-communication evaluation to be completed upon follow up. Barriers to Learning: Medical Status Hearing Acuity: Deferred Best Learning Method: Auditory Pain: No complaints of pain ORAL MECHANISM EXAM: Facial Symmetry WFL Labial Function WFL Lingual Function WFL Velar Function DNT Dentition: Natural PROTECTIVE MECHANISMS: Volitional Swallow DNT Volitional Throat Clearing DNT Volitional Cough DNT Vocal Quality WFL Tracheostomy Tube: Not Present Ventilator Status: Not Applicable SWALLOWING FUNCTION: ORAL PREPARATION PHASE: Puree (IDDSI Level 4): WFL Soft and Bite-Sized (IDDSI Level 6): WFL Regular (IDDSI Level 7): WFL Thin Liquid (IDDSI Level 0): WFL ORAL PHASE: Puree (IDDSI Level 4): WFL Soft and Bite-Sized (IDDSI Level 6): WFL Regular (IDDSI Level 7): WFL Thin Liquid (IDDSI Level 0): WFL PHARYNGEAL PHASE Puree (IDDSI Level 4): WFL Soft and Bite-Sized (IDDSI Level 6): WFL Regular (IDDSI Level 7): WFL Thin Liquid (IDDSI Level 0): WFL RECOMMENDATIONS/PLAN: Videofluoroscopy: Not indicated Diet Level: Regular Liquid Level: Thin Presentation of Medication: As tolerated Positioning: Seated with 90 degree hip flexion Level of Supervision: None Use of Straws: allowed Compensatory Techniques to be Utilized During PO Intake: Small Bites/Sips, Alternate Solids & Liquids and Slow Rate of Intake Compensatory Strategies Utilized: as above Additional findings: N/A ANTICIPATED FREQUENCY (ON EVAL): Not indicated DIAGNOSIS/IMPRESSIONS: Diagnosis/Impressions: Oral phase WFL. Pharyngeal phase dysphagia not suspected 2/2 absence of overt s/sx of aspiration and/or distress. Rehab Potential: N/A TREATMENT PLAN: Swallowing Treatment: Not Indicated Treatment Goals: N/A Additional Recommendations: If s/sx of aspiration and/or distress are appreciated, please downgradeas nsg safety measure, and re-consult MECHANICAL MAINTENANCE INSTRUCTOR services. The above information was discussed with the patient/family. Yes The patient/family was in Agreement * Lele Elias, PT - 09/16/2023 12:30 PM EDT GENERAL EVALUATION - Physical Therapy [address] [place] [address] Name: Loren Minor Location: [facility] A447/A Date: 09/16/2023 Time: 12:30 AM Patient Status: Inpatient Insurance: Payor: NEELIMA NICHOLSON - [place] ([employer]) Plan: SELECT BLUE [place] BS Product Type: *No Product type* Patient Seen: at bedside, nursing cleared patient for therapy Patient Identified By: Name, ID Band, and Date Diagnosis: Acute ischemic R ICA stroke (09/16/23 1230) Status of treatment: OOB evaluation completed (09/16/23 1230) Orders: PT evaluation and treatment;OOB (09/16/23 1230) Weight Bearing Status: Weight bearing as tolerated (09/16/23 1230) Precautions: Alarms;Falls;Safety (09/16/23 1230) Total Treatment Time--free text: 10 (09/16/23 1230) Past Medical History: Past Medical History: Diagnosis Date Hypertension Retinal detachment 12/05/2013 SB#41/270/cryo/SF6 100% PST Kenalog OD, Dr. Zhu Past Surgical History: Past Surgical History: Procedure Laterality Date MISCELLANEOUS ORDER ([facility] ONLY) 02/03/2014 Laser procedure of the Left eye, PARTIAL REMOVAL OF EYE FLUID 12/05/2013 SB #41/270/cryo/TV8058%/PSTKenalog OD; Dr. Zhu Surgeries this admission: (09/15/23) Operation: Cervical and cerebral angiogram. Ultra-sound guided vascular access Social History/Disposition Lives with: Spouse;Family (fiance and daughter) (09/15/23 124) Assistance available: Yes (09/15/23 124) Dwelling type: Multi-story home (09/15/23 124) Entry steps: 3 (09/15/23 124) Inside steps: 10 - 15 (09/15/23 124) Bedroom location: 2nd floor (09/15/23 124) Bath location: 2nd floor full bath (09/15/23 124) Prior Level of Function Reported by: Patient (09/15/23 124) Ambulation: Ambulatory without device (09/15/23 124) Devices at home: No device (09/15/23 124) Observations Consciousness: Alert (09/16/23 123) Orientation: Oriented times 4 (09/16/23 123) Psychosocial: Patient can communicate basic needs;Patient can converse in a social setting (09/16/23 123) Other Findings: Yes (09/15/231241) Findings: Proprioception;Coordination;Tone;Light touch sensation (09/15/231241) Light Touch Sensation Results: Intact;LLE;RLE (09/15/23 124) Proprioception Results: Intact;LLE;RLE (09/15/23 124) Coordination Results: Intact;LLE;RLE (09/15/23 124) Tone Results: Intact;LLE;RLE (09/15/23 124) Sitting Posture: Normal (09/16/23 1230) Standing Posture: Normal (09/16/23 123) Pain: No complaints of pain LOWER EXTREMITY ASSESSMENT: See bedrest evaluation P.T. Bed Mobility Supine-Sit: Independent (09/16/23 1230) Transfers Sit-Stand: Independent (09/16/23 1230) Stand-Sit: Independent (09/16/23 1230) Ambulation Assist: Independent (09/16/23 1230) Distance Ambulated (feet): 300 (09/16/23 1230) Assistive Device: No device (09/16/23 123) Number of Stairs: 5 (09/16/23 1230) Level of Assistance: Independent (09/16/23 123) Ambulatory safety: Patient verbalizes insight of current deficits;Patient demonstrates carryover ofinsight during functional tasks (09/16/23 1230) Balance Sit (Static): Good (09/16/23 1230) Sit (Dynamic): Good (09/16/23 1230) Stand (Static): Good (09/16/23 1230) Stand (Dynamic): Good (09/16/23 1230) Patient and or Family Goal(s): to get well Patient Education Review of Precautions: Safety;Fall (09/16/231229) Safety Awareness: Patient verbalizes insight of current deficits;Patient demonstrates carryover of insight during functional tasks;Patient can communicate basic needs (09/16/231229) Preferred learning method: Combination (09/16/231229) Barriers to learning: None (09/16/231229) Method of Education: Verbalized to patient (09/16/231229) Topic of Education: Safety with mobility, Goals/plan of care, Use of assistive device, and Fall prevention Method of Education: Verbal discussion and explanation provided to patient: verbalized understanding and or agreement of this information Treatment Provided: Gait Training 10 minutes: gait training with no device and stair training Treatment Status: Treatment at bedside (09/16/231229) Alarm Status Patient positioned in: Chair (09/16/231229) With: Pressure pad alarm intact and functioning and call doan in reach (09/16/231229) Following session patient seated OOB in chair with chair alarm activated. Chair alarm (did not havecord to plug into call doan system and/or room did not have port to plug cord into call doan system). Assessment: Patient is a 43 year old female admitted to [facility] on 09/15/23 with acute ischemic R ICA stroke. Patient was independent for all functional mobility without an assistive device. Patient demonstrated good strength, good safety awareness, and good balance during mobility. Patient no longer requires acute care services at this time. Deficits requiring P.T. treatment needs: (none) (09/16/231229) Treatment Plan: Discontinue from Physical Therapy Services Equipment needs: (TBD) (09/15/23 1242) Anticipated Frequency (on eval): (Discharge from PT services) (09/16/231229) Mobility Assessment (AM-PAC) - Completed Daily - Assess your patient "How much help do you currently need..." Turning from your back to your side while in a flat bed without using bedrails?: None (09/16/231229) Moving from lying on your back to sitting on the side of a flat bed without using bedrails?: None (09/16/231229) Moving to and from a bed to a chair (including a wheelchair)?: None (09/16/231229) Standing up from a chair using your arms (e.g., wheelchair, or bedside chair)?: None (09/16/231229) To walk in hospital room?: None (09/16/231229) Climbing 3-5 steps with a railing?: None (09/16/231229) AM-PAC Score With Stairs : 24 (09/16/231229) AM-PAC t-Scale Score: 61.14 (09/16/231229) HLM (Highest Level of Mobility) Goal: Level 8 walk 250 feet or more (09/16/231229) AM-PAC Score With Stairs : 24 (09/16/231229) * Nazia Moffett, OT - 09/16/2023 12:06 PM EDT GENERAL EVALUATION - Occupational Therapy OOB evaluation [address] [address] Name: Loren Minor Location: [facility] A4/A Date: 09/16/2023 Time: 12:06 PM Loren Minor is a 43 year old female. Patient Status: Inpatient Insurance: Payor: [employer] ([employer]ovo) Plan: [employer] Product Type: *No Product type* Patient Seen: at bedside, nursing cleared patient for therapy Patient Identified By: Name, ID Band and Date Diagnosis: R ICA stenosis (09/16/231205) Status of treatment: Discontinue services on evaluation (09/16/231205) Orders: OT evaluation and treatment (09/16/231205) Weight Bearing Status: Weight bearing as tolerated (09/16/231205) Precautions: Alarms;Falls;Safety;A-line (09/16/231205) Total Treatment Time: 10 (09/16/231205) Past Medical History: Past Medical History: Diagnosis Date Hypertension Retinal detachment 12/05/2013 SB#41/270/cryo/SF6 100% MANOJ Verdugo ODDr. Zhu Past Surgical History: Past Surgical History: Procedure Laterality Date MISCELLANEOUS ORDER ([facility] ONLY) 02/03/2014 Laser procedure of the Left eye, PARTIAL REMOVAL OF EYE FLUID 12/05/2013 SB #41/270/cryo/UE1013%/PSTKenalog OD; Dr. Zhu Social History/Disposition Lives with: Spouse;Family (fiance and daughter) (09/15/23 124) Assistance available: Yes (09/15/23 124) Dwelling type: Multi-story home (09/15/23 124) Entry steps: 3 (09/15/23 124) Inside steps: 10 - 15 (09/15/23 124) Bedroom location: 2nd floor (09/15/23 124) Bath location: 2nd floor full bath (09/15/23 124) Prior Level of Function Reported by: Patient (09/15/23 1237) Ambulation: Ambulatory without device (09/15/23 1237) Grooming: Independent (09/15/23 1237) Bathing: Independent (09/15/23 1237) Dressing: Independent (09/15/23 1237) Feeding: Independent (09/15/23 1237) Toileting: Independent (09/15/23 1237) Meal Prep: Independent (09/15/23 1237) Homemaking: Independent (09/15/23 1237) Shopping: Independent (09/15/23 1237) Money Management: Independent (09/15/23 1237) Driving: Yes (09/15/23 123) Subjective: patient was pleasant and cooperative, agreeable to OT evaluation Pain: No complaints of pain Observations Consciousness: Alert (09/16/23 1206) Orientation: Oriented times 4 (09/16/23 1206) Psychosocial: Patient can communicate basic needs;Patient can converse in a social setting (09/16/23 1206) Sitting posture: Forward head;Rounded shoulders (09/16/23 1206) Standing posture: Forward head;Rounded shoulders (09/16/23 1206) Safety awareness: The Patient verbalizes insight of current deficits. (09/16/23 1206) Other Findings Endurance: Good (09/16/23 1206) Current Functional Status: Self Care Feeding: Independent (06/15/24 1206) Toileting: Independent (09/16/231205) Dressing Upper Body: Independent (to swati robe) (09/16/231205) Lower Body: Independent (to doff and swati slipper socks) (09/16/231205) Functional Ambulation Assistive Device: No device (09/16/231205) Distance in feet:: 300 (09/16/231205) Level of Assistance: Independent (09/16/231205) Bed Mobility Supine-Sit: Independent (09/16/231205) OT Transfers Sit-Stand: Independent (09/16/231205) Stand-Sit: Independent (09/16/231205) Balance Sit (Static): Good (09/16/231205) Sit (Dynamic): Good (09/16/231205) Stand (Static): Good (09/16/231205) Stand (Dynamic): Good (09/16/231205) Alarm Status Patient positioned in: Chair (09/16/231205) With: Pressure pad alarm intact and functioning and call doan in reach Following session patient seated OOB in chair with chair alarm activated. Chair alarm did not have cord to plug into call doan system. NSICU aware. (09/16/231205) Patient and Family Goals: to get well and to return home Patient Education Education Topic: Role of OT (09/16/231205) Review of Precautions: Safety;Fall (09/16/231205) Method of Education: Verbalized to patient (09/16/231205) Education Provided to: Patient (09/16/231205) Response to Education: Receptive and agreeable to education (09/16/231205) Barriers to learning: None (09/16/231205) Preferred learning method: Combination (09/16/231205) Treatment Provided: no charge; co-treatment with PT Deficits Requiring O.T. Treatment: Deficits requiring O.T. treatment needs: (none) (09/16/231205) Assessment: Patient is a 43 year old female admitted to [facility] on 09/15/23 with Dx of R ICA stenosis. Patient lives at home with her family and was independent prior to admission. Patient demonstrates independent level for self-care, functional transfers/ambulation, bed mobility, and balance. Patient with WNL UE strength to complete ADLs. Please consider discharging patient to home with assistance as needed when she is medically appropriate for discharge. No further OT services are recommended at this time. Treatment Plan: Discontinue Occupational Therapy services Anticipated Frequency (on eval): (OT services discontinued) (09/16/23 120) AM-PAC Help From Another Person Eating Meals: None (09/16/23 120) Help From Another Person Taking Care of Personal Grooming: None (09/16/231205) Help From Another Person To Put On/Take Off Upper Body Clothing: None (09/16/231205) Help From Another Person To Put On/Take Off Lower Body Clothing: None (09/16/231205) Help From Another Person Toileting: None (09/16/231205) Help From Another Person Bathing: None (09/16/231205) OT AM-PAC Score: 24 (09/16/23 120) OT AM-PAC t-Scale Score: 57.54 (09/16/231205) HLM (Highest Level of Mobility) Goal: Level 8 walk 250 feet or more (09/16/23 1230) A portion of this AM-PAC assessment not scored based on functional assessment rather clinical decision making utilized based on current findings and/or prior level of function. Please refer to futureAM-PAC calculations of functional ability as they become available. * Abdulaziz Kraus OTR/Anastasiya - 09/15/2023 2:17 PM EDTAssociated Order(s): ADULT OCCUPATIONAL THERAPY CONSULT IP GENERAL BEDREST EVALUATION - Occupational Therapy [address] [address] Name: Loren Minor Location: [facility] A447/A Date: 09/15/2023 Time: 2:17 PM Loren Minor is a 43 year old female. Patient Status: Inpatient Insurance: Payor: [employer] [facility] [place] (Dovo) Plan: [facility] Product Type: *No Product type* Patient Seen: at bedside, nursing cleared patient for therapy Patient Identified By: Name, ID Band and Date Diagnosis: R ICA stenosis (09/15/231236) Status of treatment: Bedrest evaluation completed (09/15/231236) Orders: OT evaluation and treatment;OT OOB (09/15/231236) Weight Bearing Status: Weight bearing as tolerated (09/15/231236) Precautions: A-line;Alarms;Falls;Safety (09/15/231236) Total Treatment Time: 8 (09/15/231236) Past Medical History: Past Medical History: Diagnosis Date Hypertension Retinal detachment 12/05/2013 SB#41/270/cryo/SF6 100% PST Kenalog OD, Dr. Zhu Past Surgical History: Past Surgical History: Procedure Laterality Date MISCELLANEOUS ORDER ([facility] ONLY) 02/03/2014 Laser procedure of the Left eye, PARTIAL REMOVAL OF EYE FLUID 12/05/2013 SB #41/270/cryo/XN1212%/PSTKenalog OD; Dr. Zhu Social History/Disposition Lives with: Spouse;Family (fiance and daughter) (09/15/23 124) Assistance available: Yes (09/15/23 124) Dwelling type: Multi-story home (09/15/231241) Entry steps: 3 (09/15/231241) Inside steps: 10 - 15 (09/15/23 124) Bedroom location: 2nd floor (09/15/23 124) Bath location: 2nd floor full bath (09/15/23 124) Prior Level of Function Reported by: Patient (09/15/23 123) Ambulation: Ambulatory without device (09/15/23 123) Grooming: Independent (09/15/231236) Bathing: Independent (09/15/23 123) Dressing: Independent (09/15/231236) Feeding: Independent (09/15/231236) Toileting: Independent (09/15/231236) Meal Prep: Independent (09/15/231236) Homemaking: Independent (09/15/231236) Shopping: Independent (09/15/231236) Money Management: Independent (09/15/231236) Driving: Yes (09/15/231236) Subjective: Pt supine in bed, agreeable to OT session. Family present at bedside. Pain: No complaints of pain Observations Consciousness: Alert (09/15/231236) Orientation: Oriented times 4 (09/15/231236) Psychosocial: Patient can communicate basic needs;Patient can converse in a social setting (09/15/231236) Other Findings Light touch sensation: LUE;RUE;Intact (09/15/231236) Coordination: LUE;RUE;Gross motor;Fine motor;Intact (opposition, finger to nose intact bilaterally)(09/15/231236) Current Functional Status: Bilateral Upper Extremity Range of Motion: WFL (09/15/231236) Strength Assessment: (BUE 4/5 throughout) (09/15/231236) Functional Ambulation Distance in feet:: 0 (09/15/231236) Level of Assistance: N/A (09/15/231236) Alarm Status Patient positioned in: Bed (09/15/231236) With: Bed alarm intact and functioning and call doan in reach (09/15/231236) Patient and Family Goals: to get well and to return home Patient Education Education Topic: Role of OT (09/15/231236) Review of Precautions: Safety;Fall (09/15/231236) Method of Education: Verbalized to patient (09/15/231236) Education Provided to: Patient (09/15/231236) Response to Education: Receptive and agreeable to education (09/15/231236) Barriers to learning: Medical status (09/15/231236) Preferred learning method: Combination (09/15/231236) Treatment Provided: Evaluation Moderate Complexity 8 minutes - [id number]: Patient was cooperative and pleasant during treatment session. Moderate complexity evaluation performed and activity limitations were identified, including decreased strength and safety. Minimal or moderate modification of the fun ctional task was necessary to complete the evaluation. Deficits Requiring O.T. Treatment: Deficits requiring O.T. treatment needs: Upper extremity strength (09/15/231236) Goals: Increase BUE strength 1/2 muscle grade Complete OOB assessment as able/appropriate Goal Time Frame: 6 visits Assessment: Patient was admitted to [facility] on 09/15/23 for R ICA stroke. Patient was cooperative and agreeable to participate in OT evaluation this date. Bedrest only per neurosurgery due to overall medical status. Prior to admission patient was independent with ADLs/IADLs and mobility. During sessionpatient participated in BUE strength, ROM, sensation and coordination assessment. No discrepancies n oted with strength. Following session pt remains in bed with all needs met. Currently, due to medical status patient is presenting with deficits in strength. Patient would benefit from continued OT services to improve overall strength and work towards established goals. OOB assessment to be completed as able/appropriate. Discharge considerations TBD following OOB/self-care evalaution. Treatment Plan: Upper extremity strengthening, safety, assess OOB as able/appropriate Anticipated Frequency (on eval): 3 to 5 times per week (09/15/23 1237) AM-PAC HLM (Highest Level of Mobility) Goal: Level 4 move to chair/commode (09/15/23 0800) AM-PAC assessment not scored at this time due to bedrest only. Please refer to future AM-PAC calculations of functional mobility as they become available. * Gwen Daniels, PT - 09/15/2023 12:42 PM EDTAssociated Order(s): ADULT PHYSICAL THERAPY CONSULT IP GENERAL BEDREST EVALUATION - Physical Therapy [address] [address] Name: Loren Minor Location: [facility] A447/A Date: 09/15/2023 Time: 1241 Loren Minor is a/an 43 year old female. Patient Status: Inpatient Insurance: Payor: [employer] [place] Plan: [employer] [place] Product Type: *No Product type* Patient Seen: at bedside, nursing cleared patient for therapy Patient Identified By: Name, ID Band and Date Diagnosis: acute ischemic R ICA stroke (09/15/23 124) Status of treatment: Bedrest evaluation completed (09/15/23 124) Orders: PT evaluation and treatment;OOB (09/15/23 124) Weight Bearing Status: Weight bearing as tolerated (09/15/231241) Precautions: Alarms;Falls;Safety;A-line (09/15/231241) Total Treatment Time--free text: 8 (09/15/231241) Past Medical History: Past Medical History: Diagnosis Date Hypertension Retinal detachment 12/05/2013 SB#41/270/cryo/SF6 100% PST Kenalog OD, Dr. Zhu Past Surgical History: Past Surgical History: Procedure Laterality Date MISCELLANEOUS ORDER ([facility] ONLY) 02/03/2014 Laser procedure of the Left eye, PARTIAL REMOVAL OF EYE FLUID 12/05/2013 SB #41/270/cryo/LK2206%/PSTKenalog OD; Dr. Zhu Subjective: Pt awake in bed, fiance and daughter at bedside, agreeable to evaluation. Social History/Disposition Lives with: Spouse;Family (fiance and daughter) (09/15/231241) Assistance available: Yes (09/15/231241) Dwelling type: Multi-story home (09/15/231241) Entry steps: 3 (09/15/231241) Inside steps: 10 - 15 (09/15/231241) Bedroom location: 2nd floor (09/15/231241) Bath location: 2nd floor full bath (09/15/231241) Prior Level of Function Reported by: Patient (09/15/231241) Ambulation: Ambulatory without device (09/15/231241) Devices at home: No device (09/15/231241) Observations Consciousness: Alert (09/15/231241) Orientation: Oriented times 4 (09/15/231241) Psychosocial: Patient can communicate basic needs;Patient can converse in a social setting (09/15/231241) Other Findings: Yes (09/15/231241) Findings: Proprioception;Coordination;Tone;Light touch sensation (09/15/231241) Light Touch Sensation Results: Intact;LLE;RLE (09/15/231241) Proprioception Results: Intact;LLE;RLE (09/15/231241) Coordination Results: Intact;LLE;RLE (09/15/231241) Tone Results: Intact;LLE;RLE (09/15/231241) Pain: No complaints of pain Range of Motion Range of Motion: WFL (09/15/231241) Strength Assessment Strength Assessment: (4+/5 B/L LE) (09/15/231241) Patient and or Family Goal(s): to get well and to return home Patient Education Review of Precautions: Safety;Fall (role of PT) (09/15/231241) Safety Awareness: Patient can communicate basic needs (09/15/231241) Preferred learning method: Combination (09/15/231241) Barriers to learning: None (09/15/231241) Method of Education: Verbalized to patient;Patient demonstrated task (09/15/231241) Topic of Education: Safety with mobility, Goals/plan of care, and Fall prevention Method of Education: Verbal discussion and explanation provided to pt: verbalized understanding andor agreement of this information and demonstrated the exercise and or task Treatment Provided: Evaluation Moderate Complexity 8 minutes - [id number]: Patient was cooperative and pleasant during treatment session. Moderate complexity evaluation performed and 1-2 personal factors or comorbidities were identified that will impact plan of care, including recent stroke and ICU status. Patient presents with limitations in strength, which will impact plan of care. These limitationswill be addressed by the goals set for this patient. Alarm Status Patient positioned in: Bed (09/15/231241) With: Bed alarm intact and functioning and call doan in reach (09/15/231241) Treatment Status: Treatment at bedside (09/15/231241) Goals: Increase Strength of: B/L LE to 5/5 Assess out of bed as able/appropriate Time Frame: 6-7 visits Assessment: Pt is 43 year old female presenting with acute ischemic R ICA stroke. Pt seen on this date for initial evaluation, bedrest only per ENE Anders due to bedrest orders per neurosurgery. Priorto admission, pt reports living in 2-story house (3 steps to enter) with fiance and daughter who are able to assist if needed. Pt reports ambulating with no assistive device at baseline. During session, pt was cooperative and pleasant. Pt was able to participate in LE assessment as listed above. Following session, pt positioned in bed with alarm and call doan in reach. Pt presents with minor deficits in strength, and would continue to benefit from skilled PT services while inpatient at hospitalto reach established goals and address deficits, with out of bed evaluation as able/appropriate. Discharge considerations pending out of bed mobility. All needs met. Deficits requiring P.T. treatment needs: Weakness;Mobility (09/15/231241) Equipment Needs: Equipment needs: (TBD) (09/15/231241) Treatment Plan: Strengthening exercises: B/L LE Assess out of bed as able/appropriate Anticipated Frequency (on eval): 3 to 5 times per week (09/15/231241) AM-PAC assessment not scored at this time due to bedrest only. Please refer to future AM-PAC calculations of functional mobility as they become available. * Yanira Yi RN - 09/15/2023 11:58 AM EDTAssociated Order(s): CARE MANAGEMENT CONSULT IP Chart reviewed. CM met with patient at bedside to discuss discharge planning and complete initial assessment. Care Management needs are undetermined at this time. Pt is for possible DSA today. Care Management will continue to follow. * Bella Sheldon MD - 09/15/2023 7:58 AM EDTAssociated Order(s): REHAB CONSULT IP CONSULT - Physical Medicine & Rehabilitation [facility]-[address] [address] Name: Loren Minor Location: [facility] A447/[id number] Date: 09/15/2023 Time: 7:58 AM REASON FOR CONSULT: Disposition Planning Admit Date: 09/15/2023 Attending Physician: Kwaku Logan MD HPI Loren Minor is a(n) 43 year old female PMH HTN presents with generalized weakness, fatigue and headache. Patient was sent to ER from PCP appointment. Imaging showed Rt ICA stenosis and multiple acute/subacute infarcts to the right frontal lobe and Lt BG. SBP found to be > 240. Patient is participating in therapy but pending OOB eval. Pain well controlled on current regimen. Per patient, no bladder or bowel incontinence. Reported strong family support including her fiance, his child and his parents. His ficance is working but his parents will be able to check her out and they live close by. No fever, chills, headaches, chest pain, shortness of breath. Review of Systems per HPI Past Medical History: Diagnosis Date Hypertension Retinal detachment 12/05/2013 SB#41/270/cryo/SF6 100% PST Kenalog OD, Dr. Zhu Past Surgical History: Procedure Laterality Date MISCELLANEOUS ORDER ([facility] ONLY) 02/03/2014 Laser procedure of the Left eye, PARTIAL REMOVAL OF EYE FLUID 12/05/2013 SB #41/270/cryo/SX2389%/PSTKenalog OD; Dr. Zhu Social History Tobacco Use Smoking status: Never Smokeless tobacco: Never Vaping Use Vaping status: Never Used Substance Use Topics Alcohol use: Yes Drug use: No Family History Problem Relation Name Age of Onset Cancer None Diabetes Father Diabetes Grandfather (Maternal) Diabetes Grandfather (Paternal) Thyroid Disorder None Stroke Grandfather (Maternal) Heart Disorder None Eye Problems None Pt denies AMD,glaucoma, retinal detachment or blindness Review of patient's allergies indicates: No Known Allergies Current Facility-Administered Medications Medication Dose Route Frequency Provider Acetaminophen (Tylenol) supp 650 mg 650 mg Rectal Q4H PRN Eva Yates CRNP [START ON 09/16/2023] aspirin enteric coated tab 81 mg 81 mg Oral Daily(AM) Eva Yates CRNP atorvaSTATin (Lipitor) tab 40 mg 40 mg Oral Q 1700 Eva Yates CRNP chlorHEXIDINE (Periogard) 0.12 % oral rinse 15 mL 15 mL Oral mucosal membrane BID (0800,1999) Eva Yates CRNP labetalol (Trandate) inj 10 mg 10 mg Intravenous Q1H PRN Ruthie Perez MD Oral Hygiene: Mouth Swab with dentifrice Oral Q4H Limited (00;04;12;16) Eva Yates CRNP PREVIOUS FUNCTIONAL STATUS: Independent with all functions. Home Set-up and Support System: Lives with her fiance and his child. 2 story house, 3 [address] (2nd floor setup) Previously independent with ADLs Ambulates without AD Recent Physical Therapy Assessment: Pending OOB eval Recent Occupational Therapy Assessments: Pending OOB eval Current level of function: Pending OOB eval Physical Examination BP: 195 mmHg/112 mmHg (09/15/23629) Pulse: 98 (09/15/23599) Resp: 18 (09/15/23599) Temp: 37 C (09/15/23799) Temp Summary: Temp Min: 36.2 C (97.2 F) Max: 37 C (98.6 F) SpO2: 100 % (09/15/23599) O2 flow rate: Supplemental O2 Delivery: Room Air, None (09/15/23799) Vital Signs Last 24 Hours: BP Min: 136/109 Max: 260/141 Arterial Blood Pressure1 (ABP) Min: 164/96 Max: 228/125 Pulse Av Min: 84 Max: 98 Most Recent Temperature Av.5 C Min: 36.22 C Max: 37 C Resp Av Min: 18 Max: 20 General: NAD; resting comfortably; conversing appropriately Respiratory: nonlabored breathing Skin: no erythema, cyanosis, or other rashes Psychiatric: appropriate mood and affect CN grossly intact, alert, cognition x 3 No dysarthria or aphasia noted No ataxia on finger to nose bilaterally Neuro/MSK: 5/5 bilateral upper extremity strength in C5-T1 myotomes sensation intact to light touch in bilateral upper extremities in C5-T1 dermatomes reflexes 2+ bilaterally in biceps, brachioradialis 5/5 bilateral lower extremity strength L2-S2 myotomes sensation intact to light touch in bilateral lower extremities L2-S2 dermatomes reflexes 2+ bilaterally in patellae, achilles negative guzman bilaterally Data Review Hemoglobin AIC Results: Lab Results Component Value Date/Time HEMOGLOBIN A1C - [facility] 5.5 09/15/2023 03:46 AM Recent Results (from the past 24 hour(s)) BASIC METABOLIC PANEL Collection Time: 09/15/23 3:46 AM Result Value Ref Range BUN 11 6 - 20 mg/dL Creatinine 0.8 0.5 - 1.0 mg/dL Estimated Glomerular Filtration Rate >90 >=60 mL/min Sodium 139 135 - 146 mmol/L Potassium 3.3 (L) 3.5 - 5.1 mmol/L Chloride 103 98 - 107 mmol/L CO2 21 (L) 22 - 32 mmol/L Anion Gap 15 7 - 15 mmol/L Glucose 100 70 - 120 mg/dL Calcium 9.7 8.4 - 10.2 mg/dL HEMOGLOBIN A1C Collection Time: 09/15/23 3:46 AM Result Value Ref Range Hemoglobin A1C 5.5 4.0 - 5.6 % Estimated Average Glucose 111 <126 mg/dL LIPID PANEL WITH DIRECT LDL IF TG IS HIGH Collection Time: 09/15/23 3:46 AM Result Value Ref Range Triglycerides 126 <=174 mg/dL Cholesterol 199 <200 mg/dL HDL Cholesterol 62 >49 mg/dL Non-HDL Cholesterol 137 <=159 mg/dL LDL Cholesterol 112 <=129 mg/dL TROPONIN T, HIGH SENSITIVITY Collection Time: 09/15/23 3:46 AM Result Value Ref Range Troponin T, High Sensitivity 6 <=14 ng/L HEPATIC FUNCTION PANEL Collection Time: 09/15/23 3:46 AM Result Value Ref Range Albumin 4.6 3.8 - 5.0 g/dL AST 17 10 - 35 U/L Alkaline Phosphatase 89 35 - 130 U/L ALT 16 10 - 35 U/L Bilirubin, Total 0.8 <=1.2 mg/dL Bilirubin, Direct <0.2 0.0 - 0.3 mg/dL Protein 8.1 6.0 - 8.3 g/dL PT INR Collection Time: 09/15/23 3:46 AM Result Value Ref Range Prothrombin Time 13.8 11.6 - 15.2 seconds INR 1.1 0.8 - 1.2 MAGNESIUM Collection Time: 09/15/23 3:46 AM Result Value Ref Range Magnesium 2.4 1.5 - 2.6 mg/dL PHOSPHORUS Collection Time: 09/15/23 3:46 AM Result Value Ref Range Phosphorus 4.2 2.5 - 4.8 mg/dL ERYTHROCYTE SEDIMENTATION RATE (ESR) Collection Time: 09/15/23 3:46 AM Result Value Ref Range ESR 36 (H) <20 mm/hour CRP (INFLAMMATORY MARKER) Collection Time: 09/15/23 3:46 AM Result Value Ref Range CRP (Inflammatory Marker) 5 <=5 mg/L LD Collection Time: 09/15/23 3:46 AM Result Value Ref Range LD 218 <=250 U/L COMPLEMENT C3 Collection Time: 09/15/23 3:46 AM Result Value Ref Range Complement C3 <4 (L) 90 - 180 mg/dL COMPLEMENT C4 Collection Time: 09/15/23 3:46 AM Result Value Ref Range Complement C4 34 10 - 40 mg/dL CBC Collection Time: 09/15/23 3:46 AM Result Value Ref Range WBC 10.29 4.00 - 10.80 K/uL RBC 4.98 3.85 - 5.15 M/uL HGB 12.3 12.0 - 15.3 g/dL HCT 39.9 36.0 - 45.2 % MCV 80.1 81.5 - 97.5 fL MCH 24.7 27.0 - 34.0 pg MCHC 30.8 32.0 - 36.0 g/dL RDW 16.2 11.5 - 15.5 % PLT 409 (H) 140 - 400 K/uL MPV 10.7 6.6 - 11.1 fL nRBCs 0 <=0 /100 WBCs DIFFERENTIAL, AUTOMATED Collection Time: 09/15/23 3:46 AM Result Value Ref Range WBC 10.29 4.00 - 10.80 K/uL Neutrophils % 70.3 40.0 - 75.0 % Lymphocytes % 19.0 18.0 - 42.0 % Monocytes % 7.8 1.0 - 11.0 % Eosinophils % 1.5 0.0 - 6.0 % Basophils % 0.9 0.0 - 2.0 % Immature Granulocytes % 0.5 0.0 - 2.0 % Absolute Neutrophils 7.24 1.80 - 7.70 K/uL Absolute Lymphocytes 1.96 1.00 - 4.80 K/ul Absolute Monocytes 0.80 0.00 - 1.10 K/uL Absolute Eosinophils 0.15 0.00 - 0.70 K/uL Absolute Basophils 0.09 0.00 - 0.20 K/uL Absolute Immature Granulocytes 0.05 0.00 - 0.20 K/uL TSH WITH FREE T4 IF INDICATED Collection Time: 09/15/23 3:46 AM Result Value Ref Range TSH 2.66 0.27 - 4.20 uIU/mL MRSA SCREEN, PCR Collection Time: 09/15/23 4:00 AM Result Value Ref Range MRSA PCR Result Negative Negative URINALYSIS, REFLEX TO MICROSCOPIC Collection Time: 09/15/23 5:26 AM Result Value Ref Range Color, Urine Light Yellow Colorless, Light Yellow, Yellow, Dark Yellow Clarity, Urine Clear Clear Glucose, Urine Negative Negative mg/dL Bilirubin, Urine Negative Negative Ketone, Urine Negative Negative mg/dL Specific [place], Urine 1.010 1.003 - 1.030 Blood, Urine Negative Negative pH, Urine 6.5 5.0 - 7.5 Units Protein, Urine Negative Negative mg/dL Urobilinogen, Urine Normal Normal mg/dL Nitrite, Urine Negative Negative Esterase, Urine Negative Negative Comment, Urine PROTEIN/ CREATININE RATIO, URINE Collection Time: 09/15/23 5:26 AM Result Value Ref Range Protein/ Creatinine Ratio, Urine 200 (H) <150 mg/g Protein, Random Urine 8 mg/dL Creatinine, Random Urine 40 mg/dL TOXICOLOGY, URINE SCREEN W/ CONFIRMATION Collection Time: 09/15/23 5:26 AM Result Value Ref Range Amphetamines Screen, U Negative Negative Benzodiazepines Screen, U Negative Negative Cannabinoids Screen, U Negative Negative Cocaine Metabolite Screen, U Negative Negative Fentanyl Screen, U Negative Negative Hydrocodone Screen, U Negative Negative Methadone Metabolite Screen, U Negative Negative Morphine/Codeine Screen, U Negative Negative Oxycodone Screen, U Negative Negative HIV ANTIGEN & ANTIBODY SCREEN W/ CONFIRMATION Collection Time: 09/15/23 5:51 AM Result Value Ref Range HIV Antigen & Antibody Negative Negative TROPONIN T, HIGH SENSITIVITY Collection Time: 09/15/23 6:11 AM Result Value Ref Range Troponin T, High Sensitivity <6 <=14 ng/L LABS: CBC Lab Results Component Value Date/Time WBC 10.29 09/15/2023 03:46 AM WBC 12.3 (H) 10/31/1997 09:00 AM WBC 7.4 01/04/1996 03:00 PM RBC 4.98 09/15/2023 03:46 AM RBC 4.29 10/31/1997 09:00 AM RBC 4.90 01/04/1996 03:00 PM HGB 12.3 09/15/2023 03:46 AM HGB 12.6 10/31/1997 09:00 AM HGB 14.5 01/04/1996 03:00 PM HCT 39.9 09/15/2023 03:46 AM HCT 37.9 10/31/1997 09:00 AM HCT 43.2 01/04/1996 03:00 PM MCV 80.1 09/15/2023 03:46 AM MCV 88.3 10/31/1997 09:00 AM MCV 88.1 01/04/1996 03:00 PM MCH 24.7 09/15/2023 03:46 AM MCH 29.4 10/31/1997 09:00 AM MCH 29.6 01/04/1996 03:00 PM MCHC 30.8 09/15/2023 03:46 AM MCHC 33.3 10/31/1997 09:00 AM MCHC 33.6 01/04/1996 03:00 PM RDW 16.2 09/15/2023 03:46 AM RDW 11.3 10/31/1997 09:00 AM RDW 12.7 01/04/1996 03:00 PM PLT 409 (H) 09/15/2023 03:46 AM PLT 266 10/31/1997 09:00 AM PLT 296 01/04/1996 03:00 PM MPV 10.7 09/15/2023 03:46 AM NEUTS 70.3 09/15/2023 03:46 AM LYMP 11 (L) 10/31/1997 09:00 AM MONOS 7.8 09/15/2023 03:46 AM MONOS 13 (H) 10/31/1997 09:00 AM EOS 1.5 09/15/2023 03:46 AM EOS 1 10/31/1997 09:00 AM BASOS 0.9 09/15/2023 03:46 AM LABS: BMP Lab Results Component Value Date/Time BUN 11 09/15/2023 03:46 AM BUN 8 (L) 01/04/1996 03:00 PM CREAT 0.8 09/15/2023 03:46 AM CREAT 0.7 01/04/1996 03:00 PM NA 139 09/15/2023 03:46 AM NA 140 01/04/1996 03:00 PM POTASSIUM 3.3 (L) 09/15/2023 03:46 AM POTASSIUM 4.0 01/04/1996 03:00 PM CL 103 09/15/2023 03:46 AM CL 104 01/04/1996 03:00 PM CO2 21 (L) 09/15/2023 03:46 AM CO2 28.0 01/04/1996 03:00 PM AGP 15 09/15/2023 03:46 AM CA 9.7 09/15/2023 03:46 AM Imaging studies: RADIOLOGY EXAM - CT (IMAGES ONLY, NO REPORT) This is an imaging study not interpreted or resulted by a [facility] or [facility] contracted radiologist. RADIOLOGY EXAM - CT (IMAGES ONLY, NO REPORT) This is an imaging study not interpreted or resulted by a [facility] or [facility] contracted radiologist. RADIOLOGY EXAM - MRI (IMAGES ONLY, NO REPORT) This is an imaging study not interpreted or resulted by a [facility] or [facility] contracted radiologist. 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 Patient was sent to ER from PCP appointment. Imaging showed Rt ICA stenosis and multiple acute/subacute infarcts to the right frontal lobe and Lt BG. SBP found to be > 240. Previously independent in ADLs, family (fiance, his child and his parents) support, 2 story house with 2nd floor setting, and 3 [address]. Pending OOB eval. Planning angiogram today per chart review. Plan -Pending OOB evaluation. Likely can be discharged home with 24/7 supervision. Patient prefers discharging home as well. Patient was seen, examined and discussed with Dr. Haider. Bella Sheldon MD 09/15/2023 PMR resident Associated attestation - Emanuel Haider MD - 09/15/2023 3:37 PM EDT I have discussed the patient's management with the medical trainee and agree with the note. Please refer to the documented findings and plan of care. The patient's service consisted of an evaluation.I have seen and evaluated the patient. * Faizan Jeffery MD - 09/15/2023 4:18 AM EDT NEUROLOGICAL SURGERY CONSULT NOTE [facility] [address] Name: Loren Minor Location: [facility] A447/[id number] Date: 09/15/2023 Time: 4:18 AM Requesting service: Critical Care Medicine Reason for consult: "ICA critical stenosis " HISTORY OF PRESENT ILLNESS: 43 year old female w/ PMH significant for HTN and retinal detachment who presents to the neurosurgery service for R ICA terminus stenosis on CTA H/N, RIGHT precentral and superior frontal gyrus, as well as multiple other RIGHT frontal acute/subacute infarcts, and LEFT BG and insular chronic infarcts on MRI, all imaging prompted by work up revealing SBP > 240 after presenting to urgent care after for fatigue and gait instability. Patient explains that she has felt fatigued for over a week and has had intermittent gait instability over the past few days. Presented to urgent care and found to be hypertensive with SBP > 240. Presented to ED per urgent care. ED work up included CTA H/N and MRIb w/wo with above findings. Patient was on antihypertensives in the past, but they were discontinued 6 years ago, and she has not seen a doctor since. Now, patient asymptomatic and neurointact. Patient denies ROUSE/N/V, confusion, memory deficits, speech deficits, numbness/weakness/tingling in extremities, or gait instability. 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 Zhu LAST IRONER Meds Prior to Admission medications Medication Sig Last Dose Discont. Magnesium 30 MG Oral Tablet Take by mouth. Vitamin B Complex Oral Tablet Take 1 Tablet by mouth in the morning. Vitamin C Oral Tablet Chewable Take 1 Tablet by mouth in the morning. Loratadine 10 MG Oral Tablet (Claritin) Take 1 Tablet by mouth in the morning. PSHx Past Surgical History: Procedure Laterality Date MISCELLANEOUS ORDER ([facility] ONLY) 02/03/2014 Laser procedure of the Left eye, PARTIAL REMOVAL OF EYE FLUID 12/05/2013 SB #41/270/cryo/AU4061%/PSTKenalog OD; Dr. Zhu Social Hx Social History Tobacco Use Smoking status: Never Smokeless tobacco: Never Vaping Use Vaping status: Never Used Substance Use Topics Alcohol use: Yes Drug use: No Fam Hx Family History Problem Relation Name Age of Onset Cancer None Diabetes Father Diabetes Grandfather (Maternal) Diabetes Grandfather (Paternal) Thyroid Disorder None Stroke Grandfather (Maternal) Heart Disorder None Eye Problems None Pt denies AMD,glaucoma, retinal detachment or blindness Allergies Patient has no known allergies. REVIEW OF SYSTEMS: Per HPI PHYSICAL EXAMINATION: Vital signs over last 24 hours: BP: 238 mmHg/143 mmHg (09/15/23399) Most Recent Systolic BP Av mmHg Min: 238 mmHg Max: 260 mmHg Pulse: 84 (09/15/23314) NSR (09/15/23399) Pulse Av Min: 84 Max: 84 Temperature: 36.22 C (09/15/23314) Most Recent Temperature Av.22 C Min: 36.22 C Max: 36.22 C Respirations: 20 (09/15/23314) Resp Av Min: 20 Max: 20 SpO2: 99 % (09/15/23314) SpO2 Av % Min: 99 % Max: 99 % ICP: No data recorded CPP: No data recorded NEUROLOGIC EXAMINATION: José Miguel Coma Scale (GCS): Eyes Open: 4 = spontaneous Best Verbal Response: 5 = verbally appropriate for age Best Motor Response: 6 = obeys commands appropriate for age Appearance: no acute distress Mental status: Alert, oriented to person, place, and time Language: no aphasia Speech: no dysarthria Cranial nerve exam: CN I - Not tested CN II, III - PERRL and visual lopez full CN III, IV, - Extra-ocular movements intact, no nystagmus CN V - Facial sensation intact and equal bilaterally CN VII - no facial asymmetry CN VIII - hearing grossly intact CN IX - not directly tested CN X - no uvular deviation CN XI - good shoulder shrug CN XII - tongue protrudes midline Motor strength: Biceps (C5) Triceps (C7) Deltoids (C5) Wrist Ext (C6) Wrist Flex Press Loader (C8) Hip Flex (L2) Knee Flex Knee Ext (L3) Dorsiflexion (L4) Plantarflexion (S1) EHL (L5) R 5/5 5/5 5/5 5/5 5/5 5/5 5/5 5/5 5/5 5/5 5/5 5/5 L 5/5 5/5 5/5 5/5 5/5 5/5 5/5 5/5 5/5 5/5 5/5 5/5 Good bulk and tone in all four extremities. Sensation: Light Touch - intact bilateral upper and lower extremities Pronator drift: absent LABS: Chemistry: Lab Results Component Value Date/Time BUN 8 (L) 01/04/1996 03:00 PM CREAT 0.7 01/04/1996 03:00 PM NA 140 01/04/1996 03:00 PM POTASSIUM 4.0 01/04/1996 03:00 PM CO2 28.0 01/04/1996 03:00 PM Coagulation studies: No results found for: "PATINR", "INR" Blood count: Lab Results Component Value Date/Time WBC 12.3 (H) 10/31/1997 09:00 AM WBC 7.4 01/04/1996 03:00 PM HGB 12.6 10/31/1997 09:00 AM HGB 14.5 01/04/1996 03:00 PM HCT 37.9 10/31/1997 09:00 AM HCT 43.2 01/04/1996 03:00 PM PLT 266 10/31/1997 09:00 AM PLT 296 01/04/1996 03:00 PM IMAGING STUDIES: CTA H/N - R ICA terminus stenosis MRIb w/wo - RIGHT precentral and superior frontal gyrus, as well as multiple other RIGHT frontal acute/subacute infarcts, and LEFT BG and insular chronic infarcts IMPRESSION: 43 year old female w/ PMH significant for HTN and retinal detachment who presents to the neurosurgery service for R ICA terminus stenosis on CTA H/N, RIGHT precentral and superior frontal gyrus, as well as multiple other RIGHT frontal acute/subacute infarcts, and LEFT BG and insular chronic infarcts on MRI, all imaging prompted by work up revealing SBP > 240 after presenting to urgent care after for fatigue and gait instability. Active Problems: * No active hospital problems. * Resolved Problems: * No resolved hospital problems. * RECOMMENDATIONS: Stroke care per neurology Will discuss angio Case was discussed with chief resident Associated attestation - Pino White MD, PhD - 09/15/2023 12:39 PM EDT Attending Attestation: I have discussed the patient's management with the medical trainee and agree with the note. Please refer to the documented findings and plan of care. The patient's bedside service today consisted of an evaluation. I was present and confirmed the findings of the history and exam. * Ashish Duenas MD - 09/15/2023 3:46 AM EDTAssociated Order(s): NEUROLOGY CONSULT IP CONSULT - Neurology [facility] [address] Name: Loren Minor Location: [facility] A447/A Date: 09/15/2023 Time: 4:41 AM Date and Time Neurology Team Notified of Consult: 09/15/2023 at 3:41 a.m. REQUESTING SERVICE: Critical Care Medicine REASON FOR CONSULT: Right ICA terminus stenosis Person Providing History: Patient HPI: 43 year old female with no significant past medical history was found to have high blood pressures at her family physician's office. She went to her family practice this morning with complaints of not feeling well recently, generalized fatigue fatigue, being off balance and bumping into things(door was closer than she thought) and some tingling and numbness in fingers of left hand. When checked the blood pressure at family [facility] office was 218/118 and was sent to ED, she went to ED at [facility] where she underwent a MRI brain showing multiple T2 hyperintensities in the right frontal and parietal areas and findings concerning for acute to subacute strokes, chronic left thalamic lacunar infarct, CTA revealed high-grade stenosis of supraclinoid segment of right ICA withmoderate luminal narrowing of right greater than left V4 segments of the vertebral arteries. On arrival here patient's blood pressure is around 260/141, she was complaining of a mild headache.She denied any weakness, or episodes of similar complaints in the past. She denied any rash, joint pains, unexplained weight loss, oral ulcers. PAST MEDICAL HISTORY: Past Medical History: Diagnosis Date Hypertension Retinal detachment 12/05/2013 SB#41/270/cryo/SF6 100% PST Kenalog OD, Dr. Zhu PAST SURGICAL HISTORY: Past Surgical History: Procedure Laterality Date MISCELLANEOUS ORDER ([facility] ONLY) 02/03/2014 Laser procedure of the Left eye, PARTIAL REMOVAL OF EYE FLUID 12/05/2013 SB #41/270/cryo/CQ8917%/PSTKenalog OD; Dr. Zhu FAMILY HISTORY: Family History Problem Relation Name Age of Onset Cancer None Diabetes Father Diabetes Grandfather (Maternal) Diabetes Grandfather (Paternal) Thyroid Disorder None Stroke Grandfather (Maternal) Heart Disorder None Eye Problems None Pt denies AMD,glaucoma, retinal detachment or blindness SOCIAL HISTORY: Social History Tobacco Use Smoking status: Never Smokeless tobacco: Never Vaping Use Vaping status: Never Used Substance Use Topics Alcohol use: Yes Drug use: No ALLERGIES: Patient has no known allergies. CURRENT MEDICATIONS: Note that completed medications (per the MAR) continue to display for 24 hours. Ordered medicationsto be given in the future also display. Current Facility-Administered Medications Medication Dose Route Frequency Provider Acetaminophen (Tylenol) supp 650 mg 650 mg Rectal Q4H PRN Eva Yates CRNP atorvaSTATin (Lipitor) tab 40 mg 40 mg Oral Q 1700 Eva Yates CRNP chlorHEXIDINE (Periogard) 0.12 % oral rinse 15 mL 15 mL Oral mucosal membrane BID (0800,1999) Eva Yates CRNP Oral Hygiene: Mouth Swab with dentifrice Oral Q4H Limited (00;04;12;16) Eva Yates CRNP ROS: All negative other than as noted in HPI PHYSICAL EXAMINATION: Most Recent Vital Signs: BP: 260 mmHg/141 mmHg (09/15/23314) Pulse: 84 (09/15/23314) Resp: 20 (09/15/23314) Temp: 36.22 C (09/15/23314) Temp Summary: Temp Min: 36.2 C (97.2 F) Max: 36.2 C (97.2 F) SpO2: 99 % (09/15/23314) O2 flow rate: Supplemental O2 Delivery: Weight: 68.8 kg (151 lb 10.8 oz) (09/15/23330) Height: 162.6 cm (5' 4") (09/15/23330) Body mass index is 26.04 kg/m. Vital Signs Last 24 Hours: Systolic BP: Most Recent Systolic BP Av mmHg Min: 260 mmHg Max: 260 mmHg Temperature: Most Recent Temperature Av.22 C Min: 36.22 C Max: 36.22 C Pulse: Pulse Av Min: 84 Max: 84 Respirations: Resp Av Min: 20 Max: 20 SpO2: SpO2 Av % Min: 99 % Max: 99 % General Examination: Constitutional: Appearance non-obese, no deformities, and well groomed Head/face, ears, nose, throat: normocephalic, atraumatic Cardiovascular: normal heart sounds, regular rate, and regular rhythm Psychiatric: normal judgement and insight, normal mood, and normal affect Neurologic Examination: Ophthalmoscopic: fundi not visualized, due to suboptimal dilatation of pupil Mental Status and Orientation: awake, alert, oriented x 3 Memory: intact to recent and remote recall Attention: normal Knowledge:normal Language: no aphasia Speech: no dysarthria Cranial Nerves: CN 2 - no visual defect on confrontation and pupils round, equal, reactive to light CN 3, 4, 6 - extra-ocular movements intact and no nystagmus CN 5 - facial sensation intact V1-3 CN 7 - no facial asymmetry CN 8 - intact hearing CN 9, 10 - palate symmetric, uvula midline, no deviation CN 11 - shoulder shrug full strength CN 12 - tongue protrudes midline Sensory: intact to light touch Coordination: intact with finger to nose testing and heel to [place] normal Muscle Tone: normal Muscle exam: strength 5/5 upper and lower extremities and no drift Reflexes: Brachioradialis Biceps Triceps Patellar Achilles Plantars Sajan's Right 2+ 2+ 2+ 2+ 2+ downgoing not present Left 2+ 2+ 2+ 2+ 2+ downgoing not present National [place] [employer] Stroke Scale: 1A. LOC: 0 1B. Question: 0 1C. Commands: 0 2. Gaze: 0 3. Visual Lopez: 0 4. Facial Palsy: 0 5A. Arm Left: 0 5B. Arm Right: 0 6A. Leg Left: 0 6B. Leg Right: 0 7. Ataxia: 0 8. Sensory: 0 9. Aphasia: 0 10. Dysarthria: 0 11. Extinction: 0 Total: 0 STUDIES: Diagnostic Tests: MRI brain 09/14/2023 IMPRESSION: 1. Scattered subcentimeter acute to subacute appearing infarcts within the right centrum semiovale watershed distributions of the superior frontal and parietal lobes. 2. No acute intracranial hemorrhage, midline shift, or hydrocephalus. 3. Chronic left thalamic lacunar infarct. CTA head and neck 09/14/2023 1. High-grade stenosis of the supraclinoid segment right ICA. 2. Moderate luminal narrowing of the right greater than left V4 segments of the vertebral arteries.Correlate clinically to exclude a nonspecific vasculitis. Imaging: MRI brain-T2 hyperintensities left parietal region, multiple T2 hyperintensities in the periventricular areas IMPRESSION: Ms. Minor is a 43-year-old female with a significant past medical history presenting with complaints of generalized weakness, fatigue and headache. On exam patient was found to be in hypertensive urgency, neurological examination Imaging with MRI brain showed multiple acute to subacute appearing infarcts in the watershed distribution of superior frontal and parietal lobes and chronic left thalamic lacunar infarct. CTA angiogram is significant for high-grade stenosis of supraclinoid segment of right ICA. She has no atherosclerotic disease, stenosis appears to be at carotid terminus consistent with moyamoya physiology, however it is atypical to see unilateral moyamoya physiology. Stenosis at that point might not be atherosclerotic in etiology, at point more towards vasculitic, infectious etiologies and would need thorough workup. RECOMMENDATIONS / PLAN: Atypical moyamoya pattern vasculopathy - Neurosurgery consult for possible DSA - agree with vasculitis workup, would recommend adding hepatitis C - recommend loading with aspirin 325 mg followed by aspirin 81 mg once daily Patient discussed and examined with Dr Anita Duenas PGY-1 Neurology Associated attestation - Ricardo Howard DO - 09/15/2023 5:43 AM EDT I saw and evaluated the patient today. I have reviewed the resident/fellow physician note and agree. 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 Will order autoimmune and infectious evaluation. NSx consult for DCA.May consider LP with CSF testing as next line. documented in this encounter Nursing Notes * Johan Sethi RN - 09/19/2023 1:42 AM EDT Dual Licensed Skin Assessment completed by Johan Denton RN and Vladimir Celis RN. The patient is/has a N/A Skin Breakdown (includes non blanchable erythema): No R wrist cath site kerri; L wrist A line removal site * Chris Santoro RN - 09/19/2023 12:59 AM EDT Pt will be transferred to Room H 85 via wheelchair at this time. Pt denies any needs and all belongings sent. Report called to Johan * Svetlana Islas RN - 09/15/2023 9:00 PM EDT Dual Licensed Skin Assessment completed by Svetlana Soliman RN and Arlin Gutiérrez RN . The patient is/has a N/A Skin Breakdown (includes non blanchable erythema): Yes - Surgical/Procedural changes only. R radial angio site * Paz Mina RN - 09/15/2023 8:16 PM EDT Neuroendovascular RN note Name: Loren Minor Date: 09/15/2023 Time: 8:16 PM Location: OR [facility] Date of Service: 09/15/2023 Patient arrived at 1936 to [facility] OR 25 for a Diagnostic cerebral angiogram. Patient ID band checked using two identifiers. Patient placed supine on procedure table with comfort measures intact; bilateral arm boards and safety strap in place. Hemodynamic monitoring placed with anesthesia staff remaining at bedside for direct care. Distal pulses dopplered and marked. RT staff prepares and preps for procedure. Anesthesia: Monitored Anesthesia Care (MAC) Procedure by physician. 2011 0.5 ml 1% buffered lidocaine injected. 2015 Wrist puncture. Access obtained on right. 8 Fr sheath placed. Catheter positioning under fluoroscopy. Angiogram in progress. 8:43 PM: Treatment completed 8:43 PM 3-D imaging obtained. Imaging finished. Catheters removed. 8:45 PM manual compression placed. Sheath removed and manual pressure to site. Procedure ends. 8:48 PM Hemostasis obtained. Area cleaned. Gauze and Tegaderm dressing applied. Distal pulse unchanged. Patient tolerated well. Reported by RT: Total contrast used: 91 ml DAP plane A: 0.13 Gy DAP plane B: 0.02 Gy Fluoro time plane A: 7.3 minutes Fluoro time plane B: 4.1 minutes Reported as per physician, please see operative note for details: Implants: * No implants in log * * Li Lester RN - 09/15/2023 4:03 AM EDT Dual Licensed Skin Assessment completed by Belia Woo RN and Makenna RN. The patient is/has a N/A Skin Breakdown (includes non blanchable erythema): No Q2 repositioning documented in this encounter OR Notes * OR Surgeon - Pino White MD, PhD - 09/15/2023 8:49 PM EDT [address] [id number] OPERATIVE REPORT Name: Loren Minor Date: 09/15/2023 Time: 8:50 PM Location: OR [facility] Service: Neurosurgery Date of Operation: 09/15/2023 Pre-op Diagnosis: R supraclinoid ICA severe stenosis. Symptomatic (MRI DWI watershed stroke). Post-op Diagnosis/Impression: 1. R supraclinoid ICA (PCOM segment) irregular stenosis 50% per NASCET with moderately increased MTT 2. Otherwise normal diagnostic cerebral angiogram without evidence of aneurysm, AVM, or dAVF. 3. Normal capillary and venous filling pattern, all major sinuses appear patent. Recommendations: 1. Keep in NICU over the weekend, manage SBP to 140 - 180s 2. DAPT initiated, will need PRU check 3. Will discuss with stroke neurology need for supraclinoid intervention vs conservative management, may require normotensive (SBP 100s) challenge to evaluate if compensated. Operation: Cervical and cerebral angiogram. Ultra-sound guided vascular access Arteries selected: Bilateral common carotid artery selection and 2D cervical angiogram Bilateral internal carotid artery selection and 2D cerebral angiogram Bilateral external carotid artery selection and 2D cerebral angiogram Bilateral vertebral artery selection and 2D cervico-cerebral angiogram Right radial artery selection and angiogram Surgeon: Pino White MD, PhD Assistants: None Anesthesia: MAC-Sedation Medication Orders Placed This Encounter Medications Acetaminophen (Tylenol) supp 650 mg aspirin enteric coated tab 81 mg aspirin tab 325 mg atorvaSTATin (Lipitor) tab 40 mg chlorHEXIDINE (Periogard) 0.12 % oral rinse 15 mL clopidogrel (pLAVix) tab 300 mg clopidogrel (pLAVix) tab 75 mg Docusate Sodium (Colace) cap 100 mg hEParin 2,500 Units, nitroglycerin 100 mcg, verapamil 10 mg injection hEParin 3000 units in 1000 mL NSS infusion Iodixanol (Visipaque 320) inj labetalol (Trandate) inj 10 mg lidocaine 1 % 10 mL, sodium bicarbonate 1 mL inj Oral Hygiene: Mouth Swab with dentifrice potassium chloride ER tab 40 mEq senna (Senokot) 1 Tablet Sociology Professor: Krystal Echeverria RN; Paz Mina RN Label Printing Machinist: Eva Goode RT (R) Scrub Person: Elieser Pierson TECH (If conscious sedation was employed see above Sedation RN for trained observer) Total intraservice time: * Missing case tracking time(s) * Estimated Blood Loss: 10 ml. IV Fluids: 450 ml. Urine Output: N/O. Drains: None. Specimens/Disposition: None. Apparent Intraoperative Complications: None. Patient Condition: Stable. Disposition: Intensive Care Unit. Attestation: I performed the procedure. Indication 43 year old with R MCA watershed stroke (ARSALAN/MCA) presenting with h/o fatigue. SBPs in the 240s on admission. CTA demonstrated a R supraclinoid severe stenosis. In accordance with the patient's symptoms and imaging findings, I recommended that we perform a diagnostic cervico-cerebral angiogram to further evaluate and characterize for intracranial and extracranial vascular pathology. I explained that by performing this minimally-invasive diagnostic procedure our aim is to acquire a complete understanding of the cervical and cerebral angio-architecture. Risks and benefits were discussed with the patient and the patient's family member. Risk include but are not limited to bleeding, groin hematoma, infection, stroke with transient or permanent weakness, numbness or other deficit, speech and language dysfunction, vision loss, dissection, coma, ,need for more surgery or interventions, blood vessel damage and/or blockage, kidney damage from contrast dye, focal radiation reaction/hair loss. The patient questions were answered thoroughly. The patient expressed understanding and elected to proceed with endovascular diagnostic cervico- cerebral angiogram. The patient consented for the procedure. Pino White MD, PhD Staff Neurosurgeon Endovascular and Cerebrovascular Neurosurgery [facility], [place], [place] Risks and benefits were discussed with the patient and the patient or the patient's family member consented to the procedure. Risk include but are not limited to bleeding, groin hematoma, infection, stroke with transient or permanent weakness, numbness or other deficit, speech and language dysfunction, vision loss, dissection, coma, , need for more surgery or interventions, blood vessel damage and/or blockage, kidney damage from contrast dye, focal radiation reaction/hair loss. Procedure The patient was positioned on the angio table in [facility] OR 25, anesthesia was induced, and the patientwas prepped and draped in usual sterile fashion. The patient was identified using two identifiers and a time-out was performed. After prepping and draping both femoral and the right wrist regions in the usual sterile fashion a radial access needle was used to puncture the right radial artery under ultrasound guidance for vascular access requiring ultrasound evaluation of potential access sites, documentation of selected vessel patency, concurrent real time ultrasound visualization of vascular needle entry, with permanent recording and reporting of the relevant images in PACS and after the return of arterial blood, a 0.018 inch guidewire was advanced under fluorography. A 5 Fr vascular sheath was then advanced over thewire and the radial cocktail was given. . Radial artery cocktail consisting of: 10 mg Verapamil, 100 mcg Nitroglycerin and 2,500 Units of Heparin were given.. A diagnostic 5 [place] 1 catheter, kept under constant heparinized saline irrigation system using a Tuohy-Bryson connector, was then advanced over a long- taper 150-cm 0.035 inch Terumo Glidewire and used to selectively catheterize the arteries. To further assess the the detailed anatomy of the area around the R ICA additional 3-D rotational angiographic acquisitions with [place] CTA imaging were performed of the R ICA. These 3-D acquisitions were then transferred, reconstructed, and analyzed concurrently on an independent separate computer [facility]. At the end of the procedure, the diagnostic catheter was removed and the arteriotomy site was closed with vasc band. Findings - Examination of the right radial artery showed normal anatomy, no significant stenosis and no pseudoaneurysm. - Examination of the right subclavian artery showed normal anatomy with no evidence of stenosis or dissection. Evaluation of the origin of the right vertebral artery shows no stenosis. -Examination of the right vertebral artery selectively showed a normal course in the cervical segment and intracranially revealed no evidence of intracranial aneurysm, arteriovenous shunting or intracranial stenosis. Bilateral shell molder are normal. Some R NEONATAL SPECIALIST to MCA pial collateral supply. - Examination of the right common carotid artery showed normal anatomy with no evidence of stenosisor dissection. -Examination of the right internal carotid artery selectively showed R supraclinoid ICA (PCOM segment) irregular stenosis 50% per NASCET with moderately increased MTT. -Examination of the right external carotid artery selectively showed normal anatomy and no evidenceof abnormal shunting or dural fistulization. -Examination of the left common carotid artery showed normal anatomy with no evidence of stenosis or dissection. -Examination of the left internal carotid artery selectively showed no evidence of intracranial aneurysm, arteriovenous shunting or intracranial stenosis. Both ACAs fill from the L ICA. -Examination of the left external carotid artery selectively showed normal anatomy and no evidence of abnormal shunting or dural fistulization. -Examination of the left subclavian artery showed normal anatomy with no evidence of stenosis or dissection. Evaluation of the origin of the left vertebral artery shows no stenosis. -Examination of the left vertebral artery selectively showed a normal course in the cervical segment and intracranially revealed no evidence of intracranial aneurysm, arteriovenous shunting or intracranial stenosis. Bilateral shell molder are normal. This chart was completed in part utilizing [employer] Speech Voice Recognition Software. Grammatical errors, random word insertions, prounoun erros, and incomplete sentences are an occasional consequence of this system due to software limitations, ambient noise, and hardware issues. Any formal questions or concerns about the content, text, or information contained within the body of this dictation should be directly addressed to the provider for clarification. Pino White MD, PhD Staff Neurosurgeon Endovascular and Cerebrovascular Neurosurgery [facility], [place], [place] documented in this encounter Miscellaneous Notes * Ancillary Progress Note - Renetta Lackey RN - 09/19/2023 1:52 PM EDT CARE MANAGEMENT - ADULT DISCHARGE NOTE [facility]-[address] [address] Name: Loren Minor Location: [facility] H853/A Date: 09/19/2023 Time: 2:41 PM The following coordination of care and discharge plan has been coordinated with the care team, patient, family and/or caregiver according to the patients needs and preferences. Discharge Discharge Was Caregiver/Family/Facility contacted regarding discharge: Yes (09/19/23 1308) Final Discharge Plan (Complete only at time of Discharge): Home - Self Care (09/19/23 1403) Narrative: Patient to discharge to home with no additional needs. * Pt Handout (on AVS) - ANI, PATIENT HANDOUT - 09/19/2023 11:56 AM EDT Images from the original note were not included. 73910 What Is Ischemic Stroke? The brain needs a constant supply of blood to work. During a stroke, blood stops flowing to part ofthe brain. The affected area is damaged. Its functions are harmed or even lost. Most strokes are caused by a blockage in a blood vessel that supplies the brain. This is an ischemic stroke. They can also occur if a blood vessel in the brain ruptures (hemorrhagic stroke). The carotids are large arteries that carry blood from the heart to the brain. From the heart to the brain The heart is a pump. It sends oxygen-rich blood out through blood vessels called arteries. If an artery between the heart and the brain is blocked, the brain can?t get enough oxygen. Some artery blockages are caused by fatty deposits (plaque). Arteries can also be blocked by blood clots. Some clotsform on the plaque. Others can form in the heart?especially in people with atrial fibrillation, an irregular heart rhythm. If a piece of plaque or clot breaks off and enters the bloodstream, it can block flow to the brain and cause a stroke. How a stroke occurs Ischemic stroke occurs when an artery that supplies the brain is greatly narrowed or blocked. This can be caused by a buildup of plaque. It can also occur when small pieces of plaque or blood clot (emboli) break off from the blood vessel or heart into the bloodstream. The emboli flow in the blood until they get stuck in a small blood vessel that limits blood flow to the brain. Healthy arteries. In a healthy artery, the lining of the artery wall is smooth. This lets blood flow freely from the heart to the rest of the body. The brain gets all the blood it needs to function well. Damaged arteries. High blood pressure, cigarette smoking, high cholesterol, or other problems can roughen artery rodas. This allows plaque to build up in the rodas. Blood clots may also form on the plaque. This can narrow the artery and limit blood flow. Healthy arteries Damaged arteries Know the symptoms of a stroke Weakness. You may feel a sudden weakness, tingling, or a loss of feeling on one side of your face or body including your arm or leg. Vision problems. You may have sudden double vision or trouble seeing in one or both eyes. Speech problems. You may have sudden trouble talking, slurred speech, or problems understanding others. Movement problems. You may have sudden trouble walking, dizziness, a feeling of spinning, a lossof balance, a feeling of falling, or blackouts. Remember: If you have any of these symptoms, call 911 and your doctor as soon as possible. B.E. F.A.S.T. is an easy way to remember the signs of a stroke. When you see the signs, you will know what you need to call 911 fast. B.E. F.A.S.T. stands for: B is for balance. Sudden loss of balance or coordination. E is for eyes. Vision changes in one or both eyes. F is for face drooping. One side of the face is drooping or numb. When the person smiles, the smile is uneven. A is for arm weakness. One arm is weak or numb. When the person lifts both arms and the same time, one arm may drift downward. S is for speech difficulty. You may notice slurred speech or trouble speaking. The person can't repeat a simple sentence correctly when asked. T is for time to call 911. If someone shows any of these symptoms, even if they go away, call 911 right away. Make note of the time the symptoms first appeared. Last Reviewed Date: 07/03/202319991648-5209 [employer]. All rights reserved. This information is not intended as a substitute for professional medical care. Always follow your healthcare professional's instructions. * Pt Handout (on AVS) - ANI, PATIENT HANDOUT - 09/19/2023 11:56 AM EDT Images from the original note were not included. 37090 Symptoms of a Stroke During a stroke, blood stops flowing to part of the brain. This can damage areas in the brain that control the rest of the body. A stroke can happen to anyone at any age. Call 911 and get help right away if any of these symptoms come on suddenly, even if the symptoms don?t last. Know the symptoms of a stroke A sudden feeling of weakness on one side of your body may be a sign that you are having a stroke. Weakness. You may feel a sudden weakness, tingling, or a loss of feeling on one side of your face or body including your arm or leg. Vision problems. You may have sudden double vision or trouble seeing in one or both eyes. Speech problems. You may have sudden trouble talking, slurred speech, or problems understanding others. Headache. You may have a sudden, severe headache. Movement problems. You may have sudden trouble walking, dizziness, a feeling of spinning, a lossof balance, a feeling of falling, or blackouts. Seizure. You may also have a seizure as the first symptom of a stroke. When to call 911 Remember: If you have any of these symptoms, or if someone you are with has these symptoms, call 911 as soon [address] Never drive yourself or the victim. The ambulance can alert the hospital and start treatment. B.E. F.A.S.T. is an easy way to remember the signs of a stroke. When you see these signs, you will know that you need to call 911 fast. B.E. F.A.S.T. stands for: B is for balance. Sudden loss of balance or coordination. E is for eyes. Vision changes in one or both eyes. F is for face drooping. One side of the face is drooping or numb. When the person smiles, the smile is uneven. A is for arm weakness. One arm is weak or numb. When the person lifts both arms at the same time, one arm may drift downward. S is for speech difficulty. You may notice slurred speech or difficulty speaking. The person can't repeat a simple sentence correctly when asked. T is for time to dial 911. If someone shows any of these symptoms, even if they go away, call 911 right away. Make note of the time the symptoms first appeared. Last Reviewed Date: 10/01/202119997451-1761 [employer]. All rights reserved. This information is not intended as a substitute for professional medical care. Always follow your healthcare professional's instructions. * Pt Handout (on AVS) - ANI, PATIENT HANDOUT - 09/19/2023 11:56 AM EDT 13390 Risk Factors for Stroke Certain health and lifestyle issues?called risk factors?increase your chances of having a stroke. The biggest risk factor for stroke is high blood pressure. But there are many other factors that alsoput you at risk. The list below can help you identify which risk factors you have. That way, you know where you need to make healthy changes. Talk with your healthcare provider about ways to help redu ce your risk factors. What are your risk factors? Risk factors are different for each person. Check off the factors that apply to you. Keep in mind that some factors, such as your age, can?t be changed. But others can be managed. Health risk factors You have high blood pressure. You?re overweight. You have unhealthy cholesterol levels. You have atrial fibrillation. You have atrial flutter. You?ve had a heart attack. You have narrowed arteries. You have diabetes. You are a man. You are an . You are an . You are an . Lifestyle risk factors You rarely exercise. You often eat salty, fried, or greasy foods. You smoke. You have more than 2 alcoholic drinks per day. Age and family history You?re over age 60. A parent, brother, or sister has had a stroke. Metabolic syndrome Any of the factors above may put you at increased risk for stroke. But having 3 or more of 5 certain risk factors raises your risk more. This is a condition called metabolic syndrome. These factors include: Too much weight around your waist (or apple shaped body) High blood pressure High blood sugar Low levels of HDL (good) cholesterol levels High levels of triglycerides If you're a woman, your risks may also include polycystic ovary syndrome. If you have any of these risk factors, be sure to talk with your provider about how to decrease your risk of stroke and improve your overall health. Last Reviewed Date: 07/03/202319990369-3819 [employer]. All rights reserved. This information is not intended as a substitute for professional medical care. Always follow your healthcare professional's instructions. * Pt Handout (on AVS) - ANI PATIENT HANDOUT - 09/19/2023 11:56 AM EDT [address]751 Discharge Instructions for Transient Ischemic Attack (TIA) You have been diagnosed with a transient ischemic attack (TIA). A TIA is also known as a mini-stroke. Blood could not reach part of your brain for a short period of time. Unlike a stroke, a TIA does not usually cause lasting damage. If you think you are having symptoms of a TIA or stroke, get medical help right away. Do this even if your symptoms go away. Prevention Take your medicines exactly as directed. Don?t skip doses. Learn to take your blood pressure. Write down the numbers and tell your healthcare provider. Learn your cholesterol level. Follow your healthcare provider?s advice about how to keep cholesterol under control. Make these lifestyle changes: Quit smoking. Join a stop-smoking program to improve your chances of success. Ask your healthcare provider about medicines or other methods to help you quit. Limit your alcohol. Don't have more than 2 drinks a day if you're a man and no more than 1 drinka day if you're a woman. Keep a healthy weight. Get help to lose any extra pounds. If you are overweight, your healthcareprovider will work with you to lose weight and lower your body mass index (BMI) to a normal or near-normal level. Making diet changes and increasing physical activity can help. Start an exercise program. Ask your healthcare provider how to get started and how much activityyou should try to get on a daily or weekly basis. You can benefit from simple activities, such as walking or gardening. Learn ways to manage your stress. There are many methods to manage stress. These can help you deal with stress in your home and work life. You may also need to change what you eat. Your healthcare provider may refer you to a registered dietitian for help with diet changes. These changes may include: Eating less fat and cholesterol Having less salt (sodium), especially if you have high blood pressure Eating more fresh vegetables and fruits Eating lean proteins, such as fish, poultry, and legumes (beans and peas) Eating less red meat and processed meats Choosing low-fat dairy products Using vegetable and nut oils in small amounts Limiting sweet and processed foods, such as chips, cookies, and baked goods To cut back on sodium: Limit the amount of canned, dried, packaged, and fast foods you eat. Don?t add salt to your food. Season foods with herbs instead of salt when you cook. Follow-up care If you are taking certain medicines, you may need blood tests to check for progress or problems. Have blood tests as often as prescribed by your healthcare provider. Call 911 Call 911 right away if you have any of these: Weakness, tingling, or loss of feeling on 1 side of your face or body Sudden double vision, or trouble seeing in 1 or both eyes Sudden trouble talking, or slurring your speech Trouble understanding other people speaking Sudden, severe headache Dizziness, loss of balance, a spinning feeling, or a sense of falling Blackouts Seizures B.E. F.A.S.T. is an easy way to remember the signs of stroke. When you see these signs, you know that you need to call 911 fast. Lety DongSAlidaT. stands for: B is for balance. Sudden loss of balance or coordination. E is for eyes. Vision changes in one or both eyes. F is for face drooping. One side of the face is drooping or numb. When the person smiles, the smile is uneven. A is for arm weakness. One arm is weak or numb. When the person lifts both arms at the same time, one arm may drift downward. S is for speech difficulty. You may notice slurred speech or trouble speaking. The person can't repeat a simple sentence correctly when asked. T is for time to call 911. If someone shows any of these symptoms, even if they go away, call 911 right away. Make note of the time the symptoms first appeared. Last Reviewed Date: 10/01/202119996479-9679 [employer]. All rights reserved. This information is not intended as a substitute for professional medical care. Always follow your healthcare professional's instructions. * Pt Handout (on AVS) - ANI PATIENT HANDOUT - 09/19/2023 11:56 AM EDT 950[address] Discharge Instructions for Stroke You have a high risk for a stroke, or a TIA (transient ischemic attack). During a stroke, blood stops flowing to part of your brain. This can damage areas in the brain that control other parts of thebody. Symptoms from a stroke depend on which part of the brain has been affected. Stroke risk factors Once you?ve had a stroke, you?re at greater risk for another one. Listed below are some other factors that can raise your risk for a stroke: High blood pressure High cholesterol Cigarette or cigar smoking Diabetes Carotid or other artery disease Atrial fibrillation, atrial flutter, or other heart disease Not being physically active Obesity Certain blood disorders, such as sickle cell anemia Drinking too much alcohol Abusing street drugs Race Gender Family history of stroke Diet high in salty, fried, or greasy foods Changes in daily living Doing some everyday tasks may be hard after you?ve had a stroke. But you can learn new ways to manage. In fact, doing daily activities may help you to regain muscle strength. This can help your affected arm or leg work more normally. Be patient. Give yourself time to adjust. And appreciate the progress you make. Daily activities You may be at risk of falling. Make changes to your home to help you walk more easily. A therapist will decide if you need an assistive device, such as a cane or walker, to walk safely. You may need to see an occupational therapist (OT). Or you may see a physical therapist (PT). Thesehealthcare providers can help you to learn new ways of doing things. For example, you may need to make changes in how you bathe or dress. You may also need a speech therapist. This is someone who helps you speak normally again and be able to swallow. Tips for showering or bathing Test the water temperature with a hand or foot that was not affected by the stroke. Use grab bars, a shower seat, a handheld showerhead, and a long-handled brush. Use any other device as advised by your therapists. Tips for getting dressed Dress while sitting, starting with the affected side or limb. Wear shirts that pull easily over your head. Wear pants or skirts with elastic waistbands. Use zippers with loops attached to the pull tabs. Lifestyle changes Take your medicines exactly as directed. Don?t skip doses. Begin an exercise program. Ask your provider how to get started. Ask how much activity you should try to get every day or week. You can benefit from simple activities such as walking or gardening. Limit how much alcohol you drink. Control your cholesterol level. Follow your provider?s advice about how to do this. If you are a smoker, quit now. Join a stop-smoking program to improve your chances of success. Ask your provider about medicines or other methods to help you quit. Learn stress management methods. These can help you deal with stress in your home and work life. Diet Your healthcare provider will guide you on changes you may need to make to your diet. They may advise that you see a registered dietitian for help with changes. The changes can improve your cholesterol, blood pressure, and blood sugar. Changes may include: Reducing the amount of fat and cholesterol you eat Reducing the amount of salt (sodium) in your diet, especially if you have high blood pressure Eating more vegetables and fruits Eating more lean proteins, such as fish, poultry, and beans and peas (legumes) Eating less red meat and processed meats Using low-fat dairy products Limiting vegetable oils and nut oils Limiting sweets and processed foods such as chips, cookies, and baked goods Not eating trans fats. These are often found in processed foods. Don't eat any food that has hydrogenated oils listed in its ingredients. Follow-up care Keep your medical appointments. Close follow-up is important to stroke rehabilitation and recovery. Some medicines require blood tests to check for progress or problems. Keep follow-up appointments for any blood tests ordered by your providers. Call 911 Call 911 right away if you have any of the following symptoms of stroke: Weakness, tingling, or loss of feeling on one side of your face or body Sudden double vision or trouble seeing in one or both eyes Sudden trouble talking or slurred speech Trouble understanding others Sudden, severe headache Dizziness, loss of balance, or a sense of falling Blackouts or seizures B.E. F.A.S.T. is an easy way to remember the signs of stroke. When you see these signs, you know that you need to call 911 fast. B.E. F.A.S.T. stands for: B is for balance. Sudden loss of balance or coordination. E is for eyes. Vision changes in one or both eyes. F is for face drooping. One side of the face is drooping or numb. When the person smiles, the smile is uneven. A is for arm weakness. One arm is weak or numb. When the person lifts both arms at the same time, one arm may drift downward. S is for speech difficulty. You may notice slurred speech or trouble speaking. The person can't repeat a simple sentence correctly when asked. T is for time to call 911. If someone shows any of these symptoms, even if they go away, call 911 right away. Make note of the time the symptoms first appeared. Last Reviewed Date: 09/01/202119992484-2242 [employer]. All rights reserved. This information is not intended as a substitute for professional medical care. Always follow your healthcare professional's instructions. * [facility] - 09/18/2023 6:45 PM EDT Clinical Goal(s): Patient will remain free of falls (09/17/231999) Possible barriers to meeting goal(s)/advancing plan of care: headache Stability of the patient: Moderately stable - low risk of patient condition declining or worsening Summary regarding today's goal(s): Met: no falls Recommendations: Encourage ambulation and slow bending * Ancillary Progress Note - Yanira Yi RN - 09/18/2023 2:00 PM EDT CARE MANAGEMENT - ADULT TRANSITION NOTE [facility] [address] Name: Loren Minor Location: [facility] Date: 09/18/2023 Time: 2:00 PM Risk Stratification Risk Stratification Psycho Social / Medical Concerns Identified: Adjustment to illness/injury;New serious diagnosis (09/15/23 115) [facility] to [facility] care resources: No (09/15/23 115) OBRA or OPTIONS needed for placement: No (09/15/23 115) Readmission Risk Score: 8.58 (09/18/23 1200) AM-PAC Score With Stairs : 24 (09/17/231999) Caregiver Information Patient Contacts Name Relation Home Work Mobile Ricardo Jules Significant Other [phone] Nely Minor Adult Child [phone] Transition of Care Checklist Transition of Care Checklist (aka Readmission Risk Score) Discharge Disposition: Home (09/15/231156) Narrative: Pt discussed in IDT Boost and chart reviewed. Pt is anticipated to discharge tomorrow aslong as she remains stable and follows up with her PCP for management of BP within one week. Does not require further PT/OT services. CM will continue to follow. Anticipated Transportation at Discharge: Family Patient/Family Expectations: Discharge home when stable. Transition Planning Transition Planning Transition Plan/Considerations: Needs uncertain at this time - Continue monitoring for needs (09/15/231156) [facility] Quality Rating provided to patient: No (09/15/231156) Repisodic Choice provided to patient: No (09/15/231156) Transition plan discussed with - Enter name and phone #: Pt and IDT (09/15/231156) Insurance Considerations: Precertification needed for Post-Acute Care;Prior authorization for medication;Therapy documentation needed for precert request (09/15/231156) Referral to Community Agency : N/A (09/15/231156) Post-Acute Care needs identified and Referrals Completed: (undetermined at this time) (09/15/231156) Additional Considerations: Needs appointment with [facility] in [place]. Care Management will continue to monitor and assist with discharge planning needs * Ancillary Progress Note - Marilu Cameron RDN - 09/18/2023 8:30 AM EDT CLINICAL NUTRITION ADULT RISK ASSESSMENT [address] [address] Name: Loren Minor Location: [facility] A447/A Date: 09/18/2023 Time: 2:51 PM How patient was identified (select 2): date and Name Loren Minor is a 43 year old female being assessed for clinical nutrition risk related to extended LOS Primary diagnosis: 43 year old female was admitted on 09/15/2023 and presents with a Subacute infarct in right frontal lobe versus vasculitis. 09/15/23: DCA showing R supraclinoid ICA (PCOM segment) irregular stenosis 50% per NASCET with moderately increased MTT Other pertinent information: The patient reports that her appetite was slightly reduced for about one week prior to admission. Anthropometrics Measurements Admission weight (for dietitians): 68.8 kg Height: 162.6 cm (5' 4") (09/15/23 033) Weight: 69.5 kg (153 lb 3.5 oz) (09/18/23 0600) BMI: 26.02 (09/15/23 033) Usual Body Weight or EDW for Dialysis Patients: 150 lbs Diet: Regular Previously followed diet: Regular Food Allergies/Intolerances: None. Oral Nutrition Supplement (ONS): N/A Pertinent medications/vitamins/minerals/supplements: Senokot RISK FACTORS: Adult Energy Intake: Less than 75% of estimated energy requirement for greater than 7 days (moderate, acute illness). Interpretation of Weight Change: No recent/significant weight change Skin: Surgical incision: Right wrist. NUTRITION RISK CATEGORY: Nutrition Risk Category: Low/Moderate (0-1 factors) Clinical Nutrition Recommendations: Diet: Continue current nutrition plan NUTRITION INTERVENTION/PLAN: Continue current care plan Will follow and adjust nutritional plan as medical condition requires. Please contact for change(s)in patient condition requiring earlier intervention. Marilu Cameron RDN, LDN Registered Dietitian [phone] Available via 1CLICK * Care Plan - Svetlana Islas RN - 09/18/2023 7:09 AM EDT Clinical Goal(s): Patient will remain free of falls (09/17/231999) Possible barriers to meeting goal(s)/advancing plan of care: dizziness, secondary diagnosis, fall risk Stability of the patient: Moderately stable - low risk of patient condition declining or worsening Summary regarding today's goal(s): Met: Patient remained free of falls throughout shift. Recommendations: Continue to implement fall risk precautions. * Care Plan - Svetlana Islas RN - 09/17/2023 5:41 AM EDT Clinical Goal(s): SBP 140-160 (09/16/231999) Possible barriers to meeting goal(s)/advancing plan of care: HTN Stability of the patient: Moderately stable - low risk of patient condition declining or worsening Summary regarding today's goal(s): Met: Patient remained within parameters without the need for a continuous blood pressure drip and tolerated PRN doses. Recommendations: Continue to administer BP medications as needed. * Care Plan - Svetlana Islas RN - 09/16/2023 6:16 AM EDT Clinical Goal(s): SBP 140-180 (09/15/23 2100) Possible barriers to meeting goal(s)/advancing plan of care: HTN Stability of the patient: Moderately stable - low risk of patient condition declining or worsening Summary regarding today's goal(s): Met: Patient maintained BP parameters. Recommendations: Continue to monitor BP and titrate medications as needed. * Ancillary Progress Note - Doreen Moffett CCC-MECHANICAL MAINTENANCE INSTRUCTOR - 09/15/2023 1:17 PM EDT PROGRESS NOTE - Speech-Language Pathology [address] [address] Name: Loren Minor Location: [facility] A447/A Date: 09/15/2023 Time: 1:17 PM Patient Status: Inpatient Insurance: Payor: [employer]) / Plan: Linea BS / Product Type: *No Producttype* / Patient Age: [age] year old Consult received and appreciated. Per discussion w/team, pt remains NPO for possible angio at this time. Will f/u as pt is available/appropriate, and as able. * Ancillary Progress Note - Yanira Yi RN - 09/15/2023 12:01 PM EDT CARE MANAGEMENT - ADULT INITIAL SCREENING [address] [address] Name: Loren Minor Location: [facility] A447/A Date: 09/15/2023 Time: 12:01 PM Discussed patient with the interdisciplinary care team. This Bellows Tester performed a chart review and met with pt at bedside to complete admission screen and assessed needs for transition planning. The manager career role and services were explained and emotional support was provided. Chief Complaint: No chief complaint on file. Prior Living Arrangements What was your living situation prior to admission/observation?: Other (Comment);With Child (with SO, daughter and SO's daughter) (09/15/23 115) Living Quarters: House (09/15/231149) Number of steps to enter living quarters:: 3 DEMOND (09/15/231149) Do you have serious difficulty walking or climbing stairs? (5 years old or older): No (09/15/23 0331) History of falling: No (09/15/23 08) Prior Level of Functioning Describe the patient's ability prior to admission/observation to perform ADLs: Performs independently (09/15/231149) Describe the patient's mobility status prior to admission: Patient ambulates independently (09/15/231149) Patient uses assistive device: No (09/15/231149) Caregiver Information Patient Contacts Name Relation Home Work Mobile DharaRicardo Significant Other [phone] Nely Minor Adult Child [phone] Risk Stratification/Psychosocial/Care Gaps Risk Stratification Psycho Social / Medical Concerns Identified: Adjustment to illness/injury;New serious diagnosis (09/15/231149) Accessed [facility] to connect patients to social care resources: No (09/15/231149) OBRA or OPTIONS needed for placement: No (09/15/231149) Readmission Risk Score: 6.54 (09/15/23 08) AM-PAC Score With Stairs : 12 (09/15/23 08) Prior to Admission Services Services Prior to Admission [facility] Services (Services received within the last 30 days with exception, Psych within last two years): N/A (09/15/23 115) [place] Dept[employer] of Aging (PDA) Waiver Program: N/A (09/15/231149) [facility] Transportation (Services received within the last 30 days): Patient drives self;Family/Friends Personal Vehicle;Medical Transportation (09/15/231149) Outpatient Bellows Tester: No care team psychologist to display Patient/Family Expectations: Pt was transferred from [facility] ED due to multiple subacute infarcts to the right frontal lobe and stenosis of the R ICA and was admitted to NSICU for evaluation and care. Pt for possible DSA today and goal is to return home with SO and daughter. Pt's PCP is [facility] in [place]. CM will follow for needs. For further screening information, please refer to the Care Management flow document. * Ancillary Progress Note - Delmi Cummings RVT - 09/15/2023 10:14 AM EDT PROCEDURE - Vascular Lab [address] [address] Name: Loren Minor Location: [facility] A447/A Date: 09/15/2023 Time: 10:15 AM FINAL PHYSICIAN REPORT TO FOLLOW. PROCEDURE: Renal vascular duplex completed. TECH NAME: Delmi Cummings RVT * Care Plan - Li Lester RN - 09/15/2023 6:37 AM EDT Clinical Goal(s): SBP<220 (09/15/23 0400) Possible barriers to meeting goal(s)/advancing plan of care: hypertensive emergency Stability of the patient: Moderately stable - low risk of patient condition declining or worsening Summary regarding today's goal(s): Met: SBP < 220 Recommendations: continue to monitor, nicardipine gtt as needed * Respiratory Progress Note - Rashi Tracey RRT - 09/15/2023 5:30 AM EDT PATIENT DRIVEN PROTOCOL - Respiratory Care Services [address] [address] Name: Loren Minor Location: [facility] A447/A Date: 09/15/2023 Time: 5:30 AM Patient Driven Protocol Summary: Initial evaluation performed. This Treatment Plan and medications will be reviewed by the Primary Care Team for any contraindications. Respiratory Care Treatment Plan Pulmonary Volume Expansion Therapy: Incentive Spirometry PRN to prevent or treat alveolar consolidation and atelectasis. . The patient will be re-evaluated: No re-evaluation needed. Indications for treatment met. The Triage Level is: (Assessment Score = 0 - 5) Level 5. Triage Level Definitions: Level 1 Severe Respiratory/Airway Compromise Level 2 Moderate Respiratory/Airway Compromise or high risk for pulmonary complications Level 3 Mild Respiratory/Airway Compromise or moderate risk for pulmonary complications Level 4 Episodic Respiratory/Airway Compromise or low risk for pulmonary complications Level 5 No Respiratory/Airway Compromise Triage 1 Triage 2 Triage 3 Triage 4 Triage 5 greater than 20 16 - 20 11 - 15 6 - 10 0 - 5 Medical Record Assessment Clinical Findings Pulmonary Status: 0 - No History Surgical Status: 0 - No Surgical History Chest X-Ray: 0 - Not Performed or performed greater than 3 days ago Assessment Score: 0 Patient Assessment Clinical Findings Respiratory Pattern: 1 - RR 21 - 25; Patient gets short of breath when hurrying on level ground or walking up a slight hill. Breath Sounds: 0 - Clear to auscultation Cough Effectiveness: 0 - Strong non-productive Sputum Production: 0 - No sputum production Level of Activity: 1 - Ambulatory with assist O2 needed to keep SpO2 greater than or equal to 92%: 0 - Room Air Assessment Score: 2 Total Assessment Score: 2 Breath Sounds: Inspiratory and expiratory clear bilaterally.. Cough and Sputum: An effective cough produced no sputum... CXR: NONE. Vital Signs: Resp: 20 (09/15/23314) Pulse: 84 (09/15/23314) Temp: 36.2 C (97.2 F) (09/15/23314) BP: 155/103 (09/15/235) SpO2: 99 % (09/15/23314) PFT: Minimal Predicted IC: 0.819 L. Inspiratory capacity: 2.5L. Primary Service: Critical Care Blue. Admitting Diagnosis: Arterial ischemic stroke, ICA, right, acute (HCC) [I63.231] Acute ischemic stroke (HCC) [I63.9] Pulmonary Diagnosis: NONE . documented in this encounter Plan of Treatment Upcoming Encounters Date Type Department Care Team (Late st Contact Info) Description 12/19/2023 11:30 AM EDT Office Visit Neurosurgery, [place] [address] [place] [address] Pino White MD, PhD [address] [place] [address] 01/05/2024 11:35 AM EDT Office Visit Neurology [facility], [place] [address] [place] [address] Vandana Vann MD [address], [place] [id number] Pending Results Name Type Priority Associated Diagnoses Date /Time FTA-ABS Lab Routine 09/15/2023 5:5 1 AM EDT CULTURE, BLOOD Lab Routine 09/15/2023 5:51 AM EDT Arterial Line Procedures Routine Stroke (HCC) Primary hypertension 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, right (HCC) 09/15/2023 5:28 AM EDT ALDOSTERONE/PLASMA RENIN ACTIVITY RATIO, LC/MS/MS Lab STAT 09/15/2023 10:38 AM EDT Scheduled Orders Name Type Priority Associated Diagnoses Orde r Schedule FTA-ABS Lab Routine Perform Now fo r 1 Occurrences starting 09/15/2023 until 09/15/2023 CULTURE, URINE, QUANTITATIVE Lab Routine One Time for 1 Occurrences starting 09/15/2023 until 09/15/2023 URINE PROTEIN, 24 HOUR Lab Routine On e Time for 1 Occurrences starting 09/15/2023 until 09/15/2023 ALDOSTERONE/PLASMA RENIN ACTIVITY RATIO, LC/MS/MS Lab STAT One Rich e for 1 Occurrences starting 09/15/2023 until 09/15/2023 Health Maintenance Due Date Last Done Comments Depression Screening 1991 Albumin/Creatinine Ratio 1997 DTaP,Tdap,and Td Vaccines (1 - Tdap) 1998 Hepatitis B (1 of 3 - 19+ 3-dose series) 1998 Pap Smear 2000 Cervical Cancer Screening 2009 HPV/Co-Test 2009 Mammogram 2019 COVID-19 Vaccine (1 - 2022-24 season) 2022 Influenza Vaccine (FLU shot) (Season Ended) 2023 GFR 09/18/2024 09/19/2023, 0610/2023, 09/17/2023, Additional history exists Diabetes Screening 09/18/2026 [...] Not on filedocumented as of this encounter Procedures Procedure Name Priority Date/Time Associated Diagnosis Comments DIFFERENTIAL, AUTOMATED Routine 09/19/19 24 5:22 AM EDT P2Y12 INHIBITOR REACTIVITY (CLOPIDOGREL), VERIFYNOW Routine 09/19/2023 5:22 AM EDT ASPIRIN, VERIFYNOW Routine 09/19/2023 5: 22 AM EDT BASIC METABOLIC PANEL Routine 09/19/2023 5:22 AM EDT CBC Routine 09/19/2023 5:22 AM EDT PHOSPHORUS Routine 09/19/2023 5:22 AM EDT CBC Routine 09/19/2023 5:22 AM EDT MAGNESIUM Routine 09/19/2023 5:22 AM EDT DIFFERENTIAL, AUTOMATED Routine 09/18/19 24 5:58 AM EDT P2Y12 INHIBITOR REACTIVITY (CLOPIDOGREL), VERIFYNOW Routine 09/18/2023 5:58 AM EDT ASPIRIN, VERIFYNOW Routine 09/18/2023 5: 58 AM EDT BASIC METABOLIC PANEL Routine 09/18/2023 5:58 AM EDT CBC Routine 09/18/2023 5:58 AM EDT PHOSPHORUS Routine 09/18/2023 5:58 AM EDT CBC Routine 09/18/2023 5:58 AM EDT MAGNESIUM Routine 09/18/2023 5:58 AM EDT DIFFERENTIAL, AUTOMATED Routine 09/17/19 5:32 AM EDT P2Y12 INHIBITOR REACTIVITY (CLOPIDOGREL), VERIFYNOW Routine 09/17/2023 5:32 AM EDT ASPIRIN, VERIFYNOW Routine 09/17/2023 5: 32 AM EDT BASIC METABOLIC PANEL Routine 09/17/2023 5:32 AM EDT CBC Routine 09/17/2023 5:32 AM EDT PHOSPHORUS Routine 09/17/2023 5:32 AM EDT CBC Routine 09/17/2023 5:32 AM EDT MAGNESIUM Routine 09/17/2023 5:32 AM EDT P2Y12 INHIBITOR REACTIVITY (CLOPIDOGREL), VERIFYNOW Routine 09/16/2023 6:24 AM EDT ASPIRIN, VERIFYNOW Routine 09/16/2023 6: 24 AM EDT DIFFERENTIAL, AUTOMATED Routine 09/16/19 24 4:40 AM EDT BASIC METABOLIC PANEL Routine 09/16/2023 4:40 AM EDT ABO/RH STAT 09/16/2023 4:40 AM EDT TYPE AND SCREEN Routine 09/16/2023 4:40 AM EDT CBC Routine 09/16/2023 4:40 AM EDT PHOSPHORUS Routine 09/16/2023 4:40 AM EDT CBC Routine 09/16/2023 4:40 AM EDT MAGNESIUM Routine 09/16/2023 4:40 AM EDT NEURO IR IMAGING Routine 09/15/2023 10:5 5 PM EDT STAGE [address] FIDUCIALS / 3D RENDERING W/CT, MRI, US, OR OTHER TOMOGRAPHY 09/15/2023 7:26 PM EDT 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, right (HCC) VERTEBRAL ARTERY CATHETER PLACEMENT 09/15/2023 7:26 PM EDT 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, right (HCC) CAROTID (INTERNAL) ARTERY CATHETHER PLACEMENT 09/15/2023 7:26 PM EDT 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, right (HCC) ECHO, COMPLETE (2D), TRANS-THORACIC Routine 09/15/2023 1:29 PM EDT Stroke (HCC) FACTOR V (5) LEIDEN MUTATION ANALYSIS, PCR Routine 09/15/2023 11:03 AM EDT HEPATITIS C RNA ADD ON STAT 10:38 AM EDT PROTEIN S ACTIVITY WITH ANTIGEN REFLEX Routine 09/15/2023 10:38 AM EDT METANEPHRINES, FRACTIONATED, FREE, LCMSMS, PLASMA STAT 09/15/2023 10:38 AM EDT HEPATITIS C ANTIBODY SCREEN WITH PROGRESSION TO HEPATITIS C RNA QUANTITATIVE STAT 09/15/2023 10:38 AM EDT HOMOCYSTEINE STAT 09/15/2023 10:38 AM EDT PROTEIN C ACTIVITY Routine 09/15/2023 10 :38 AM EDT ANTITHROMBIN III ACTIVITY Routine 09/15/2023 10:38 AM EDT HEPATITIS C ANTIBODY STAT 09/15/2023 10:38 AM EDT VASC RENAL VASCULAR SCAN-COMPLETE Routine 09/15/2023 10:14 AM EDT Primary hypertension TROPONIN T, HIGH SENSITIVITY STAT 09/15/2023 6:11 AM EDT LYME DISEASE ANTIBODY SCREEN Add-on 09/15/2023 5:51 AM EDT ANCA, IFA STAT 09/15/2023 5:51 AM EDT ANTINUCLEAR ANTIBODY (FABIOLA) SCREEN, KARTIK Add-on 09/15/2023 5:51 AM EDT HIV ANTIGEN & ANTIBODY SCREEN W/ CONFIRMATION Routine 09/15/2023 5:51 AM EDT ANTINUCLEAR ANTIBODY (FABIOLA) EIA SCREEN WITH REFLEX AB QUANT Add-on 09/15/2023 5:51 AM EDT LYME DISEASE ANTIBODY SCREEN WITH REFLEX TO CONFIRMATION Add-on 09/15/2023 5:51 AM EDT ANCA REFLEX PANEL STAT 09/15/2023 5:5 1 AM EDT SERUM PROTEIN ELECTROPHORESIS REFLEX PROFILE Add-on 09/15/2023 5:51 AM EDT RPR Add-on 09/15/2023 5:51 AM EDT SSA/RO AND SSB/LA ANTIBODIES Add-on 09/15/2023 5:51 AM EDT CULTURE, BLOOD Routine 09/15/2023 5:51 AM EDT RHEUMATOID FACTOR Routine 09/15/2023 5:5 1 AM EDT CARDIOLIPIN ANTIBODY PROFILE (IGG, IGM) Add-on 09/15/2023 5:51 AM EDT HC ECG TRACING ONLY Routine 09/15/2023 5 :31 AM EDT Stroke (HCC) KS ARTL CATHJ/CANNULJ MNTR/TRANSFUSION SPX PRQ Routine 09/15/2023 5:28 AM EDT Stroke (HCC) Primary hypertension 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, right (HCC) TOXICOLOGY, URINESCREEN W/ CONFIRMATION Add-on 09/15/2023 5:26 AM EDT PROTEIN/ CREATININE RATIO, URINE Routine 09/15/2023 5:26 AM EDT URINALYSIS, REFLEX TO MICROSCOPIC Routine 09/15/2023 5:26 AM EDT MRSA SCREEN, PCR Routine 09/15/2023 4:00 AM EDT DIFFERENTIAL, AUTOMATED Routine 09/15/19 24 3:46 AM EDT TROPONIN T, HIGH SENSITIVITY Routine 09/15/2023 3:46 AM EDT TSH WITH FREE T4 IF INDICATED Add-on 09/15/2023 3:46 AM EDT LIPID PANEL WITH DIRECT LDL IF TG IS HIGH Routine 09/15/2023 3:46 AM EDT HEMOGLOBIN A1C Routine 09/15/2023 3:46 AM EDT CRP (INFLAMMATORY MARKER) STAT 09/15/2023 3:46 AM EDT HEPATIC FUNCTION PANEL Routine 3:46 AM EDT BASIC METABOLIC PANEL Routine 09/15/2023 3:46 AM EDT CBC Routine 09/15/2023 3:46 AM EDT COMPLEMENT C4 Routine 09/15/2023 3:46 AM EDT COMPLEMENT C3 Routine 09/15/2023 3:46 AM EDT PT INR Routine 09/15/2023 3:46 AM EDT PHOSPHORUS Routine 09/15/2023 3:46 AM EDT LD STAT 09/15/2023 3:46 AM EDT ERYTHROCYTE SEDIMENTATION RATE (ESR) Routine 09/15/2023 3:46 AM EDT CBC Routine 09/15/2023 3:46 AM EDT MAGNESIUM Routine 09/15/2023 3:46 AM EDT documented in this encounter Results * (ABNORMAL) DIFFERENTIAL, AUTOMATED (09/19/2023 5:22 AM EDT) WBC 10.43 4.00 - 10.80 K/uL 09/19/2023 5:58 AM EDT LAB[facility]AT[facility] Neutrophils % 68.4 40.0 - 75.0 % 09/19/2023 5:58 AM EDT [facility] Lymphocytes % 17.7(L) 18.0 - 42.0 % 09/19/2023 5:58 AM EDT [facility] Monocytes % 8.3 1.0 - 11.0 % 09/19/2023 5:58 AM EDT [facility] Eosinophils % 4.3 0.0 - 6.0 % 09/19/2023 5:58 AM EDT [facility] Basophils % 0.7 0.0 - 2.0 % 09/19/2023 5:58 AM EDT LAB[facility] Immature Granulocytes % 0.6 0.0 - 2.0 % 09/19/2023 5:58 AM EDT LAB[facility] Absolute Neutrophils 7.13 1.80 - 7.70 K/uL 09/19/2023 5:58 AM EDT LAB[facility]AT[facility] Absolute Lymphocytes 1.85 1.00 - 4.80 K/ul 09/19/2023 5:58 AM EDT LAB[facility] Absolute Monocytes 0.87 0.00 - 1.10 K/uL 09/19/2023 5:58 AM EDT LAB[facility]AT[facility] Absolute Eosinophils 0.45 0.00 - 0.70 K/uL 09/19/2023 5:58 AM EDT LAB[facility] Absolute Basophils 0.07 0.00 - 0.20 K/uL 09/19/2023 5:58 AM EDT LAB[facility]ATORY [facility] Absolute Immature Granulocytes 0.06 0.00 - 0.20 K/uL 09/19/2023 5:58 AM EDT [facility] Blood Venous blood specimen / Unknown Venipuncture / Unknown 09/19/2023 5:22 AM EDT 09/19/2023 5:44 AM EDT Eva HAWK LAB BLOOD ORD ERABLES [facility] [address] [place] [address] * (ABNORMAL) CBC (09/19/2023 5:22 AM EDT) WBC 10.43 4.00 - 10.80 K/uL 09/19/2023 5:58 AM EDT LAB[facility] RBC 4.10 3.85 - 5.15 M/uL 09/19/2023 5:58 AM EDT LAB[facility] HGB 10.1(L) 12.0 - 15.3 g/dL 09/19/2023 5:58 AM EDT [facility] HCT 33.5(L) 36.0 - 45.2 % 09/19/2023 5:58 AM EDT LAB[facility] MCV 81.7 81.5 - 97.5 fL 09/19/2023 5:58 AM EDT [facility] MCH 24.6 27.0 - 34.0 pg 09/19/2023 5:58 AM EDT LAB[facility] MCHC 30.1 32.0 - 36.0 g/dL 09/19/2023 5:58 AM EDT LAB[facility] RDW 16.2 11.5 - 15.5 % 09/19/2023 5:58 AM EDT LABORATORY [facility] PLT 358 140 - 400 K/uL 09/19/2023 5:58 AM EDT LABORATORY [facility] MPV 9.8 6.6 - 11.1 fL 09/19/2023 5:58 AM EDT LABORATORY [facility] nRBCs 0 <=0 /100 WBCs 09/19/2023 5:58 AM EDT LABORATORY [facility] Blood Venous blood specimen / Unknown Venipuncture / Unknown 09/19/2023 5:22 AM EDT 09/19/2023 5:44 AM EDT Eva HAWK LAB BLOOD ORD ERABLES LABORATORY [facility] [address] [place] [address] * (ABNORMAL) ASPIRIN, VERIFYNOW (09/19/2023 5:22 AM EDT) [facility] VerifyNow Aspirin 389(L) >=550 ARU 09/19/2023 6:01 AM EDT LABORATORY [facility] Blood Venous blood specimen / Unknown Venipuncture / Unknown 09/19/2023 5:22 AM EDT 09/19/2023 5:44 AM EDT Narrative LABORATORY [facility] - 09/19/2023 6:01 AM EDT Assay designed to measure the effect of aspirin and it should not be used to detect other platelet functional disorders. >=550 ARU - Aspirin not detected < 550 ARU - Aspirin detected Interfering substances/Test limitations: Do not test patients if on the following medications until platelet function has recovered (timeframe), as they may result in low ARU values; clopidogrel -5 days, ticlopidine- 5 days, prasugrel - 10 days, dipyridamole - 12 hours, cilostazol - 12 hours, Aggrenox (aspirin/dipyridamole) - 10 days, ibuprofen - 8 hours, naproxen - 24 hours, diclofenac - 24 hours, indocin - 24 hours, feldene - 50 hours, tirofiban - 2 days, eptifibatide - 2 days, abciximab - 2 week. Samples may also be affected by low hematocrit (<29%), high hematocrit (>56%), or low platelet counts (<92,000/cmm). Patients on ticagrelor or with inherited platelet disorders have not been studied using this assay and the ability of the assay to detect aspirin usage in these patients is unknown. Ashish Duenas MD LAB BLOOD ORDER HUGO LABORATORY [facility] [address] [place] [address] * (ABNORMAL) P2Y12 INHIBITOR REACTIVITY (CLOPIDOGREL), VERIFYNOW (09/19/2023 5:22 AM EDT) [facility] VerifyNow P2Y12 139(L) 182 - 335 PRU 09/19/2023 6:01 AM EDT LABORATORY [facility] Blood Venous blood specimen / Unknown Venipuncture / Unknown 09/19/2023 5:22 AM EDT 09/19/2023 5:44 AM EDT Narrative LABORATORY [facility] - 09/19/2023 6:01 AM EDT Assay measures the level of platelet P2Y12 receptor blockade from clopidogrel and it should not be used to detect other platelet functional disorders. This test is not to be used for therapeutic monitoring. >=182 P2Y12 inhibitory drug (clopidogrel) NOT detected % clopidogrel inhibition = (Baseline PRU - Post-treatment PRU) / Baseline PRU x100 <10% inhibition indicated the patient is resistant to therapy and recommend different antiplatelet medication Interfering substances/Test limitations: Do not test patients if on the following medications until platelet function has recovered (timeframe), as they may result in low ARU values; dipyridamole - 12 hours, cilostazol - 12 hours, Aggrenox (aspirin/dipyridamole) - 10 days. Samples may also be affected by low hematocrit (<29%), high hematocrit (>56%), or low platelet counts (<92,000/cmm). Patients on ticlopidine, prasugrel, and ticagrelor or with inherited platelet disorders have not been studied using this assay and the ability of the assay to detect these drugs or clopidogrel usage in these patients is unknown. Ashish Duenas MD LAB BLOOD ORDER HUGO Performing Organization Address City/[facility]/ZIP Co de Phone Number LAB[facility]ATORY [facility] [address] [place] [address] * PHOSPHORUS (09/19/2023 5:22 AM EDT) Phosphorus 4.0 2.5 - 4.8 mg/dL 09/19/2023 6:11 AM EDT [facility] Blood Venous blood specimen / Unknown Venipuncture / Unknown 09/19/2023 5:22 AM EDT 09/19/2023 5:44 AM EDT Ashish Duenas MD LAB BLOOD ORDER HUGO Performing Organization Address [facility] Co de Phone Number LABORATORY C [address] [place] [address] * MAGNESIUM (09/19/2023 5:22 AM EDT) Magnesium 1.9 1.5 - 2.6 mg/dL 09/19/2023 6:11 AM EDT LABORATORY C Blood Venous blood specimen / Unknown Venipuncture / Unknown 09/19/2023 5:22 AM EDT 09/19/2023 5:44 AM EDT Ashish Duenas MD LAB BLOOD ORDER HUGO Performing Organization Address [facility] Co de Phone Number LABORATORY C [address] [place] [address] * (ABNORMAL) BASIC METABOLIC PANEL (09/19/2023 5:22 AM EDT) BUN 21(H) 6 - 20 mg/dL 09/19/2023 6:11 AM EDT LAB[facility] Creatinine 0.8 0.5 - 1.0 mg/dL 09/19/2023 6:11 AM EDT LAB[facility] Estimated Glomerular Filtration Rate >90 >=60 mL/min 09/19/2023 6:11 AM EDT LAB[facility] Comment:eGFR is calculated b ased on the CKD-EPI 2020 equation Sodium 140 135 - 146 mmol/L 09/19/2023 6:11 AM EDT LAB[facility] Potassium 3.8 3.5 - 5.1 mmol/L 09/19/2023 6:11 AM EDT LAB[facility] Chloride 107 98 - 107 mmol/L 09/19/2023 6:11 AM EDT [facility] CO2 22 22 - 32 mmol/L 09/19/2023 6:11 AM EDT [facility] Anion Gap 11 7 - 15 mmol/L 09/19/2023 6:11 AM EDT [facility] Glucose 97 70 - 120 mg/dL 09/19/2023 6:11 AM EDT LAB[facility] Calcium 8.6 8.4 - 10.2 mg/dL 09/19/2023 6:11 AM EDT LAB[facility] Blood Venous blood specimen / Unknown Venipuncture / Unknown 09/19/2023 5:22 AM EDT 09/19/2023 5:44 AM EDT Ashish Duenas MD LAB BLOOD ORDER HUGO LAB[facility] [address] [place], [place] [id number] * (ABNORMAL) DIFFERENTIAL, AUTOMATED (09/18/2023 5:58 AM EDT) WBC 10.81(H) 4.00 - 10.80 K/uL 09/18/2023 6:21 AM EDT LAB[facility]AT[facility] Neutrophils % 74.4 40.0 - 75.0 % 09/18/2023 6:21 AM EDT LAB[facility] Lymphocytes % 14.1(L) 18.0 - 42.0 % 09/18/2023 6:21 AM EDT LAB[facility] Monocytes % 6.1 1.0 - 11.0 % 09/18/2023 6:21 AM EDT LAB[facility] Eosinophils % 4.0 0.0 - 6.0 % 09/18/2023 6:21 AM EDT LAB[facility] Basophils % 0.8 0.0 - 2.0 % 09/18/2023 6:21 AM EDT LAB[facility] Immature Granulocytes % 0.6 0.0 - 2.0 % 09/18/2023 6:21 AM EDT LAB[facility] Absolute Neutrophils 8.05(H) 1.80 - 7.70 K/uL 09/18/2023 6:21 AM EDT LAB[facility] Absolute Lymphocytes 1.52 1.00 - 4.80 K/ul 09/18/2023 6:21 AM EDT LAB[facility]AT[facility] Absolute Monocytes 0.66 0.00 - 1.10 K/uL 09/18/2023 6:21 AM EDT LAB[facility] Absolute Eosinophils 0.43 0.00 - 0.70 K/uL 09/18/2023 6:21 AM EDT LAB[facility] Absolute Basophils 0.09 0.00 - 0.20 K/uL 09/18/2023 6:21 AM EDT LAB[facility] Absolute Immature Granulocytes 0.06 0.00 - 0.20 K/uL 09/18/2023 6:21 AM EDT LAB[facility] Blood Venous blood specimen / Unknown Venipuncture / Unknown 09/18/2023 5:58 AM EDT 09/18/2023 6:11 AM EDT Eva ROMERONP LAB BLOOD ORD ERABLES LAB[facility]ORY [facility] [address] [place] [address] * (ABNORMAL) CBC (09/18/2023 5:58 AM EDT) WBC 10.81(H) 4.00 - 10.80 K/uL 09/18/2023 6:21 AM EDT LAB[facility] RBC 4.49 3.85 - 5.15 M/uL 09/18/2023 6:21 AM EDT LAB[facility] HGB 11.0(L) 12.0 - 15.3 g/dL 09/18/2023 6:21 AM EDT LAB[facility] HCT 36.5 36.0 - 45.2 % 09/18/2023 6:21 AM EDT LAB[facility] MCV 81.3 81.5 - 97.5 fL 09/18/2023 6:21 AM EDT LAB[facility] MCH 24.5 27.0 - 34.0 pg 09/18/2023 6:21 AM EDT LABORATORY [facility] MCHC 30.1 32.0 - 36.0 g/dL 09/18/2023 6:21 AM EDT LABORATORY [facility] RDW 16.1 11.5 - 15.5 % 09/18/2023 6:21 AM EDT LABORATORY [facility] PLT 366 140 - 400 K/uL 09/18/2023 6:21 AM EDT LABORATORY [facility] MPV 9.7 6.6 - 11.1 fL 09/18/2023 6:21 AM EDT LABORATORY [facility] nRBCs 0 <=0 /100 WBCs 09/18/2023 6:21 AM EDT LABORATORY [facility] Blood Venous blood specimen / Unknown Venipuncture / Unknown 09/18/2023 5:58 AM EDT 09/18/2023 6:11 AM EDT Eva HAWK LAB BLOOD ORD ERABLES Performing Organization Address City/State/[facility] Co de Phone Number LABORATORY [facility] [address] [place] [address] * (ABNORMAL) ASPIRIN, VERIFYNOW (09/18/2023 5:58 AM EDT) [facility] VerifyNow Aspirin 390(L) >=550 ARU 09/18/2023 6:48 AM EDT LABORATORY [facility] Blood Venous blood specimen / Unknown Venipuncture / Unknown 09/18/2023 5:58 AM EDT 09/18/2023 6:21 AM EDT Narrative LABORATORY C - 09/18/2023 6:48 AM EDT Assay designed to measure the effect of aspirin and it should not be used to detect other platelet functional disorders. >=550 ARU - Aspirin not detected < 550 ARU - Aspirin detected Interfering substances/Test limitations: Do not test patients if on the following medications until platelet function has recovered (timeframe), as they may result in low ARU values; clopidogrel -5 days, ticlopidine- 5 days, prasugrel - 10 days, dipyridamole - 12 hours, cilostazol - 12 hours, Aggrenox (aspirin/dipyridamole) - 10 days, ibuprofen - 8 hours, naproxen - 24 hours, diclofenac - 24 hours, indocin - 24 hours, feldene - 50 hours, tirofiban - 2 days, eptifibatide - 2 days, abciximab - 2 week. Samples may also be affected by low hematocrit (<29%), high hematocrit (>56%), or low platelet counts (<92,000/cmm). Patients on ticagrelor or with inherited platelet disorders have not been studied using this assay and the ability of the assay to detect aspirin usage in these patients is unknown. Ashish Duenas MD LAB BLOOD ORDER HUGO LABORATORY [facility] [address] [place] [address] * (ABNORMAL) P2Y12 INHIBITOR REACTIVITY (CLOPIDOGREL), VERIFYNOW (09/18/2023 5:58 AM EDT) [facility] VerifyNow P2Y12 168(L) 182 - 335 PRU 09/18/2023 6:46 AM EDT LABORATORY [facility] Blood Venous blood specimen / Unknown Venipuncture / Unknown 09/18/2023 5:58 AM EDT 09/18/2023 6:21 AM EDT Narrative LABORATORY [facility] - 09/18/2023 6:46 AM EDT Assay measures the level of platelet P2Y12 receptor blockade from clopidogrel and it should not be used to detect other platelet functional disorders. This test is not to be used for therapeutic monitoring. >=182 P2Y12 inhibitory drug (clopidogrel) NOT detected % clopidogrel inhibition = (Baseline PRU - Post-treatment PRU) / Baseline PRU x100 <10% inhibition indicated the patient is resistant to therapy and recommend different antiplatelet medication Interfering substances/Test limitations: Do not test patients if on the following medications until platelet function has recovered (timeframe), as they may result in low ARU values; dipyridamole - 12 hours, cilostazol - 12 hours, Aggrenox (aspirin/dipyridamole) - 10 days. Samples may also be affected by low hematocrit (<29%), high hematocrit (>56%), or low platelet counts (<92,000/cmm). Patients on ticlopidine, prasugrel, and ticagrelor or with inherited platelet disorders have not been studied using this assay and the ability of the assay to detect these drugs or clopidogrel usage in these patients is unknown. Ashish Duenas MD LAB BLOOD ORDER HUGO Performing Organization Address [facility] de Phone Number LABORATORY [facility] [address] [place] [address] * PHOSPHORUS (09/18/2023 5:58 AM EDT) Phosphorus 3.6 2.5 - 4.8 mg/dL 09/18/2023 6:39 AM EDT LAB[facility]ATORY [facility] Blood Venous blood specimen / Unknown Venipuncture / Unknown 09/18/2023 5:58 AM EDT 09/18/2023 6:11 AM EDT Ashish Duenas MD LAB BLOOD ORDER HUGO Performing Organization Address [facility] de Phone Number LABORATORY C [address] [place] [address] * MAGNESIUM (09/18/2023 5:58 AM EDT) Magnesium 1.8 1.5 - 2.6 mg/dL 09/18/2023 6:39 AM EDT LAB[facility]ATORY [facility] Blood Venous blood specimen / Unknown Venipuncture / Unknown 09/18/2023 5:58 AM EDT 09/18/2023 6:11 AM EDT Ashish Duenas MD LAB BLOOD ORDER HUGO Performing Organization Address [facility] de Phone Number LABORATORY C [address] [place] [address] * BASIC METABOLIC PANEL (09/18/2023 5:58 AM EDT) BUN 15 6 - 20 mg/dL 09/18/2023 6:39 AM EDT LAB[facility]ORY [facility] Creatinine 0.7 0.5 - 1.0 mg/dL 09/18/2023 6:39 AM EDT LAB[facility]ORY [facility] Estimated Glomerular Filtration Rate >90 >=60 mL/min 09/18/2023 6:39 AM EDT LAB[facility]ATORY [facility] Comment:eGFR is calculated b ased on the CKD-EPI 2020 equation Sodium 138 135 - 146 mmol/L 09/18/2023 6:39 AM EDT LAB[facility]ATORY [facility] Potassium 3.8 3.5 - 5.1 mmol/L 09/18/2023 6:39 AM EDT LAB[facility]ATORY [facility] Chloride 104 98 - 107 mmol/L 09/18/2023 6:39 AM EDT LAB[facility] CO2 22 22 - 32 mmol/L 09/18/2023 6:39 AM EDT LAB[facility] Anion Gap 12 7 - 15 mmol/L 09/18/2023 6:39 AM EDT LAB[facility]ORY [facility] Glucose 95 70 - 120 mg/dL 09/18/2023 6:39 AM EDT LAB[facility] Calcium 9.0 8.4 - 10.2 mg/dL 09/18/2023 6:39 AM EDT LAB[facility] Blood Venous blood specimen / Unknown Venipuncture / Unknown 09/18/2023 5:58 AM EDT 09/18/2023 6:11 AM EDT Ashish Duenas MD LAB BLOOD ORDER HUGO LAB[facility] [address] [place] [address] * (ABNORMAL) DIFFERENTIAL, AUTOMATED (09/17/2023 5:32 AM EDT) WBC 9.63 4.00 - 10.80 K/uL 09/17/2023 6:17 AM EDT LAB[facility]ATORY [facility] Neutrophils % 72.7 40.0 - 75.0 % 09/17/2023 6:17 AM EDT LAB[facility]ORY [facility] Lymphocytes % 16.4(L) 18.0 - 42.0 % 09/17/2023 6:17 AM EDT LAB[facility]ORY [facility] Monocytes % 7.1 1.0 - 11.0 % 09/17/2023 6:17 AM EDT LAB[facility]ORY [facility] Eosinophils % 2.6 0.0 - 6.0 % 09/17/2023 6:17 AM EDT LAB[facility] Basophils % 0.8 0.0 - 2.0 % 09/17/2023 6:17 AM EDT LAB[facility]ORY [facility] Immature Granulocytes % 0.4 0.0 - 2.0 % 09/17/2023 6:17 AM EDT LAB[facility]ORY [facility] Absolute Neutrophils 7.00 1.80 - 7.70 K/uL 09/17/2023 6:17 AM EDT LAB[facility]ORY [facility] Absolute Lymphocytes 1.58 1.00 - 4.80 K/ul 09/17/2023 6:17 AM EDT LAB[facility]ORY [facility] Absolute Monocytes 0.68 0.00 - 1.10 K/uL 09/17/2023 6:17 AM EDT LAB[facility]ATORY [facility] Absolute Eosinophils 0.25 0.00 - 0.70 K/uL 09/17/2023 6:17 AM EDT LAB[facility]ORY [facility] Absolute Basophils 0.08 0.00 - 0.20 K/uL 09/17/2023 6:17 AM EDT LAB[facility]ATORY [facility] Absolute Immature Granulocytes 0.04 0.00 - 0.20 K/uL 09/17/2023 6:17 AM EDT LAB[facility]ATORY [facility] Blood Venous blood specimen / Unknown Venipuncture / Unknown 09/17/2023 5:32 AM EDT 09/17/2023 6:04 AM EDT Eva Mota Milan HAWK LAB BLOOD ORD ERABLES LAB[facility]ATORY [facility] [address] [place] [address] * (ABNORMAL) CBC (09/17/2023 5:32 AM EDT) [facility] WBC 9.63 4.00 - 10.80 K/uL 09/17/2023 6:17 AM EDT LAB[facility]ATORY [facility] RBC 4.17 3.85 - 5.15 M/uL 09/17/2023 6:17 AM EDT LAB[facility]ORY [facility] HGB 10.1(L) 12.0 - 15.3 g/dL 09/17/2023 6:17 AM EDT LAB[facility]ORY [facility] HCT 34.0(L) 36.0 - 45.2 % 09/17/2023 6:17 AM EDT LAB[facility]ORY [facility] MCV 81.5 81.5 - 97.5 fL 09/17/2023 6:17 AM EDT LABORATORY [facility] MCH 24.2 27.0 - 34.0 pg 09/17/2023 6:17 AM EDT LABORATORY [facility] MCHC 29.7 32.0 - 36.0 g/dL 09/17/2023 6:17 AM EDT LABORATORY [facility] RDW 16.5 11.5 - 15.5 % 09/17/2023 6:17 AM EDT LABORATORY [facility] PLT 334 140 - 400 K/uL 09/17/2023 6:17 AM EDT LABORATORY [facility] MPV 10.2 6.6 - 11.1 fL 09/17/2023 6:17 AM EDT LABORATORY [facility] nRBCs 0 <=0 /100 WBCs 09/17/2023 6:17 AM EDT LABORATORY [facility] Blood Venous blood specimen / Unknown Venipuncture / Unknown 09/17/2023 5:32 AM EDT 09/17/2023 6:04 AM EDT Eva HAWK LAB BLOOD ORD ERABLES LABORATORY [facility] [address] [place] [address] * (ABNORMAL) ASPIRIN, VERIFYNOW (09/17/2023 5:32 AM EDT) Ver[facility]Now Aspirin 394(L) >=550 ARU 09/17/2023 6:48 AM EDT LABORATORY [facility] Blood Venous blood specimen / Unknown Venipuncture / Unknown 09/17/2023 5:32 AM EDT 09/17/2023 6:18 AM EDT Narrative LABORATORY C - 09/17/2023 6:48 AM EDT Assay designed to measure the effect of aspirin and it should not be used to detect other platelet functional disorders. >=550 ARU - Aspirin not detected < 550 ARU - Aspirin detected Interfering substances/Test limitations: Do not test patients if on the following medications until platelet function has recovered (timeframe), as they may result in low ARU values; clopidogrel -5 days, ticlopidine- 5 days, prasugrel - 10 days, dipyridamole - 12 hours, cilostazol - 12 hours, Aggrenox (aspirin/dipyridamole) - 10 days, ibuprofen - 8 hours, naproxen - 24 hours, diclofenac - 24 hours, indocin - 24 hours, feldene - 50 hours, tirofiban - 2 days, eptifibatide - 2 days, abciximab - 2 week. Samples may also be affected by low hematocrit (<29%), high hematocrit (>56%), or low platelet counts (<92,000/cmm). Patients on ticagrelor or with inherited platelet disorders have not been studied using this assay and the ability of the assay to detect aspirin usage in these patients is unknown. Ashish Duenas MD LAB BLOOD ORDER [facility] [address] [place] [address] * P2Y12 INHIBITOR REACTIVITY (CLOPIDOGREL), VERIFYNOW (09/17/2023 5:32 AM EDT) [facility] VerifyNow P2Y12 188 182 - 335 PRU 09/17/2023 6:48 AM EDT LAB[facility] Blood Venous blood specimen / Unknown Venipuncture / Unknown 09/17/2023 5:32 AM EDT 09/17/2023 6:18 AM EDT Narrative [facility] - 09/17/2023 6:48 AM EDT Assay measures the level of platelet P2Y12 receptor blockade from clopidogrel and it should not be used to detect other platelet functional disorders. This test is not to be used for therapeutic monitoring. >=182 P2Y12 inhibitory drug (clopidogrel) NOT detected % clopidogrel inhibition = (Baseline PRU - Post-treatment PRU) / Baseline PRU x100 <10% inhibition indicated the patient is resistant to therapy and recommend different antiplatelet medication Interfering substances/Test limitations: Do not test patients if on the following medications until platelet function has recovered (timeframe), as they may result in low ARU values; dipyridamole - 12 hours, cilostazol - 12 hours, Aggrenox (aspirin/dipyridamole) - 10 days. Samples may also be affected by low hematocrit (<29%), high hematocrit (>56%), or low platelet counts (<92,000/cmm). Patients on ticlopidine, prasugrel, and ticagrelor or with inherited platelet disorders have not been studied using this assay and the ability of the assay to detect these drugs or clopidogrel usage in these patients is unknown. Ashish Duenas MD LAB BLOOD ORDER [facility] Performing Organization Address City/[facility] Co de Phone Number [facility] [address] [place] [address] * PHOSPHORUS (09/17/2023 5:32 AM EDT) Phosphorus 3.6 2.5 - 4.8 mg/dL 09/17/2023 6:34 AM EDT LABORATORY C Blood Venous blood specimen / Unknown Venipuncture / Unknown 09/17/2023 5:32 AM EDT 09/17/2023 6:04 AM EDT Ashish Duenas MD LAB BLOOD ORDER [facility] Performing Organization Address [facility] Co de Phone Number [facility] [address] [place] [address] * MAGNESIUM (09/17/2023 5:32 AM EDT) Magnesium 2.0 1.5 - 2.6 mg/dL 09/17/2023 6:34 AM EDT [facility] Blood Venous blood specimen / Unknown Venipuncture / Unknown 09/17/2023 5:32 AM EDT 09/17/2023 6:04 AM EDT Ashish Duenas MD LAB BLOOD ORDER HUGO Performing Organization Address [facility] Co de Phone Number LABORATORY [facility] [address] [place] [address] * (ABNORMAL) BASIC METABOLIC PANEL (09/17/2023 5:32 AM EDT) BUN 16 6 - 20 mg/dL 09/17/2023 6:34 AM EDT LABORATORY [facility] Creatinine 0.9 0.5 - 1.0 mg/dL 09/17/2023 6:34 AM EDT LABORATORY [facility] Estimated Glomerular Filtration Rate 83 >=60 mL/min 09/17/2023 6:34 AM EDT LABORATORY [facility] Comment:eGFR is calculated b ased on the CKD-EPI 2020 equation Sodium 140 135 - 146 mmol/L 09/17/2023 6:34 AM EDT LABORATORY [facility] Potassium 4.0 3.5 - 5.1 mmol/L 09/17/2023 6:34 AM EDT LAB[facility]ATORY [facility] Chloride 108(H) 98 - 107 mmol/L 09/17/2023 6:34 AM EDT LAB[facility]ATORY [facility] CO2 21(L) 22 - 32 mmol/L 09/17/2023 6:34 AM EDT LAB[facility]ATORY [facility] Anion Gap 11 7 - 15 mmol/L 09/17/2023 6:34 AM EDT LAB[facility]ATORY [facility] Glucose 96 70 - 120 mg/dL 09/17/2023 6:34 AM EDT LAB[facility]ATORY [facility] Calcium 8.6 8.4 - 10.2 mg/dL 09/17/2023 6:34 AM EDT LABORATORY C Blood Venous blood specimen / Unknown Venipuncture / Unknown 09/17/2023 5:32 AM EDT 09/17/2023 6:04 AM EDT Ashish Duenas MD LAB BLOOD ORDER HUGO LABORATORY [facility] [address] [place] [address] * (ABNORMAL) P2Y12 INHIBITOR REACTIVITY (CLOPIDOGREL), VERIFYNOW (09/16/2023 6:24 AM EDT) VerifyNow P2Y12 164(L) 182 - 335 PRU 09/16/2023 6:54 AM EDT LABORATORY [facility] Blood Venous blood specimen / Unknown Venipuncture / Unknown 09/16/2023 6:24 AM EDT 09/16/2023 6:33 AM EDT Narrative LABORATORY [facility] - 09/16/2023 6:54 AM EDT Assay measures the level of platelet P2Y12 receptor blockade from clopidogrel and it should not be used to detect other platelet functional disorders. This test is not to be used for therapeutic monitoring. >=182 P2Y12 inhibitory drug (clopidogrel) NOT detected % clopidogrel inhibition = (Baseline PRU - Post-treatment PRU) / Baseline PRU x100 <10% inhibition indicated the patient is resistant to therapy and recommend different antiplatelet medication Interfering substances/Test limitations: Do not test patients if on the following medications until platelet function has recovered (timeframe), as they may result in low ARU values; dipyridamole - 12 hours, cilostazol - 12 hours, Aggrenox (aspirin/dipyridamole) - 10 days. Samples may also be affected by low hematocrit (<29%), high hematocrit (>56%), or low platelet counts (<92,000/cmm). Patients on ticlopidine, prasugrel, and ticagrelor or with inherited platelet disorders have not been studied using this assay and the ability of the assay to detect these drugs or clopidogrel usage in these patients is unknown. Lukas Sheldon MD LAB BLOOD ORDERABLES LABORATORY [facility] [address] [place] [address] * (ABNORMAL) ASPIRIN, VERIFYNOW (09/16/2023 6:24 AM EDT) VerifyNow Aspirin 388(L) >=550 ARU 09/16/2023 6:54 AM EDT LABORATORY [facility] Blood Venous blood specimen / Unknown Venipuncture / Unknown 09/16/2023 6:24 AM EDT 09/16/2023 6:33 AM EDT Narrative LABORATORY [facility] - 09/16/2023 6:54 AM EDT Assay designed to measure the effect of aspirin and it should not be used to detect other platelet functional disorders. >=550 ARU - Aspirin not detected < 550 ARU - Aspirin detected Interfering substances/Test limitations: Do not test patients if on the following medications until platelet function has recovered (timeframe), as they may result in low ARU values; clopidogrel -5 days, ticlopidine- 5 days, prasugrel - 10 days, dipyridamole - 12 hours, cilostazol - 12 hours, Aggrenox (aspirin/dipyridamole) - 10 days, ibuprofen - 8 hours, naproxen - 24 hours, diclofenac - 24 hours, indocin - 24 hours, feldene - 50 hours, tirofiban - 2 days, eptifibatide - 2 days, abciximab - 2 week. Samples may also be affected by low hematocrit (<29%), high hematocrit (>56%), or low platelet counts (<92,000/cmm). Patients on ticagrelor or with inherited platelet disorders have not been studied using this assay and the ability of the assay to detect aspirin usage in these patients is unknown. Lukas Sheldon MD LAB BLOOD ORDERABLES Performing Organization Address [facility] Co de Phone Number LABORATORY [facility] [address] [place] [address] * ABO/RH (09/16/2023 4:40 AM EDT) Pathologist [facility] ABO B 09/16/2023 5:41 AM EDT LABORATORY [facility] BLOOD BANK Rh Positive 09/16/2023 5:41 AM EDT LABORATORY [facility] BLOOD BANK Blood Venous blood specimen / Unknown Venipuncture / Unknown 09/16/2023 4:40 AM EDT 09/16/2023 4:45 AM EDT Ruthie Perez MD LAB BLOOD BANK TEST ORDERABLES Performing Organization Address [facility] Co de Phone Number LABORATORY [facility] BLOOD BANK [address] [place] [address] * (ABNORMAL) DIFFERENTIAL, AUTOMATED (09/16/2023 4:40 AM EDT) WBC 11.17(H) 4.00 - 10.80 K/uL 09/16/2023 4:57 AM EDT LABORATORY [facility] Neutrophils % 75.2(H) 40.0 - 75.0 % 09/16/2023 4:57 AM EDT LABORATORY [facility] Lymphocytes % 15.1(L) 18.0 - 42.0 % 09/16/2023 4:57 AM EDT LABORATORY [facility] Monocytes % 7.4 1.0 - 11.0 % 09/16/2023 4:57 AM EDT LABORATORY [facility] Eosinophils % 1.4 0.0 - 6.0 % 09/16/2023 4:57 AM EDT LABORATORY [facility] Basophils % 0.5 0.0 - 2.0 % 09/16/2023 4:57 AM EDT LABORATORY [facility] Immature Granulocytes % 0.4 0.0 - 2.0 % 09/16/2023 4:57 AM EDT LABORATORY [facility] Absolute Neutrophils 8.38(H) 1.80 - 7.70 K/uL 09/16/2023 4:57 AM EDT LABORATORY [facility] Absolute Lymphocytes 1.69 1.00 - 4.80 K/ul 09/16/2023 4:57 AM EDT LABORATORY [facility] Absolute Monocytes 0.83 0.00 - 1.10 K/uL 09/16/2023 4:57 AM EDT LABORATORY [facility] Absolute Eosinophils 0.16 0.00 - 0.70 K/uL 09/16/2023 4:57 AM EDT LABORATORY [facility] Absolute Basophils 0.06 0.00 - 0.20 K/uL 09/16/2023 4:57 AM EDT LABORATORY [facility] Absolute Immature Granulocytes 0.05 0.00 - 0.20 K/uL 09/16/2023 4:57 AM EDT LABORATORY G[facility] Blood Venous blood specimen / Unknown Venipuncture / Unknown 09/16/2023 4:40 AM EDT 09/16/2023 4:45 AM EDT Eva HAWK LAB BLOOD ORD ERABLES LAB[facility]ATORY [facility] [address] [place] [address] * (ABNORMAL) CBC (09/16/2023 4:40 AM EDT) WBC 11.17(H) 4.00 - 10.80 K/uL 09/16/2023 4:57 AM EDT LABORATORY [facility] RBC 4.19 3.85 - 5.15 M/uL 09/16/2023 4:57 AM EDT LABORATORY [facility] HGB 10.4(L) 12.0 - 15.3 g/dL 09/16/2023 4:57 AM EDT LABORATORY [facility] HCT 33.6(L) 36.0 - 45.2 % 09/16/2023 4:57 AM EDT LABORATORY [facility] MCV 80.2 81.5 - 97.5 fL 09/16/2023 4:57 AM EDT LABORATORY [facility] MCH 24.8 27.0 - 34.0 pg 09/16/2023 4:57 AM EDT LABORATORY [facility] MCHC 31.0 32.0 - 36.0 g/dL 09/16/2023 4:57 AM EDT LABORATORY [facility] RDW 16.5 11.5 - 15.5 % 09/16/2023 4:57 AM EDT LABORATORY [facility] PLT 343 140 - 400 K/uL 09/16/2023 4:57 AM EDT LABORATORY [facility] MPV 10.1 6.6 - 11.1 fL 09/16/2023 4:57 AM EDT LABORATORY [facility] nRBCs 0 <=0 /100 WBCs 09/16/2023 4:57 AM EDT LABORATORY [facility] Blood Venous blood specimen / Unknown Venipuncture / Unknown 09/16/2023 4:40 AM EDT 09/16/2023 4:45 AM EDT Eva HAWK LAB BLOOD ORD ERABLES LABORATORY [facility] [address] [place] [address] * PHOSPHORUS (09/16/2023 4:40 AM EDT) Phosphorus 3.6 2.5 - 4.8 mg/dL 09/16/2023 5:12 AM EDT LABORATORY G[facility] Blood Venous blood specimen / Unknown Venipuncture / Unknown 09/16/2023 4:40 AM EDT 09/16/2023 4:45 AM EDT Ashish Duenas MD LAB BLOOD ORDER HUGO LABORATORY [facility] [address] [place] [address] * MAGNESIUM (09/16/2023 4:40 AM EDT) Magnesium 2.1 1.5 - 2.6 mg/dL 09/16/2023 5:12 AM EDT LABORATORY C Blood Venous blood specimen / Unknown Venipuncture / Unknown 09/16/2023 4:40 AM EDT 09/16/2023 4:45 AM EDT Ashish Duenas MD LAB BLOOD ORDER HUGO LABORATORY [facility] [address] [place] [address] * (ABNORMAL) BASIC METABOLIC PANEL (09/16/2023 4:40 AM EDT) BUN 17 6 - 20 mg/dL 09/16/2023 5:12 AM EDT LABORATORY [facility] Creatinine 1.0 0.5 - 1.0 mg/dL 09/16/2023 5:12 AM EDT LABORATORY [facility] Estimated Glomerular Filtration Rate 75 >=60 mL/min 09/16/2023 5:12 AM EDT LABORATORY C Comment:eGFR is calculated b ased on the CKD-EPI 2020 equation Sodium 138 135 - 146 mmol/L 09/16/2023 5:12 AM EDT LABORATORY C Potassium 3.9 3.5 - 5.1 mmol/L 09/16/2023 5:12 AM EDT LABORATORY C Chloride 106 98 - 107 mmol/L 09/16/2023 5:12 AM EDT LABORATORY C CO2 20(L) 22 - 32 mmol/L 09/16/2023 5:12 AM EDT LABORATORY C Anion Gap 12 7 - 15 mmol/L 09/16/2023 5:12 AM EDT LABORATORY C Glucose 105 70 - 120 mg/dL 09/16/2023 5:12 AM EDT LABORATORY GMC Calcium 8.6 8.4 - 10.2 mg/dL 09/16/2023 5:12 AM EDT LABORATORY C Blood Venous blood specimen / Unknown Venipuncture / Unknown 09/16/2023 4:40 AM EDT 09/16/2023 4:45 AM EDT Ashish Duenas MD LAB BLOOD ORDER HUGO Performing Organization Address [facility] Co de Phone Number LABORATORY [facility] [address] [place] [address] * TYPE AND SCREEN (09/16/2023 4:40 AM EDT) ABO B 09/16/2023 5:25 AM EDT LABORATORY [facility] BLOOD BANK Rh Positive 09/16/2023 5:25 AM EDT LABORATORY [facility] BLOOD BANK Red Blood Cell Antibody Screen Negative 09/16/2023 5:25 AM EDT LABORATORY [facility] BLOOD BANK Specimen Expiration Date 09/19/2023 23:59 09/16/2023 5:25 AM EDT LABORATORY [facility] BLOOD BANK Blood Venous blood specimen / Unknown Venipuncture / Unknown 09/16/2023 4:40 AM EDT 09/16/2023 4:45 AM EDT Ruthie Perez MD LAB BLOOD BANK TEST ORDERABLES Performing Organization Address [facility] de Phone Number LABORATORY [facility] BLOOD BANK [address] [place] [address] * NEURO IR IMAGING (09/15/2023 10:55 PM EDT) Narrative Scheduling, Silent - 09/15/2023 10:57 PM EDT This procedure will not be read by a Radiologist. Please see operative note. Pino White MD, PhD RAD SPECIAL PROC EDURES * ECHO, COMPLETE (2D), TRANS-THORACIC (09/15/2023 1:29 PM EDT) LEFT VENTRICULAR EJECTION FRACTION 55 % [facility] CARDIOLOGY 09/15/2023 12:4 3 PM EDT Ruthie Perez MD ECHOCARDIO LOGY [facility] CARDIOLOGY * FACTOR V (5) LEIDEN MUTATION ANALYSIS, PCR (09/15/2023 11:03 AM EDT) Pathologist [facility] Factor V Leiden Result Not Detected Not Detected 09/18/2023 8:44 AM EDT LABORATORY [facility] Interpretation The factor V Leiden (FVL) variant (1691G>A; R506Q) in the coagulation Factor V gene was not detected by real-time PCR. 09/18/2023 8:44 AM EDT LABORATORY [facility] Comment The assay was verified and performance characteristics determined by the Molecular Diagnostics Laboratory at [facility]. This test is used for clinical purposes. 09/18/2023 8:44 AM EDT LABORATORY [facility] References Ref: Coretta WW, Beny JH, Fozia AK, Lonny BR, Tere JA; [place] Factor V Leiden Working Group. [employer] Consensus Statement on Factor V Leiden Mutation Testing. Jessenia Med. 2001 Jun-Jul;3(2):139- 148. 09/18/2023 8:44 AM EDT LABORATORY [facility] Reviewed by: Dr. Omayra Phillips 09/18/2023 8:44 AM EDT LABORATORY [facility] Blood Arterial blood specimen / Unknown Venipuncture / Unknown 09/15/2023 11:03 AM EDT 09/15/2023 11:16 AM EDT Maulik Car MD LAB MOLECULAR ORDERA BLES LABORATORY [facility] [address] [place] [address] * HOMOCYSTEINE (09/15/2023 10:38 AM EDT) Pathologist [facility] Homocysteine 9.3 <10.4 umol/L 09/19/2023 9:41 PM EDT [facility] Comment: Homocysteine is increased by functional deficiency of folate or vitamin B12. Testing for methylmalonic acid differentiates between these deficiencies. Other causes of increased homocysteine include renal failure, folate antagonists such as methotrexate and phenytoin, and exposure to nitrous oxide. Celi Woo, et al. Haydee Vest Busheler Med. 1999;131(5):331-9. Test Performed at: [facility] [address] [place], [place] Jason Rees M.D., Ph.D.,Director of Laboratories Blood Arterial blood specimen / Unknown Venipuncture / Unknown 09/15/2023 10:38 AM EDT 09/15/2023 10:50 AM EDT Maulik aCr MD LAB BLOOD ORDERABLES [facility] [place] [address] [place] [address] * HEPATITIS C RNA ADD ON (09/15/2023 10:38 AM EDT) Blood Arterial blood specimen / Unknown Venipuncture / Unknown 09/15/2023 10:38 AM EDT 09/15/2023 10:49 AM EDT Maulik Car MD LAB BLOOD ORDERABLES Performing Organization Address City/[facility]/ZIP Co de Phone Number LABORATORY [facility] [address] [place] [address] * HEPATITIS C ANTIBODY (09/15/2023 10:38 AM EDT) [facility] Hepatitis C Antibody Negative Negative 09/15/2023 11:58 AM EDT LABORATORY [facility] Comment:Further HCV quantita tive testing not performed per protocol. Blood Arterial blood specimen / Unknown Venipuncture / Unknown 09/15/2023 10:38 AM EDT 09/15/2023 10:48 AM EDT Maulik Car MD LAB BLOOD ORDERABLES Performing Organization Address City/[facility]/ZIP Co de Phone Number LABORATORY [facility] [address] [place] [address] * ANTITHROMBIN III ACTIVITY (09/15/2023 10:38 AM EDT) [facility] Antithrombin III Activity 113 80 - 120 % 09/15/2023 11:27 AM EDT LABORATORY [facility] Blood Arterial blood specimen / Unknown Venipuncture / Unknown 09/15/2023 10:38 AM EDT 09/15/2023 10:48 AM EDT Maulik Car MD LAB BLOOD ORDERABLES Performing Organization Address [facility] de Phone Number LABORATORY [facility] [address] [place] [address] * PROTEIN S ACTIVITY WITH ANTIGEN REFLEX (09/15/2023 10:38 AM EDT) Protein S Activity 74 65 - 140 % 09/18/2023 10:05 AM EDT LABORATORY [facility] Blood Arterial blood specimen / Unknown Venipuncture / Unknown 09/15/2023 10:38 AM EDT 09/15/2023 10:48 AM EDT Maulik Car MD LAB BLOOD ORDERABLES Performing Organization Address [facility] Phone Number LABORATORY [place] [address] [place] [address] * PROTEIN C ACTIVITY (09/15/2023 10:38 AM EDT) Protein C Activity 126 75 - 135 % 09/15/2023 12:27 PM EDT LABORATORY [facility] Blood Arterial blood specimen / Unknown Venipuncture / Unknown 09/15/2023 10:38 AM EDT 09/15/2023 10:48 AM EDT Maulik Car MD LAB BLOOD ORDERABLES Performing Organization Address [facility] Phone Number LABORATORY [facility] [address] [place] [address] * METANEPHRINES, FRACTIONATED, FREE, LCMSMS, PLASMA (09/15/2023 10:38 AM EDT) Metanephrine,Free 25 <=57 pg/mL 09/19/2023 9:44 PM EDT [facility] Comment: This test was developed and its analytical performance characteristics have been determined by [facility] [place], [place]. It has not been cleared or approved by the U.S. Food and Drug Administration. This assay has been validated pursuant to the CLIA regulations and is used for clinical purposes. Normetanephrine,Fr ee 97 <=148 pg/mL 09/19/2023 9:44 PM EDT [facility] Comment: This test was developed and its analytical performance characteristics have been determined by [facility] [place] It has not been cleared or approved by the U.S. Food and Drug Administration. This assay has been validated pursuant to the CLIA regulations and is used for clinical purposes. Total,Free (MN+NMN) 122 <=205 pg/mL 09/19/2023 9:44 PM EDT [facility] Comment: For additional information, please refer to http://education.Ed4U/faq/MetFractFree (This link is being provided for informational/educatio informational/educational purposes only.) Elevations >4-fold upper reference range: strongly suggestive of a pheochromocytoma(1). Elevations >1- 4-fold upper reference range: significant but not diagnostic, may be due to medications or stress. Suggest running 24 hr urine fractionated metanephrines and/or serum Chromagranin A for confirmation. Reference: (1)Yulisa Soliman et al, Plasma Chromogranin A or Urine Fractionated Metanephrines Follow-Up Testing Improves the Diagnostic Accuracy of Plasma Fractionated Metanephrines for Pheochromocytoma. The Journal of Clinical Endocrinology # Metabolism 93(1), 91-95, 2008. This test was developed and its analytical performance characteristics have been determined by [facility] [place], [place]. It has not been cleared or approved by the U.S. Food and Drug Administration. This assay has been validated pursuant to the CLIA regulations and is used for clinical purposes. Test Performed at: [facility] [address] [place] [address] Jason Rees M.D., Ph.D.,Director of Laboratories Blood Arterial blood specimen / Unknown Arterial Puncture / Unknown 09/15/2023 10:38 AM EDT 09/15/2023 10:49 AM EDT Ruthie Perez MD LAB BLOOD ORDERABLES [facility] [place] [address] [place] [address] * [facility] RENAL VASCULAR SCAN-COMPLETE (09/15/2023 10:14 AM EDT) Anatomical Region Laterality Modality Abdomen, Vascular Ultrasound Narrative 09/15/2023 4:03 PM EDT VASCULAR LAB RESULTS DATE OF EXAMINATION: 09/15/23 INDICATION: Severe hypertension RENAL ARTERY DUPLEX SCAN Immediately before proceeding with the vascular lab procedure reported below, the identity of the patient, the correct exam and the correct procedural site were verified. Zuñiga scale, color flow and spectral doppler were performed for this examination. Proximal aorta unidentified due to bowel gas. The right renal artery is visualized. The peak systolic velocities are 65, 84, 90 and 70 centimeters per second at the origin, proximal, mid and distal renal artery segments, respectively. The renal resistive index is 0.62. The utuy-xz-vnfv length of the right kidney measured 10.4 centimeters. The right renal vein is visualized and demonstrates normal flow. The left renal artery is visualized. The peak systolic velocities are 68, 77, 56 and 35 centimeters per second at the origin, proximal, mid and distal renal artery segments, respectively. The renal resistive index is 0.62. The [id number]-zm-[id number] length of the left kidney measured 12.7 centimeters. The left renal vein is visualized and demonstrates normal flow. CONCLUSIONS: On the right:: There is no evidence of hemodynamically significant renal artery stenosis. On the left: There is no evidence of hemodynamically significant renal artery stenosis. Eva HAWK RAD VASCULAR * TROPONIN T, HIGH SENSITIVITY (09/15/2023 6:11 AM EDT) Pathologist [facility] Troponin T, High Sensitivity <6 <=14 ng/L 09/15/2023 6:52 AM EDT LABORATORY [facility] Blood Arterial blood specimen / Unknown Arterial Puncture / Unknown 09/15/2023 6:11 AM EDT 09/15/2023 6:21 AM EDT Eva HAWK LAB BLOOD ORD ERABLES LABORATORY [facility] [address] [place] [address] * LYME DISEASE ANTIBODY SCREEN (09/15/2023 5:51 AM EDT) [facility] Lyme Disease Antibody Screen Negative Negative 09/15/2023 9:01 AM EDT LABORATORY [facility] Blood Venous blood specimen / Unknown Venipuncture / Unknown 09/15/2023 5:51 AM EDT 09/15/2023 6:01 AM EDT Eva ROMERONP LAB BLOOD ORD ERABLES Performing Organization Address [facility] Co de Phone Number LABORATORY [facility] [address] [place] [address] * ANTINUCLEAR ANTIBODY (FABIOLA) SCREEN, KARTIK (09/15/2023 5:51 AM EDT) [facility] FABIOLA Screen Negative Negative 09/15/2023 12:17 PM EDT LABORATORY [facility] dsDNA Antibody Interpretation Negative Negative 09/15/2023 12:17 PM EDT LABORATORY [facility] dsDNA Antibody Value 0.7 <20 IU/mL 09/15/2023 12:17 PM EDT LABORATORY [facility] KENNY Antibodies Screen Interpretation Negative Negative 09/15/2023 12:17 PM EDT LABORATORY [facility] KENNY Antibodies Screen Value 0.1 <0.7 Ratio 09/15/2023 12:17 PM EDT LABORATORY [facility] Comment: Screening is based on detection of the following antibodies: dsDNA, U1-PATROL INSPECTOR (RNP70, A, C), SS-A/Ro, SS-B / La, Doreen-1, Scl-70, Centromere B proteins and Sm proteins. In conjunction with clinical findings, this can aid in the diagnosis of systemic lupus erythematosous (SLE), mixed connective tissue disease (MCTD), Sjogren's syndrome, scleroderma and polymyositis/dermatomyositis. However, a negative result does not rule out systemic rheumatic or other autoimmune disease. If clinically suspected, further evaluation and testing may be necessary. Please consult with Rheumatology Department. Methodology: Fluorescent Enzyme Immunoassay. Blood Venous blood specimen / Unknown Venipuncture / Unknown 09/15/2023 5:51 AM EDT 09/15/2023 6:02 AM EDT Eva Svetlana Milan HAWK LAB BLOOD ORD ERABLES Performing Organization Address City/[facility] Co de Phone Number LABORATORY [facility] [address] [place] [address] * SERUM PROTEIN ELECTROPHORESIS REFLEX PROFILE (09/15/2023 5:51 AM EDT) Pathologist [facility] Normal/Abnormal Normal Normal 3:02 PM EDT LABORATORY [facility] Protein 8.1 6.0 - 8.3 g/dL 09/15/2023 3:02 PM EDT LABORATORY [facility] Albumin 3.88 3.30 - 4.40 g/dL 09/15/2023 3:02 PM EDT LABORATORY [facility] Alpha-1 Globulin 0.29 0.10 - 0.30 g/dL 09/15/2023 3:02 PM EDT LABORATORY [facility] Alpha-2 Globulin 1.00 0.60 - 1.00 g/dL 09/15/2023 3:02 PM EDT LABORATORY [facility] Beta-Globulin 1.29 0.80 - 1.30 g/dL 09/15/2023 3:02 PM EDT LABORATORY [facility] Gamma-Globulin 1.64 0.70 - 1.70 g/dL 09/15/2023 3:02 PM EDT LABORATORY [facility] Electrophoresis Interpretation Normal serum protein electrophoretic pattern. 09/15/2023 3:02 PM EDT LABORATORY [facility] Blood Venous blood specimen / Unknown Venipuncture / Unknown 09/15/2023 5:51 AM EDT 09/15/2023 6:02 AM EDT Eva HAWK LAB BLOOD ORD ERABLES Performing Organization Address City/[facility]/ZIP Co de Phone Number LABORATORY [facility] [address] [place] [address] * HIV ANTIGEN & ANTIBODY SCREEN W/ CONFIRMATION (09/15/2023 5:51 AM EDT) [facility] HIV Antigen & Antibody Negative Negative 09/15/2023 6:40 AM EDT LABORATORY [facility] Comment:Negative HIV-1/2 ant igen and antibody screening tset results usually indicate the absence of HIV-1 and HIV-2 infection. However, such negative results do not rule-out acute HIV infection. If acute HIV-1 infection is highly suspected, it is recommended that a specimen be submitted for detection of HIV-1 RNA. Blood Venous blood specimen / Unknown Venipuncture / Unknown 09/15/2023 5:51 AM EDT 09/15/2023 6:01 AM EDT Eva Mota Milan HAWK LAB BLOOD ORD ERABLES Performing Organization Address [facility]/ZIP Co de Phone Number LABORATORY [facility] [address] [place] [address] * RPR (09/15/2023 5:51 AM EDT) [facility] RPR Screen Nonreactive Nonreactive 09/15/2023 12:23 PM EDT LABORATORY [facility] Blood Venous blood specimen / Unknown Venipuncture / Unknown 09/15/2023 5:51 AM EDT 09/15/2023 6:02 AM EDT Eva Graydilma HAWK LAB BLOOD ORD ERABLES Performing Organization Address [facility] Co de Phone Number LABORATORY [place] [address] [place] [address] * CARDIOLIPIN ANTIBODY PROFILE (IGG, IGM) (09/15/2023 5:51 AM EDT) [facility] Cardiolipin IgG Antibody Interpretation Negative Negative 09/15/2023 11:25 AM EDT LABORATORY [facility] Cardiolipin IgG Antibody Value 0.8 <10 GPL U/mL 09/15/2023 11:25 AM EDT LABORATORY [facility] Cardiolipin IgM Antibody Interpretation Negative Negative 09/15/2023 11:25 AM EDT LABORATORY [facility] Cardiolipin IgM Antibody Value 1.3 <10 MPL U/mL 09/15/2023 11:25 AM EDT LABORATORY [facility] Blood Venous blood specimen / Unknown Venipuncture / Unknown 09/15/2023 5:51 AM EDT 09/15/2023 6:01 AM EDT Narrative LABORATORY [facility] - 09/15/2023 11:25 AM EDT Anticardiolipin / beta-2 glycoprotein antibodies must be detected on 2 or more occasions at least 12 weeks apart to fulfill the laboratory diagnostic criteria for Antiphospholipid Syndrome. Eva HAWK LAB BLOOD ORD ERABLES Performing Organization Address [facility] de Phone Number LABORATORY [facility] [address] [place] [address] * SSA/RO AND SSB/LA ANTIBODIES (09/15/2023 5:51 AM EDT) SSA/Ro Antibody Interpretation Negative Negative 09/15/2023 11:25 AM EDT LABORATORY [facility] SSA/Ro Antibody Value <0.4 <7 U/mL 09/15/2023 11:25 AM EDT LABORATORY [facility] SSB/La Antibody Interpretation Negative Negative 09/15/2023 11:25 AM EDT LABORATORY [facility] SSB/La Antibody Value <0.4 <7 U/mL 09/15/2023 11:25 AM EDT LABORATORY [facility] Blood Venous blood specimen / Unknown Venipuncture / Unknown 09/15/2023 5:51 AM EDT 09/15/2023 6:01 AM EDT Eva HAWK LAB BLOOD ORD ERABLES Performing Organization Address [facility] Co de Phone Number LABORATORY [place] [address] [place] [address] * RHEUMATOID FACTOR (09/15/2023 5:51 AM EDT) Rheumatoid Factor <10 <14 IU/mL 09/15/2023 10:31 AM EDT LABORATORY [facility] Blood Venous blood specimen / Unknown Venipuncture / Unknown 09/15/2023 5:51 AM EDT 09/15/2023 6:01 AM EDT Eva Boykintanya SOLE DYER LAB BLOOD ORD ERABLES Performing Organization Address [facility] Co de Phone Number LABORATORY [facility] [address] [place] [address] * ANCA, IFA (09/15/2023 5:51 AM EDT) c-ANCA Negative Negative 09/18/2023 10:35 AM EDT LABORATORY [facility] p-ANCA Negative Negative 09/18/2023 10:35 AM EDT LABORATORY C Comment:Negative for ANCA. Blood Venous blood specimen / Unknown Venipuncture / Unknown 09/15/2023 5:51 AM EDT 09/15/2023 6:02 AM EDT Eva HAWK LAB BLOOD ORD ERABLES Performing Organization Address [facility] de Phone Number LABORATORY [facility] [address] [place] [address] * EKG (09/15/2023 5:31 AM EDT) 09/15/2023 5:31 AM EDT Narrative Procedure Note Floyd Juárez MD - 09/15/2023 5:31 AM EDT REASON FOR STUDY: Stroke (HCC) CONCLUSIONS: Sinus rhythm with marked sinus arrhythmia Anterolateral infarct , age undetermined T wave abnormality, consider inferior ischemia Abnormal ECG No previous ECGs available Ventricular Rate: 76 Atrial Rate: 76 KS Interval: 172 QRS Duration: 72 QT/QTc: 368/414 ms P-R-T Bighorn: 32 : 47 : -66 degrees Eva Schneiderbrock HAWK EKG Performing Organization Address [facility] Co de Phone Number [facility] CARDIOLOGY * TOXICOLOGY, URINESCREEN W/ CONFIRMATION (09/15/2023 5:26 AM EDT) Amphetamines Screen, U Negative Negative 09/15/2023 6:53 AM EDT LABORATORY [facility] Benzodiazepines Screen, U Negative Negative 09/15/2023 6:53 AM EDT LABORATORY C Cannabinoids Screen, U Negative Negative 09/15/2023 6:53 AM EDT LABORATORY C Cocaine Metabolite Screen, U Negative Negative 09/15/2023 6:53 AM EDT LABORATORY [facility] Fentanyl Screen, U Negative Negative 2023 6:53 AM EDT LABORATORY [facility] Hydrocodone Screen, U Negative Negative 09/15/2023 6:53 AM EDT LABORATORY [facility] Methadone Metabolite Screen, U Negative Negative 09/15/2023 6:53 AM EDT LABORATORY C Morphine/Codeine Screen, U Negative Negative 09/15/2023 6:53 AM EDT LABORATORY C Oxycodone Screen, U Negative Negative 09/14 6:53 AM EDT LABORATORY C Urine Non-blood Collection / Unknown 09/15/2023 5:26 AM EDT 09/15/2023 5:47 AM EDT Narrative LABORATORY [facility] - 09/15/2023 6:53 AM EDT Cutoff Concentrations: Drug Level Amphetamines 500 ng/mL Benzodiazepines 100 ng/mL Cannabinoids 50 ng/mL Cocaine Metabolite 150 ng/mL Fentanyl 1 ng/mL Hydrocodone / Hydromorphone 300 ng/mL Methadone Metabolite 100 ng/mL Morphine / Codeine 300 ng/mL Oxycodone / Oxymorphone 100 ng/mL Screening results are presumptive and can only be used for medical purposes. Positive screening results are reflexed to confirmatory testing. Ruthie Perez MD LAB URINE ORDERABLES LABORATORY [facility] [address] [place] [address] * (ABNORMAL) PROTEIN/ CREATININE RATIO, URINE (09/15/2023 5:26 AM EDT) Protein/ Creatinine Ratio, Urine 200(H) <150 mg/g 09/15/2023 6:33 AM EDT LABORATORY [facility] Protein, Random Urine 8 mg/dL 09/15/2023 6:33 AM EDT LABORATORY [facility] Creatinine, Random Urine 40 mg/dL 09/15/2023 6:33 AM EDT LABORATORY [facility] Urine Non-blood Collection / Unknown 09/15/2023 5:26 AM EDT 09/15/2023 5:47 AM EDT Narrative LABORATORY [facility] - 09/15/2023 6:33 AM EDT Normal: <150 mg/g creatinine High: 150-500 mg/g creatinine Very High: >500 mg/g creatinine Nephrotic: >3000 mg/g creatinine Eva Yates KENN LAB URINE ORD ERABLES LABORATORY [facility] [address] [place] [address] * URINALYSIS, REFLEX TO MICROSCOPIC (09/15/2023 5:26 AM EDT) Color, Urine Light Yellow Colorless, Light Yellow, Yellow, Dark Yellow 09/15/2023 5:52 AM EDT LABORATORY [facility] Clarity, Urine Clear Clear 09/15/2023 5:52 AM EDT LABORATORY [facility] Glucose, Urine Negative Negative mg/dL 09/15/2023 5:52 AM EDT LABORATORY [facility] Bilirubin, Urine Negative Negative 09/15/2023 5:52 AM EDT LABORATORY [facility] Ketone, Urine Negative Negative mg/dL 09/15/2023 5:52 AM EDT LABORATORY [facility] Specific [place], Urine 1.010 1.003 - 1.030 09/15/2023 5:52 AM EDT LABORATORY [facility] Blood, Urine Negative Negative 09/15/2023 5:52 AM EDT LABORATORY [facility] pH, Urine 6.5 5.0 - 7.5 Units 09/15/2023 5:52 AM EDT LABORATORY [facility] Protein, Urine Negative Negative mg/dL 09/15/2023 5:52 AM EDT LABORATORY [facility] Urobilinogen, Urine Normal Normal mg/dL 09/15/2023 5:52 AM EDT LABORATORY C Nitrite, Urine Negative Negative 09/15/2023 5:52 AM EDT LABORATORY C Esterase, Urine Negative Negative 5:52 AM EDT LABORATORY C Comment, Urine 09/15/2023 5:52 AM EDT LABORATORY [facility] Comment:Screen negative - Mi croscopic not performed. Urine Non-blood Collection / Unknown 09/15/2023 5:26 AM EDT 09/15/2023 5:47 AM EDT Eva Schneiderbrock HAWK LAB URINE ORD ERABLES Performing Organization Address [facility] Co de Phone Number LABORATORY [facility] [address] [place] [address] * MRSA SCREEN, PCR (09/15/2023 4:00 AM EDT) Pathologist [facility] MRSA PCR Result Negative Negative 6:35 AM EDT LABORATORY [facility] Comment:No Methicillin resis tant Staphylococcus aureus detected by PCR (amplified probe). Upper Respiratory Swab of internal nose / Unknown 09/15/2023 4:00 AM EDT 09/15/2023 4:52 AM EDT Eva Schneiderbrock HAWK LAB MICRO - G ENERAL ORDERABLES Performing Organization Address [facility] de Phone Number LABORATORY [facility] [address] [place] [address] * TSH WITH FREE T4 IF INDICATED (09/15/2023 3:46 AM EDT) Pathologist [facility] TSH 2.66 0.27 - 4.20 uIU/mL 09/15/2023 6:39 AM EDT LABORATORY [facility] Blood Venous blood specimen / Unknown Venipuncture / Unknown 09/15/2023 3:46 AM EDT 09/15/2023 4:34 AM EDT Eva Schneiderbrock HAWK LAB BLOOD ORD ERABLES Performing Organization Address [facility]/ZIP Co de Phone Number LABORATORY [facility] [address] [place] [address] * DIFFERENTIAL, AUTOMATED (09/15/2023 3:46 AM EDT) Pathologist [facility] WBC 10.29 4.00 - 10.80 K/uL 09/15/2023 6:56 AM EDT LABORATORY [facility] Neutrophils % 70.3 40.0 - 75.0 % 09/15/2023 6:56 AM EDT LABORATORY [facility] Lymphocytes % 19.0 18.0 - 42.0 % 09/15/2023 6:56 AM EDT LABORATORY [facility] Monocytes % 7.8 1.0 - 11.0 % 09/15/2023 6:56 AM EDT LABORATORY [facility] Eosinophils % 1.5 0.0 - 6.0 % 09/15/2023 6:56 AM EDT LABORATORY [facility] Basophils % 0.9 0.0 - 2.0 % 09/15/2023 6:56 AM EDT LABORATORY [facility] Immature Granulocytes % 0.5 0.0 - 2.0 % 09/15/2023 6:56 AM EDT LABORATORY [facility] Absolute Neutrophils 7.24 1.80 - 7.70 K/uL 09/15/2023 6:56 AM EDT LABORATORY [facility] Absolute Lymphocytes 1.96 1.00 - 4.80 K/ul 09/15/2023 6:56 AM EDT LABORATORY [facility] Absolute Monocytes 0.80 0.00 - 1.10 K/uL 09/15/2023 6:56 AM EDT LABORATORY [facility] Absolute Eosinophils 0.15 0.00 - 0.70 K/uL 09/15/2023 6:56 AM EDT LABORATORY [facility] Absolute Basophils 0.09 0.00 - 0.20 K/uL 09/15/2023 6:56 AM EDT LABORATORY [facility] Absolute Immature Granulocytes 0.05 0.00 - 0.20 K/uL 09/15/2023 6:56 AM EDT LABORATORY [facility] Blood Venous blood specimen / Unknown Venipuncture / Unknown 09/15/2023 3:46 AM EDT 09/15/2023 4:34 AM EDT Eva HAWK LAB BLOOD ORD ERABLES LAB[facility]ATORY [facility] [address] [place] [address] * (ABNORMAL) CBC (09/15/2023 3:46 AM EDT) WBC 10.29 4.00 - 10.80 K/uL 09/15/2023 6:56 AM EDT LABORATORY [facility] RBC 4.98 3.85 - 5.15 M/uL 09/15/2023 6:56 AM EDT LABORATORY [facility] HGB 12.3 12.0 - 15.3 g/dL 09/15/2023 6:56 AM EDT LABORATORY [facility] HCT 39.9 36.0 - 45.2 % 09/15/2023 6:56 AM EDT LABORATORY [facility] MCV 80.1 81.5 - 97.5 fL 09/15/2023 6:56 AM EDT LABORATORY [facility] MCH 24.7 27.0 - 34.0 pg 09/15/2023 6:56 AM EDT LABORATORY [facility] MCHC 30.8 32.0 - 36.0 g/dL 09/15/2023 6:56 AM EDT LABORATORY [facility] RDW 16.2 11.5 - 15.5 % 09/15/2023 6:56 AM EDT LABORATORY [facility] PLT 409(H) 140 - 400 K/uL 09/15/2023 6:56 AM EDT LABORATORY [facility] MPV 10.7 6.6 - 11.1 fL 09/15/2023 6:56 AM EDT LABORATORY [facility] nRBCs 0 <=0 /100 WBCs 09/15/2023 6:56 AM EDT LABORATORY [facility] Blood Venous blood specimen / Unknown Venipuncture / Unknown 09/15/2023 3:46 AM EDT 09/15/2023 4:34 AM EDT Eva HAWK LAB BLOOD ORD ERABLES LABORATORY [facility] [address] [place] [address] * PHOSPHORUS (09/15/2023 3:46 AM EDT) Phosphorus 4.2 2.5 - 4.8 mg/dL 09/15/2023 5:45 AM EDT LABORATORY [facility] Blood Venous blood specimen / Unknown Venipuncture / Unknown 09/15/2023 3:46 AM EDT 09/15/2023 4:34 AM EDT Ashish Duenas MD LAB BLOOD ORDER [facility] LABORATORY [facility] [address] [place] [address] * MAGNESIUM (09/15/2023 3:46 AM EDT) Magnesium 2.4 1.5 - 2.6 mg/dL 09/15/2023 5:45 AM EDT LABORATORY [facility] Blood Venous blood specimen / Unknown Venipuncture / Unknown 09/15/2023 3:46 AM EDT 09/15/2023 4:34 AM EDT Ashish Duenas MD LAB BLOOD ORDER [facility] LABORATORY [facility] [address] [place] [address] * (ABNORMAL) BASIC METABOLIC PANEL (09/15/2023 3:46 AM EDT) BUN 11 6 - 20 mg/dL 09/15/2023 5:45 AM EDT LABORATORY C Creatinine 0.8 0.5 - 1.0 mg/dL 09/15/2023 5:45 AM EDT LABORATORY [facility] Estimated Glomerular Filtration Rate >90 >=60 mL/min 09/15/2023 5:45 AM EDT LABORATORY C Comment:eGFR is calculated b ased on the CKD-EPI 2020 equation Sodium 139 135 - 146 mmol/L 09/15/2023 5:45 AM EDT LABORATORY [facility] Potassium 3.3(L) 3.5 - 5.1 mmol/L 09/15/2023 5:45 AM EDT LABORATORY [facility] Chloride 103 98 - 107 mmol/L 09/15/2023 5:45 AM EDT LABORATORY [facility] CO2 21(L) 22 - 32 mmol/L 09/15/2023 5:45 AM EDT LABORATORY [facility] Anion Gap 15 7 - 15 mmol/L 09/15/2023 5:45 AM EDT LABORATORY [facility] Glucose 100 70 - 120 mg/dL 09/15/2023 5:45 AM EDT LABORATORY [facility] Calcium 9.7 8.4 - 10.2 mg/dL 09/15/2023 5:45 AM EDT LABORATORY C Blood Venous blood specimen / Unknown Venipuncture / Unknown 09/15/2023 3:46 AM EDT 09/15/2023 4:34 AM EDT Ashish Duenas MD LAB BLOOD ORDER [facility] Performing Organization Address [facility] Co de Phone Number LABORATORY [facility] [address] [place] [address] * COMPLEMENT C4 (09/15/2023 3:46 AM EDT) Complement C4 34 10 - 40 mg/dL 09/15/2023 5:44 AM EDT LABORATORY [facility] Blood Venous blood specimen / Unknown Venipuncture / Unknown 09/15/2023 3:46 AM EDT 09/15/2023 4:35 AM EDT Eva HAWK LAB BLOOD ORD ERABLES Performing Organization Address [facility] Co de Phone Number LABORATORY [facility] [address] [place] [address] * (ABNORMAL) COMPLEMENT C3 (09/15/2023 3:46 AM EDT) Complement C3 <4(L) 90 - 180 mg/dL 09/15/2023 5:44 AM EDT LABORATORY [facility] Blood Venous blood specimen / Unknown Venipuncture / Unknown 09/15/2023 3:46 AM EDT 09/15/2023 4:35 AM EDT Eva HAWK LAB BLOOD ORD ERABLES Performing Organization Address [facility] Co de Phone Number LABORATORY [facility] [address] [place] [address] * LD (09/15/2023 3:46 AM EDT) LD 218 <=250 U/L 09/15/2023 5:4 5 AM EDT LABORATORY [facility] Blood Venous blood specimen / Unknown Venipuncture / Unknown 09/15/2023 3:46 AM EDT 09/15/2023 4:34 AM EDT Eva HAWK LAB BLOOD ORD ERABLES Performing Organization Address City/[facility]/ZIP Co de Phone Number LABORATORY [facility] [address] [place] [address] * CRP (INFLAMMATORY MARKER) (09/15/2023 3:46 AM EDT) CRP (Inflammatory Marker) 5 <=5 mg/L 09/15/2023 5:45 AM EDT LABORATORY [facility] Blood Venous blood specimen / Unknown Venipuncture / Unknown 09/15/2023 3:46 AM EDT 09/15/2023 4:34 AM EDT Eva HAWK LAB BLOOD ORD ERABLES Performing Organization Address [facility] Co de Phone Number LABORATORY [facility] [address] [place] [address] * (ABNORMAL) ERYTHROCYTE SEDIMENTATION RATE (ESR) (09/15/2023 3:46 AM EDT) ESR 36(H) <20 mm/hour 09/15/2023 6:45 AM EDT LABORATORY [facility] Blood Venous blood specimen / Unknown Venipuncture / Unknown 09/15/2023 3:46 AM EDT 09/15/2023 4:34 AM EDT Eva HAWK LAB BLOOD ORD ERABLES LABORATORY [facility] [address] [place] [address] * PT INR (09/15/2023 3:46 AM EDT) Prothrombin Time 13.8 11.6 - 15.2 seconds 09/15/2023 5:12 AM EDT LABORATORY [facility] INR 1.1 0.8 - 1.2 09/15/2023 5:12 AM EDT LABORATORY [facility] Blood Venous blood specimen / Unknown Venipuncture / Unknown 09/15/2023 3:46 AM EDT 09/15/2023 4:33 AM EDT Narrative LABORATORY [facility] - 09/15/2023 5:12 AM EDT Warfarin Therapy INR: 2.0-3.0 conventional anticoagulation INR: 2.5-3.5 high intensity anticoagulation Eva Mota Milan HAWK LAB BLOOD ORD ERABLES Performing Organization Address [facility] de Phone Number LABORATORY [facility] [address] [place] [address] * HEPATIC FUNCTION PANEL (09/15/2023 3:46 AM EDT) Albumin 4.6 3.8 - 5.0 g/dL 09/15/2023 5:45 AM EDT LABORATORY [facility] AST 17 10 - 35 U/L 09/15/2023 5:45 AM EDT LABORATORY [facility] Alkaline Phosphatase 89 35 - 130 U/L 09/15/2023 5:45 AM EDT LAB[facility]ATORY [facility] ALT 16 10 - 35 U/L 09/15/2023 5:45 AM EDT LAB[facility]ATORY [facility] Bilirubin, Total 0.8 <=1.2 mg/dL 09/15/2023 5:45 AM EDT LABORATORY [facility] Bilirubin, Direct <0.2 0.0 - 0.3 mg/dL 09/15/2023 5:45 AM EDT LABORATORY [facility] Protein 8.1 6.0 - 8.3 g/dL 09/15/2023 5:45 AM EDT LABORATORY C Blood Venous blood specimen / Unknown Venipuncture / Unknown 09/15/2023 3:46 AM EDT 09/15/2023 4:34 AM EDT Eva HAWK LAB BLOOD ORD ERABLES Performing Organization Address [facility] Co de Phone Number LABORATORY [facility] [address] [place] [address] * TROPONIN T, HIGH SENSITIVITY (09/15/2023 3:46 AM EDT) Troponin T, High Sensitivity 6 <=14 ng/L 09/15/2023 5:45 AM EDT LABORATORY [facility] Blood Venous blood specimen / Unknown Venipuncture / Unknown 09/15/2023 3:46 AM EDT 09/15/2023 4:34 AM EDT Eva Yates KENN LAB BLOOD ORD ERABLES LABORATORY [facility] [address] [place] [address] * LIPID PANEL WITH DIRECT LDL IF TG IS HIGH (09/15/2023 3:46 AM EDT) Triglycerides 126 <=174 mg/dL 09/15/2023 5:45 AM EDT LABORATORY [facility] Comment: Triglyceride Reference Ranges (mg/dL): <150 Acceptable 150-174 Borderline high 175-499 High >=500 Very high Cholesterol 199 <200 mg/dL 09/15/2023 5:45 AM EDT LABORATORY [facility] Comment: Total Cholesterol Reference Ranges (mg/dL): <200 Desirable 200-239 Borderline high >=240 High HDL Cholesterol 62 >49 mg/dL 5:45 AM EDT LABORATORY [facility] Comment: HDL Cholesterol Reference Ranges (mg/dL): >=60 High (Desirable) <50 Low (Undesirable) For Females <40 Low (Undesirable) For Males Non-HDL Cholesterol 137 <=159 mg/dL 09/15/2023 5:45 AM EDT LABORATORY [facility] Comment: Non-HDL Cholesterol Reference Range (mg/dL): <100 Target level for high risk ASCVD patient <130 Optimal for general population 130-159 Near optimal for general population 160-189 Borderline High 190-219 High >=220 Very High LDL Cholesterol 112 <=129 mg/dL 09/15/2023 5:45 AM EDT LABORATORY [facility] Comment: LDL Cholesterol Reference Ranges (mg/dL): <70 Target level for high risk ASCVD patient <100 Optimal for general population 100-129 Near optimal for general population 130-159 Borderline high 160-189 High >=190 Very high Blood Venous blood specimen / Unknown Venipuncture / Unknown 09/15/2023 3:46 AM EDT 09/15/2023 4:34 AM EDT Eva ROMERONP LAB BLOOD ORD ERABLES Performing Organization Address [facility]/ZIP Co de Phone Number LABORATORY [facility] [address] [place] [address] * HEMOGLOBIN A1C (09/15/2023 3:46 AM EDT) Hemoglobin A1C 5.5 4.0 - 5.6 % 09/15/2023 5:14 AM EDT LABORATORY C Comment:The use of HbA1c to monitor glycemic status is based on normal hemoglobin and HbA composition. This test should not be used in patients with abnormal hemoglobin that affects the half life of the red blood cell or the in vivo glycation rates. 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, right (HCC)- Primary Acute ischemic stroke (HCC) Unspecified cerebral artery occlusion with cerebral infarction Stroke (HCC) Unspecified cerebral artery occlusion with cerebral infarction Primary hypertension Unspecified essential hypertension 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, right (HCC) Occlusion and stenosis of right carotid artery Occlusion and stenosis of carotid artery without mention of cerebral infarction Cerebral infarction, unspecified (HCC) Essential (primary) hypertension Unspecified essential hypertension Primary hypertension Unspecified essential hypertension Intracranial atherosclerosis Cerebral atherosclerosis Dyslipidemia, goal LDL below 70 Other and unspecified hyperlipidemia documented in this encounter Administered Medications Inactive Administered Medications - up to 3 most recent administrations Medication Order MAR Action Action Date Dose Rate Site Acetaminophen (Tylenol) tab 975 mg 975 mg, Oral, Q6H PRN Pain, Mild, Pain, Moderate, Pain, Severe, Fever >38C(100.5F), Starting on 09/17/23 at 1629, Until Mon09/19/23 at 1752, Maximum of 4 grams (4000 mg) per day. Given 09/17/2023 4:37 PM EDT 975 mg amLODIPine (Norvasc) tab 10 mg 10 mg, Oral, Daily(AM), First dose on Mon09/17/23 at 1000, Until Discontinued Given 09/19/2023 7:54 AM EDT 10 mg Given 09/18/2023 9:51 AM EDT 10 mg Given 09/17/2023 9:56 AM EDT 10 mg aspirin enteric coated tab 81 mg 81 mg, Oral, Daily(AM), First dose on Mon09/16/23 at 0900, Until Discontinued, This med should NOT be Crushed or Chewed Given 09/19/2023 7:54 AM EDT 81 mg Given 09/18/2023 9:51 AM EDT 81 mg Given 09/17/2023 8:40 AM EDT 81 mg aspirin tab 325 mg 325 mg, Oral, ONCE, On Mon09/15/23 at 0615, For 1 dose Given 09/15/2023 5:52 AM EDT 325 mg atorvaSTATin (Lipitor) tab 40 mg 40 mg, Oral, Q1700, First dose on Mon09/15/23 at 1700, Until Discontinued Given 09/18/2023 4:14 PM EDT 40 mg Given 09/17/2023 4:37 PM EDT 40 mg Given 09/16/2023 5:53 PM EDT 40 mg chlorHEXIDINE (Periogard) 0.12 % oral rinse 15 mL 15 mL, Oral mucosal membrane, BID (799,[phone]), First dose on Mon09/15/23 at 0800, Until Discontinued, Include oral/gum/tooth brushing with medication. Use prepackaged oral kit suction tooth brush if available. Given 09/18/2023 7:55 AM EDT 15 mL Given 09/17/2023 9:00 PM EDT 15 mL Given 09/17/2023 7:44 AM EDT 15 mL clopidogrel (pLAVix) tab 112.5 mg 112.5 mg, Oral, Daily(AM), First dose (after last modification) on Mon09/18/23 at 0900, Until Discontinued Given 09/19/2023 10:03 AM EDT 112.5 mg Given 09/18/2023 9:51 AM EDT 112.5 mg clopidogrel (pLAVix) tab 300 mg 300 mg, Oral, ONCE, On Mon09/15/23 at 1200, For 1 dose Given 09/15/2023 12:07 PM EDT 300 mg clopidogrel (pLAVix) tab 37.5 mg 37.5 mg, Oral, ONCE, On Mon09/17/23 at 0930, For 1 dose Given 09/17/2023 9:55 AM EDT 37.5 mg clopidogrel (pLAVix) tab 75 mg 75 mg, Oral, Daily(AM), First dose on 09/16/23 at 0900, Until Discontinued Given 09/17/2023 8:40 AM EDT 75 mg Given 09/16/2023 8:06 AM EDT 75 mg Docusate Sodium (Colace) cap 100 mg 100 mg, Oral, BID (.AM/PM), First dose on Mon09/15/23 at 0900, Until Discontinued, For oral administration ONLY, if route of administration is other than oral and alternative product must be ordered. Given 09/15/2023 9:58 PM EDT 100 mg Given 09/15/2023 10:18 AM EDT 100 mg Enoxaparin (Lovenox) inj 40 mg 40 mg, Subcutaneous, Daily(AM), First dose on Mon09/18/23 at 0900, Until Discontinued, If patient is on warfarin, inform provider if daily INR value is 2 or greater! Given 09/19/2023 7:55 AM EDT 40 mg Abdom en Left Lower Given 09/18/2023 9:52 AM EDT 40 mg Ab domen Right Lower labetalol (Trandate) inj 10 mg 10 mg, Intravenous, Q1H PRN Other, for SBP>220 or DBP>120, Starting on Mon09/15/23 at 0737, Until Mon09/15/23 at 1357 Given 09/15/2023 10:19 AM EDT 10 mg labetalol (Trandate) inj 10 mg 10 mg, Intravenous, Q1H PRN Hypertension, For SBP > 180, Starting on Mon09/15/23 at 1357, Until 09/16/23 at 1112 Given 09/16/2023 9:05 AM EDT 10 mg Given 09/15/2023 6:04 PM EDT 10 mg Given 09/15/2023 3:22 PM EDT 10 mg labetalol (Trandate) inj 10 mg 10 mg, Intravenous, Q1H PRN Hypertension, For SBP > 160, Starting on 09/16/23 at 1112, Until 09/17/23 at 0929 Given 09/17/2023 7:50 AM EDT 10 mg Given 09/17/2023 4:16 AM EDT 10 mg Given 09/17/2023 12:23 AM EDT 10 mg labetalol (Trandate) inj 20 mg 20 mg, Intravenous, Q1H PRN Hypertension, For SBP > 160 (hold for HR <60 and notify service), Starting on 09/17/23 at 0928, Until Tu09/19/23 at 1752 Given 09/18/2023 9:56 AM EDT 20 mg Lisinopril (Prinivil) tab 5 mg 5 mg, Oral, Daily(AM), First dose on 09/18/23 at 1445, Until Discontinued Given 09/19/2023 7:54 AM EDT 5 mg Given 09/18/2023 3:03 PM EDT 5 mg niCARdipine (CARDENE) 20 mg in 200 mL saline infusion Intravenous, 5 mg/hr (50 mL/hr), Please select this medication from the infusion pump library! PROTECT FROM LIGHT ! *NOTE VOLUME* Expires 96 hours after spiking on (date) at (hour) Titrate by 2.5mg/hr every 5-10 minutes for SBP goal <220 Maximum dose 15 mg/hr, CONTINUOUS, Starting on Mon09/15/23 at 0430, Until Mon09/15/23 at 0737 Rate Verify 09/15/2023 4:00 AM EDT 5 mg/hr 50 mL/hr New Bag 09/15/2023 3:58 AM EDT 5 mg/hr 50 mL/hr niCARdipine (CARDENE) 20 mg in 200 mL saline infusion Intravenous, 5 mg/hr (50 mL/hr), Please select this medication from the infusion pump library! PROTECT FROM LIGHT ! *NOTE VOLUME* Expires 96 hours after spiking on (date) at (hour) Titrate by 2.5mg/hr every 5-10 minutes for SBP goal 140-180. Maximum rate 15mg/hr. , CONTINUOUS, Starting on 09/15/23 at 2215, Until 09/16/23 at 1114 Rate Change 09/16/2023 12:01 AM EDT 2.5 mg/hr 25 mL/hr Rate Change 09/16/2023 12:00 AM EDT 5 mg/hr 50 mL/hr Rate Verify 09/15/2023 11:00 PM EDT 2.5 mg/hr 25 mL/hr niCARdipine (CARDENE) 20 mg in 200 mL saline infusion Intravenous, 5 mg/hr (50 mL/hr), Please select this medication from the infusion pump library! PROTECT FROM LIGHT ! *NOTE VOLUME* Expires 96 hours after spiking on (date) at (hour) Titrate by 2.5mg/hr every 5-10 minutes for SBP goal 140-160. Maximum rate 15mg/hr. , CONTINUOUS, Starting on 09/16/23 at 1145, Until 09/17/23 at 0930 Rate Verify 09/17/2023 9:00 AM EDT 5 mg/hr 50 mL/hr New Bag 09/17/2023 8:38 AM EDT 5 mg/hr 50 mL/hr Rate Change 09/16/2023 3:32 PM EDT 5 mg/hr 50 mL/hr niCARdipine (CARDENE) 20 mg in 200 mL saline infusion Intravenous, 5 mg/hr (50 mL/hr), Please select this medication from the infusion pump library! PROTECT FROM LIGHT ! *NOTE VOLUME* Expires 96 hours after spiking on (date) at (hour) Titrate by 2.5 mg/hr every 5-10 minutes for SBP goal 120-160. Maximum rate 15mg/hr., CONTINUOUS, Starting on 09/17/23 at 1015, Until 09/18/23 at 1256 Rate Verify 09/18/2023 4:00 AM EDT 2.5 mg/hr 25 mL/hr Rate Verify 09/18/2023 3:00 AM EDT 2.5 mg/hr 25 mL/hr New Bag 09/18/2023 2:26 AM EDT 2.5 mg/hr 25 mL/hr Oral Hygiene: Mouth Swab with dentifrice Oral, Q4H LIMITED (00;04;12;16), First dose on Mon09/15/23 at 0400, Until Discontinued, To be used with 1.5% hydrogen peroxide solution or 0.05% cetylpyridium chloride oral rinse Given 09/19/2023 12:07 AM EDT 1 Kit Given 09/18/2023 4:00 PM EDT Given 09/18/2023 11:50 AM EDT 1 Kit Polyethylene Glycol 3350 (Miralax) oral powder 17 g 17 g (1 Packet), Oral, DAILY PRN Constipation, no BM x1 day, Starting on Mon09/17/23 at 0758, Until Mon09/19/23 at 1752, Mix in 8 oz of water, juice, soda, coffee, or tea. potassium chloride ER tab 40 mEq 40 mEq, Oral, ONCE, On Mon09/15/23 at 0630, For 1 dose, This med should NOT be Crushed or Chewed Given 09/15/2023 6:10 AM EDT 40 mEq senna (Senokot) 1 Tablet 1 Tablet, Oral, Daily(AM), First dose on Mon09/15/23 at 0900, Until Discontinued Given 09/15/2023 10:18 AM EDT 1 T ablet senna-docusate (Senokot-S) 1 Tablet 1 Tablet, Oral, Daily(AM), First dose on Mon09/17/23 at 0900, Until Discontinued documented in this encounter Active and Recently Administered Medications Times are shown in EDT. Scheduled Medication Order 09/17/2023 09/18/2023 09/19/2023 amLODIPine (Norvasc) tab 10 mg 10 mg, Oral, Daily(AM), First dose on Mon09/17/23 at 1000, Until Discontinued 0956 (Given - Provider: Mallory Grant RN) 0951 (Given - Provider: Mallory Grant RN) 0754 (Given - Provider: Kristian Chang LPN) aspirin enteric coated tab 81 mg 81 mg, Oral, Daily(AM), First dose on Mon09/16/23 at 0900, Until Discontinued, This med should NOT be Crushed or Chewed 0840 (Given - Provider: Katherin Mancuso RN) 0951 (Given - Provider: Mallory Grant RN) 0754 (Given - Provider: Kristian Chang LPN) atorvaSTATin (Lipitor) tab 40 mg 40 mg, Oral, Q1700, First dose on Mon09/15/23 at 1700, Until Discontinued 1637 (Given - Provider: Mallory Grant RN) 1614 (Given - Provider: Mallory Grant RN) chlorHEXIDINE (Periogard) 0.12 % oral rinse 15 mL (CANCELED) 15 mL, Oral mucosal membrane, BID (799,1999), First dose on Mon09/15/23 at 0800, Until Discontinued, Include oral/gum/tooth brushing with medication. Use prepackaged oral kit suction tooth brush if available. 0744 (Given - Provider: Mallory Grant RN)2100 (Given - Provider: Svetlana Islas RN) 0755 (Given - Provider: Mallory Grant RN)1999 (Not Given - Provider: Chris Santoro RN - Reason: Refused-Notify Provider - Comment: Kasie HAWK aware) clopidogrel (pLAVix) tab 112.5 mg 112.5 mg, Oral, Daily(AM), First dose (after last modification) on Mon09/18/23 at 0900, Until Discontinued 0951 (Given - Provider: Mallory Grant RN) 1003 (Given - Provider: Kristian Chang LPN) clopidogrel (pLAVix) tab 37.5 mg (COMPLETED) 37.5 mg, Oral, ONCE, On Mon09/17/23 at 0930, For 1 dose 0955 (Given - Provider: Mallory Grant RN) clopidogrel (pLAVix) tab 75 mg (CANCELED) 75 mg, Oral, Daily(AM), First dose on Mon09/16/23 at 0900, Until Discontinued 0840 (Given - Provider: Katherin Mancuso RN) Enoxaparin (Lovenox) inj 40 mg 40 mg, Subcutaneous, Daily(AM), First dose on Mon09/18/23 at 0900, Until Discontinued, If patient is on warfarin, inform provider if daily INR value is 2 or greater! 0952 (Given - Provider: Mallory Grant RN) 0755 (Given - Provider: Kristian Chang LPN) Lisinopril (Prinivil) tab 5 mg (CANCELED) 5 mg, Oral, Daily(AM), First dose on Mon09/18/23 at 1445, Until Discontinued 1503 (Given - Provider: Mallory Grant RN) 0754 (Given - Provider: Kristian Chang LPN) Oral Hygiene: Mouth Swab with dentifrice (CANCELED) Oral, Q4H LIMITED (00;04;12;16), First dose on Mon09/15/23 at 0400, Until Discontinued, To be used with 1.5% hydrogen peroxide solution or 0.05% cetylpyridium chloride oral rinse 0000 (Given - Provider: Svetlana Islas RN)0400 (Not Given - Provider: Svetlana Islas RN - Reason: Refused-Notify Provider - Comment: Eva HAWK aware)1216 (Given - Provider: Mallory Grant RN)1600 (Not Given - Provider: Mallory Grant RN - Reason: Refused-Notify Provider) 0000 (Given - Provider: Svetlana Islas RN)0400 (Not Given - Provider: Svetlana Islas RN - Reason: Refused-Notify Provider)1150 (Given - Provider: Mallory Grant RN)1600 (Given - Provider: Mallory Grant RN) 0007 (Given - Provider: Chris Santoro RN)0400 (Not Given - Provider: Johan Sethi RN - Reason: Parameter(s) Not Met) senna-docusate (Senokot-S) 1 Tablet 1 Tablet, Oral, Daily(AM), First dose on Mon09/17/23 at 0900, Until Discontinued 0900 (Not Given - Provider: Mallory Grant RN - Reason: Refused-Notify Provider - Comment: Bowels moved this AM. Dr. Mac aware) 0900 (Not Given - Provider: Mallory Grant RN - Reason: Refused-Notify Provider - Comment: had bm Dr. Blackmon aware) 0754 (Not Given - Provider: Kristian Chang LPN - Reason: Refused-Notify Provider) Continuous Medication Order 09/17/2023 09/18/2023 09/19/2023 niCARdipine (CARDENE) 20 mg in 200 mL saline infusion (CANCELED) Intravenous, 5 mg/hr (50 mL/hr), Please select this medication from the infusion pump library! PROTECT FROM LIGHT ! *NOTE VOLUME* Expires 96 hours after spiking on (date) at (hour) Titrate by 2.5mg/hr every 5-10 minutes for SBP goal 140-160. Maximum rate 15mg/hr. , CONTINUOUS, Starting on 09/16/23 at 1145, Until 09/17/23 at 0930 0838 (New Bag - Provider: Katherin Mnacuso RN)0900 (Rate Verify - Provider: Mallory Grant RN)0930 (Stopped - Provider: Mallory Grant RN) niCARdipine (CARDENE) 20 mg in 200 mL saline infusion (CANCELED) Intravenous, 5 mg/hr (50 mL/hr), Please select this medication from the infusion pump library! PROTECT FROM LIGHT ! *NOTE VOLUME* Expires 96 hours after spiking on (date) at (hour) Titrate by 2.5 mg/hr every 5-10 minutes for SBP goal 120-160. Maximum rate 15mg/hr., CONTINUOUS, Starting on 09/17/23 at 1015, Until 09/18/23 at 1256 0958 (New Bag - Provider: Mallory Grant RN)1000 (Rate Verify - Provider: Mallory Grant RN)1100 (Rate Verify - Provider: Mallory Grant RN)1200 (Rate Verify - Provider: Mallory Grant RN)1233 (Stopped - Provider: Mallory Grant RN)1234 (New Bag - Provider: Mallory Grant RN)1300 (Rate Verify - Provider: Mallory Grant RN)1400 (Rate Verify - Provider: Mallory Grant RN)1447 (Rate Change - Provider: Mallory Grant RN)1500 (Rate Verify - Provider: Mallory Grant RN)1600 (Rate Verify - Provider: Mallory Grant RN)1700 (Rate Verify - Provider: Mallory Grant RN)1800 (Rate Verify - Provider: Mallory Grant RN)1824 (New Bag - Provider: Mallory Grant RN)1900 (Rate Verify - Provider: Mallory Grant RN)2000 (Rate Verify - Provider: Svetlana Islas RN)2100 (Rate Verify - Provider: Svetlana Islas RN)2200 (Rate Verify - Provider: Svetlana Islas RN)2300 (Rate Verify - Provider: Svetlana Islas RN) 0000 (Rate Verify - Provider: Svetlana Islas RN)0100 (Rate Verify - Provider: Svetlana Islas RN)0200 (Rate Verify - Provider: Svetlana Islas RN)0226 (New Bag - Provider: Svetlana Islas RN)0300 (Rate Verify - Provider: Svetlana Islas RN)0400 (Rate Verify - Provider: Svetlana Islas RN)0434 (Stopped - Provider: Svetlana Islas RN) PRN Medication Order 09/17/2023 09/18/2023 09/19/2023 Acetaminophen (Tylenol) tab 975 mg 975 mg, Oral, Q6H PRN Pain, Mild, Pain, Moderate, Pain, Severe, Fever >38C(100.5F), Starting on 09/17/23 at 1629, Until Tu09/19/23 at 1752, Maximum of 4 grams (4000 mg) per day. 1637 (Given - Provider: Mallory Grant RN) labetalol (Trandate) inj 10 mg (CANCELED) 10 mg, Intravenous, Q1H PRN Hypertension, For SBP > 160, Starting on 09/16/23 at 1112, Until 09/17/23 at 0929 0023 (Given - Provider: Svetlana Islas RN)0416 (Given - Provider: Svetlana Islas RN)0750 (Given - Provider: Mallory Grant RN) labetalol (Trandate) inj 20 mg 20 mg, Intravenous, Q1H PRN Hypertension, For SBP > 160 (hold for HR <60 and notify service), Starting on Mon09/17/23 at 0928, Until Mon09/19/23 at 1752 0956 (Given - Provider: Mallory Grant, RN) Polyethylene Glycol 3350 (Miralax) oral powder 17 g 17 g (1 Packet), Oral, DAILY PRN Constipation, no BM x1 day, Starting on Mon09/17/23 at 0758, Until Mon09/19/23 at 1752, Mix in 8 oz of water, juice, soda, coffee, or tea. documented in this encounter Advance Directives * Full Code (Latest Code Status on File) Date Activated Date Inactivated Comments 09/15/2023 3:25 AM 09/19/2023 5:52 PM This order r eflects the patients wishes and were consensually agreed upon. Question Answer Comments Discussion of Advance Directives occurred with: Patient Care Teams Rehab Nurse Relationship Specialty Start Date End Date Huseyin Etienne MD [address] [facility] [address] [place] [address] PCP - General Pulmonary Diseases 02/03/14 documented as of this encounter
--- OUTSIDE RECORDS SUMMARY | 2023-11-28 06:10 | External Medical Summary | Summary of Care ---
Author Name Unknown Organization [facility] Address [address] [facility] [place] [address] Phone [phone] Care Team Providers Care Count Team Clerk Name Role Phone Huseyin Etienne MD Primary Care Provider Reason for Visit * Reason Onset Date Comments Precert In Process 09/20/2023 25 [address] Clopidogrel Encounter Details Date Type Department Care Team (Late st Contact Info) Description 09/20/2023 Telephone Neurology [address] [place] [phone] Specified, Zz No Resource [address] [facility] [place] [address] Precert In Process (25 AMIN[address] JEWELL ... 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 Self-administered - route pre-cert request to [id number] See corresponding visit note(s) for additional supporting clinical information. Office Information: Prescriber: Dr Nunes documented in this encounter Plan of Treatment Upcoming Encounters Date Type Department Care Team (Late st Contact Info) Description 12/19/2023 11:30 AM EDT Office Visit Neurosurgery, [place] [address] [place] [address] Pino White MD, PhD [address] [place] [address] 12/26/2023 11:35 AM EDT Office Visit Neurology [place], [place] [address] [place] [address] Vandana Vann MD [address] [place], [place] [id number] Health Maintenance Due Date Last Done Comments Depression Screening 1991 Albumin/Creatinine Ratio 1997 DTaP,Tdap,and Td Vaccines (1 - Tdap) 1998 Hepatitis B (1 of 3 - 19+ 3-dose series) 1998 Pap Smear 2000 Cervical Cancer Screening 2009 HPV/Co-Test 2009 Mammogram 2019 COVID-19 Vaccine ( - 2022- season) 2022 Influenza Vaccine (FLU shot) (Season [...] Advance Directives occurred with: Patient Care Teams Count Team Clerk Relationship Specialty Start Date End Date Huseyin Etienne MD [address] [place] [address] PCP - General Pulmonary Diseases 02/03/14 09/20/23 documented as of this encounter
--- OUTSIDE RECORDS SUMMARY | 2023-11-28 06:10 | External Medical Summary | Summary of Care ---
Author Name Unknown Organization [facility] Address [address] [facility] [place] [address] Phone [phone] Care Team Providers Care Maintenance Clerk Name Role Phone Unavailable Primary Care Provider Unavailabl e Reason for Visit * Reason Onset Date Comments Hospital Follow-Up Patient is he re for hospital follow up from [facility] on 09/14-09/18. 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, right (HCC) Allergies No known active allergiesdocumented as of this encounter (statuses as of 09/22/2023) Medications Medication Sig Dispensed Refills Start Date [...] as of this encounter (statuses as of 09/22/2023) Active Problems Problem Noted Date Diagnosed Date Intracranial atherosclerosis 09/18/2023 Dyslipidemia, goal LDL below 70 09/18/2023 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, right 09/15/2023 Primary hypertension 09/15/2023 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 Myopia 12/06/2013 Retinal detachment with retinal defect 4 documented as of this encounter (statuses as of 09/22/2023) Social History Tobacco Use Types Packs/Day Years [...] Sign Reading Time Taken Comments Blood Pressure 152/94 09/22/2023 8:26 AM EDT Pulse 101 09/22/2023 8:26 AM EDT Temperature 36.8 C (98.2 F) 09/22/2023 8:26 AM ED T Respiratory Rate 18 09/22/2023 8:26 AM EDT Oxygen Saturation 99% 09/22/2023 8:26 AM EDT Inhaled Oxygen Concentration - - Weight 67 kg (147 lb 11.2 oz) 09/22/2023 8:26 AM EDT Height - - Body Mass Index 25.35 09/15/2023 3:31 AM EDT documented in this [...] (15 years old or older) No 09/15/19 24 Cognitive Status Response Date of Assessm ent Because of a physical, menta l, or emotional condition, do you have serious difficulty concentrating, remembering, or making decisions? (5 years old or older) No 09/15/2023 documented as of this encounter Progress Notes * Haley Mackey PA-C - 09/22/2023 8:35 AM EDT Subjective: Loren Minor is a 43 year old female. Chief Complaint Patient presents with Hospital Follow-Up Patient is here for hospital follow up from [facility] on 09/14-09/18. HPI: 43 year old female with dyslipidemia and hypertension present for hospital discharge. Patient was admitted at [facility] on 09/14 for stenosis of internal carotid artery with cerebral infarction. Date of discharge was 09/18. During hospitalization, it was determined that she was having right MCA watershed strokes secondaryto ICA terminus occlusion. Vasculitis workup was unremarkable. Autoimmune workup was negative. Patient was also tested for HIV which was negative. Patient was significantly hypertensive on admission at 257/149. Patient was started on amlodipine 10 mg daily. Goal blood pressure for the first 3 months less than 160 to avoid cerebral hypoperfusionleading to further watershed infarcts. Long-term goal will be less them 130/80. Patient is to continue dual antiplatelet therapy for 90 days and follow up with Neurosurgery for further instruction ondeescalation. A1c was 5.5 Patient has been checking BP 3-4 times a day and reports it has been within Goal range. Patient denies any focal deficits since discharge. 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 Do not start before September 20, 2023. 91 Tablet 0 Atorvastatin Calcium 40 MG Oral Tablet (Lipitor) Take 1 Tablet by mouth every afternoon. 30 Tablet 3 amLODIPine Besylate 10 MG Oral Tablet (Norvasc) Take 1 Tablet by mouth in the morning. Do not startbefore September 20, 2023. 30 Tablet 3 Clopidogrel Bisulfate 75 MG Oral Tablet (pLAVix) Take 1.5 Tablets by mouth in the morning. Do not start before September 20, 2023. 137 Tablet 0 Loratadine 10 MG Oral Tablet (Claritin) Take 1 Tablet by mouth in the morning. (Patient not taking:Reported on 09/22/2023) Vitamin C Oral Tablet Chewable Take 1 Tablet by mouth in the morning. (Patient not taking: Reportedon 09/22/2023) Vitamin B Complex Oral Tablet Take 1 Tablet by mouth in the morning. (Patient not taking: Reported on 09/22/2023) Magnesium 30 MG Oral Tablet Take by mouth. (Patient not taking: Reported on 09/22/2023) No current facility-administered medications for this visit. 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 Goal blood pressure for the first 3 months less than 160 to avoid cerebral hypoperfusion leading to further watershed infarcts. Long-term goal will be less them 130/80. Patient is to continue dual antiplatelet therapy for 90 days and follow up with Neurosurgery for further instruction on deescalation. Follow Up: Return in about 3 months (around 12/23/2023), or if symptoms worsen or fail to improve, for follow up on BP . | For: follow up on BP Discussed red flag symptoms that would warrant emergent evaluation and patient verbalizes understanding Patient is checking her blood pressure regularly and clearly understands her current goal range. Patient will reach out to with any measurements outside of range. Haley Mackey PA-C documented in this encounter Nursing Notes * Renetta Odonnell LPN - 09/22/2023 8:27 AM EDT The patient has been properly identified by confirmation of name and date of . Chief Complaint Patient presents with Hospital Follow-Up Patient is here for hospital follow up from [facility] on 09/14-09/18. documented in this encounter Plan of Treatment Upcoming Encounters Date Type Department Care Team (Late st Contact Info) Description 12/19/2023 11:30 AM EDT Office Visit Neurosurgery, [place] [address] [place], [place] [id number] Pino White MD, PhD [address] [place], [place] [id number] 01/05/2024 11:35 AM EDT Office Visit Neurology [place] [address] [place] [address] [place] [address] Vandana Vann MD [address] [place] [address] Health Maintenance Due Date Last Done Comments [...] Not on filedocumented as of this encounter Visit Diagnoses Diagnosis Hospital discharge follow-up- Primary Other follow-up examination 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 Question Answer Comments Discussion of Advance Directives occurred with: Patient"
--- OUTSIDE RECORDS SUMMARY | 2023-11-28 06:10 | External Medical Summary | Summary of Care ---
Author Name Unknown Organization [facility] Address [address] [facility] [place] [place] [address] Phone [phone] Care Team Providers Care International Sourcing Manager Name Role Phone Unavailable Primary Care Provider Unavailabl e Reason for Visit * Reason Onset Date Comments Hospital Follow-Up 10/04/2023 Stroke discha rge call Encounter Details Date Type Department Care Team (Late st Contact Info) Description 10/04/2023 Telephone Neurology, [place] [address] [place] [address] Stroke, Phone Nurse Neuro [address] [place] [address] Hospital Follow-Up (Stroke discharge call) Allergies No known active allergiesdocumented as of this encounter (statuses as of 10/04/2023) Medications Medication Sig Dispensed Refills Start Date [...] as of this encounter (statuses as of 10/04/2023) Active Problems Problem Noted Date Diagnosed Date Intracranial atherosclerosis 09/18/2023 Dyslipidemia, goal LDL below 70 09/18/2023 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, right 09/15/2023 Primary hypertension 09/15/2023 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 Myopia 12/06/2013 Retinal detachment with retinal defect 4 documented as of this encounter (statuses as of 10/04/2023) Social History Tobacco Use Types Packs/Day Years [...] Telephone Encounter - Yolanda Morfin LPN - 10/04/2023 9:40 AM EDT I have identified the patient by name and date of . Spoke with pt. Loren Minor was discharged on 09/19/2023. Have you had any recurrent symptoms since discharge? no Are you taking your medications as prescribed? yes Current Medications: Currently Smoking no What lifestyle changes have you made since being discharged with stroke? Pt states that she has started to do little things around the house, getting her chores done. Also has been keeping a close eye on her bp. Systolic 140's-150's per pt. Feeling much better per pt. BEFAST Provided education on signs and symptoms of stroke and activating 911. Follow up appointments verified with pt. 12/19/2023 @ 11:[address] White, and 12/26/2023 @ 11:[address] Tea Harry. *If patient is having a video visit from HOME, please review: Patient has an upcoming tele medicine appointment scheduled. The following instructions were provided to the patient during the follow up phone call today: 1.You will receive an e-mail with the link to join your appointment. Please do not click on the link until 15 minutes prior to your scheduled visit. If you do not receive the e-mail, or are unable tofind a link in your e-mail, please call the clinic at [phone] to have the link resent. 2.You are able to use any smart device or computer/laptop for the visit. Prior to the visit, be sure you have functioning audio and video capabilities. This will help prevent delays or needing to reschedule, due to technical difficulties. 3.If you have questions prior to the visit, please call [phone]. It is important to keep this visit as your provider will discussing with you your risk factors for stroke, your current medications, and the plan of care going forward for secondary stroke prevention. We encourage you to bring any questions you may have to your visit to be discussed with the provider. documented in this encounter Plan of Treatment Upcoming Encounters Date Type Department Care Team (Late st Contact Info) Description 12/19/2023 11:30 AM EDT Office Visit [facility] [address] [place] [address] Pino White MD, PhD [address] [place] [address] 12/26/2023 11:35 AM EDT Office Visit Neurology [address] [place] [phone] Vandana Vann MD [address] [facility] [place] [address] Health Maintenance Due Date Last Done Comments Depression Screening 1991 Albumin/Creatinine Ratio 1997 DTaP,Tdap,and Td Vaccines (1 - Tdap) 1998 Hepatitis B Vaccine (1 of 3 - 19+ 3-dose series) 1998 Pap Smear 2000 Cervical Cancer Screening 2009 HPV/Co-Test 2009 Mammogram 2019 COVID-19 Vaccine ( - 2022- season) 2022 Influenza Vaccine (FLU shot) (#1) 2023 GFR 09/18/2024 09/19/2023, 09/01, 09/17/2023, Additional history exists Diabetes Screening 09/18/2026 09/19/2023, 0 09/18/2023, 09/17/2023, Additional history exists HPV (Gardasil) Vaccine Aged Out No lo nger eligible based on patient's age to complete [...]
--- OUTSIDE RECORDS SUMMARY | 2023-11-28 06:10 | External Medical Summary | Summary of Care ---
Author Name Unknown Organization [facility] Address [address] [facility] [place] [address] Phone [phone] Care Team Providers Care Roving Technician Name Role Phone Unavailable Primary Care Provider Unavailabl e Reason for Visit * Reason Onset Date Comments Hospital Follow-Up Patient is he re for hospital follow up from [facility] on 09/14-09/18. Hospital Follow-Up 09/22/2023 Encounter Details Date Type Department Care Team ([facility] st Contact Info) Description 09/22/2023 8:20 AM EDT Office Visit [address] [phone] Haley Mackey PA-C [address] [place] [id number] Hospital discharge follow-up*; Stenosis of internal carotid [...] is here for hospital follow up from [facility] on 09/14-09/18. HPI: 43 year old female with dyslipidemia and hypertension present for hospital discharge. Patient was admitted at [facility] on 09/14 for stenosis of internal carotid [...] is here for hospital follow up from [facility] on 09/14-09/18. documented in this encounter Plan of Treatment Upcoming Encounters Date Type Department Care Team (Late st Contact Info) Description 12/19/2023 11:30 AM EDT Office Visit Neurosurgery, [place] [address] [place], [place] [id number] Pino White MD, PhD [address], [place] [id number] 01/05/2024 11:35 AM EDT Office Visit Neurology [place] [address] [place] [address] Vandana Vann MD [address] [place] [address] Health Maintenance Due Date Last [...]
--- OUTSIDE RECORDS SUMMARY | 2023-11-28 06:10 | External Medical Summary | Summary of Care ---
Author Name Unknown Organization [facility] Address [address] [facility] [place] [address] Phone [phone] Care Team Providers Care Clinical Liaison Name Role Phone Huseyin Etienne MD Primary Care Provider Reason for Visit * Reason Onset Date Comments Precert Approved 09/20/2023 Clopidogrel Encounter Details Date Type Department Care Team (Late st Contact Info) Description 09/20/2023 Telephone [address] [place] [phone] Specified, Zz No Resource [address] [facility] [place] [address] Precert Approved ( Clopidogrel) Allergies No known active allergiesdocumented as of this encounter (statuses as of 09/27/2023) Medications Medication Sig Dispensed Refills Start Date [...] as of this encounter (statuses as of 09/27/2023) Active Problems Problem Noted Date Diagnosed Date Intracranial atherosclerosis 09/18/2023 Dyslipidemia, goal LDL below 70 09/18/2023 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, right 09/15/2023 Primary hypertension 09/15/2023 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 Myopia 12/06/2013 Retinal detachment with retinal defect 4 documented as of this encounter (statuses as of 09/27/2023) Social History Tobacco Use Types Packs/Day Years [...] (HCC. Self-administered - route pre-cert request to [id number] See corresponding visit note(s) for additional supporting clinical information. Office Information: Prescriber: Dr Nunes documented in this encounter Plan of Treatment Upcoming Encounters Date Type Department Care Team (Late st Contact Info) Description 12/19/2023 11:30 AM EDT Office Visit Neurosurgery, [place] [address] [place] [address] Pino White MD, PhD [address] [place] [address] 12/26/2023 11:35 AM EDT Office Visit Neurology [place], [place] [address] [place] [address] Vandaan Vann MD [address] [place] [address] Health Maintenance Due Date Last Done Comments Depression Screening 1991 Albumin/Creatinine Ratio 1997 DTaP,Tdap,and Td Vaccines (1 - Tdap) 1998 Hepatitis B (1 of 3 - 19+ 3-dose series) 1998 Pap Smear 2000 Cervical Cancer Screening 2009 HPV/Co-Test 2009 Mammogram 2019 COVID-19 Vaccine ( season) 2022 Influenza Vaccine (FLU shot) (Season [...] Advance Directives occurred with: Patient Care Teams Clinical Liaison Relationship Specialty Start Date End Date Huseyin Etienne MD [address] [place] [address] PCP - General Pulmonary Diseases 02/03/14 09/20/23 documented as of this encounter
--- OUTSIDE RECORDS SUMMARY | 2023-11-28 06:10 | External Medical Summary | Summary of Care ---
Author Name Unknown Organization [facility] Address [address] [facility] [place] [address] Phone [phone] Care Team Providers Care Operations Support Representative Name Role Phone Huseyin Etienne MD Primary Care Provider Reason for Visit * Reason Onset Date Comments Pre Cert/Prior Auth 09/20/2023 Clopidogrel Encounter Details Date Type Department Care Team (Late st Contact Info) Description 09/20/20[address] [place] [phone] Specified, Zz No Resource [address] [facility] [address] Pre Cert/Prior Auth (Clopidogrel) Allergies No known active allergiesdocumented as of [...] (HCC. Self-administered - route pre-cert request to [id number] See corresponding visit note(s) for additional supporting clinical information. Office Information: Prescriber: Dr Nunes documented in this encounter Plan of Treatment Upcoming Encounters Date Type Department Care Team ([facility] Contact Info) Description 09/22/2023 8:20 AM EDT Office Visit [facility] [address] [place] [phone] Haley Mackey PA-C [address] [place] [address] 12/19/2023 11:30 AM EDT Office Visit [facility] [address] [place], [place] [phone] Pino White MD, PhD [address] [place], [place] [phone] 01/05/2024 11:35 AM EDT Office Visit Neurology [place], [place] [address] [place] [address] Vandana Vann MD [address] [place], [place] [phone] Health Maintenance Due Date Last Done Comments [...] Advance Directives occurred with: Patient Care Teams Operations Support Representative Relationship Specialty Start Date End Date Huseyin Etienne MD [address] [place] [address] PCP - General Pulmonary Diseases 02/03/14 documented as of this encounter
--- OUTSIDE RECORDS SUMMARY | 2023-11-28 06:11 | External Medical Summary ---
Author Name Unknown Address Unknown Organization [id number]:[facility] [place] [address] [place] [address] Laboratory Report Ordering Provider Test Date Status MEDINA ANDREW 09/19/2023 05:22:00 Final Observation Date Value Abnormality Reference (Units ) Status WBC, Total 09/19/2023 05:22:00 10.43 4.00-10.80 (K/uL) Final RBC 09/19/2023 05:22:00 4.10 3.85-5.15 (M/uL) Final Hemoglobin 09/19/2023 05:22:00 10.1 Below low normal 12.0-15.3 (g/dL) Final HCT 09/19/2023 05:22:00 33.5 Below low normal 36.0-45.2 (%) Final MCV 09/19/2023 05:22:00 81.7 81.5-97.5 (fL) Final MCH 09/19/2023 05:22:00 24.6 27.0-34.0 (pg) Final MCHC 09/19/2023 05:22:00 30.1 32.0-36.0 (g/dL) Final RDW 09/19/2023 05:22:00 16.2 11.5-15.5 (%) Final Platelets 09/19/2023 05:22:00 358 140-400 (K/uL) Final MPV 09/19/2023 05:22:00 9.8 6.6-11.1 (fL) Final Nucleated erythrocytes/100 leukocytes [Ratio] in Blood by Automated count 09/19/2023 05:22:00 0 <=0 (/100 WBCs) Final Performing Location [facility] [place] [address] [place] [address]
--- OUTSIDE RECORDS SUMMARY | 2023-11-28 06:11 | External Medical Summary ---
Author Name Unknown Address Unknown Organization [id number]:[facility] [place] - [facility] [address] [facility] [address] [facility] [place] [address] Laboratory Report Ordering Provider Test Date Status WILFRIDO ADDISON 09/19/2023 05:22:00 Final Assay measures the level of platelet P2Y12 [...] clopidogrel usage in these patients is unknown. Observation Date Value Abnormality Reference (Units ) Status Platelet aggregation ADP induced [Units/volume] in Blood 09/19/2023 05:22:00 139 Below low normal 182-335 (PRU) Final Performing Location LAB[facility]ORY [facility] [place] - [facility] [address] [facility] [facility] [address] [facility] [place] [address]
--- OUTSIDE RECORDS SUMMARY | 2023-11-28 06:11 | External Medical Summary ---
Author Name Unknown Address Unknown Organization [id number]:[facility]ATORY [facility] - [address] [place] [address] Laboratory Report Ordering Provider Test Date Status FRANTZ NGUYEN 09/19/2023 05:22:00 Final Observation Date Value Abnormality Reference (Units ) Status Phosphate 09/19/2023 05:22:00 4.0 2.5-4.8 (m g/dL) Final Performing Location LAB[facility]ATORY [facility] - [address] [place] [address]
--- OUTSIDE RECORDS SUMMARY | 2023-11-28 06:11 | External Medical Summary ---
Author Name Unknown Address Unknown Organization [id number]:[facility] [place] - [facility] [address] [facility] [address] Laboratory Report Ordering Provider Test Date Status WILFRIDO ADDISON 09/19/2023 05:22:00 Final Assay designed to measure th e effect of aspirin and it should not [...] aspirin usage in these patients is unknown.
null Observation Date Value Abnormality Reference (Units ) Status Platelet aggregation arachidonate induced [Units/volume] in Platelet rich plasma 09/19/2023 05:22:00 389 Below low normal >=550 (ARU) Final Performing Location [facility]ORY [facility] [place] - [address] [facility] [address]
--- OUTSIDE RECORDS SUMMARY | 2023-11-28 06:11 | External Medical Summary ---
Author Name Unknown Address Unknown Organization [id number]:[facility] [place] [address] [place] [address] Laboratory Report Ordering Provider Test Date Status FRANTZ NGUYEN 09/19/2023 05:22:00 Final Observation Date Value Abnormality Reference (Units ) Status BUN 09/19/2023 05:22:00 21 Above high normal 6-20 (mg/dL) Final Creatinine 09/19/2023 05:22:00 0.8 0.5-1.0 (mg/dL) Final Glomerular filtration rate/1.73 sq M.predicted [Volume Rate/Area] in Serum, Plasma or Blood by Creatinine-based formula (CKD-EPI) 09/19/2023 05:22:00 >90 >=60 (mL/min) Final eGFR is calculated based on the CKD-EPI 2020 equation Sodium 09/19/2023 05:22:00 140 135-146 (m mol/L) Final Potassium 09/19/2023 05:22:00 3.8 3.5-5.1 (m mol/L) Final Cl 09/19/2023 05:22:00 107 98-107 (mm ol/L) Final CO2 09/19/2023 05:22:00 22 22-32 (mmo l/L) Final Anion gap 09/19/2023 05:22:00 11 7-15 (mmol /L) Final Glucose 09/19/2023 05:22:00 97 70-120 (mg /dL) Final Calcium 09/19/2023 05:22:00 8.6 8.4-10.2 ( mg/dL) Final Performing Location [facility] [place] [address] [place] [address]
--- OUTSIDE RECORDS SUMMARY | 2023-11-28 06:11 | External Medical Summary | Summary of Care ---
Author Name Unknown Organization [facility] Address [address] [facility] [place] [address] Phone [phone] Care Team Providers Care Car Escort Name Role Phone Huseyin Etienne MD Primary Care Provider Encounter Details Date Type Department Care Team (Latest Contact Info) Description 09/14/2023 1:30 PM EDT - 09/14/2023 8:37 PM EDT Hospital Encounter Radiology Film File [address] [place] [facility] [id number] Discharge Disposition: Home - Self Care Allergies No known active allergiesdocumented as of this encounter (statuses as of 09/19/2023) Medications Medication Sig Dispensed Refills Start Date End Date Status Loratadine 10 MG Oral Tablet (Claritin) Take 1 Tablet by mouth in the morning. Suspended Vitamin C Oral Tablet Chewable Take 1 Tablet by mouth in the morning. Suspended Vitamin B Complex Oral Tablet Take 1 Tablet by mouth in the morning. Suspended Magnesium 30 MG Oral Tablet Take by mouth. 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, right 09/15/2023 Primary hypertension 09/15/2023 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 Myopia 12/06/2013 Retinal detachment with retinal defect 4 documented as of this encounter (statuses as of 09/19/2023) Social History Tobacco Use Types Packs/Day Years [...] on file documented as of this encounter Plan of Treatment Upcoming Encounters Date Type Department Care Team (Late st Contact Info) Description 12/19/2023 11:30 AM EDT Office Visit Neurosurgery, [place] [address] [place] [address] Pino White MD, PhD [address] [place], [place] [phone] Health Maintenance Due Date Last Done Comments Depression Screening 1991 Albumin/Creatinine Ratio 1997 DTaP,Tdap,and Td Vaccines (1 - Tdap) 1998 Hepatitis B (1 of 3 - 19+ 3-dose series) 1998 Pap Smear 2000 Cervical Cancer Screening 2009 HPV/Co-Test 2009 Mammogram 2019 COVID-19 Vaccine (2022- season) 2022 Influenza Vaccine (FLU shot) (Season [...] Procedure Name Priority Date/Time Associated Diagnosis Comments RADIOLOGY EXAM - GENERAL RAD (IMAGES ONLY,NO REPORT) Routine 09/14/2023 1:30 PM EDT documented in this encounter Results * RADIOLOGY EXAM - GENERAL RAD (IMAGES ONLY,NO REPORT) (09/14/2023 1:30 PM EDT) 09/14/2023 1:26 PM EDT Narrative Scheduling, Silent - 09/18/2023 11:26 AM EDT This is an imaging study not interpreted or resulted by a [facility] or [facility] contracted radiologist. Faizan Jeffery MD RADIOLOGY (RAD GENERAL) documented in this encounter Advance Directives * Full Code (Latest Code Status on File) Date Activated Date Inactivated Comments 09/15/2023 3:25 AM This order ref lects the patients wishes and were consensually agreed upon. Question Answer Comments Discussion of Advance Directives occurred with: Patient Care Teams Car Escort Relationship Specialty Start Date End Date Huseyin Etienne MD [address] [facility] [address] [place] [address] PCP - General Pulmonary Diseases 02/03/14 documented as of this encounter
--- OUTSIDE RECORDS SUMMARY | 2023-11-28 06:12 | External Medical Summary ---
Author Name Unknown Address Unknown Organization K01:[facility]ATORY [facility] [place] - [address] [place] [address] Laboratory Report Ordering Provider Test Date Status MEDINA ANDREW 09/17/2023 05:32:00 Final Observation Date Value Abnormality Reference (Units ) Status WBC, Total 09/17/2023 05:32:00 9.63 4.00-10.80 (K/uL) Final RBC 09/17/2023 05:32:00 4.17 3.85-5.15 (M/uL) Final Hemoglobin 09/17/2023 05:32:00 10.1 Below low normal 12.0-15.3 (g/dL) Final HCT 09/17/2023 05:32:00 34.0 Below low normal 36.0-45.2 (%) Final MCV 09/17/2023 05:32:00 81.5 81.5-97.5 (fL) Final MCH 09/17/2023 05:32:00 24.2 27.0-34.0 (pg) Final MCHC 09/17/2023 05:32:00 29.7 32.0-36.0 (g/dL) Final RDW 09/17/2023 05:32:00 16.5 11.5-15.5 (%) Final Platelets 09/17/2023 05:32:00 334 140-400 (K/uL) Final MPV 09/17/2023 05:32:00 10.2 6.6-11.1 (fL) Final Nucleated erythrocytes/100 leukocytes [Ratio] in Blood by Automated count 09/17/2023 05:32:00 0 <=0 (/100 WBCs) Final Performing Location LAB[facility]ORY [facility] [place] - [address] [place] [address]
--- OUTSIDE RECORDS SUMMARY | 2023-11-28 06:12 | External Medical Summary ---
Author Name Unknown Address Unknown Organization K01:[facility] [place] [facility] [address] [address] [facility] [address] Laboratory Report Ordering Provider Test Date Status SUSANA BURLESON 09/16/2023 06:24:24 Final Assay measures the level of platelet [...] Platelet aggregation ADP induced [Units/volume] in Blood 09/16/2023 06:24:24 164 Below low normal 182-335 (PRU) Final Performing Location [facility] [place] [facility] [address] [facility] [address]
--- OUTSIDE RECORDS SUMMARY | 2023-11-28 06:12 | External Medical Summary ---
Author Name Unknown Address Unknown Organization K01:[facility] [place] [facility] - [address] [place] [address] Laboratory Report Ordering Provider Test Date Status WILFRIDO ADDISON 09/16/2023 04:40:40 Final Observation Date Value Abnormality Reference (Units ) Status ABO 09/16/2023 04:40:40 B Final RH 09/16/2023 04:40:40 Positive Final RED BLOOD CELL ANTIBODY SCREEN 09/16/2023 04:40:40 Negative Final SPECIMEN EXPIRATION DATE 09/16/2023 04:40:40 09/19/2023 23:59 Final Performing Location [facility] - [address] [place] [address]
--- OUTSIDE RECORDS SUMMARY | 2023-11-28 06:12 | External Medical Summary ---
Author Name Unknown Address Unknown Organization K01:[facility] - [address] [place] [address] Laboratory Report Ordering Provider Test Date Status MEDINA ANDREW 09/17/2023 05:32:00 Final Observation Date Value Abnormality Reference (Units ) Status Magnesium 09/17/2023 05:32:00 2.0 1.5-2.6 (m g/dL) Final Performing Location [facility] - [address] [place] [address]
--- OUTSIDE RECORDS SUMMARY | 2023-11-28 06:12 | External Medical Summary ---
Author Name Unknown Address Unknown Organization K01:[facility] [place] - [facility] [address] [facility] [facility] [address] Laboratory Report Ordering Provider Test Date Status WILFRIDO ADDISON 09/18/2023 05:58:00 Final Assay measures the level of platelet [...] Platelet aggregation ADP induced [Units/volume] in Blood 09/18/2023 05:58:00 168 Below low normal 182-335 (PRU) Final Performing Location LABOR[facility]ORY [facility] [place] - [facility] [address] [facility] [address] [facility] [address]
--- OUTSIDE RECORDS SUMMARY | 2023-11-28 06:12 | External Medical Summary | Summary of Care ---
Author Name Unknown Organization [facility] Address [address] [facility] [address] Phone [phone] Care Team Providers Care Warehouse Inventory Clerk Name Role Phone Huseyin Etienne MD Primary Care Provider Encounter Details Date Type Department Care Team (Latest Contact Info) Description 09/14/2023 8:43 PM EDT - 09/14/2023 11:59 PM EDT Hospital Encounter Radiology Film File [address] [place] [address] Arrived Discharge Disposition: Home - Self Care Allergies No known active allergiesdocumented as of this encounter (statuses as of 09/15/2023) Medications Medication Sig Dispensed Refills Start Date [...] as of this encounter (statuses as of 09/15/2023) Active Problems Problem Noted Date Diagnosed Date 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 Never true 09/13/2023 Sex and Gender Information Value Date Recorded Sex Assigned at Female 09/13/2023 11:57 AM EDT Gender Identity Female 09/13/2023 11:41 AM EDT Sexual Orientation Straight 09/13/2023 11 :57 AM EDT documented as of this encounter Plan of Treatment Scheduled Procedures Name Priority Associated Diagnoses Date/Ti me CATHETER PLACEMENT INTERNAL CAROTID ARTERY 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, right (HCC) CATHETER PLACEMENT VERTEBRAL ARTERY, 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, right (HCC) STAGE [address] FIDUCIALS / 3D RENDERING W/CT, MRI, US, OR OTHER TOMOGRAPHY 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, right (HCC) Health Maintenance Due Date Last Done Comments Depression Screening 1991 Albumin/Creatinine Ratio 1997 DTaP,Tdap,and Td Vaccines (1 - Tdap) 1998 Hepatitis B (1 of 3 - 19+ 3-dose series) 1998 Pap Smear 2000 Cervical Cancer Screening 2009 HPV/Co-Test 2009 Mammogram 2019 COVID-19 Vaccine ( - 2022-2 4 season) 2022 Influenza Vaccine (FLU shot) (Season Ended) 2023 GFR 09/14/2024 09/15/2023, 01/04/1996 Diabetes Screening 09/14/2026 09/15/2023, 09/15/2023, 01/04/1996 HIV Screening Completed 09/15/2023 Hepatitis C Screening Completed 09/15/2023 , 09/15/2023, 09/15/2023 GARDASIL-HPV IMMUNIZATION SERIES Aged Out No longer eligible b ased on patient's age to complete this topic MENINGOCOCCAL (MENACTRA/MENVEO) Aged Out No longer eligible b ased on patient's age to complete this topic Pneumococcal Vaccine: Pediatrics (0 to 5 Years) and At-Risk Patients (6 to 64 Years) Aged Out No longer eligible b ased on patient's age to complete this topic documented as of this encounter Medical Devices Not on filedocumented as of this encounter Procedures Procedure Name Priority Date/Time Associated Diagnosis Comments RADIOLOGY EXAM - CT (IMAGES ONLY, NO REPORT) Routine 09/14/2023 8:45 PM EDT documented in this encounter Results * RADIOLOGY EXAM - CT (IMAGES ONLY, NO REPORT) (09/14/2023 8:45 PM EDT) Narrative Scheduling, Silent - 09/14/2023 8:45 PM EDT This is an imaging study not interpreted or resulted by a Sing[employer] or Singular contracted radiologist. Faizan Jeffery MD RAD CT documented in this encounter Advance Directives * Full Code (Latest Code Status on File) Date Activated Date Inactivated Comments 09/15/2023 3:25 AM This order ref lects the patients wishes and were consensually agreed upon. Question Answer Comments Discussion of Advance Directives occurred with: Patient Care Teams Warehouse Inventory Clerk Relationship Specialty Start Date End Date Huseyin Etienne MD PCP - General Pulmonary Diseases 02/03/14 documented as of this encounter
--- OUTSIDE RECORDS SUMMARY | 2023-11-28 06:12 | External Medical Summary ---
Author Name Unknown Address Unknown Organization [id number]:LABORATORY [facility] [place] [facility] - [address] [place] [address] Laboratory Report Ordering Provider Test Date Status WILFRIDO ADDISON 09/16/2023 04:40:40 Final Observation Date Value Abnormality Reference (Units ) Status ABO 09/16/2023 04:40:40 B Final RH 09/16/2023 04:40:40 Positive Final Performing Location LABORATORY [facility] [place] [facility] - [address] [place] [address]
--- OUTSIDE RECORDS SUMMARY | 2023-11-28 06:12 | External Medical Summary ---
Author Name Unknown Address Unknown Organization [id number]:[place] [facility] [place] [facility] [address] [facility] [address] Laboratory Report Ordering Provider Test Date Status MEDINA ANDREW 09/16/2023 04:40:40 Final Observation Date Value Abnormality Reference (Units ) Status WBC, Total 09/16/2023 04:40:40 11.17 Above high normal 4.00-10.80 (K/uL) Final RBC 09/16/2023 04:40:40 4.19 3.85-5.15 (M/uL) Final Hemoglobin 09/16/2023 04:40:40 10.4 Below low normal 12.0-15.3 (g/dL) Final HCT 09/16/2023 04:40:40 33.6 Below low normal 36.0-45.2 (%) Final MCV 09/16/2023 04:40:40 80.2 81.5-97.5 (fL) Final MCH 09/16/2023 04:40:40 24.8 27.0-34.0 (pg) Final MCHC 09/16/2023 04:40:40 31.0 32.0-36.0 (g/dL) Final RDW 09/16/2023 04:40:40 16.5 11.5-15.5 (%) Final Platelets 09/16/2023 04:40:40 343 140-400 (K/uL) Final MPV 09/16/2023 04:40:40 10.1 6.6-11.1 (fL) Final Nucleated erythrocytes/100 leukocytes [Ratio] in Blood by Automated count 09/16/2023 04:40:40 0 <=0 (/100 WBCs) Final Performing Location [facility] [place] [address] [place] [address]
--- OUTSIDE RECORDS SUMMARY | 2023-11-28 06:12 | External Medical Summary | Summary of Care ---
Author Name Unknown Organization [facility] Address [address] [place] [address] Phone [phone] Care Team Providers Care Biofuels Manager Name Role Phone Huseyin Etienne MD Primary Care Provider [phone] Reason for Visit * Auth/Cert Specialty Diagnoses / Procedures Referred By Bao t Referred To Contact Diagnoses Arterial ischemic stroke, ICA, right, acute (HCC) Acute ischemic stroke (HCC) ICA stenosis Noreen Mac, DO [address] [place] [address] N[place] 4 [facility] [address] [place] [address] Referral ID Status Reason Start Date Expiration Date Visits Re quested Visits Authorized [id number] Encounter Details Date Type Department Care Team (Latest Contact Info) Description 09/15/2023 7:22 AM EDT - 09/15/2023 11:59 PM EDT Hospital Encounter Cardiac Studies 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 Never true 09/13/19 Within the past 12 months, t he [...] No 09/15/2023 documented as of this encounter Plan of Treatment Health Maintenance Due Date Last Done Comments Depression Screening 1991 Albumin/Creatinine Ratio 1997 DTaP,Tdap,and Td Vaccines (1 - Tdap) 1998 Hepatitis B (1 of 3 - 19+ 3-dose series) 1998 Pap Smear 2000 Cervical Cancer Screening 2009 HPV/Co-Test 2009 Mammogram 2019 COVID-19 Vaccine ( - 2022- season) 2022 Influenza Vaccine (FLU shot) (Season Ended) 2023 GFR 09/15/2024 09/16/2023, 09/01, 01/04/1996 Diabetes Screening 09/15/2026 09/16/2023, 0 09/15/2023, 09/15/2023, Additional history exists HIV Screening Completed 09/15/2023 Hepatitis C Screening [...] Procedure Name Priority Date/Time Associated Diagnosis Comments ECHO, COMPLETE (2D), TRANS-THORACIC Routine 09/15/2023 1:29 PM EDT Stroke (HCC) documented in this encounter Visit Diagnoses Diagnosis Other cerebrovascular disease- Primary Other ill-defined cerebrovascular disease documented in this encounter Administered Medications Inactive Administered Medications - up to 3 most recent administrations Medication Order MAR Action Action Date Dose Rate Site perflutren lipid microsphere inj SUSP 1.956 mg 1.956 mg, Intravenous, ONCE PRN Other, For Echo Only - Suboptimal Echo Images, Starting on Mon09/15/23 at 1312, Until Mon09/15/23 at 1511, For 2 hours, Administer IVP over 45 seconds, Cardiac Studies_HODHOV Given 09/15/2023 1:13 PM EDT 1.956 mg documented in this encounter Advance Directives * Full Code (Latest Code Status on File) Date Activated Date Inactivated Comments 09/15/2023 3:25 AM This order ref lects the patients wishes and were consensually agreed upon. Question Answer Comments Discussion of Advance Directives occurred with: Patient Care Teams Biofuels Manager Relationship Specialty Start Date End Date Huseyin Etienne MD [address] [facility] [address] [place] [address] PCP - General Pulmonary Diseases 02/03/14 documented as of this encounter
--- OUTSIDE RECORDS SUMMARY | 2023-11-28 06:12 | External Medical Summary ---
Author Name Unknown Address Unknown Organization [id number]:LABORATORY [facility] [place] - [facility] [address] [facility] [address] Laboratory Report Ordering Provider Test Date Status WILFRIDO ADDISON 09/17/2023 05:32:00 Final Assay designed to measure th e [...] arachidonate induced [Units/volume] in Platelet rich plasma 09/17/2023 05:32:00 394 Below low normal >=550 (ARU) Final Performing Location LABORATORY [facility] [place] - [address] [facility] [address]
--- OUTSIDE RECORDS SUMMARY | 2023-11-28 06:12 | External Medical Summary ---
Author Name Unknown Address Unknown Organization [id number]:LABORATORY [facility] - [address] [place] [address] Laboratory Report Ordering Provider Test Date Status MEDINA ANDREW 09/16/2023 04:40:40 Final Observation Date Value Abnormality Reference (Units ) Status Phosphate 09/16/2023 04:40:40 3.6 2.5-4.8 (m g/dL) Final Performing Location LABORATORY [facility] - [address] [place] [address]
--- OUTSIDE RECORDS SUMMARY | 2023-11-28 06:12 | External Medical Summary ---
Author Name Unknown Address Unknown Organization [id number]:LABORATORY [facility] - [address] [place] [address] Laboratory Report Ordering Provider Test Date Status FRANTZ NGUYEN 09/19/2023 05:22:00 Final Observation Date Value Abnormality Reference (Units ) Status Magnesium 09/19/2023 05:22:00 1.9 1.5-2.6 (m g/dL) Final Performing Location LABORATORY [facility] - [address] [place] [address]
--- OUTSIDE RECORDS SUMMARY | 2023-11-28 06:12 | External Medical Summary ---
Author Name Unknown Address Unknown Organization [id number]:LABORATORY [facility] [place] - [address] [place] [address] Laboratory Report Ordering Provider Test Date Status MEDINA ANDREW 09/16/2023 04:40:40 Final Observation Date Value Abnormality Reference (Units ) Status BUN 09/16/2023 04:40:40 17 6-20 (mg/dL) Final Creatinine 09/16/2023 04:40:40 1.0 0.5-1.0 (mg/dL) Final Glomerular filtration rate/1.73 sq M.predicted [Volume Rate/Area] in Serum, Plasma or Blood by Creatinine-based formula (CKD-EPI) 09/16/2023 04:40:40 75 >=60 (mL/min) Final eGFR is calculated based on the CKD-EPI 2020 equation Sodium 09/16/2023 04:40:40 138 135-146 (m mol/L) Final Potassium 09/16/2023 04:40:40 3.9 3.5-5.1 (m mol/L) Final Cl 09/16/2023 04:40:40 106 98-107 (mm ol/L) Final CO2 09/16/2023 04:40:40 20 Below low normal 22- 32 (mmol/L) Final Anion gap 09/16/2023 04:40:40 12 7-15 (mmol /L) Final Glucose 09/16/2023 04:40:40 105 70-120 (mg /dL) Final Calcium 09/16/2023 04:40:40 8.6 8.4-10.2 ( mg/dL) Final Performing Location LABORATORY [facility] [place] - [address] [place] [address]
--- OUTSIDE RECORDS SUMMARY | 2023-11-28 06:12 | External Medical Summary ---
Author Name Unknown Address Unknown Organization [id number]:[place] [place] [address] [facility] [place] [address] Laboratory Report Ordering Provider Test Date Status MEDINA ANDREW 09/19/2023 05:22:00 Final Observation Date Value Abnormality Reference (Units ) Status SYNC LEUKOCYTES IN BLOOD BY AUTOMATED COUNT 09/19/2023 05:22:00 10.43 4.00-10.80 (K/uL) Final Segs 09/19/2023 05:22:00 68.4 40.0-75.0 (%) Final Lymphs % 09/19/2023 05:22:00 17.7 Below low normal 18.0-42.0 (%) Final Monos 09/19/2023 05:22:00 8.3 1.0-11.0 (%) Final Eosinophils 09/19/2023 05:22:00 4.3 0.0-6.0 (%) Final Basos 09/19/2023 05:22:00 0.7 0.0-2.0 (%) Final Immature Granulocyte, Percent 09/19/2023 05:22:00 0.6 0.0-2.0 (%) Final Absolute Segs 09/19/2023 05:22:00 7.13 1.80-7.70 (K/uL) Final Lymphs, absolute 09/19/2023 05:22:00 1.85 1.00-4.80 (K/ul) Final Monos, Abs 09/19/2023 05:22:00 0.87 0.00-1.10 (K/uL) Final Eos, Abs 09/19/2023 05:22:00 0.45 0.00-0.70 (K/uL) Final Basos, Abs 09/19/2023 05:22:00 0.07 0.00-0.20 (K/uL) Final Immature Granulocytes, Number 09/19/2023 05:22:00 0.06 0.00-0.20 (K/uL) Final Performing Location [facility] [place] [address] [facility] [address]
--- OUTSIDE RECORDS SUMMARY | 2023-11-28 06:12 | External Medical Summary ---
Author Name Unknown Address Unknown Organization [id number]:LABORATORY [facility] [place] - [address] [place] [address] Laboratory Report Ordering Provider Test Date Status MEDINA ANDREW 09/18/2023 05:58:00 Final Observation Date Value Abnormality Reference (Units ) Status BUN 09/18/2023 05:58:00 15 6-20 (mg/dL) Final Creatinine 09/18/2023 05:58:00 0.7 0.5-1.0 (mg/dL) Final Glomerular filtration rate/1.73 sq M.predicted [Volume Rate/Area] in Serum, Plasma or Blood by Creatinine-based formula (CKD-EPI) 09/18/2023 05:58:00 >90 >=60 (mL/min) Final eGFR is calculated based on the CKD-EPI 2020 equation Sodium 09/18/2023 05:58:00 138 135-146 (m mol/L) Final Potassium 09/18/2023 05:58:00 3.8 3.5-5.1 (m mol/L) Final Cl 09/18/2023 05:58:00 104 98-107 (mm ol/L) Final CO2 09/18/2023 05:58:00 22 22-32 (mmo l/L) Final Anion gap 09/18/2023 05:58:00 12 7-15 (mmol /L) Final Glucose 09/18/2023 05:58:00 95 70-120 (mg /dL) Final Calcium 09/18/2023 05:58:00 9.0 8.4-10.2 ( mg/dL) Final Performing Location LABORATORY [facility] [place] - [address] [place] [address]
--- OUTSIDE RECORDS SUMMARY | 2023-11-28 06:12 | External Medical Summary ---
Author Name Unknown Address Unknown Organization [id number]:LABORATORY [facility] [place] - [address] [place] [facility] [place] [address] Laboratory Report Ordering Provider Test Date Status MEDINA ANDREW 09/18/2023 05:58:00 Final Observation Date Value Abnormality Reference (Units ) Status SYNC LEUKOCYTES IN BLOOD BY AUTOMATED COUNT 09/18/2023 05:58:00 10.81 Above high normal 4.00-10.80 (K/uL) Final Segs 09/18/2023 05:58:00 74.4 40.0-75.0 (%) Final Lymphs % 09/18/2023 05:58:00 14.1 Below low normal 18.0-42.0 (%) Final Monos 09/18/2023 05:58:00 6.1 1.0-11.0 (%) Final Eosinophils 09/18/2023 05:58:00 4.0 0.0-6.0 (%) Final Basos 09/18/2023 05:58:00 0.8 0.0-2.0 (%) Final Immature Granulocyte, Percent 09/18/2023 05:58:00 0.6 0.0-2.0 (%) Final Absolute Segs 09/18/2023 05:58:00 8.05 Above high normal 1.80-7.70 (K/uL) Final Lymphs, absolute 09/18/2023 05:58:00 1.52 1.00-4.80 (K/ul) Final Monos, Abs 09/18/2023 05:58:00 0.66 0.00-1.10 (K/uL) Final Eos, Abs 09/18/2023 05:58:00 0.43 0.00-0.70 (K/uL) Final Basos, Abs 09/18/2023 05:58:00 0.09 0.00-0.20 (K/uL) Final Immature Granulocytes, Number 09/18/2023 05:58:00 0.06 0.00-0.20 (K/uL) Final Performing Location LABORATORY [facility] [place] - [facility] [address] [facility] [address]
--- OUTSIDE RECORDS SUMMARY | 2023-11-28 06:12 | External Medical Summary ---
Author Name Unknown Address Unknown Organization [id number]:LABORATORY [facility] - [address] [place] [address] Laboratory Report Ordering Provider Test Date Status MEDINA ANDREW 09/18/2023 05:58:00 Final Observation Date Value Abnormality Reference (Units ) Status Phosphate 09/18/2023 05:58:00 3.6 2.5-4.8 (m g/dL) Final Performing Location LABORATORY [facility] - [address] [place] [address]
--- OUTSIDE RECORDS SUMMARY | 2023-11-28 06:12 | External Medical Summary | Summary of Care ---
Author Name Unknown Organization [facility] Address [address] [place] [address] Phone [phone] Care Team Providers Care Manager General Name Role Phone Huseyin Etienne MD Primary Care Provider Encounter Details Date Type Department Care Team (Late st Contact Info) Description 09/14/2023 Orders Only Unspecified Department Faizan Jeffery MD [address] [place] [address] Allergies No known active allergiesdocumented as of this encounter (statuses as of 09/18/2023) Medications Medication Sig Dispensed Refills Start Date [...] as of this encounter (statuses as of 09/18/2023) Active Problems Problem Noted Date Diagnosed Date 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, right 09/15/2023 Primary hypertension 09/15/2023 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 Myopia 12/06/2013 Retinal detachment with retinal defect 4 documented as of this encounter (statuses as of 09/18/2023) Social History Tobacco Use Types Packs/Day Years [...] Description 12/19/2023 11:30 AM EDT Office Visit [facility] [address] [place] [address] Pino White MD, PhD [address] [id number] Health Maintenance Due Date Last Done Comments Depression Screening 1991 Albumin/Creatinine Ratio 1997 DTaP,Tdap,and Td Vaccines (1 - Tdap) 1998 Hepatitis B (1 of 3 - 19+ 3-dose series) 1998 Pap Smear 2000 Cervical Cancer Screening 2009 HPV/Co-Test 2009 Mammogram 2019 COVID-19 Vaccine ( - 2022-24 season) 2022 Influenza Vaccine (FLU shot) (Season Ended) 2023 GFR 09/17/2024 09/18/2023, 09/01, 09/16/2023, Additional history exists Diabetes Screening 09/17/2026 09/18/2023, 0 09/17/2023, 09/16/2023, Additional history exists GARDASIL-HPV IMMUNIZATION SERIES Aged [...] study not interpreted or resulted by a [employer] or [employer] contracted radiologist. Faizan Jeffery MD RADIOLOGY (RAD GENERAL) documented in this encounter Advance Directives * Full Code (Latest Code Status on File) Date Activated Date Inactivated Comments 09/15/2023 3:25 AM This order ref lects the patients wishes and were consensually agreed upon. Question Answer Comments Discussion of Advance Directives occurred with: Patient Care Teams Manager General Relationship Specialty Start Date End Date Huseyin Etienne MD [address] [facility] [address] [place] [address] PCP - General Pulmonary Diseases 02/03/14 documented as of this encounter
--- OUTSIDE RECORDS SUMMARY | 2023-11-28 06:12 | External Medical Summary ---
Author Name Unknown Address Unknown Organization K01:LABORATORY [facility] [place] - [facility] [address] [facility] [facility] [address] [facility] [address] Laboratory Report Ordering Provider Test Date Status WILFRIDO ADDISON 09/18/2023 05:58:00 Final Assay designed to measure th e [...] arachidonate induced [Units/volume] in Platelet rich plasma 09/18/2023 05:58:00 390 Below low normal >=550 (ARU) Final Performing Location LABORATORY [facility] [place] - [address] [facility] [address]
--- OUTSIDE RECORDS SUMMARY | 2023-11-28 06:12 | External Medical Summary ---
Author Name Unknown Address Unknown Organization [id number]:LABORATORY [facility] [place] - [facility] [address] [facility] [address] Laboratory Report Ordering Provider Test Date Status SUSANA BURLESON 09/16/2023 06:24:24 Final Assay designed to measure th e [...] arachidonate induced [Units/volume] in Platelet rich plasma 09/16/2023 06:24:24 388 Below low normal >=550 (ARU) Final Performing Location LABORATORY [facility] [place] - [facility] [address] [facility] [address]
--- OUTSIDE RECORDS SUMMARY | 2023-11-28 06:12 | External Medical Summary ---
Author Name Unknown Address Unknown Organization K01:LABORATORY [facility] [place] - [facility] [address] [facility] [address] Laboratory Report Ordering Provider Test Date Status WILFRIDO ADDISON 09/17/2023 05:32:00 Final Assay measures the level of platelet [...] Platelet aggregation ADP induced [Units/volume] in Blood 09/17/2023 05:32:00 188 182-335 (PRU) Final Performing Location LABORATORY [facility] [place] - [facility] [address] [facility] [address]
--- OUTSIDE RECORDS SUMMARY | 2023-11-28 06:13 | External Medical Summary ---
Author Name Unknown Address Unknown Organization [id number]:[facility] [facility] [place] [address] [place] [address] Laboratory Report Ordering Provider Test Date Status WILFRIDO ADDISON 09/15/2023 05:26:26 Final Cutoff Concentrations:
Drug Level
Amphetamines 500 ng/mL
Benzodiazepines 100 ng/mL
Cannabinoids 50 ng/mL
Cocaine Metabolite 150 ng/mL
Fentanyl 1 ng/mL
Hydrocodone / Hydromorphone 300 ng/mL
Methadone Metabolite 100 ng/mL
Morphine / Codeine 300 ng/mL
Oxycodone / Oxymorphone 100 ng/mL

Screening results are presumptive and can only be used for medical purposes. Positive screening results are reflexed to confirmatory testing. Observation Date Value Abnormality Reference (Units ) Status Amphetamines, Urine screen 09/15/2023 05:26:26 Negative Negative Final Benzodiazepines, Urine screen 09/15/2023 05:26:26 Negative Negative Final Cannabinoids, Urine screen 09/15/2023 05:26:26 Negative Negative Final Cocaine Metabolite, Urine screen 09/15/2023 05:26:26 Negative Negative Final fentaNYL [Presence] in Urine by Screen method 09/15/2023 05:26:26 Negative Negative Final HYDROcodone [Presence] in Urine by Screen method 09/15/2023 05:26:26 Negative Negative Final 2-Prcmvxcaee-1,5-Dimeth yl-3,3-Diphenylpyrrolid ine (EDDP) [Presence] in Urine 09/15/2023 05:26:26 Negative Negative Final Opiates, Urine screen 09/15/2023 05:26:26 Negative Negative Final oxyCODONE [Presence] in Urine by Screen method 09/15/2023 05:26:26 Negative Negative Final Performing Location LABORATORY [facility] - [address] [facility] [address]
--- OUTSIDE RECORDS SUMMARY | 2023-11-28 06:13 | External Medical Summary | Summary of Care ---
Author Name Unknown Organization [facility] Address [address] [facility] [place] [address] Phone [phone] Care Team Providers Care Cleaner And Presser Name Role Phone Huseyin Etienne MD Primary Care Provider Encounter Details Date Type Department Care Team (Latest Contact Info) Description 09/14/2023 8:42 PM EDT Hospital Encounter Radiology Film File [address] [place] [address] Arrived Discharge Disposition: Home - Self Care [...] 2009 HPV/Co-Test 2009 Mammogram 2019 COVID-19 Vaccine (2022-2 4 season) 2022 Influenza Vaccine (FLU shot) [...] Date/Time Associated Diagnosis Comments RADIOLOGY EXAM - MRI (IMAGES ONLY, NO REPORT) Routine 09/14/2023 8:45 PM EDT documented in this encounter Results * RADIOLOGY EXAM - MRI (IMAGES ONLY, NO REPORT) (09/14/2023 8:45 PM EDT) Narrative Scheduling, Silent - 09/14/2023 8:45 PM EDT This is an imaging study not interpreted or resulted by a [facility] or [facility] contracted radiologist. Faizan Jeffery MD RAD MRI-MRA documented in this encounter Advance Directives * Full Code (Latest Code Status on File) Date Activated Date Inactivated Comments 09/15/2023 3:25 AM This order ref lects the patients wishes and were consensually agreed upon. Question Answer Comments Discussion of Advance Directives occurred with: Patient Care Teams Cleaner And Presser Relationship Specialty Start Date End Date Huseyin Etienne MD PCP - General Pulmonary Diseases 02/03/14 documented as of this encounter
--- OUTSIDE RECORDS SUMMARY | 2023-11-28 06:13 | External Medical Summary | Summary of Care ---
Author Name Unknown Organization [facility] Address [address] [facility] [place] [address] Phone [phone] Care Team Providers Care Aircraft Cylinder Mechanic Name Role Phone Huseyin Etienne MD Primary Care Provider Reason for Visit * Reason Comments Acute Encounter Details Date Type Department Care Team ([facility] st Contact Info) Description 09/14/2023 10:20 AM EDT Office Visit [facility] [address] [place] [phone] Jessica Curran PA-C [address] [place] [address] [phone] Hypertension goal BP (blood pressure) < 140/90* Allergies No known active allergiesdocumented as of this encounter (statuses as of 09/15/2023) Medications Medication Sig Dispensed Refills Start Date End Date Status LISINOPRIL 20 MG PO TABS one tablet daily 09/14/2023 Discontinued Loratadine 10 MG Oral Tablet (Claritin) Take [...] AM EDT documented as of this encounter Last Filed Vital Signs Vital Sign Reading Time Taken Comments Blood Pressure 229/149 09/14/2023 10:36 AM EDT Pulse 93 09/14/2023 10:32 AM EDT Temperature 36.9 C (98.4 F) 09/14/2023 10:32 AM E DT Respiratory Rate 16 09/14/2023 10:32 AM EDT Oxygen Saturation 97% 09/14/2023 10:32 AM EDT Inhaled Oxygen Concentration - - Weight 68.1 kg (150 lb 3.2 oz) 09/14/2023 10:32 AM EDT Height 164.5 cm (5' 4.75") 09/14/2023 10:32 AM E DT Body Mass Index 25.19 09/14/2023 10:32 AM EDT documented in this encounter Progress Notes * Jessica Curran PA-C - 09/14/2023 10:45 AM EDT Images from the original note were not included. History of Present Illness Loren Minor is a 43 year old female that presents for Acute Pt here for evaluation. She has not been seen at the doctors for several years. Pt states that she has not been feeling well recently. Very fatigued. Off balance and bumping into things. Legs were bothering her the other day, tingling/numbness. It did go away. Pt also admits to slight headache thisam but that also resolved. BP very high today. I did recheck it and got 218/118 after she had been sitting. Pt denies any chest pain or SOB. Pt states that she actually felt better today. Pt does admit to high BP during but that was 20 years ago. I expressed my concerns with BP running that high. At first she was very reluctant to go to the ED,but after further discussion she did call her daughter and she picked her up to take her. Magnesium 30 MG Oral Tablet Vitamin B Complex Oral Tablet Vitamin C Oral Tablet Chewable Loratadine 10 MG Oral Tablet (Claritin) LISINOPRIL 20 MG PO TABS Review of patient's allergies indicates: No Known Allergies Patient Active Problem List Diagnosis Date Noted Lattice degeneration [H35.419] 12/06/2013 Myopia [H52.10] 12/06/2013 Retinal detachment with retinal defect [H33.009] 12/04/2013 Social History Socioeconomic History Marital status: Significant Other Spouse name: Not on file Number of children: Not on file Years of education: Not on file Highest education level: Not on file Occupational History Not on file Tobacco Use Smoking status: Never Smokeless tobacco: Never Vaping Use Vaping status: Never Used Substance and Sexual Activity Alcohol use: Yes Drug use: No Sexual activity: Not on file Other Topics Concern Not on file Social History Narrative Not on file Social Determinants of Health Financial Resource Strain: Not on file Food Insecurity: No Food Insecurity (09/13/2023) Hunger Vital Sign Worried About Running Out of Food in the Last Year: Never true Ran Out of Food in the Last Year: Never true Transportation Needs: Not on file Physical Activity: Not on file Stress: Not on file Social Connections: Not on file Intimate Partner Violence: Not on file Housing Stability: Not on file Past Surgical History: Procedure Laterality Date MISCELLANEOUS ORDER ([facility] ONLY) 02/03/2014 Laser procedure of the Left eye, PARTIAL REMOVAL OF EYE FLUID 12/05/2013 SB #[id number]/cryo/[id number]%/PSTKenalog OD; Dr. Zhu Family History Problem Relation Name Age of Onset Cancer None Diabetes Father Diabetes Grandfather (Maternal) Diabetes Grandfather (Paternal) Thyroid Disorder None Stroke Grandfather (Maternal) Heart Disorder None Eye Problems None Pt denies AMD,glaucoma, retinal detachment or blindness Review of Systems Constitutional: Positive for fatigue. Respiratory: Negative. Cardiovascular: Negative. Genitourinary: Negative. Neurological: Positive for headaches. Physical Exam BP (!) 229/149 (BP Site: Left Arm, BP Position: Sitting, BP Cuff Size: Large) | Pulse 93 | Temp 36.9 C (98.4 F) (Temporal Artery) | Resp 16 | Ht 1.645 m (5' 4.75") | Wt 68.1 kg (150 lb 3.2 oz) | SpO2 97% | BMI 25.19 kg/m | BSA 1.76 m Physical Exam Constitutional: Appearance: Normal appearance. Cardiovascular: Rate and Rhythm: Normal rate and regular rhythm. Pulmonary: Effort: Pulmonary effort is normal. Breath sounds: Normal breath sounds. Skin: General: Skin is warm. Neurological: Mental Status: She is alert. I have reviewed most recent labs None Assessment and Plan Hypertension goal BP (blood pressure) < 140/90 - Pt advised to go directly to ED. Pt called daughter who picked her up to drive her. They were unsure which ED they were going to go to. Wrap-Up Time: I spent a total of 30-39 minutes (exact time 35 mins) on the date of service in preparation, delivery, and documentation of the care provided to Loren Minor excluding any time spent in the performance of separately billed services. documented in this encounter Nursing Notes * Carina Bazzi LPN - 09/14/2023 10:27 AM EDT The patient has been properly identified by confirmation of name and date of . Chief Complaint Patient presents with Acute Pt here for not feeling well recently. Very fatigued. Off balance and bumping into things. Legs were bothering her the other day, tingling/numbness. It did go away. [place]? One of her coworkers was recently very sick and extremely tired for 3-4 weeks. Has been resting more and napping some. BP very high today. Feels okay other than slight headache. documented in this encounter Plan of Treatment Health Maintenance Due Date Last Done Comments Depression Screening 1991 Albumin/Creatinine Ratio 1997 Hepatitis C Screening 1997 DTaP,Tdap,and Td Vaccines (1 - Tdap) 1998 Hepatitis B (1 of 3 - 19+ 3-dose series) 1998 Pap Smear 2000 Cervical Cancer Screening 2009 HPV/Co-Test 2009 Mammogram 2019 COVID-19 Vaccine (1 - 2022-2 4 season) 2022 Influenza Vaccine (FLU shot) (Season Ended) 2023 GFR 09/14/2024 09/15/2023, 01/04/1996 Diabetes Screening 09/14/2026 09/15/2023, 09/15/2023, 01/04/1996 HIV Screening Completed 09/15/2023 GARDASIL-HPV IMMUNIZATION SERIES Aged Out No [...] as of this encounter Visit Diagnoses Diagnosis Hypertension goal BP (blood pressure) < 140/90- Primary Unspecified essential hypertension documented in this encounter Advance Directives * Full Code (Latest Code Status on File) Date Activated Date Inactivated Comments 09/15/2023 3:25 AM This order ref lects the patients wishes and were consensually agreed upon. Question Answer Comments Discussion of Advance Directives occurred with: Patient Care Teams Aircraft Cylinder Mechanic Relationship Specialty Start Date End Date Huseyin Etienne MD PCP - General Pulmonary Diseases 02/03/14 documented as of this encounter
--- OUTSIDE RECORDS SUMMARY | 2023-11-28 06:13 | External Medical Summary ---
Author Name Unknown Address Unknown Organization [id number]:[facility] [place] [address] [place] [address] Laboratory Report Ordering Provider Test Date Status MEDINA ANDREW 09/15/2023 03:46:00 Final Observation Date Value Abnormality Reference (Units ) Status HbA1C 09/15/2023 03:46:00 5.5 4.0-5.6 (% ) Final The use of HbA1c to monitor glycemic status is based on normal hemoglobin and HbA composition. This test should not be used in patients with abnormal hemoglobin that affects the half life of the red blood cell or the in vivo glycation rates. Glucose, estimated average 09/15/2023 03:46:00 111 <126 (mg/dL) Final Performing Location [facility] [place] [address] [facility] [address]
--- OUTSIDE RECORDS SUMMARY | 2023-11-28 06:13 | External Medical Summary ---
Author Name Unknown Address Unknown Organization [id number]:LABORATORY [facility] [place] - [address] [place] [address] Laboratory Report Ordering Provider Test Date Status WADE JOHN 09/15/2023 10:38:55 Final Observation Date Value Abnormality Reference (Units ) Status Protein S, Functional 09/15/2023 10:38:55 74 65-140 (%) Final Performing Location LAB[facility]ATORY [facility] - [address] [place] [address]
--- OUTSIDE RECORDS SUMMARY | 2023-11-28 06:13 | External Medical Summary ---
Author Name Unknown Address Unknown Organization [id number]:LABORATORY [facility] [place] - [address] [place] [address] Laboratory Report Ordering Provider Test Date Status MEDINA ANDREW 09/15/2023 05:51:01 Final Observation Date Value Abnormality Reference (Units ) Status HIV 1+2 Ab+HIV1 p24 Ag [Presence] in Serum or Plasma by Immunoassay 09/15/2023 05:51:01 Negative Negative Final Negative HIV-1/2 antigen and antibody screening tset results usually indicate the absence of HIV-1 and HIV-2 infection. However, such negative results do not rule-out acute HIV infection. If acute HIV-1 infection is highly suspected, it is recommended that a specimen be submitted for detection of HIV-1 RNA. Performing Location LABORATORY [facility] [place] - [address] [place] [address]
--- OUTSIDE RECORDS SUMMARY | 2023-11-28 06:13 | External Medical Summary ---
Author Name Unknown Address Unknown Organization [id number]:LABORATORY [facility] [place] - [address] [place] [address] Laboratory Report Ordering Provider Test Date Status MEDINA ANDREW 09/15/2023 04:00:00 Final Observation Date Value Abnormality Reference (Units ) Status Methicillin resistant Staphylococcus aureus (MRSA) DNA [Presence] in Nose by LJ with probe detection 09/15/2023 04:00:00 Negative Negative Final No Methicillin resistant Sta phylococcus aureus detected by PCR (amplified probe). Performing Location LAB[facility] - [address] [place] [address]
--- OUTSIDE RECORDS SUMMARY | 2023-11-28 06:13 | External Medical Summary ---
Author Name Unknown Address Unknown Organization [id number]:LABORATORY [facility] [place] - [address] [place] [address] Laboratory Report Ordering Provider Test Date Status MEDINA ANDREW 09/15/2023 05:51:01 Final Observation Date Value Abnormality Reference (Units ) Status SSA Ab 09/15/2023 05:51:01 Negative Negative Final Sjogrens syndrome-A extractable nuclear Ab [Units/volume] in Serum by Immunoassay 09/15/2023 05:51:01 <0.4 <7 (U/mL) Final SSB Ab 09/15/2023 05:51:01 Negative Negative Final Sjogrens syndrome-B extractable nuclear Ab [Units/volume] in Serum by Immunoassay 09/15/2023 05:51:01 <0.4 <7 (U/mL) Final Performing Location LABORATORY [facility] [place] - [address] [place] [address]
--- OUTSIDE RECORDS SUMMARY | 2023-11-28 06:13 | External Medical Summary ---
Author Name Unknown Address Unknown Organization [id number]:LABORATORY [facility] [place] - [address] [place] [address] Laboratory Report Ordering Provider Test Date Status MEDINA ANDREW 09/15/2023 05:51:01 Final Observation Date Value Abnormality Reference (Units ) Status Rheumatoid Factor 09/15/2023 05:51:01 <10 <1 4 (IU/mL) Final Performing Location [facility] - [address] [place] [address]
--- OUTSIDE RECORDS SUMMARY | 2023-11-28 06:13 | External Medical Summary ---
Author Name Unknown Address Unknown Organization K01:LAB[facility]ATORY [facility] - [address] [place] [address] Laboratory Report Ordering Provider Test Date Status MEDINA ANDREW 09/15/2023 05:51:01 Final Observation Date Value Abnormality Reference (Units ) Status Neutrophil cytoplasmic Ab [Presence] in Serum by Immunofluorescence 09/15/2023 05:51:01 Negative Negative Final Neutrophil cytoplasmic Ab [Presence] in Serum by Immunofluorescence 09/15/2023 05:51:01 Negative Negative Final Negative for ANCA. Performing Location LABORATORY [facility] - [address] [place] [address]
--- OUTSIDE RECORDS SUMMARY | 2023-11-28 06:13 | External Medical Summary ---
Author Name Unknown Address Unknown Organization : Laboratory Report Ordering Provider Test Date Status AWDE JOHN 09/15/2023 10:38:55 Final Observation Date Value Abnormality Reference (Units ) Status Homocysteine 09/15/2023 10:38:55 9.3 <10.4 ( umol/L) Final Homocysteine is increased by functional deficiency of
folate or vitamin B12. Testing for methylmalonic acid
differentiates between these deficiencies. Other causes
of increased homocysteine include renal failure, folate
antagonists such as methotrexate and phenytoin, and
exposure to nitrous oxide.
Celi Woo, et al. [employer] Med. 1999;131(5):331-9.

Test Performed at:
[facility] [place]
[address] [facility]
[place] [address]
Jason Rees M.D., Ph.D.,Director of Laboratories Performing Location
--- OUTSIDE RECORDS SUMMARY | 2023-11-28 06:13 | External Medical Summary ---
Author Name Unknown Address Unknown Organization : Laboratory Report Ordering Provider Test Date Status WILFRIDO ADDISON 09/15/2023 10:38:55 Final Observation Date Value Abnormality Reference (Units ) Status Metanephrine Free [Mass/volume] in Serum or Plasma 09/15/2023 10:38:55 25 <=57 (pg/mL) Final This test was developed and its analytical performance
characteristics have been determined by [facility] [employer] [place], [place]. It has
not been cleared or approved by the U.S. Food and Drug
Administration. This assay has been validated pursuant
to the CLIA regulations and is used for clinical
purposes. Normetanephrine Free [Mass/v olume] in Serum or Plasma 09/15/2023 10:38:55 97 <=148 (pg/mL) Ssaha l This test was developed and its analytical performance
characteristics have been determined by [facility] [place], [place]. It has
not been cleared or approved by the U.S. Food and Drug
Administration. This assay has been validated pursuant
to the CLIA regulations and is used for clinical
purposes. Metanephrines 09/15/2023 10:38:55 122 <=205 (pg/mL) Final For additional information, please refer to
http://education.[employer].Synergos/faq/MetFractFree
(This link is being provided for informational/educatio
[...] analytical performance
characteristics have been determined by [facility]
[place] It has
not been cleared or approved by the U.S. Food and Drug
Administration. This assay has been validated pursuant
to the CLIA regulations and is used for clinical
purposes.

Test Performed at:
[facility]
[address] [facility]
[place] [address]
Jason Rees M.D., Ph.D.,Director of Laboratories Performing Location
--- OUTSIDE RECORDS SUMMARY | 2023-11-28 06:13 | External Medical Summary ---
Author Name Unknown Address Unknown Organization K01:LABORATORY [place] [address] [facility] [address] [place] [address] Laboratory Report Ordering Provider Test Date Status MEDINA ANDREW 09/15/2023 05:51:01 Final Anticardiolipin / beta-2 gly coprotein antibodies must be detected on 2 or more occasions at least 12 weeks apart to fulfill the laboratory diagnostic criteria for Antiphospholipid Syndrome. Observation Date Value Abnormality Reference (Units ) Status Cardiolipin IgG Ab [Presence] in Serum by Immunoassay 09/15/2023 05:51:01 Negative Negative Final Cardiolipin IgG Ab [Units/volume] in Serum by Immunoassay 09/15/2023 05:51:01 0.8 <10 (GPL U/mL) Final Cardiolipin IgM Ab [Presence] in Serum by Immunoassay 09/15/2023 05:51:01 Negative Negative Final Cardiolipin IgM Ab [Units/volume] in Serum by Immunoassay 09/15/2023 05:51:01 1.3 <10 (MPL U/mL) Final Performing Location LABORATORY [facility] [place] - [facility] [place] [address]
--- OUTSIDE RECORDS SUMMARY | 2023-11-28 06:13 | External Medical Summary ---
Author Name Unknown Address Unknown Organization K01:LABORATORY [facility] [place] - [address] [place] [address] Laboratory Report Ordering Provider Test Date Status MEDINA ANDREW 09/15/2023 03:46:00 Final Observation Date Value Abnormality Reference (Units ) Status Erythrocyte sedimentation rate by Photometric method 09/15/2023 03:46:00 36 Above high normal <20 (mm/hour) Final Performing Location LABORATORY [facility] [place] - [address] [place] [address]
--- OUTSIDE RECORDS SUMMARY | 2023-11-28 06:13 | External Medical Summary ---
Author Name Unknown Address Unknown Organization K01:[facility] [place] [address] [place] [address] Laboratory Report Ordering Provider Test Date Status MEDINA ANDREW 09/15/2023 03:46:00 Final If on Warfarin

Warf bijan Therapy
INR: 2.0-3.0 conventional anticoagulation
INR: 2.5-3.5 high intensity anticoagulation Observation Date Value Abnormality Reference (Units ) Status PT 09/15/2023 03:46:00 13.8 11.6-15.2 (seconds) Final INR 09/15/2023 03:46:00 1.1 0.8-1.2 Final Performing Location LAB[facility]ORY [facility] [place] [address] [place] [address]
--- OUTSIDE RECORDS SUMMARY | 2023-11-28 06:13 | External Medical Summary ---
Author Name Unknown Address Unknown Organization K01:LABORATORY [facility] - [address] [place] [address] Laboratory Report Ordering Provider Test Date Status MEDINA ANDREW 09/15/2023 03:46:00 Final Observation Date Value Abnormality Reference (Units ) Status Magnesium 09/15/2023 03:46:00 2.4 1.5-2.6 (m g/dL) Final Performing Location [facility] [address] [facility] [address]
--- OUTSIDE RECORDS SUMMARY | 2023-11-28 06:13 | External Medical Summary ---
Author Name Unknown Address Unknown Organization K01:LAB[facility]ATORY [facility] [place] - [address] [facility] [address] [place] [address] Laboratory Report Ordering Provider Test Date Status MEDINA ANDREW 09/15/2023 03:46:00 Final Observation Date Value Abnormality Reference (Units ) Status WBC, Total 09/15/2023 03:46:00 10.29 4.00-10.80 (K/uL) Final RBC 09/15/2023 03:46:00 4.98 3.85-5.15 (M/uL) Final Hemoglobin 09/15/2023 03:46:00 12.3 12.0-15.3 (g/dL) Final HCT 09/15/2023 03:46:00 39.9 36.0-45.2 (%) Final MCV 09/15/2023 03:46:00 80.1 81.5-97.5 (fL) Final MCH 09/15/2023 03:46:00 24.7 27.0-34.0 (pg) Final MCHC 09/15/2023 03:46:00 30.8 32.0-36.0 (g/dL) Final RDW 09/15/2023 03:46:00 16.2 11.5-15.5 (%) Final Platelets 09/15/2023 03:46:00 409 Above high normal 140-400 (K/uL) Final MPV 09/15/2023 03:46:00 10.7 6.6-11.1 (fL) Final Nucleated erythrocytes/100 leukocytes [Ratio] in Blood by Automated count 09/15/2023 03:46:00 0 <=0 (/100 WBCs) Final Performing Location LABORATORY [facility] [place] - [address] [place] [address]
--- OUTSIDE RECORDS SUMMARY | 2023-11-28 06:13 | External Medical Summary ---
Author Name Unknown Address Unknown Organization K01:LABORATORY [facility] [place] - [facility] [place] [address] Laboratory Report Ordering Provider Test Date Status MEDINA ANDREW 09/15/2023 05:51:01 Final Observation Date Value Abnormality Reference (Units ) Status Reagin Ab [Presence] in Serum by RPR 09/15/2023 05:51:01 Nonreactive Nonreactive Final Performing Location LABORATORY [facility] [place] - [address] [place] [address]
--- OUTSIDE RECORDS SUMMARY | 2023-11-28 06:13 | External Medical Summary ---
Author Name Unknown Address Unknown Organization K01:[facility] [place] [address] [place] [address] Laboratory Report Ordering Provider Test Date Status MEDINA ANDREW 09/15/2023 05:51:01 Final Observation Date Value Abnormality Reference (Units ) Status Borrelia burgdorferi IgG and IgM [Interpretation] in Serum by Immunoassay 09/15/2023 05:51:01 Negative Negative Final Performing Location [facility] [facility] [place] [address] [place] [address]
--- OUTSIDE RECORDS SUMMARY | 2023-11-28 06:13 | External Medical Summary ---
Author Name Unknown Address Unknown Organization K01:[place] [facility] [place] [address] [place] [address] Laboratory Report Ordering Provider Test Date Status MEDINA ANDREW 09/15/2023 05:26:26 Final Normal: <150 mg/ g creatinine
High: 150-500 mg/g creatinine
Very High: >500 mg/g creatinine
Nephrotic: >3000 mg/g creatinine Observation Date Value Abnormality Reference (Units ) Status Protein/Creatinine [Ratio] in Urine 09/15/2023 05:26:26 200 Above high normal <150 (mg/g ) Final Protein, Urine 09/15/2023 05:26:26 8 (mg/dL) Final Creatinine, Urine 09/15/2023 05:26:26 40 (mg/dL) Final Performing Location [facility] [place] [address] [place] [address]
--- OUTSIDE RECORDS SUMMARY | 2023-11-28 06:13 | External Medical Summary ---
Author Name Unknown Address Unknown Organization : Laboratory Report Ordering Provider Test Date Status MEDINA ANDREW 09/15/2023 05:51:01 Final Observation Date Value Abnormality Reference (Units ) Status FTA - ABS 09/15/2023 05:51:01 Nonreactive Nonreact ang Final The FTA-ABS is a treponemal assay that is intended to
be used with other tests (e.g., RPR) as part of a
diagnostic algorithm for syphilis. The preferred
treponemal-specific tests for confirmation of a
reactive RPR are Treponema pallidum Particle
Agglutination (TP-PA) or other treponemal antibody
assays. From Sexually Transmitted Infections Treatment
Guidelines,2020 MMWR Recomm Rep 2020;70 (No. RR-4):
pg.39.

Test Performed at:
[facility]
[address] [facility]
[place] [address]
Jason Rees M.D., Ph.D.,Director of Laboratories Performing Location
--- OUTSIDE RECORDS SUMMARY | 2023-11-28 06:13 | External Medical Summary ---
Author Name Unknown Address Unknown Organization K01:LAB[facility]ATORY [facility] [place] [address] [place] [address] Laboratory Report Ordering Provider Test Date Status WADE JOHN 09/15/2023 10:38:55 Final Observation Date Value Abnormality Reference (Units ) Status Antithrombin III 09/15/2023 10:38:55 113 80- 120 (%) Final Performing Location LABORATORY [facility] [place] [address] [place] [address]
--- OUTSIDE RECORDS SUMMARY | 2023-11-28 06:13 | External Medical Summary ---
Author Name Unknown Address Unknown Organization : Laboratory Report Ordering Provider Test Date Status WADE JOHN 09/15/2023 10:38:55 Final Observation Date Value Abnormality Reference (Units ) Status Performing Location
--- OUTSIDE RECORDS SUMMARY | 2023-11-28 06:13 | External Medical Summary ---
Author Name Unknown Address Unknown Organization [id number]:LABORATORY [facility] [place] - [address] [facility] [address] Laboratory Report Ordering Provider Test Date Status WADE JOHN 09/15/2023 10:38:55 Final Observation Date Value Abnormality Reference (Units ) Status Hep C Ab 09/15/2023 10:38:55 Negative Negative Final Further HCV quantitative dusty ting not performed per protocol. Performing Location [facility] - [address] [facility] [address]
--- OUTSIDE RECORDS SUMMARY | 2023-11-28 06:13 | External Medical Summary ---
Author Name Unknown Address Unknown Organization [id number]:LABORATORY [facility] [place] [address] [place] [address] Laboratory Report Ordering Provider Test Date Status MEDINA ANDREW 09/15/2023 03:46:00 Final Observation Date Value Abnormality Reference (Units ) Status Complement C3c [Mass/volume] in Serum or Plasma 09/15/2023 03:46:00 <4 Below low normal 90-180 (mg/dL) Final Performing Location [facility] - [address] [place] [address]
--- OUTSIDE RECORDS SUMMARY | 2023-11-28 06:13 | External Medical Summary ---
Author Name Unknown Address Unknown Organization [id number]:[place]ORY [facility] [place] [address] [facility] [address] Laboratory Report Ordering Provider Test Date Status MEDINA ANDREW 09/15/2023 05:26:26 Final Observation Date Value Abnormality Reference (Units ) Status Color of Urine by Auto 09/15/2023 05:26:26 Light Yellow Colorless, Light Yellow, Yellow, Dark Yellow Final Clarity, Urine 09/15/2023 05:26:26 Clear Clear Final Glucose [Mass/volume] in Urine by Automated test strip 09/15/2023 05:26:26 Negative Negative (mg/dL) Final Bilirubin.total [Presence] in Urine by Automated test strip 09/15/2023 05:26:26 Negative Negative Final Ketones [Mass/volume] in Urine by Automated test strip 09/15/2023 05:26:26 Negative Negative (mg/dL) Final Specific gravity, Urine 09/15/2023 05:26:26 1.010 1.003-1.030 Final Hemoglobin [Presence] in Urine by Automated test strip 09/15/2023 05:26:26 Negative Negative Final pH, Urine 09/15/2023 05:26:26 6.5 5.0-7.5 (Units) Final Protein [Mass/volume] in Urine by Automated test strip 09/15/2023 05:26:26 Negative Negative (mg/dL) Final Urobilinogen [Mass/volume] in Urine by Automated test strip 09/15/2023 05:26:26 Normal Normal (mg/dL) Final Nitrite [Presence] in Urine by Automated test strip 09/15/2023 05:26:26 Negative Negative Final Leukocyte esterase [Presence] in Urine by Automated test strip 09/15/2023 05:26:26 Negative Negative Final Annotation Comment 09/15/2023 05:26:26 Final Screen negative - Microscopi c not performed. Performing Location LABORATORY C - [address] [place] [facility] [address]
--- OUTSIDE RECORDS SUMMARY | 2023-11-28 06:13 | External Medical Summary ---
Author Name Unknown Address Unknown Organization [id number]:LABORATORY [facility] [place] - [address] [place] [address] [place] [address] Laboratory Report Ordering Provider Test Date Status WADE JOHN 09/15/2023 10:38:55 Final Observation Date Value Abnormality Reference (Units ) Status Protein C actual/normal in Platelet poor plasma by Chromogenic method 09/15/2023 10:38:55 126 75-135 (%) Final Performing Location LABORATORY [facility] [place] - [address] [facility] [address]
--- OUTSIDE RECORDS SUMMARY | 2023-11-28 06:13 | External Medical Summary ---
Author Name Unknown Address Unknown Organization [id number]:LABORATORY [address] [facility] [address] Laboratory Report Ordering Provider Test Date Status MEDINA ANDREW 09/15/2023 05:51:01 Final Observation Date Value Abnormality Reference (Units ) Status Nuclear IgG Ab [Ratio] in Serum by Immunoassay 09/15/2023 05:51:01 Negative Negative Final DNA double strand Ab [Presence] in Serum 09/15/2023 05:51:01 Negative Negative Final DOUBLE STRANDED DNA VALUE - [facility] 09/15/2023 05:51:01 0.7 <20 (IU/mL) Final Extractable nuclear Ab [Presence] in Serum 09/15/2023 05:51:01 Negative Negative Final Nuclear IgG Ab [Ratio] in Serum by Immunoassay 09/15/2023 05:51:01 0.1 <0.7 (Ratio) Final Screening is based on detect ion of the following antibodies: dsDNA, U1-CAR SERVICER (RNP70, A, C), SS-A/Ro, SS-B / La, [...] with Rheumatology Department.
Methodology: Fluorescent Enzyme Immunoassay. Performing Location LABORATORY [address] [facility] [address]
--- OUTSIDE RECORDS SUMMARY | 2023-11-28 06:13 | External Medical Summary | Summary of Care ---
Author Name Unknown Organization [facility] Address [address] [facility] [place] [address] Phone [phone] Care Team Providers Care Agronomy Instructor Name Role Phone Huseyin Etienne MD Primary Care Provider Encounter Details Date Type Department Care Team (Latest Contact Info) Description 09/14/2023 8:38 PM EDT - 09/14/2023 8:41 PM EDT Hospital Encounter Radiology Film File [address] [place] [address] Arrived Discharge Disposition: Home - Self Care [...] CT (IMAGES ONLY, NO REPORT) Routine 09/14/2023 8:46 PM EDT documented in this encounter Results * RADIOLOGY EXAM - CT (IMAGES ONLY, NO REPORT) (09/14/2023 8:46 PM EDT) Narrative Scheduling, Silent - 09/14/2023 8:46 PM EDT This is an imaging study not interpreted or resulted by a [employer] or [employer] contracted radiologist. Faizan Jeffery MD RAD CT documented in this encounter Advance Directives * Full Code (Latest Code Status on File) Date Activated Date Inactivated Comments 09/15/2023 3:25 AM This order ref lects the patients wishes and were consensually agreed upon. Question Answer Comments Discussion of Advance Directives occurred with: Patient Care Teams Agronomy Instructor Relationship Specialty Start Date End Date Huseyin Etienne MD PCP - General Pulmonary Diseases 02/03/14 documented as of this encounter
--- OUTSIDE RECORDS SUMMARY | 2023-11-28 06:13 | External Medical Summary ---
Author Name Unknown Address Unknown Organization : Laboratory Report Ordering Provider Test Date Status WILFRIDO ADDISON 09/15/2023 10:38:55 Final Please have patient sit for 15 minutes Observation Date Value Abnormality Reference (Units ) Status Aldosterone 09/15/2023 10:38:55 28 (ng/ dL) Final Unable to flag abnormal resu lt(s), please refer
to reference range(s) below:
Adult Reference Ranges for Aldosterone, LC/MS/MS:
Upright 8:00 - 10:00 am < or = 28 ng/dL
Upright 4:00 - 6:00 pm < or = 21 ng/dL
Supine 8:00 - 10:00 am 3 - 16 ng/dL Renin Activity 09/15/2023 10:38:55 2.51 0.25- 5.82 (ng/mL/h) Final Aldosterone / Renin ratio 09/15/2023 10:38:55 11.2 0.9-28.9 (Ratio) Final This test was developed and its analytical performance
characteristics have been determined by [facility] [place], [place]. It has
not been cleared or approved by the U.S. Food and Drug
Administration. This assay has been validated pursuant
to the CLIA regulations and is used for clinical
purposes.

Test Performed at:
[facility]
[address] [facility]
[place], [place]
Jason Rees M.D., Ph.D.,Director of Laboratories Performing Location
--- OUTSIDE RECORDS SUMMARY | 2023-11-28 06:14 | External Medical Summary ---
Author Name Unknown Address Unknown Organization [id number]:LABORATORY [facility] [place] - [address] [facility] [address] Laboratory Report Ordering Provider Test Date Status MEDINA ANDREW 09/15/2023 03:46:00 Final Observation Date Value Abnormality Reference (Units ) Status CRP, low-sensitivity 09/15/2023 03:46:00 5 <=5 (mg/L) Final Performing Location [facility] - [address] [facility] [address]
--- OUTSIDE RECORDS SUMMARY | 2023-11-28 06:14 | External Medical Summary | Summary of Care ---
Author Name Unknown Organization [facility] Address [address] [facility] [place] [address] Phone [phone] Care Team Providers Care Deli Manager Name Role Phone Huseyin Etienne MD Primary Care Provider Reason for Visit * Reason Comments Acute Encounter Details Date Type Department Care Team ([facility] st Contact Info) Description 09/14/2023 10:20 AM EDT Office Visit [facility] [address] [place] [phone] Jessica Curran PA-C [address] [place] [phone] Hypertension goal BP (blood pressure) < 140/90* Allergies No known active allergiesdocumented as of this encounter (statuses as of 09/14/2023) Medications Medication Sig Dispensed Refills Start Date End Date Status Loratadine 10 MG Oral Tablet (Claritin) Take 1 Tablet by mouth in the morning. Active Vitamin C Oral Tablet Chewable Take 1 Tablet by mouth in the morning. Active Vitamin B Complex Oral Tablet Take 1 Tablet by mouth in the morning. Active Magnesium 30 MG Oral Tablet Take by mouth. 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 Zhu Family History Problem Relation [...] other day, tingling/numbness. It did go away. [place]? One of her coworkers was recently very sick and extremely tired for 3-4 weeks. Has been resting more and napping some. BP very high today. Feels okay other than slight headache. documented in this encounter Plan of Treatment Health Maintenance Due Date Last Done Comments Lipid Panel 1979 Depression Screening 1991 HIV Screening 1994 Hepatitis C Screening 1997 DTaP,Tdap,and Td Vaccines (1 - Tdap) 1998 Hepatitis B (1 of 3 - 19+ 3- dose series) 1998 Diabetes Screening 01/03/1999 01/04/1996 Pap Smear 2000 Cervical Cancer Screening 2009 HPV/Co-Test 2009 Mammogram 2019 COVID-19 Vaccine ( - 2022-2 4 season) 2022 Influenza Vaccine (FLU shot) (Season Ended) 2023 GARDASIL-HPV IMMUNIZATION SERIES Aged Out No longer eligible based on patient's age to complete this topic MENINGOCOCCAL (MENACTRA/MENVEO) Aged Out No longer eligible based on patient's age to complete this topic Pneumococcal Vaccine: Pediat rics (0 to 5 Years) and At-Risk Patients (6 to 64 Years) Aged Out No longer eligi ble based on patient's age to complete this topic documented as of this encounter Medical Devices Not on filedocumented as of this encounter Visit Diagnoses Diagnosis Hypertension goal BP (blood pressure) < 140/90- Primary Unspecified essential hypertension documented in this encounter Care Teams Deli Manager Relationship Specialty Start Date End Date Huseyin Etienne MD PCP - General Pulmonary Diseases 02/03/14 documented as of this encounter
--- OUTSIDE RECORDS SUMMARY | 2023-11-28 06:14 | External Medical Summary | Summary of Care ---
Author Name Unknown Organization [facility] Address [address] [place] [address] Phone [phone] Care Team Providers Care Quantitative Manager Name Role Phone Huseyin Etienne MD Primary Care Provider Reason for Visit * Reason Comments Neuro Deficit/Stroke/TIA Encounter Details Date Type Department Care Team (Late st Contact Info) Description [facility] [address] [place] [address] Jian Snowden MD [address] [place] [address] Intracranial carotid stenosis, right* Allergies No known active allergiesdocumented as of [...] MG Oral Tablet Take by mouth. Active documented as of this encounter (statuses [...] AM EDT documented as of this encounter Progress Notes * Jian Snowden MD - 09/14/2023 8:38 PM EDT I was called about this patient a 43-year-old female patient with no significant PMH who has presented with hypertensive emergency found to have a right ICA watershed infarct with CT angiogram showing severe stenosis of the intracranial right internal carotid artery in addition to left V4 segment intracranial stenosis. No apparent dissection is identified. Recommended: Transfer to ICU [facility] Further evaluation with. Checking vasculitis panel SSA SSB ANCA, ESR CRP, FABIOLA, anti-TPO. Recommended LP. Consider cerebral angiogram. Continue aspirin , statin , liberate blood pressure Further recommendations upon evaluation by inpatient neurology team. CTA : MPRESSION: 1. High-grade stenosis of the supraclinoid segment right ICA. 2. Moderate luminal narrowing of the right greater than left V4 segments of the vertebral arteries.Correlate clinically to exclude a nonspecific vasculitis. MRI: There are several scattered subcentimeter foci of restricted diffusion noted within the watershed centrum semiovale distribution of the right frontal and parietal lobes measuring up to 9 mm on image 19 series 4 within the frontal lobe. These areas demonstrate increased T2/FLAIR signal with subtle enhancement. No acute or subacute territorial infarct. No acute intracranial hemorrhage, midline shift, abnormal extraction collection, hydrocephalus or intra-axial mass. Chronic 8 mm left thalamic lacunar infarct. Midline structures are unremarkable. No abnormal enhancement. Mild scattered T2/FLAIR hyperintense foci. White matter are nonspecific, possibly representing early changes of chronic microvascular ischemic disease. Severe narrowing of the cavernous and supraclinoid segments of the right ICA better appreciated on the comparison CTA of the head. Cerebral venous sinuses are patent. Right-sided. Mastoid air cells and paranasal sinuses are generally clear. IMPRESSION: 1. Scattered subcentimeter acute to subacute appearing infarcts within the right centrum semiovale watershed distributions of the superior frontal and parietal lobes. 2. No acute intracranial hemorrhage, midline shift, or hydrocephalus. 3. Chronic left thalamic lacunar infarct. documented in this encounter Plan of Treatment [...] as of this encounter Visit Diagnoses Diagnosis Intracranial carotid stenosis, right- Primary documented in this encounter Care Teams Quantitative Manager Relationship Specialty Start Date End Date Huseyin Etienne MD PCP - General Pulmonary Diseases 02/03/14 documented as of this encounter
--- OUTSIDE RECORDS SUMMARY | 2023-11-28 06:14 | External Medical Summary ---
Author Name Unknown Address Unknown Organization K01:LABORATORY [facility] - [address] [place] [address] Laboratory Report Ordering Provider Test Date Status MEDINA ANDREW 09/15/2023 03:46:00 Final Observation Date Value Abnormality Reference (Units ) Status LDH 09/15/2023 03:46:00 218 <=250 (U/L ) Final Performing Location LAB[facility] - [address] [place] [address]
--- OUTSIDE RECORDS SUMMARY | 2023-11-28 06:14 | External Medical Summary ---
Author Name Unknown Address Unknown Organization K01:LABORATORY [facility] [place] [facility] [address] [place] [address] Laboratory Report Ordering Provider Test Date Status MEDINA ANDREW 09/15/2023 03:46:00 Final Observation Date Value Abnormality Reference (Units ) Status Triglyceride 09/15/2023 03:46:00 126 <=174 ( mg/dL) Final Triglyceride Reference Range s (mg/dL):
<150 Acceptable
150-174 Borderline high
175-499 High
>=500 Very high Cholesterol 09/15/2023 03:46:00 199 <200 (mg /dL) Final Total Cholesterol Reference Ranges (mg/dL):
<200 Desirable
200-239 Borderline high
>=240 High HDL 09/15/2023 03:46:00 62 >49 (mg/dL ) Final HDL Cholesterol Reference Ra nges (mg/dL):
>=60 High (Desirable)
<50 Low (Undesirable) For Females
<40 Low (Undesirable) For Males NON-HDL CHOLESTEROL 09/15/2023 03:46:00 137 <=159 (mg/dL) Final Non-HDL Cholesterol Referenc e Range (mg/dL):
<100 Target level for high risk ASCVD patient
<130 Optimal for general population
130-159 Near optimal for general population
160-189 Borderline High
190-219 High
>=220 Very High LDL, (calculated) 09/15/2023 03:46:00 112 <= 129 (mg/dL) Final LDL Cholesterol Reference Ra nges (mg/dL):
<70 Target level for high risk ASCVD patient
<100 Optimal for general population
100-129 Near optimal for general population
130-159 Borderline high
160-189 High
>=190 Very high Performing Location LABORATORY [facility] [place] - [address] [facility] [address]
--- OUTSIDE RECORDS SUMMARY | 2023-11-28 06:14 | External Medical Summary ---
Author Name Unknown Address Unknown Organization K01:LABORATORY [facility] [place] - [address] [place] [address] Laboratory Report Ordering Provider Test Date Status MEDINA ANDREW 09/15/2023 03:46:00 Final Observation Date Value Abnormality Reference (Units ) Status Troponin T 09/15/2023 03:46:00 6 <=14 (ng/ L) Final Performing Location [facility] - [address] [place] [address]
--- OUTSIDE RECORDS SUMMARY | 2023-11-28 06:14 | External Medical Summary ---
Author Name Unknown Address Unknown Organization K01:LABORATORY [facility] [place] - [address] [place] [address] Laboratory Report Ordering Provider Test Date Status KAMRAN,ZIMARELY 09/15/2023 03:46:00 Final Observation Date Value Abnormality Reference (Units ) Status Albumin 09/15/2023 03:46:00 4.6 3.8-5.0 (g/dL) Final AST (Aspartate aminotransferase) 09/15/2023 03:46:00 17 10-35 (U/L) Final Alk Phos 09/15/2023 03:46:00 89 35-130 (U/L) Final ALT (Alanine aminotransferase) 09/15/2023 03:46:00 16 10-35 (U/L) Final Bilirubin, Total 09/15/2023 03:46:00 0.8 <=1.2 (mg/dL) Final Bilirubin, Direct 09/15/2023 03:46:00 <0.2 0.0-0.3 (mg/dL) Final Protein 09/15/2023 03:46:00 8.1 6.0-8.3 (g/dL) Final Performing Location LABORATORY [facility] [place] - [address] [place] [address]
--- OUTSIDE RECORDS SUMMARY | 2023-11-28 06:14 | External Medical Summary ---
Author Name Unknown Address Unknown Organization K01:LAB[facility]ATORY [facility] - [address] [place] [address] Laboratory Report Ordering Provider Test Date Status MEDINA ANDREW 09/15/2023 03:46:00 Final Observation Date Value Abnormality Reference (Units ) Status Phosphate 09/15/2023 03:46:00 4.2 2.5-4.8 (m g/dL) Final Performing Location [facility] [address] [facility] [address]
--- OUTSIDE RECORDS SUMMARY | 2023-11-28 06:14 | External Medical Summary ---
Author Name Unknown Address Unknown Organization K01:LABORATORY [facility] [place] - [address] [place] [address] Laboratory Report Ordering Provider Test Date Status MEDINA ANDREW 09/15/2023 03:46:00 Final Observation Date Value Abnormality Reference (Units ) Status BUN 09/15/2023 03:46:00 11 6-20 (mg/dL) Final Creatinine 09/15/2023 03:46:00 0.8 0.5-1.0 (mg/dL) Final Glomerular filtration rate/1.73 sq M.predicted [Volume Rate/Area] in Serum, Plasma or Blood by Creatinine-based formula (CKD-EPI) 09/15/2023 03:46:00 >90 >=60 (mL/min) Final eGFR is calculated based on the CKD-EPI 2020 equation Sodium 09/15/2023 03:46:00 139 135-146 (m mol/L) Final Potassium 09/15/2023 03:46:00 3.3 Below low normal 3.5 -5.1 (mmol/L) Final Cl 09/15/2023 03:46:00 103 98-107 (mm ol/L) Final CO2 09/15/2023 03:46:00 21 Below low normal 22- 32 (mmol/L) Final Anion gap 09/15/2023 03:46:00 15 7-15 (mmol /L) Final Glucose 09/15/2023 03:46:00 100 70-120 (mg /dL) Final Calcium 09/15/2023 03:46:00 9.7 8.4-10.2 ( mg/dL) Final Performing Location LABORATORY [facility] [place] - [address] [place] [address]
--- OUTSIDE RECORDS SUMMARY | 2023-11-28 06:14 | External Medical Summary ---
Author Name Unknown Address Unknown Organization K01:LABORATORY [facility] [place] - [address] [facility] [address] Laboratory Report Ordering Provider Test Date Status MEDINA ANDREW 09/15/2023 03:46:00 Final Observation Date Value Abnormality Reference (Units ) Status TSH 09/15/2023 03:46:00 2.66 0.27-4.20 (uIU/mL) Final Performing Location LABORATORY [facility] [place] - [address] [facility] [address]
--- OUTSIDE RECORDS SUMMARY | 2023-11-28 06:14 | External Medical Summary | Summary of Care ---
Author Name Unknown Organization [facility] Address [address] [facility] [place] [address] Phone [phone] Care Team Providers Care Hand Router Operator Name Role Phone Huseyin Etienne MD Primary Care Provider Reason for Visit * Reason Onset Date Comments MyCode Nonconsent - Not interested at this time 09/13/2023 Encounter Details Date Type Department Care Team (Late st Contact Info) Description 09/13/2023 Orders Only Outcomes Research Department [address] [place], [place] [id number] Bailee Garcia CHRA MyCode Nonconsent Documentation Allergies No known active allergiesdocumented as of this encounter (statuses as of 09/13/2023) Medications Medication Sig Dispensed Refills Start Date End Date Status LISINOPRIL 20 MG PO TABS one tablet daily Active documented as of this encounter (statuses as of 09/13/2023) Active Problems Problem Noted Date Diagnosed Date 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 documented in this encounter Plan of Treatment Health Maintenance Due Date Last Done Comments Lipid Panel 1979 Depression Screening 1991 HIV Screening 1994 Hepatitis C Screening 1997 DTaP,Tdap,and Td Vaccines (1 - Tdap) 1998 Hepatitis B (1 of 3 - 19+ 3- dose series) 1998 Pap Smear 2000 Cervical Cancer [...] Not on filedocumented as of this encounter Care Teams Hand Router Operator Relationship Specialty Start Date End Date Huseyin Etienne MD PCP - General Pulmonary Diseases 02/03/14 documented as of this encounter
--- NOTE | 2023-11-28 07:23 | XRay Report ---
XR chest 1V portable CLINICAL HISTORY: stroke alert COMPARISON STUDY: Chest radiograph September 14, 2023. FINDINGS: Lung volumes are normal. Lungs are clear. There is no pneumothorax or pleural effusion. Car diac size is normal. Mediastinal contours are normal. There is no evidence for pulmonary edema. IMPRESSION: No acute cardiopulmonary findings. ACT 112: Negative or not required by law. Electronically signed by: Elieser Lopez M.D. 11/28/2023 7:22 AM
[2023-11-28 07:24] VITALS: RESP 18
[2023-11-28 07:39] LABS: BUN Creatinine Ratio 19.7 (10-20); Calcium 8.4 mg/dl (8.6-10.3); Est GFR (African American) 110.6 ml/min; Est GFR (Non-African American) 95.4 ml/min; Potassium 3.5 mmol/L (3.5-5.1)
[2023-11-28 07:40] LABS: Basophils # (auto) 0.09 K/uL (0.00-0.20); Basophils % (auto) 0.9 %; Eosinophils # (auto) 0.15 K/uL (0.00-0.50); Eosinophils % (auto) 1.6 %; Hematocrit (blood only) 26.6 % (37.0-47.0); Immature Granulocytes # (auto) 0.05 K/uL (0.01-0.20); Immature Granulocytes % (auto) 0.5 %; Lymphocytes # (auto) 1.14 K/uL (1.20-3.40); Lymphocytes % (auto) 11.8 %; Mean Corpuscular Hemoglobin 23.6 pg (25.0-34.0); Mean Corpuscular Hgb Conc 30.1 g/dL (32.0-36.0); Mean Corpuscular Volume 78.5 fL (80.0-100.0); Mean Platelet Volume 9.6 fL (9.4-12.4); Monocytes # (auto) 0.81 K/uL (0.11-0.59); Monocytes % (auto) 8.4 %; Neutrophils # (auto) 7.39 K/uL (1.40-6.50); Neutrophils % (auto) 76.8 %; Platelet Count 498 K/uL (130-400); RDW Coefficient of Variation 15.6 % (11.5-14.5); RDW Standard Deviation 44.5 fL (36.4-46.3); Red Blood Count 3.39 M/uL (4.20-5.40); White Blood Count 9.63 K/ul (4.8-10.8)
[2023-11-28] MEDS: LORATADINE 10 MG TAB PO SCH (08:11)
[2023-11-28] MEDS: CLOPIDOGREL BISULFATE 75 MG TAB PO SCH (08:55)
[2023-11-28] MEDS: ASPIRIN 81 MG ECTAB PO SCH (08:56)
[2023-11-28] MEDS ORDERED: amLODIPine BESYLATE 5 MG TAB PO SCH (09:00)
[2023-11-28] MEDS: IRON SUCROSE 200 MG in SODIUM CHLORIDE 0.9% 100 ML IV ONE (09:51)
[2023-11-28 11:31] VITALS: BP 147/86; TEMP 97.9; O2SAT 100
[2023-11-28 18:12] VITALS: PULSE 85
--- NOTE | 2023-11-28 18:22 | Discharge Summary ---
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 Found to have hypertensive urgency in the ED. Hypertensive urgency hx of stroke SBP readings as high as [address] noting only old stroke. Per pt, chronic Hx of HTN over the course of her life, off and on medications at times as it would sometimes resolve States with recent stroke Hx and per advice of her Neurosurg/Neurology team at [facility], her SBP should be in 140-160 range and she has been keeping it in that range. Adamant that she does not want it lower, does not want any changes to her medications until follow up with her Neurosurg/Neurology team in [place] mid- Dec. Was treated with IV labetalol 10mg, Lisinopril 5mg and IV Lasix 20mg on admission for lower extremity swelling. BP 147/86 on discharge. Pt stated that her symptoms had improved and shs was stable on discharge. Discharged per pt request to continue with her home meds until she follows up with her Neurosurg/Neurology team in [place] mid-Dec. Close PCP followup as well. Bilateral LE swelling likely secondary to amlodipine DVT ruled out with bilateral doppler US pt was given a dose of Lasix 20mg on admission Noted output of about 800ml Per pt request would like to continue with home amlodipine until follow up with her Neurosurg/Neurology team in [place] mid. Close PCP follow up as well. Acute on chronic anemia metromenorrhagia Hgb drop to 8 range currently secondary to recently concluded heavy menses. she states she had her period for 20 days this month ongoing DAPT Rx for CVA, continue Anemia panel showing iron deficiency anemia with iron level of 11 and ferritin of 4.7 s/p 1 bag of IV Venofer 200mg on 11/27 [facility] was consulted for further recs but pt requesting discharge with outpt followup before seen. Please ensure [facility] follow up after discharge for further evaluation of bleeding. Pt also discharged with po iron supplements. Close PCP followup for H/H monitoring as well as iron levels. Notes For Next Care Provider please ensure follow up with [facility] for metromenorrhagia Please ensure close follow up with her Neurosurgery.Neurology team at [facility] for stroke follow up and BP follow up as well. -Pt is requesting no changes to meds at this time and that her SBP be between 140-160 per the recs of [facility] Close PCP followup for H/H monitoring as well as iron levels. 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 Patient was transferred to [facility] from [facility] on 09/14/23 for further management and neurosurgery evaluation after imaging revealed multiple subacute infarcts to the right frontal lobe and stenosis of the right internal carotid artery. CTA at that time was suggestive of an underlying vasculopathy and DSA revealed irregular R ICA stenosis up to 50%. MRI at that time also revealed chronic left BG infarct. Vasculitis work-up was largely unremarkable. TTE with bubble study on 09/15/23 showed the following: LVEF of 55-59%, no LV segmental wall motion abnormalities, no SD/PFO and no LV mural thrombus. She was ultimately placed on DAPT (ASA and Plavix), which she is to be on for total of 90 days. Currently on aspirin 81mg orally daily and Plavix 112.5mg orally daily. She was also started on amlodipine 10mg daily for blood pressure management with blood pressure goal of SBP less than 160mmHg to prevent cerebral hypoperfusion leading to further watershed infarcts. She already has an appointment on 12/19/[address] White from [facility] to re-evaluate her right ICA distal stenosis. Patient has been feeling very fatigued and has felt like she is in a "fog" for the past 3 to 4 days. She has been out in the sun at lot recently as she was at the [employer] and wonders if this could be related to sun exposure. She tried taking allergy medication, which is not helping. She did have her period for close to 3 weeks this month, which is very unusual for her. Her period ended on Monday (11/24). She has not taken her aspirin since the middle of October as she did not have any refills left at her pharmacy. She has however been taking her Plavix, amlodipine and atorvastatin as prescribed. Reports her SBP has been in the 140s to 150s. Heart rate has been in the 100s to 110s. She unfortunately had to leave work early today because she started to feel so bad. Reports "this does not feel like when I had my stroke." Has been experiencing some lightheadedness and dizziness intermittently as well, but denies any falls or syncopal events. No recent fevers or illness. Denies any visual changes, facial drooping, speech difficulties or ambulatory issues. Admission Exam Per Admitting Provider General: WD/WN, vitals as above, NAD, sitting up in bed, very pleasant, conversing appropriately. A+Ox4, euthymic affect. HEENT: Normocephalic, atraumatic. PERRL, conjunctivae normal, anicteric sclerae. External ear and nose normal, oropharynx normal. Respiratory: Normal respiratory effort, lungs clear to auscultation, no wheeze, rales, rhonchi. No accessory muscle use. Cardiovascular: Regular rate, rhythm, no murmur, normal peripheral pulses, trace BLE edema. Vessels: No JVD. Abdomen/GI: Normal bowel sounds, soft, nontender, no hepatosplenomegaly. Extremities/Musculoskeletal: No cyanosis or clubbing, extremities motor strength intact, moves all extremities. Neurologic: EOMI, accommodation nl, no face palsy, no dysarthria, CN's II-XI not formally tested but appear grossly intact bilaterally. Skin: No rashes, normal color, warm/dry. Discharge Exam General: Alert, oriented. No acute distress Skin: No noted rashes or bruises Psych: Appropriate mood and affect HEENT: NC/AT Chest: Nontender to palpation. CV: RRR Resp: Breath sounds clear bilaterally, no increased effort of breathing. Abdomen: Soft, nontender, nondistended. Extremities: No edema in lower extremities bilaterally. Updated Medication List Medication Instructions Recorded Confirmed Type ascorbic acid (vitamin C) 500 mg 500 mg PO BID 09/14/23 11/27/23 History tablet (Vitamin C) amlodipine 10 mg tablet 10 mg PO QAM 11/27/23 11/27/23 History aspirin 81 mg tablet,delayed 81 mg PO QAM 11/27/23 11/27/23 History release atorvastatin 40 mg tablet 40 mg PO DAILY 11/27/23 11/27/23 History clopidogrel 75 mg tablet 112.5 mg PO QAM 11/27/23 11/27/23 History loratadine 10 mg PO DAILY 11/27/23 11/27/23 History ferrous sulfate 325 mg (65 mg 325 mg PO Q OTHER DAY #30 tabs 11/28/23 Rx iron) tablet,delayed release Hospital Stay Data Consultations 11/27/23 20:47 ED Decision to Admit Stat Diagnostic Imagining Performed 11/27/23 16:42 CT head/brain wo con Stat 11/27/23 23:19 US venous doppler LE BI Stat Chest X-Ray 11/27/23 16:42 XR chest 1V portable CLINICAL HISTORY: stroke alert COMPARISON STUDY: Chest radiograph September 14, 2023. FINDINGS: Lung volumes are normal. Lungs are clear. There is no pneumothorax or pleural effusion. Cardiac size is normal. Mediastinal contours are normal. There is no evidence for pulmonary edema. IMPRESSION: No acute cardiopulmonary findings. ACT 112: Negative or not required by law. Electronically signed by: Elieser Lopez M.D. 11/28/2023 7:[address] 11/27/23 16:42 CT OF THE HEAD WITHOUT CONTRAST CLINICAL HISTORY: Neuro deficit, acute, stroke suspected COMPARISON STUDY: Head CT, CTA of the head and MRI of the brain September 14, 2023. CT DOSE: 625.8 mGy.cm TECHNIQUE: Helical axial images of the head were obtained without IV contrast. Automated exposure control was utilized for the study. A dose lowering t echnique was utilized adhering to the principles of ALARA. FINDINGS: No acute intracranial hemorrhage, midline shift or mass effect is present. The ventricular system is unremarkable. A few hypodense foci within the right frontal lobe represent expected evolution of infarct shown on brain MRI. There is an old left thalamic infarct. This is unchanged. The basal cisterns are patent. No extra-axial collections are present. There are no findings to suggest acute dural sinus thrombosis or acute territorial infarct. No significant calvarial abnormalities are present. Visualized portions of the sinuses and mastoid air cells are clear. IMPRESSION: No acute intracranial findings. Several old infarcts, as above. ACT 112: Negative or not required by law. Electronically signed by: Elieser Lopez M.D. 11/27/2023 5:31 PM Venous Doppler Study 11/27/23 23:19 Exam(s): US VENOUS BILATERAL LOWER EXTREMITIES EXAM: US Duplex Bilateral Lower Extremities Veins CLINICAL HISTORY: Reason for exam: leg swelling. TECHNIQUE: Real-time duplex ultrasound scan of the bilateral lower extremity veins integrating B-mode two-dimensional vascular structure, Doppler spectral analysis, color flow Doppler imaging and Impression. COMPARISON: No relevant prior studies available. FINDINGS: Right deep veins: Unremarkable. No DVT in the right common femoral, femoral, proximal deep femoral or popliteal veins. The veins demonstrate normal color flow, are normally compressible, with normal phasic flow and/or augmentation response. Right superficial veins: Unremarkable. No thrombus in the visualized right great saphenous vein. Left deep veins: Unremarkable. No DVT in the left common femoral, femoral, proximal deep femoral or popliteal veins. The veins demonstrate normal color flow, are normally compressible, with normal phasic flow and/or augmentation response. Left superficial veins: Unremarkable. No thrombus in the visualized left great saphenous vein. Soft tissues: No acute findings. No popliteal cyst. IMPRESSION: Normal bilateral lower extremity duplex venous ultrasound. Electronically signed by: Naeem Carr MD 11/28/23 01:55 AM Pending Results Patient Have Any Pending Studies at Discharge: No Discharge Instructions Given to Patient (Per Discharging Provider) Loren, We are discharging you home per your request. Your symptoms have improved. We treated your iron deficiency anemia with an IV infusion of iron and we are also discharging you home with oral iron supplements. You can start taking those every other day. As we discussed this was likely related to your recent heavy menses. Please keep close follow up with your primary care provider who can refer you to [facility] for further evaluation. Your primary care provider will continue to monitor your hemoglobin and iron levels after discharge. You noted that you would prefer to keep your systolic blood pressure in the range of 140-160 per the recommendations of your Neurosurgery/Neurology team at [facility] and you would prefer to continue with your current blood pressure regimen. Please continue with your home medications as your blood pressure has decreased. Please keep close follow up with your team as scheduled in 2 weeks, sooner if your symptoms seem to be worsening. Again, please keep close follow up with your primary care provider after discharge. Please do not hesitate to come back to the emergency room if your symptoms worsen or return. It was a pleasure taking care of you while you were here. Total Time Total Time Spent Total Time Spent (In Minutes): 65
[2023-11-28] MEDS ORDERED: lisinopril 5 MG TAB PO SCH (21:00)
[2023-11-28] MEDS ORDERED: ATORVASTATIN 40 MG TAB PO SCH (21:00)
--- NOTE | 2023-11-29 06:08 | Electrocardiogram Report ---
Test Reason : Blood Pressure : */* mmHG Vent. Rate : 94 BPM Atrial Rate : 94 BPM P-R Int : 172 ms QRS Dur : 68 ms QT Int : 340 ms P-R-T Axes : 24 14 32 degrees QTcB Int : 425 ms Normal sinus rhythm Anteroseptal infarct (cited on or before Nonspecific T wave abnormality Abnormal ECG When compared with ECG of 14-Sep-2023 15:08, Nonspecific T wave abnormality has replaced inverted T waves in Inferior leads Nonspecific T wave abnormality, worse in Lateral leads QT has shortened Confirmed by John Dash ([id number]) on 11/29/2023 6:08:21 AM Referred By: REFERRED SELF Confirmed By: John Dash
== END 2023-11-28 19:13 | disposition home or self-care (01) | DRG 812 ==
LOC: ED 16:31 → EDINP 23:21 → 4W 11-28 00:42